=== PATIENT | female | born 1940 | race Caucasian/White ===

== ENCOUNTER 2017-04-13 18:40 | Inpatient (IN) ==
--- NOTE | 2017-04-13 18:54 | Emergency Department Note ---
Disposition Clinical Impression: Influenza A, Elevated troponin COPD (chronic obstructive pulmonary disease) Qualifiers: COPD type: COPD with acute exacerbation Qualified Code(s): J44.1 - Chronic obstructive pulmonary disease with (acute) exacerbation Disposition: Admitted As Inpatient Condition: Fair General Adult HPI - General Chief complaint: ED Weakness Stated complaint: lethargic and fall Time Seen by Provider: 04/13/17 18:48 Source: patient Mode of arrival: EMS Limitations: no limitations Nursing Notes Reviewed: Yes Vital Signs Reviewed: Yes - History of Present Illness HPI Narrative: Patient has had a cough and wheezing with whitish sputum for several days for this fellow week but today is the worst so she came to emergency department for evaluation Onset (ago): day(s) (several days to a week) Location: chest Pain Scale: 0 Consistency: constant Improves with: nothing Worsens with: nothing Associated symptoms: Reports: cough, shortness of breath, weakness - Related Data Home Medications Medication Instructions Recorded Confirmed Calcitriol [Rocaltrol] 0.25 mcg PO MOWEFR 06/24/15 04/13/17 Carbidopa/Levodopa 25/100 [Sinemet 1 tab PO TID 06/24/15 04/13/17 25/100] Cholecalciferol (Vitamin D3) 5,000 unit PO DAILY 06/24/15 04/13/17 [Vitamin D3] Clopidogrel Bisulfate [Plavix] 75 mg PO DAILY 06/24/15 04/13/17 Fluticasone Propionate Nasal 2 spray NS HS 06/24/15 02/05/17 [Flonase] Furosemide [Lasix] 40 mg PO BID 06/24/15 04/13/17 Gabapentin [Neurontin] 800 mg PO QID 06/24/15 04/13/17 HYDROcodone/Acet 5/325 mg [[place] 1 tab PO TID 06/24/15 02/05/17 5-325 mg] Insulin ASPART [Novolog Flexpen] 12 unit SQ TID 06/24/15 02/05/17 Insulin DETEMIR [Levemir Flextouch] 80 unit SQ QAM 06/24/15 02/05/17 Leflunomide [Arava] 10 mg PO QPM 06/24/15 04/13/17 Levothyroxine Sodium [Tirosint] 88 mcg PO DAILY 06/24/15 04/13/17 Magnesium l-Lactate [Mag-Tab Sr] 84 mg PO QPM 06/24/15 04/13/17 Potassium Chloride [K-Tab ER] 20 meq PO TID 06/24/15 04/13/17 Rivaroxaban [Xarelto] 15 mg PO QPM 06/24/15 04/13/17 Tiotropium [Spiriva] 1 cap PO DAILY 06/24/15 02/05/17 Ustekinumab [Stelara (For 90 mg SQ [id number] 06/24/15 02/05/17 Outpatient Infusion)] Vitamin B Complex [B Complex] 1 tab PO QPM 06/24/15 04/13/17 Fluticasone/Salmeterol [Advair 1 puff IH BID 07/20/15 02/05/17 250-50 Diskus] Inulin/Chromium Picolinate [Fiber 500 mg PO DAILY #0 07/20/15 02/05/17 Gummies] Levalbuterol [Xopenex INH] 2 puff PO Q6H 07/20/15 02/05/17 Pantoprazole Sodium [Protonix] 40 mg PO DAILY 05/29/16 04/13/17 hydrOXYzine pamoate [Hydroxyzine 25 mg PO Q8H PRN 05/29/16 02/05/17 Pamoate] Atorvastatin [Lipitor] 40 mg PO HS 09/03/16 04/13/17 Metoprolol [Lopressor] 25 mg PO BID 09/03/16 04/13/17 Tizanidine HCl 4 mg PO TID PRN 09/03/16 02/05/17 Previous Rx's Medication Instructions Recorded HYDROcodone/Acet 5/325 mg [[place] 1 tab PO Q6H PRN #15 tab 02/05/17 5-325 mg] Allergies Allergy/AdvReac Type Severity Reaction Status Date / Time amlodipine [From Norvasc] Allergy Severe Swelling Verified 02/05/17 10:22 of Lip/Tongue/Throat carbamazepine [From Tegretol] Allergy Mild rash/bliste Verified 02/05/17 10:22 rs ciprofloxacin [From Cipro] Allergy Mild Rash Verified 02/05/17 10:22 nitrofurantoin Allergy Mild Rash Verified 02/05/17 10:22 [From Macrobid] Sulfa (Sulfonamide Allergy Mild Rash Verified 02/05/17 10:22 Antibiotics) sulfamethoxazole Allergy Mild Rash Verified 02/05/17 10:22 [From Bactrim] trimethoprim [From Bactrim] Allergy Mild Rash Verified 02/05/17 10:22 acetaminophen [From Percocet] AdvReac Mild Confusion Verified 02/05/17 10:22 meperidine [From Demerol] AdvReac Mild Vomiting Verified 02/05/17 10:22 Oxycodone [From Percocet] AdvReac Mild Confusion Verified 02/05/17 10:22 promethazine [From Phenergan] AdvReac Mild Vomiting Verified 02/05/17 10:22 NSAIDS (Non-Steroidal AdvReac Unknown D/T KIDNEY Verified 02/05/17 10:22 Anti-Inflamma DYSFUNCTION All systems ED: reviewed and negative except as stated. Review of Systems: As Per HPI Constitutional: Denies: fever, chills, weakness, weight change Eyes: Denies: eye pain, eye discharge, vision change ENT ED: Denies: ear pain, throat pain, dental pain, hearing loss, epistaxis, congestion, dysphagia Cardiovascular: Denies: chest pain, palpitations, dyspnea on exertion, edema, syncope Respiratory: Reports: as per HPI, cough, wheezes Gastrointestinal: Denies: abdominal pain, nausea, vomiting, diarrhea, constipation, hematemesis, melena, hematochezia Genitourinary: Denies: dysuria, frequency, hematuria, discharge Musculoskeletal: Denies: back pain, neck pain, arthralgia, myalgia Integumentary: Denies: rash, abrasion, lesions Neurological: Denies: headache, weakness, numbness, paresthesias, confusion, abnormal gait, vertigo Psychiatric: Denies: anxiety, depression, suicidal thoughts, homicidal thoughts , auditory hallucinations, visual hallucinations Endocrine: Denies: fatigue Hematological/Lymphatic: Denies: easy bleeding, easy bruising Allergic/Immunologic: Denies: facial swelling, urticaria Past Medical History - Past Medical History Attestation: Yes The following information was validated with the patient. Source: patient Medical history: Reports: atrial fibrillation, COPD, coronary artery disease, DVT, diabetes, GERD, hyperlipidemia, hypertension, TIA Surgical history: Reports: angioplasty/stent, cholecystectomy, hysterectomy, other Psychiatric history: Reports: depression - Social History Smoking Status: Never smoker Smokeless Tobacco Status: No Alcohol use: Reports: none Drug use: Reports: none Physical Exam - General Limitations: no limitations General appearance: alert - Head Head exam: atraumatic, normocephalic, normal inspection - Eye Eye exam: Present: normal appearance, PERRL, EOMI - ENT ENT exam: normal exam, normal oropharynx, mucous membranes moist - Neck Neck exam: Present: normal inspection, full ROM, trachea midline - Chest Chest inspection: Present: normal inspection, symmetric chest wall rise - Respiratory Respiratory exam: Present: wheezes (scattered basilar expiratory) - Cardiovascular Cardiovascular exam: Present: regular rate, normal rhythm, normal heart sounds - Abdominal Exam Abdominal exam: Present: soft, Non-Tender - Extremities Exam Extremities exam: Present: normal inspection - Neurological Exam Neurological exam: Present: alert, oriented X3 - Psychiatric Psychiatric exam: Present: normal affect, normal mood - Skin Skin exam: Present: warm, dry, intact Course Course Narrative: Patient signed out to me by outgoing physician, Dr. holguin. Patient presented to the ED with worsening cough, congestion and wheezing over the past few days. She does have a history of COPD and was given steroids and breathing treatment in the ED. Laboratory studies were obtained as well including a flu swab. Patient tested positive for influenza A. She also has a mildly elevated troponin of 0.05 which may be due to additional stress from her COPD and her influenza. She does not have any current cardiac complaints but does have history of CAD and A. fib. Due to the elevated troponin patient may benefit from brief observation and continued monitoring as she is at risk for complications of the influenza A. She has been started on Tamiflu in the ED. Discussed with patient her test results and recommendation for admission and she is in agreement. Will contact the hospitalist on-call. - Reevaluation(s) Reevaluation #1: Spoke to the hospitalist on-call, Dr. Feldman, who has agreed to accept the patient. Time: 21:15 Vital Signs O2 Sat by Pulse Oximetry 98 04/13/17 18:44 Temperature 99.9 F H 04/13/17 22:37 Pulse Rate 90 04/13/17 22:37 Respiratory Rate 18 04/13/17 22:37 Blood Pressure 120/57 04/13/17 22:37 O2 Sat by Pulse Oximetry 94 04/13/17 23:36 Oxygen Delivery Oxygen Delivery Nasal Cannula Medical Decision Making - Lab Data Result diagrams: 04/13/17 19:12 04/13/17 19:12 Lab Results 04/13/17 04/13/17 04/13/17 Range/Units 19:12 19:12 19:12 WBC 8.4 (4.3-11.1) K/mcL RBC 3.37 L (3.82-4.97) M/mcL Hgb 10.6 L (11.5-15.4) g/dL Hct 33.1 L (35.3-44.9) % MCV 98.2 (83.0-100.0) fL MCH 31.5 (28.0-33.3) pg MCHC 32.0 (31.6-35.5) g/dL RDW 13.8 (11.5-14.5) % Plt Count 167 (140-400) K/mcL MPV 12.6 H (9.4-12.4) fL Immature Gran % 0.8 (0-4) % Seg Neutrophils % 77.4 % Lymphocytes % 7.2 % Monocytes % 12.9 % Eosinophils % 0.4 % Basophils % 1.3 % Neutrophils # 6.5 (1.6-8.9) K/mcL Lymphocytes # 0.6 (0.6-4.6) K/mcL Monocytes # 1.1 (0.0-1.3) K/mcL Eosinophils # 0.0 (0.0-0.6) K/mcL Basophils # 0.1 (0.0-0.2) K/mcL Sodium 140 (136-145) mEq/L Potassium 4.6 (3.5-5.1) mEq/L Chloride 101 (98-107) mEq/L Carbon Dioxide 34 H (23-29) mEq/L BUN 15 (8-23) mg/dL Creatinine 0.98 (0.60-1.20) mg/dL Est GFR ( Amer) > 60 (> 60) Est GFR (Non-Af Amer) 55 L (> 60) BUN/Creatinine Ratio 15 (6-26) Glucose 107 H (70-105) mg/dL Calculated Osmolality 291 (280-300) Calcium 8.8 (8.6-10.3) mg/dL Total Bilirubin 0.2 L (0.3-1.0) mg/dL AST 39 (13-39) Units/L ALT 10 (7-52) Units/L Alkaline Phosphatase 123 H (34-104) Units/L Troponin I 0.05 H* (< 0.04) ng/mL Serum Total Protein 6.7 (6.4-8.9) g/dL Albumin 3.7 (3.5-5.7) g/dL Globulin 3.0 (2.4-3.5) g/dL Albumin/Globulin Ratio 1.2 (1.1-2.2) Urine Color (Yellow) Urine Clarity (Clear) Urine pH (5.0-8.0) pH Units Ur Specific [place] (1.010-1.025) Urine Protein (Neg-Trace) mg/dL Urine Glucose (UA) (Normal) mg/dL Urine Ketones (Negative) mg/dL Urine Blood (Negative) Urine Nitrite (Negative) Urine Bilirubin (Negative) Urine Urobilinogen (Normal) mg/dL Ur Leukocyte Esterase (Negative) Urine Microscopic RBC (0-3) per hpf Urine Microscopic WBC (0-3) per hpf Ur Squamous Epith Cells (None-Few) per lpf Urine Bacteria (None-Few) per hpf Hyaline Casts (None-Few) per lpf Ur Culture Indicated? (NO) 04/13/17 Range/Units 20:27 WBC (4.3-11.1) K/mcL RBC (3.82-4.97) M/mcL Hgb (11.5-15.4) g/dL Hct (35.3-44.9) % MCV (83.0-100.0) fL MCH (28.0-33.3) pg MCHC (31.6-35.5) g/dL RDW (11.5-14.5) % Plt Count (140-400) K/mcL MPV (9.4-12.4) fL Immature Gran % (0-4) % Seg Neutrophils % % Lymphocytes % % Monocytes % % Eosinophils % % Basophils % % Neutrophils # (1.6-8.9) K/mcL Lymphocytes # (0.6-4.6) K/mcL Monocytes # (0.0-1.3) K/mcL Eosinophils # (0.0-0.6) K/mcL Basophils # (0.0-0.2) K/mcL Sodium (136-145) mEq/L Potassium (3.5-5.1) mEq/L Chloride (98-107) mEq/L Carbon Dioxide (23-29) mEq/L BUN (8-23) mg/dL Creatinine (0.60-1.20) mg/dL Est GFR ( Amer) (> 60) Est GFR (Non-Af Amer) (> 60) BUN/Creatinine Ratio (6-26) Glucose (70-105) mg/dL Calculated Osmolality (280-300) Calcium (8.6-10.3) mg/dL Total Bilirubin (0.3-1.0) mg/dL AST (13-39) Units/L ALT (7-52) Units/L Alkaline Phosphatase (34-104) Units/L Troponin I (< 0.04) ng/mL Serum Total Protein (6.4-8.9) g/dL Albumin (3.5-5.7) g/dL Globulin (2.4-3.5) g/dL Albumin/Globulin Ratio (1.1-2.2) Urine Color Yellow (Yellow) Urine Clarity Slightly Cloudy A (Clear) Urine pH 7.5 (5.0-8.0) pH Units Ur Specific [place] 1.015 (1.010-1.025) Urine Protein 100 H (Neg-Trace) mg/dL Urine Glucose (UA) Normal (Normal) mg/dL Urine Ketones Negative (Negative) mg/dL Urine Blood Trace-intact H (Negative) Urine Nitrite Negative (Negative) Urine Bilirubin Negative (Negative) Urine Urobilinogen Normal (Normal) mg/dL Ur Leukocyte Esterase Small H (Negative) Urine Microscopic RBC 3-5 H (0-3) per hpf Urine Microscopic WBC 3-5 H (0-3) per hpf Ur Squamous Epith Cells Many H (None-Few) per lpf Urine Bacteria Moderate H (None-Few) per hpf Hyaline Casts Few (None-Few) per lpf Ur Culture Indicated? NO. (NO) - EKG Data EKG #1 EKG attestation: Yes I reviewed and interpreted this EKG. EKG results narrative: EKG shows atrial fibrillation with a controlled rate of 86 bpm QRS duration 69 ms QT interval 319 ms QTc interval of 362 ms R axis LXXV degrees there is no acute ST or T-wave changes per my reading
[2017-04-13] MEDS ORDERED: methylPREDNISolone 125 MG/2 ML VIAL IVP ONE (19:09)
[2017-04-13] MEDS ORDERED: Ipratropium/Albuterol Neb 3 ML IH ONE (19:09)
[2017-04-13 19:23] LABS: Basophils # 0.1 K/mcL (0.0-0.2); Basophils % 1.3 %; Eosinophils % 0.4 %; Hematocrit 33.1 % (35.3-44.9); Hemoglobin 10.6 g/dL (11.5-15.4); Immature Granulocytes % 0.8 % (0-4); Lymphocytes # 0.6 K/mcL (0.6-4.6); Lymphocytes % 7.2 %; Mean Corpuscular Hemoglobin 31.5 pg (28.0-33.3); Mean Corpuscular Volume 98.2 fL (83.0-100.0); Mean Platelet Volume 12.6 fL (9.4-12.4); Monocytes # 1.1 K/mcL (0.0-1.3); Monocytes % 12.9 %; Neutrophils # 6.5 K/mcL (1.6-8.9); Platelet Count 167 K/mcL (140-400); Red Blood Count 3.37 M/mcL (3.82-4.97); Red Cell Distribution Width 13.8 % (11.5-14.5); Segmented Neutrophils % 77.4 %
[2017-04-13 19:34] LABS: Alanine Aminotransferase 10 Units/L (7-52); Albumin 3.7 g/dL (3.5-5.7); Albumin/Globulin Ratio 1.2 (1.1-2.2); Alkaline Phosphatase 123 Units/L (34-104); Aspartate Amino Transferase 39 Units/L (13-39); BUN/Creatinine Ratio 15 (6-26); Bilirubin,Total 0.2 mg/dL (0.3-1.0); Blood Urea Nitrogen 15 mg/dL (8-23); Calcium 8.8 mg/dL (8.6-10.3); Carbon Dioxide 34 mEq/L (23-29); Chloride 101 mEq/L (98-107); Glucose 107 mg/dL (70-105); Osmolality,Calculated 291 (280-300); Potassium 4.6 mEq/L (3.5-5.1); Sodium 140 mEq/L (136-145); Total Protein 6.7 g/dL (6.4-8.9); eGFR For Non-African Americans 55 (> 60)
[2017-04-13 20:27] LABS: Bilirubin,Urine Negative (Negative); Blood,Urine Trace-intact (Negative); Clarity,Urine Slightly Cloudy (Clear); Color,Urine Yellow (Yellow); Glucose,Urine (UA) Normal (Normal); Ketones,Urine Negative (Negative); Leukocyte Esterase,Urine Small (Negative); Nitrite,Urine Negative (Negative); PH,Urine 7.5 pH Units (5.0-8.0); Protein,Urine 100 mg/dL (Neg-Trace); Specific Gravity,Urine 1.015 (1.010-1.025); Urobilinogen,Urine Normal (Normal)
[2017-04-13 20:47] LABS: Hyaline Casts,Urine Few per lpf (None-Few); Squamous Epithelial Cell,Urine Many per lpf (None-Few)
[2017-04-13 20:48] LABS: Bacteria,Urine Moderate per hpf (None-Few)
[2017-04-13] MEDS ORDERED: Naloxone 0.4 MG/ML INJ IVP PRN ×2 (21:18→22:03)
[2017-04-13] MEDS ORDERED: Ipratropium/Albuterol Neb 3 ML IH SCH (22:00)
[2017-04-13] MEDS ORDERED: D5% in Water 1,000 ML IVC PRN (22:03)
[2017-04-13] MEDS ORDERED: Ondansetron 4 MG/2 ML VIAL IVP ONE (22:03)
[2017-04-13] MEDS ORDERED: *HR* Dextrose 50 % in Water (Syg) 50 ML SYRINGE IVP PRN (22:03)
[2017-04-13] MEDS ORDERED: Dextrose Gel 15 GM/37.5 ML TUBE PO PRN ×2 (22:03)
[2017-04-14] MEDS: Ipratropium/Albuterol Neb 3 ML IH SCH ×6 (00:34→19:59)
[2017-04-14] MEDS: Acetaminophen 325 MG TABLET PO PRN ×2 (00:40→20:14)
[2017-04-14] MEDS: Furosemide 40 MG TABLET PO SCH ×2 (08:21→16:34)
[2017-04-14] MEDS: Gabapentin 400 MG CAPSULE PO SCH ×4 (08:22→20:13)
[2017-04-14] MEDS: Cholecalciferol (D-3) 1,000 UNIT TABLET PO SCH (08:22)
[2017-04-14] MEDS: Carbidopa/Levodopa 25/100 TABLET PO SCH ×3 (08:22→20:14)
[2017-04-14] MEDS: Insulin LISPRO 300 UNITS/3 ML VIAL SQ SCH ×3 (08:25→16:35)
[2017-04-14] MEDS ORDERED: INSULIN DETEMIR 80 UNIT SQ SCH (09:00)
[2017-04-14] MEDS: Insulin DETEMIR 100 UNIT/ML X5UNITS SQ SCH (09:39)
--- NOTE | 2017-04-14 11:59 | Internal Med History&Physical ---
Date of Encounter: 04/14/17 Time of Encounter: 11:25 Assessment and Plan (1) Influenza A Current visit: Yes Status: Acute She has been started on Tamiflu. (2) Anemia Current visit: Yes Status: Acute We will order anemia testing in a.m. Qualifiers: Anemia type: unspecified type Qualified Code(s): D64.9 - Anemia, unspecified (3) Atrial fibrillation Current visit: Yes Status: Chronic Continue Xarelto Qualifiers: Atrial fibrillation type: chronic Qualified Code(s): I48.2 - Chronic atrial fibrillation (4) COPD (chronic obstructive pulmonary disease) Current visit: Yes Status: Chronic Continue DuoNeb. Will add Robitussin. Qualifiers: COPD type: COPD with acute exacerbation Qualified Code(s): J44.1 - Chronic obstructive pulmonary disease with (acute) exacerbation (5) Essential hypertension Current visit: No Status: Chronic Continue Lopressor (6) Elevated troponin Current visit: Yes Status: Acute Suspect troponin leak from demand ischemia. Internal Medicine - H&P: HPI Chief complaint: Dyspnea and cough Admitted From: Emergency Dept Plans for Post Hospital Care: Home History of present illness: Ms. Whitmore is a 76 year old female who came to emergency room complaining of increasing dyspnea over the past week with worsening in the past 3 days. She had a cough with minimal productivity. She was evaluated emergency room and found to have influenza a pH was admitted to [facility] floor for ongoing care needs. Her respiratory history is significant for having smoked from age [age] up to 2- 1/2 packs per day. She has a diagnosis of COPD with PFTs 08/30/2015 showing FEV1/FVC of 66%. There was no improvement in FEV1 postbronchodilator. FVC was 67% predicted. MVV was 42% predicted. DLCO was 56% predicted. She wears oxygen 24/7. Past Med Surg Social Fam HX - Past Medical History Medical history: atrial fibrillation, COPD, coronary artery disease, DVT, diabetes, GERD, hyperlipidemia, hypertension, TIA Psychiatric history: depression - Past Surgical History Surgical History: angioplasty/stent, cholecystectomy, hysterectomy, other - Social History Smoking Status: Never smoker Smokeless Tobacco Status: No Alcohol use: none Drug use: none - Family History Mother Adopted: No Living Status: Hx Family Cardiac Disorders: Yes Hx Family Respiratory Disorders: Yes (COPD) Hx Family Cancer: Yes (lung, breast) Hx Family GI Disorders: No Hx Family Endocrine Disorder: No Hx Family Neuromuscular Disorders: No Hx Family Neurologic Disorders: No Hx Family HEENT Disorders: No Hx Family Autoimmune Disorders: Yes (non hygkins lymphoma) Internal Medicine - H&P: Meds Calcitriol [Rocaltrol] 0.25 mcg PO MOWEFR 06/24/15 [History] Carbidopa/Levodopa 25/100 [Sinemet 25/100] 1 tab PO TID 06/24/15 [History] Cholecalciferol (Vitamin D3) [Vitamin D3] 5,000 unit PO DAILY 06/24/15 [History] Clopidogrel Bisulfate [Plavix] 75 mg PO DAILY 06/24/15 [History] Fluticasone Propionate Nasal [Flonase] 2 spray NS HS 06/24/15 [History] Furosemide [Lasix] 40 mg PO BID 06/24/15 [History] Gabapentin [Neurontin] 800 mg PO QID 06/24/15 [History] HYDROcodone/Acet 5/325 mg [[place] 5-325 mg] 1 tab PO TID 06/24/15 [History] Insulin ASPART [Novolog Flexpen] 12 unit SQ TID 06/24/15 [History] Insulin DETEMIR [Levemir Flextouch] 80 unit SQ QAM 06/24/15 [History] Leflunomide [Arava] 10 mg PO QPM 06/24/15 [History] Levothyroxine Sodium [Tirosint] 88 mcg PO DAILY 06/24/15 [History] Magnesium l-Lactate [Mag-Tab Sr] 84 mg PO QPM 06/24/15 [History] Potassium Chloride [K-Tab ER] 20 meq PO TID 06/24/15 [History] Rivaroxaban [Xarelto] 15 mg PO QPM 06/24/15 [History] Tiotropium [Spiriva] 1 cap PO DAILY 06/24/15 [History] Ustekinumab [Stelara (For Outpatient Infusion)] 90 mg SQ [id number] 06/24/15 [ History] Vitamin B Complex [B Complex] 1 tab PO QPM 06/24/15 [History] Fluticasone/Salmeterol [Advair 250-50 Diskus] 1 puff IH BID 07/20/15 [History] Inulin/Chromium Picolinate [Fiber Gummies] 500 mg PO DAILY #0 07/20/15 [History] Levalbuterol [Xopenex INH] 2 puff PO Q6H 07/20/15 [History] Pantoprazole Sodium [Protonix] 40 mg PO DAILY 05/29/16 [History] hydrOXYzine pamoate [Hydroxyzine Pamoate] 25 mg PO Q8H PRN 05/29/16 [History] Atorvastatin [Lipitor] 40 mg PO HS 09/03/16 [History] Metoprolol [Lopressor] 25 mg PO BID 09/03/16 [History] Tizanidine HCl 4 mg PO TID PRN 09/03/16 [History] HYDROcodone/Acet 5/325 mg [[place] 5-325 mg] 1 tab PO Q6H PRN #15 tab 02/05/17 [Rx ] 3 Allergy/AdvReac Type Severity Reaction Status Date / Time amlodipine [From Norvasc] Allergy Severe Swelling Verified 02/05/17 10:22 of Lip/Tongue/Throat carbamazepine [From Tegretol] Allergy Mild rash/bliste Verified 02/05/17 10:22 rs ciprofloxacin [From Cipro] Allergy Mild Rash Verified 02/05/17 10:22 nitrofurantoin Allergy Mild Rash Verified 02/05/17 10:22 [From Macrobid] Sulfa (Sulfonamide Allergy Mild Rash Verified 02/05/17 10:22 Antibiotics) sulfamethoxazole Allergy Mild Rash Verified 02/05/17 10:22 [From Bactrim] trimethoprim [From Bactrim] Allergy Mild Rash Verified 02/05/17 10:22 acetaminophen [From Percocet] AdvReac Mild Confusion Verified 02/05/17 10:22 meperidine [From Demerol] AdvReac Mild Vomiting Verified 02/05/17 10:22 Oxycodone [From Percocet] AdvReac Mild Confusion Verified 02/05/17 10:22 promethazine [From Phenergan] AdvReac Mild Vomiting Verified 02/05/17 10:22 NSAIDS (Non-Steroidal AdvReac Unknown D/T KIDNEY Verified 02/05/17 10:22 Anti-Inflamma DYSFUNCTION All Systems PM: A 10-system review of systems was performed and is negative for pertinent findings except as documented above in the HPI. Review of systems: Gen.: She states her weight has been stable the past few months. Cardiovascular: She has history of hypertension. She has known ASHD with a single stent placed approximately 2013. Heart catheter 07/20/2015 showed LVEF 60%. There was 20% stenosis in LMCA, proximal LAD with stent, 20% stenosis in proximal and mid LAD, 30% stenosis in proximal circumflex, 30% stenosis in first marginal, 30% stenosis in proximal and distal RCA and 40% stenosis in mid RCA, and 30% stenosis in right PDA. She reports history of atrial fibrillation. She states she had a left DVT in the past. Respiratory: As per history of present illness GI: She has had cholecystectomy. She denies disorders of her liver or exocrine pancreas : She has chronic kidney disease stage III and follows with a [place] manager occupational. She denies other kidney or bladder disorders Neurologic: She has Parkinson's disease. She denies large distribution strokes or seizures. Endocrine: She was diagnosed with DM 2 in 1998. Hemoglobin A1c was 6.3% on 06/2016. She has hypothyroidism and hyperlipidemia. Hematology/oncology: She has anemia. Iron studies done 12/10/2016 showed iron 43, transferrin saturation 15%, transferrin 211, and ferritin 110. She denies internal malignancies Psychiatric: She has anxiety and depression. Muscle skeletal: She has gout and DJD. Dermatologic: She has psoriasis of her scalp. - Constitutional Vitals: Temp Pulse Resp BP Pulse Ox 98.9 F 75 22 141/76 96 04/14/17 11:14 04/14/17 11:14 04/14/17 11:30 04/14/17 11:14 04/14/17 11:30 Exam: Gen.: She is well-developed well-nourished female lying in bed and appears dyspneic. HEENT: Head is atraumatic and normocephalic. Eyes: EOMI. There is no scleral icterus. Mouth: Mucosa is moist. Neck: Supple and nontender. There is no thyromegaly or adenopathy noted. Heart: Irregularly irregular without murmurs or gallops. Lungs: She has few scattered rhonchi. She has diminished breath sounds diffusely. Abdomen: Soft and nontender. No masses or guarding are noted. Extremities: There is no cyanosis edema or clubbing noted. Dorsalis pedis and posttibial pulses are trace palpable bilaterally. She has chronic venous stasis pigmentation changes of her lower legs bilaterally. Neurologic: Mental status: She is talkative and a good historian. Cranial nerves: Smile is symmetric. Forehead wrinkles bilaterally. Tongue protrudes midline. EOMI. Motor: She has parkinsonian tremor at rest. There is no pronator drift. Cerebellar: Finger to nose is intact bilaterally. Skin: Warm and dry Internal Med - H&P Results - Labs CBC & Chem 7: 04/13/17 19:12 04/13/17 19:12 Labs: Cardiac Enzymes 04/14/17 Range/Units 03:45 Troponin I 0.05 H* (< 0.04) ng/mL - VTE Reasons for not Prescribing Prophylaxis: Not indicated-Anticoagulated or INR therapeutic
[2017-04-14] MEDS: traMADol 50 MG TABLET PO PRN (16:35)
[2017-04-14] MEDS: Patient Taking Own Medication 1 EACH PO SCH ×2 (18:27→18:28)
[2017-04-14] MEDS: Vitamin B Complex/Vit C/Vit E 1 EACH TABLET PO SCH (18:29)
[2017-04-14] MEDS: *HR* Rivaroxaban 15 MG TABLET PO SCH (18:29)
--- NOTE | 2017-04-14 18:31 | Electrocardiograph Report ---
[address] [address] Test Date: 2017-04-13 Pat Name: Alejandra Whitmore Department: [id number] Room: [facility] Gender: F [employer] Rec[employer]iter: [id number] : 1940 Requested By: Venkat Call Order Number: [id number] Reading MD: Soraida López Measurements Intervals [place] Rate: 86 P: PA: 0 QRS: 75 QRSD: 69 T: 39 QT: 319 QTc: 362 Interpretive Statements ATRIAL FIBRILLATION LOW QRS VOLTAGE IN PRECORDIAL LEADS [QRS DEFLECTION < 1.0 mV IN CHEST LEADS] ABNORMAL RHYTHM ECG Electronically Signed On 04-14-2017 18:29:45 EST by Soraida López
[2017-04-15] MEDS: Ipratropium/Albuterol Neb 3 ML IH SCH ×6 (00:16→20:44)
[2017-04-15] MEDS: traMADol 50 MG TABLET PO PRN ×2 (05:24→09:37)
[2017-04-15 06:09] LABS: Basophils # 0.1 K/mcL (0.0-0.2); Basophils % 0.8 %; Eosinophils # 0.1 K/mcL (0.0-0.6); Eosinophils % 0.4 %; Hematocrit 33.8 % (35.3-44.9); Hemoglobin 10.3 g/dL (11.5-15.4); Immature Granulocytes % 0.6 % (0-4); Lymphocytes # 1.2 K/mcL (0.6-4.6); Lymphocytes % 7.6 %; Mean Corpuscular HGB Conc 30.5 g/dL (31.6-35.5); Mean Corpuscular Hemoglobin 31.5 pg (28.0-33.3); Mean Corpuscular Volume 103.4 fL (83.0-100.0); Mean Platelet Volume 12.7 fL (9.4-12.4); Monocytes # 1.3 K/mcL (0.0-1.3); Monocytes % 8.6 %; Platelet Count 170 K/mcL (140-400); Red Blood Count 3.27 M/mcL (3.82-4.97); Red Cell Distribution Width 14.3 % (11.5-14.5)
[2017-04-15 06:40] LABS: Neutrophils # 12.6 K/mcL (1.6-8.9)
[2017-04-15] MEDS: Insulin LISPRO 300 UNITS/3 ML VIAL SQ SCH ×3 (09:25→17:03)
[2017-04-15] MEDS: Insulin DETEMIR 100 UNIT/ML X5UNITS SQ SCH (09:25)
[2017-04-15] MEDS: Gabapentin 400 MG CAPSULE PO SCH ×4 (09:26→21:53)
[2017-04-15] MEDS: Carbidopa/Levodopa 25/100 TABLET PO SCH ×3 (09:26→21:54)
[2017-04-15] MEDS: Cholecalciferol (D-3) 1,000 UNIT TABLET PO SCH (09:26)
[2017-04-15] MEDS: Furosemide 40 MG TABLET PO SCH ×2 (09:26→17:04)
[2017-04-15] MEDS: Acetaminophen 325 MG TABLET PO PRN ×2 (09:37→21:53)
--- NOTE | 2017-04-15 09:44 | Internal Med Progress Note ---
Date of Encounter: 04/15/17 Time of Encounter: 10:36 - Assessment and plan (1) Influenza A Current Visit: Yes Status: Acute Assessment and plan: April 15. Continue Tamiflu (2) Anemia Current Visit: Yes Status: Acute Assessment and plan: April 15. Anemia testing pending Qualifiers: Anemia type: unspecified type Qualified Code(s): D64.9 - Anemia, unspecified (3) Atrial fibrillation Current Visit: Yes Status: Chronic Assessment and plan: April 15. Continue Xarelto Qualifiers: Atrial fibrillation type: chronic Qualified Code(s): I48.2 - Chronic atrial fibrillation (4) COPD (chronic obstructive pulmonary disease) Current Visit: Yes Status: Chronic Assessment and plan: April 15. Continue DuoNeb and Robitussin Qualifiers: COPD type: COPD with acute exacerbation Qualified Code(s): J44.1 - Chronic obstructive pulmonary disease with (acute) exacerbation (5) Essential hypertension Current Visit: No Status: Chronic Assessment and plan: April 15. Continue Lopressor (6) Elevated troponin Current Visit: Yes Status: Acute Assessment and plan: April 15. Observe - Subjective Interval history: April 15. She has no new complaints. - Constitutional Vitals: Temp Pulse Resp BP Pulse Ox 101.2 F H 98 18 150/78 94 04/15/17 06:40 04/15/17 06:40 04/15/17 07:41 04/15/17 06:40 04/15/17 07:41 Exam: She is sitting in a chair at bedside wearing oxygen by nasal cannula. She appears in no acute distress. Her affect is overall cheerful. Parkinsonian tremor is unchanged. I reviewed her medications and lab results. Internal Medicine: Result - Labs CBC & Chem 7: 04/15/17 04:00 04/13/17 19:12 Labs: Short CBC 04/15/17 Range/Units 04:00 WBC 15.3 H D (4.3-11.1) K/mcL Hgb 10.3 L (11.5-15.4) g/dL Hct 33.8 L (35.3-44.9) % Plt Count 170 (140-400) K/mcL Neutrophils # 12.6 H (1.6-8.9) K/mcL - VTE Reasons for not Prescribing Prophylaxis: Not indicated-Anticoagulated or INR therapeutic Consult Discharge Plan - Plan Referrals: Otf Rivera MD [Primary Care Provider] - 1 week
[2017-04-15 09:53] LABS: Vitamin B12 266 pg/mL (250-1100)
[2017-04-15 09:57] LABS: Folate > 22.3 ng/mL (3.0-16.0)
[2017-04-15] MEDS: Patient Taking Own Medication 1 EACH PO SCH ×2 (16:30→16:31)
[2017-04-15] MEDS: Vitamin B Complex/Vit C/Vit E 1 EACH TABLET PO SCH (17:08)
[2017-04-15] MEDS: *HR* Rivaroxaban 15 MG TABLET PO SCH (17:09)
[2017-04-16] MEDS: Ipratropium/Albuterol Neb 3 ML IH SCH ×3 (00:49→08:41)
[2017-04-16] MEDS: traMADol 50 MG TABLET PO PRN ×2 (05:14→09:25)
[2017-04-16 05:58] LABS: Basophils # 0.1 K/mcL (0.0-0.2); Basophils % 0.7 %; Eosinophils # 0.1 K/mcL (0.0-0.6); Eosinophils % 0.9 %; Hematocrit 32.8 % (35.3-44.9); Hemoglobin 10.3 g/dL (11.5-15.4); Immature Granulocytes % 0.7 % (0-4); Lymphocytes # 2.1 K/mcL (0.6-4.6); Lymphocytes % 17.6 %; Mean Corpuscular HGB Conc 31.4 g/dL (31.6-35.5); Mean Corpuscular Hemoglobin 30.8 pg (28.0-33.3); Mean Corpuscular Volume 98.2 fL (83.0-100.0); Mean Platelet Volume 12.4 fL (9.4-12.4); Monocytes # 1.3 K/mcL (0.0-1.3); Monocytes % 10.4 %; Neutrophils # 8.4 K/mcL (1.6-8.9); Platelet Count 154 K/mcL (140-400); Red Blood Count 3.34 M/mcL (3.82-4.97); Red Cell Distribution Width 13.8 % (11.5-14.5); Segmented Neutrophils % 69.7 %
[2017-04-16 06:19] LABS: BUN/Creatinine Ratio 25 (6-26); Blood Urea Nitrogen 18 mg/dL (8-23); Calcium 8.2 mg/dL (8.6-10.3); Carbon Dioxide 31 mEq/L (23-29); Chloride 99 mEq/L (98-107); Glucose 41 mg/dL (70-105); Osmolality,Calculated 287 (280-300); Potassium 3.1 mEq/L (3.5-5.1); Sodium 139 mEq/L (136-145); eGFR For Non-African Americans > 60 (> 60)
[2017-04-16 07:36] VITALS: BP 145/56
[2017-04-16] MEDS: Insulin LISPRO 300 UNITS/3 ML VIAL SQ SCH (07:55)
[2017-04-16] MEDS: Furosemide 40 MG TABLET PO SCH (09:20)
[2017-04-16] MEDS: Cholecalciferol (D-3) 1,000 UNIT TABLET PO SCH (09:20)
[2017-04-16] MEDS: Gabapentin 400 MG CAPSULE PO SCH (09:20)
[2017-04-16] MEDS: Carbidopa/Levodopa 25/100 TABLET PO SCH (09:20)
[2017-04-16] MEDS: Insulin DETEMIR 100 UNIT/ML X5UNITS SQ SCH (09:26)
--- NOTE | 2017-04-16 10:09 | Discharge Summary ---
Date of Encounter: 04/16/17 Time of Encounter: 10:00 - Discharge Diagnosis (1) Influenza A Priority: Primary Status: Acute (2) Anemia Priority: Secondary Status: Acute Qualifiers: Anemia type: unspecified type Qualified Code(s): D64.9 - Anemia, unspecified (3) Atrial fibrillation Priority: Secondary Status: Chronic Qualifiers: Atrial fibrillation type: chronic Qualified Code(s): I48.2 - Chronic atrial fibrillation (4) COPD (chronic obstructive pulmonary disease) Priority: Secondary Status: Chronic Qualifiers: COPD type: COPD with acute exacerbation Qualified Code(s): J44.1 - Chronic obstructive pulmonary disease with (acute) exacerbation (5) Essential hypertension Priority: Secondary Status: Chronic (6) Elevated troponin Priority: Secondary Status: Acute - Discharge Medications Prescriptions: Oseltamivir [Tamiflu] 75 mg PO BID #5 capsule Home Medications: Calcitriol [Rocaltrol] 0.25 mcg PO MOWEFR 06/24/15 [History] Carbidopa/Levodopa 25/100 [Sinemet 25/100] 1 tab PO TID 06/24/15 [History] Cholecalciferol (Vitamin D3) [Vitamin D3] 5,000 unit PO DAILY 06/24/15 [History] Clopidogrel Bisulfate [Plavix] 75 mg PO DAILY 06/24/15 [History] Fluticasone Propionate Nasal [Flonase] 2 spray NS HS 06/24/15 [History] Furosemide [Lasix] 40 mg PO BID 06/24/15 [History] Gabapentin [Neurontin] 800 mg PO QID 06/24/15 [History] HYDROcodone/Acet 5/325 mg [Dagmar 5-325 mg] 1 tab PO TID 06/24/15 [History] Insulin ASPART [Novolog Flexpen] 12 unit SQ TID 06/24/15 [History] Insulin DETEMIR [Levemir Flextouch] 80 unit SQ QAM 06/24/15 [History] Leflunomide [Arava] 10 mg PO QPM 06/24/15 [History] Levothyroxine Sodium [Tirosint] 88 mcg PO DAILY 06/24/15 [History] Magnesium l-Lactate [Mag-Tab Sr] 84 mg PO QPM 06/24/15 [History] Potassium Chloride [K-Tab ER] 20 meq PO TID 06/24/15 [History] Rivaroxaban [Xarelto] 15 mg PO QPM 06/24/15 [History] Tiotropium [Spiriva] 1 cap PO DAILY 06/24/15 [History] Ustekinumab [Stelara (For Outpatient Infusion)] 90 mg SQ [id number] 06/24/15 [ History] Vitamin B Complex [B Complex] 1 tab PO QPM 06/24/15 [History] Fluticasone/Salmeterol [Advair 250-50 Diskus] 1 puff IH BID 07/20/15 [History] Inulin/Chromium Picolinate [Fiber Gummies] 500 mg PO DAILY #0 07/20/15 [History] Levalbuterol [Xopenex INH] 2 puff PO Q6H 07/20/15 [History] Pantoprazole Sodium [Protonix] 40 mg PO DAILY 05/29/16 [History] hydrOXYzine pamoate [Hydroxyzine Pamoate] 25 mg PO Q8H PRN 05/29/16 [History] Atorvastatin [Lipitor] 40 mg PO HS 09/03/16 [History] Metoprolol [Lopressor] 25 mg PO BID 09/03/16 [History] Tizanidine HCl 4 mg PO TID PRN 09/03/16 [History] HYDROcodone/Acet 5/325 mg [Dagmar 5-325 mg] 1 tab PO Q6H PRN #15 tab 02/05/17 [Rx ] Oseltamivir [Tamiflu] 75 mg PO BID #5 capsule 04/16/17 [Rx] Allergies/Adverse Reactions: 3 Allergy/AdvReac Type Severity Reaction Status Date / Time amlodipine [From Norvasc] Allergy Severe Swelling Verified 02/05/17 10:22 of Lip/Tongue/Throat carbamazepine [From Tegretol] Allergy Mild rash/bliste Verified 02/05/17 10:22 rs ciprofloxacin [From Cipro] Allergy Mild Rash Verified 02/05/17 10:22 nitrofurantoin Allergy Mild Rash Verified 02/05/17 10:22 [From Macrobid] Sulfa (Sulfonamide Allergy Mild Rash Verified 02/05/17 10:22 Antibiotics) sulfamethoxazole Allergy Mild Rash Verified 02/05/17 10:22 [From Bactrim] trimethoprim [From Bactrim] Allergy Mild Rash Verified 02/05/17 10:22 acetaminophen [From Percocet] AdvReac Mild Confusion Verified 02/05/17 10:22 meperidine [From Demerol] AdvReac Mild Vomiting Verified 02/05/17 10:22 Oxycodone [From Percocet] AdvReac Mild Confusion Verified 02/05/17 10:22 promethazine [From Phenergan] AdvReac Mild Vomiting Verified 02/05/17 10:22 NSAIDS (Non-Steroidal AdvReac Unknown D/T KIDNEY Verified 02/05/17 10:22 Anti-Inflamma DYSFUNCTION Date of admission: 04/15/17 17:11 Primary care physician: Otf Rivera MD - Patient Status Disposition: Home, Self-Care Condition: Fair Overall status at discharge: patient is progressing back to baseline - Discharge Instructions Follow Up With: Otf Rivera MD [Primary Care Provider] - 1 week - Diet and Activity Activity: resume usual activities as tolerated, wear oxygen at all times Diet: advance to your usual diet Hospital course: Ms. Whitmore is a 76 year old female who came to emergency room complaining of increasing dyspnea over the past week with worsening in the past 3 days. She had a cough with minimal productivity. She was evaluated emergency room and found to have influenza a pH was admitted to [facility] floor for ongoing care needs. Initial orders were written by the emergency room physician. I saw the patient on April 14 and performed the history and physical. She was started on Tamiflu for influenza A. Her WBC kee to 15.3 on April 15 but had improved to 12.1 the day of discharge with resolution of the left shift. She had occasional low-grade fever spikes but felt improved on April 16 and was stable for discharge home. She will continue Tamiflu to complete a 5 day course. She will follow with her PCP Dr. Otf Rivera within 1 week. B12 and folate levels returned satisfactory at 266 and > 22.3 respectively. - Time Spent with Patient Total time spent providing and/or coordinating discharge services: - Constitutional Vitals: Temp Pulse Resp BP Pulse Ox 98.5 F 88 20 145/56 95 04/16/17 06:32 04/16/17 06:32 04/16/17 08:41 04/16/17 06:32 04/16/17 08:41 - VTE Reasons for not Prescribing Prophylaxis: Not indicated-Anticoagulated or INR therapeutic
== END 2017-04-16 11:54 | disposition home or self-care (01) | DRG 194 ==
LOC: INPPIK 18:40 → EMEROOPIK 18:40 → INPPIK 22:07
PROVIDERS: ADMIT Internal Medicine; ATTEND Internal Medicine

== ENCOUNTER 2017-04-18 20:48 | Observation (INO) ==
--- NOTE | 2017-04-18 20:59 | Emergency Department Note ---
Disposition Clinical Impression: Congestive heart failure Disposition: Admitted As Inpatient Referrals: Otf Rivera MD [Primary Care Provider] - SOB HPI - General Stated Complaint: nausea, vomitting Time Seen by Provider: 04/18/17 20:50 Source: patient Mode of arrival: EMS Limitations: no limitations Nursing Notes Reviewed: Yes Vital Signs Reviewed: Yes - History of Present Illness C/O weakness and cough with wheezing and not feeling any better. was recently admitted and discharged but ot doing any better now. non productive cough, no fever Pt Subjective Complaint: shortness of breath, cough Onset (ago): day(s) (several) Context: recent illness (Flu/COPD) Severity: moderate Consistency/Duration: constant Improves with: nothing Worsens with: nothing Known history of: COPD, other (influenza) Associated symptoms: Reports: cough, wheezing. Denies: chest pain Treatment prior to arrival: none Cough present: Yes Cough Description: Non-Productive Cough Frequency: Intermittent Sputum production: No - Related Data Home Medications Medication Instructions Recorded Confirmed Calcitriol [Rocaltrol] 0.25 mcg PO MOWEFR 06/24/15 04/13/17 Carbidopa/Levodopa 25/100 [Sinemet 1 tab PO TID 06/24/15 04/13/17 25/100] Cholecalciferol (Vitamin D3) 5,000 unit PO DAILY 06/24/15 04/13/17 [Vitamin D3] Clopidogrel Bisulfate [Plavix] 75 mg PO DAILY 06/24/15 04/13/17 Fluticasone Propionate Nasal 2 spray NS HS 06/24/15 02/05/17 [Flonase] Furosemide [Lasix] 40 mg PO BID 06/24/15 04/13/17 Gabapentin [Neurontin] 800 mg PO QID 06/24/15 04/13/17 HYDROcodone/Acet 5/325 mg [Deer 1 tab PO TID 06/24/15 02/05/17 5-325 mg] Insulin ASPART [Novolog Flexpen] 12 unit SQ TID 06/24/15 02/05/17 Insulin DETEMIR [Levemir Flextouch] 80 unit SQ QAM 06/24/15 02/05/17 Leflunomide [Arava] 10 mg PO QPM 06/24/15 04/13/17 Levothyroxine Sodium [Tirosint] 88 mcg PO DAILY 06/24/15 04/13/17 Magnesium l-Lactate [Mag-Tab Sr] 84 mg PO QPM 06/24/15 04/13/17 Potassium Chloride [K-Tab ER] 20 meq PO TID 06/24/15 04/13/17 Rivaroxaban [Xarelto] 15 mg PO QPM 06/24/15 04/13/17 Tiotropium [Spiriva] 1 cap PO DAILY 06/24/15 02/05/17 Ustekinumab [Stelara (For 90 mg SQ [id number] 06/24/15 02/05/17 Outpatient Infusion)] Vitamin B Complex [B Complex] 1 tab PO QPM 06/24/15 04/13/17 Fluticasone/Salmeterol [Advair 1 puff IH BID 07/20/15 02/05/17 250-50 Diskus] Inulin/Chromium Picolinate [Fiber 500 mg PO DAILY #0 07/20/15 02/05/17 Gummies] Levalbuterol [Xopenex INH] 2 puff PO Q6H 07/20/15 02/05/17 Pantoprazole Sodium [Protonix] 40 mg PO DAILY 05/29/16 04/13/17 hydrOXYzine pamoate [Hydroxyzine 25 mg PO Q8H PRN 05/29/16 02/05/17 Pamoate] Atorvastatin [Lipitor] 40 mg PO HS 09/03/16 04/13/17 Metoprolol [Lopressor] 25 mg PO BID 09/03/16 04/13/17 Tizanidine HCl 4 mg PO TID PRN 09/03/16 02/05/17 Previous Rx's Medication Instructions Recorded HYDROcodone/Acet 5/325 mg [Deer 1 tab PO Q6H PRN #15 tab 02/05/17 5-325 mg] Oseltamivir [Tamiflu] 75 mg PO BID #5 capsule 04/16/17 Allergies Allergy/AdvReac Type Severity Reaction Status Date / Time amlodipine [From Norvasc] Allergy Severe Swelling Verified 04/18/17 23:32 of Lip/Tongue/Throat carbamazepine [From Tegretol] Allergy Mild rash/bliste Verified 04/18/17 23:32 rs ciprofloxacin [From Cipro] Allergy Mild Rash Verified 04/18/17 23:32 nitrofurantoin Allergy Mild Rash Verified 04/18/17 23:32 [From Macrobid] Sulfa (Sulfonamide Allergy Mild Rash Verified 04/18/17 23:32 Antibiotics) sulfamethoxazole Allergy Mild Rash Verified 04/18/17 23:32 [From Bactrim] trimethoprim [From Bactrim] Allergy Mild Rash Verified 04/18/17 23:32 acetaminophen [From Percocet] AdvReac Mild Confusion Verified 04/18/17 23:32 meperidine [From Demerol] AdvReac Mild Vomiting Verified 04/18/17 23:32 Oxycodone [From Percocet] AdvReac Mild Confusion Verified 04/18/17 23:32 promethazine [From Phenergan] AdvReac Mild Vomiting Verified 04/18/17 23:32 NSAIDS (Non-Steroidal AdvReac Unknown D/T KIDNEY Verified 04/18/17 23:32 Anti-Inflamma DYSFUNCTION All systems ED: reviewed and negative except as stated. Review of Systems: As Per HPI Constitutional: Reports: as per HPI, fever, weakness Eyes: Denies: eye pain, eye discharge, vision change ENT ED: Denies: ear pain, throat pain, dental pain, hearing loss, epistaxis, congestion, dysphagia Cardiovascular: Denies: chest pain, palpitations, dyspnea on exertion, edema, syncope Respiratory: Reports: as per HPI, cough, wheezes Gastrointestinal: Reports: nausea, vomiting. Denies: abdominal pain, diarrhea, constipation, hematemesis, melena, hematochezia Musculoskeletal: Denies: back pain, neck pain, arthralgia, myalgia Integumentary: Denies: rash, abrasion, lesions Neurological: Denies: headache, weakness, numbness, paresthesias, confusion, abnormal gait, vertigo Psychiatric: Denies: anxiety, depression, suicidal thoughts, homicidal thoughts , auditory hallucinations, visual hallucinations Endocrine: Denies: fatigue Hematological/Lymphatic: Denies: easy bleeding, easy bruising Allergic/Immunologic: Denies: facial swelling, urticaria Past Medical History - Past Medical History Attestation: Yes The following information was validated with the patient. Source: patient Medical history: Reports: atrial fibrillation, CHF, COPD, coronary artery disease, DVT, diabetes, GERD, hyperlipidemia, hypertension, TIA Surgical history: Reports: angioplasty/stent, cholecystectomy, hysterectomy, other Psychiatric history: Reports: depression - Social History Smoking Status: Never smoker Smokeless Tobacco Status: No Alcohol use: Reports: none Drug use: Reports: none Physical Exam - General Limitations: no limitations General appearance: alert, in no apparent distress - Head Head exam: atraumatic, normocephalic, normal inspection - Eye Eye exam: Present: normal appearance, PERRL, EOMI - ENT ENT exam: normal exam, normal oropharynx, mucous membranes moist - Neck Neck exam: Present: normal inspection, full ROM, trachea midline - Chest Chest inspection: Present: normal inspection, symmetric chest wall rise - Respiratory Respiratory exam: Present: wheezes (expiratory bilaterally (minimal) good air exchange noted) - Cardiovascular Cardiovascular exam: Present: regular rate, normal rhythm, normal heart sounds - Abdominal Exam Abdominal exam: Present: soft, Non-Tender - Extremities Exam Extremities exam: Present: normal inspection - Back Exam Back exam: Present: normal inspection - Neurological Exam Neurological exam: Present: alert, oriented X3 - Psychiatric Psychiatric exam: Present: normal affect, normal mood - Skin Skin exam: Present: warm, dry, intact Shortness of Breath/Dyspnea - MDM Narrative Medical decision making narrative: I discussed with Dr. Feldman and he agrees with admit overnight. - Differential Diagnosis Likely: acute exacerbation of chronic obstructive airways disease, congestive heart failure - Lab Data Lab results reviewed: Yes I reviewed the patient's lab results. - Radiology Data Radiology results reviewed: Yes I reviewed the patient's radiology results. - EKG Data EKG attestation: Yes I reviewed and interpreted this EKG. EKG results narrative: EKG with a fib and controlled rate of 93 BPM. QRS duration is 71 ms, axis of [address] T changes. per my read
[2017-04-18] MEDS ORDERED: Ipratropium/Albuterol Neb 3 ML IH ONE (21:04)
[2017-04-18] MEDS ORDERED: 0.9 % Sodium Chloride 1,000 ML IVC SCH (21:15)
[2017-04-18 21:47] LABS: Basophils # 0.1 K/mcL (0.0-0.2); Basophils % 0.8 %; Eosinophils # 0.3 K/mcL (0.0-0.6); Eosinophils % 2.3 %; Hematocrit 33.1 % (35.3-44.9); Hemoglobin 10.4 g/dL (11.5-15.4); Immature Granulocytes % 0.6 % (0-4); Lymphocytes # 1.1 K/mcL (0.6-4.6); Lymphocytes % 9.1 %; Mean Corpuscular HGB Conc 31.4 g/dL (31.6-35.5); Mean Corpuscular Hemoglobin 30.8 pg (28.0-33.3); Mean Corpuscular Volume 97.9 fL (83.0-100.0); Mean Platelet Volume 12.3 fL (9.4-12.4); Monocytes # 0.9 K/mcL (0.0-1.3); Monocytes % 7.7 %; Neutrophils # 9.6 K/mcL (1.6-8.9); Platelet Count 216 K/mcL (140-400); Red Blood Count 3.38 M/mcL (3.82-4.97); Red Cell Distribution Width 13.2 % (11.5-14.5); Segmented Neutrophils % 79.5 %
[2017-04-18] MEDS ORDERED: Furosemide 40 MG/4 ML VIAL IVP ONE (21:56)
[2017-04-18 22:04] LABS: Alanine Aminotransferase 5 Units/L (7-52); Albumin 3.6 g/dL (3.5-5.7); Albumin/Globulin Ratio 1.3 (1.1-2.2); Alkaline Phosphatase 106 Units/L (34-104); Aspartate Amino Transferase 26 Units/L (13-39); BUN/Creatinine Ratio 18 (6-26); Bilirubin,Total 0.6 mg/dL (0.3-1.0); Blood Urea Nitrogen 13 mg/dL (8-23); Calcium 9.2 mg/dL (8.6-10.3); Carbon Dioxide 33 mEq/L (23-29); Chloride 100 mEq/L (98-107); Globulin 2.8 g/dL (2.4-3.5); Glucose 180 mg/dL (70-105); Osmolality,Calculated 299 (280-300); Potassium 4.1 mEq/L (3.5-5.1); Sodium 142 mEq/L (136-145); Total Protein 6.4 g/dL (6.4-8.9); eGFR For Non-African Americans > 60 (> 60)
[2017-04-18 22:17] LABS: Bilirubin,Urine Negative (Negative); Blood,Urine Trace-lysed (Negative); Clarity,Urine Clear (Clear); Color,Urine Yellow (Yellow); Glucose,Urine (UA) Normal (Normal); Ketones,Urine Negative (Negative); Leukocyte Esterase,Urine Negative (Negative); Nitrite,Urine Negative (Negative); PH,Urine 5.5 pH Units (5.0-8.0); Protein,Urine 30 mg/dL (Neg-Trace); Urobilinogen,Urine Normal (Normal)
[2017-04-18 22:26] LABS: Bacteria,Urine Moderate per hpf (None-Few); RBC,Urine 0-3 per hpf (0-3); Squamous Epithelial Cell,Urine Few per lpf (None-Few); WBC,Urine 0-3 per hpf (0-3)
[2017-04-18] MEDS ORDERED: Benzonatate 100 MG CAPSULE PO PRN (22:47)
[2017-04-19] MEDS ORDERED: Naloxone 0.4 MG/ML INJ IVP PRN (00:26)
[2017-04-19] MEDS: *HR* HYDROcodone/Acet 5/325 mg TABLET PO PRN ×2 (03:45→20:02)
[2017-04-19 08:01] LABS: Basophils # 0.1 K/mcL (0.0-0.2); Eosinophils # 0.2 K/mcL (0.0-0.6); Eosinophils % 2.4 %; Hematocrit 31.1 % (35.3-44.9); Immature Granulocytes % 0.8 % (0-4); Lymphocytes # 1.7 K/mcL (0.6-4.6); Lymphocytes % 17.7 %; Mean Corpuscular HGB Conc 32.2 g/dL (31.6-35.5); Mean Corpuscular Hemoglobin 31.2 pg (28.0-33.3); Mean Corpuscular Volume 96.9 fL (83.0-100.0); Mean Platelet Volume 12.4 fL (9.4-12.4); Monocytes % 9.8 %; Neutrophils # 6.7 K/mcL (1.6-8.9); Platelet Count 209 K/mcL (140-400); Red Blood Count 3.21 M/mcL (3.82-4.97); Red Cell Distribution Width 13.2 % (11.5-14.5); Segmented Neutrophils % 68.3 %
[2017-04-19 09:49] LABS: BUN/Creatinine Ratio 19 (6-26); Blood Urea Nitrogen 13 mg/dL (8-23); Carbon Dioxide 32 mEq/L (23-29); Chloride 101 mEq/L (98-107); Glucose 139 mg/dL (70-105); Osmolality,Calculated 298 (280-300); Potassium 3.8 mEq/L (3.5-5.1); Sodium 143 mEq/L (136-145); eGFR For Non-African Americans > 60 (> 60)
[2017-04-19] MEDS ORDERED: Acetaminophen 325 MG TABLET PO PRN (11:06)
--- NOTE | 2017-04-19 12:34 | Internal Med History&Physical ---
Date of Encounter: 04/19/17 Time of Encounter: 11:55 Assessment and Plan (1) CHF (congestive heart failure) Current visit: Yes Status: Chronic We will start isosorbide and change from Lasix to Bumex. Recheck labs in a.m. Qualifiers: Heart failure type: diastolic Heart failure chronicity: chronic Qualified Code(s): I50.32 - Chronic diastolic (congestive) heart failure (2) Essential hypertension Current visit: No Status: Chronic Increased dose of metoprolol since blood pressures are not well controlled. Will change from Lasix to Bumex as per above. Will also start low-dose lisinopril. (3) Parkinson disease Current visit: No Status: Chronic Continue Sinemet (4) Anemia Current visit: No Status: Acute Chronic. Workup has shown no factor deficiency. Qualifiers: Anemia type: unspecified type Qualified Code(s): D64.9 - Anemia, unspecified (5) Atrial fibrillation Current visit: No Status: Chronic Continue Xarelto Qualifiers: Atrial fibrillation type: chronic Qualified Code(s): I48.2 - Chronic atrial fibrillation Internal Medicine - H&P: HPI Chief complaint: Dyspnea Admitted From: Emergency Dept Plans for Post Hospital Care: Home History of present illness: Ms. Whitmore is a 76 year old female who came to emergency room complaining of increasing dyspnea since she was discharged from the hospital on April 16 after admission for influenza A. She reports the dyspnea does not change significantly with her limited activity. She was evaluated in emergency room and felt to have exacerbation of heart failure. She was admitted to [facility] floor for ongoing care needs. She has history of hypertension. She has known ASHD with a single stent placed approximately 2013. Heart catheter 07/20/2015 showed LVEF 60%. There was 20% stenosis in LMCA, proximal LAD with stent, 20% stenosis in proximal and mid LAD , 30% stenosis in proximal circumflex, 30% stenosis in first marginal, 30% stenosis in proximal and distal RCA and 40% stenosis in mid RCA, and 30% stenosis in right PDA. She has history of atrial fibrillation. She states she had a left DVT in the past. Past Med Surg Social Fam HX - Past Medical History Medical history: atrial fibrillation, CHF, COPD, coronary artery disease, DVT, diabetes, GERD, hyperlipidemia, hypertension, TIA Psychiatric history: depression - Past Surgical History Surgical History: angioplasty/stent, cholecystectomy, hysterectomy, other - Social History Smoking Status: Never smoker Smokeless Tobacco Status: No Alcohol use: none Drug use: none - Family History Mother Adopted: No Living Status: Hx Family Cardiac Disorders: Yes Hx Family Respiratory Disorders: Yes (COPD) Hx Family Cancer: Yes (lung, breast) Hx Family GI Disorders: No Hx Family Endocrine Disorder: No Hx Family Neuromuscular Disorders: No Hx Family Neurologic Disorders: No Hx Family HEENT Disorders: No Hx Family Autoimmune Disorders: Yes (non hygkins lymphoma) Internal Medicine - H&P: Meds Calcitriol [Rocaltrol] 0.25 mcg PO MOWEFR 06/24/15 [History] Carbidopa/Levodopa 25/100 [Sinemet 25/100] 1 tab PO TID 06/24/15 [History] Cholecalciferol (Vitamin D3) [Vitamin D3] 5,000 unit PO DAILY 06/24/15 [History] Clopidogrel Bisulfate [Plavix] 75 mg PO DAILY 06/24/15 [History] Fluticasone Propionate Nasal [Flonase] 2 spray NS HS 06/24/15 [History] Furosemide [Lasix] 40 mg PO BID 06/24/15 [History] Gabapentin [Neurontin] 800 mg PO QID 06/24/15 [History] Insulin ASPART [Novolog Flexpen] 12 unit SQ TID 06/24/15 [History] Insulin DETEMIR [Levemir Flextouch] 80 unit SQ QAM 06/24/15 [History] Leflunomide [Arava] 10 mg PO QPM 06/24/15 [History] Levothyroxine Sodium [Tirosint] 88 mcg PO DAILY 06/24/15 [History] Magnesium l-Lactate [Mag-Tab Sr] 84 mg PO QPM 06/24/15 [History] Potassium Chloride [K-Tab ER] 20 meq PO TID 06/24/15 [History] Rivaroxaban [Xarelto] 15 mg PO QPM 06/24/15 [History] Tiotropium [Spiriva] 1 cap PO DAILY 06/24/15 [History] Ustekinumab [Stelara (For Outpatient Infusion)] 90 mg SQ [id number] 06/24/15 [ History] Vitamin B Complex [B Complex] 1 tab PO QPM 06/24/15 [History] Fluticasone/Salmeterol [Advair 250-50 Diskus] 1 puff IH BID 07/20/15 [History] Inulin/Chromium Picolinate [Fiber Gummies] 500 mg PO DAILY #0 07/20/15 [History] Levalbuterol [Xopenex INH] 2 puff PO Q6H 07/20/15 [History] Pantoprazole Sodium [Protonix] 40 mg PO DAILY 05/29/16 [History] hydrOXYzine pamoate [Hydroxyzine Pamoate] 25 mg PO Q8H PRN 05/29/16 [History] Atorvastatin [Lipitor] 40 mg PO HS 09/03/16 [History] Metoprolol [Lopressor] 25 mg PO BID 09/03/16 [History] Tizanidine HCl 4 mg PO TID PRN 09/03/16 [History] HYDROcodone/Acet 5/325 mg [[place] 5-325 mg] 1 tab PO Q6H PRN #15 tab 02/05/17 [Rx ] 3 Allergy/AdvReac Type Severity Reaction Status Date / Time amlodipine [From Norvasc] Allergy Severe Swelling Verified 04/18/17 23:32 of Lip/Tongue/Throat carbamazepine [From Tegretol] Allergy Mild rash/bliste Verified 04/18/17 23:32 rs ciprofloxacin [From Cipro] Allergy Mild Rash Verified 04/18/17 23:32 nitrofurantoin Allergy Mild Rash Verified 04/18/17 23:32 [From Macrobid] Sulfa (Sulfonamide Allergy Mild Rash Verified 04/18/17 23:32 Antibiotics) sulfamethoxazole Allergy Mild Rash Verified 04/18/17 23:32 [From Bactrim] trimethoprim [From Bactrim] Allergy Mild Rash Verified 04/18/17 23:32 acetaminophen [From Percocet] AdvReac Mild Confusion Verified 04/18/17 23:32 meperidine [From Demerol] AdvReac Mild Vomiting Verified 04/18/17 23:32 Oxycodone [From Percocet] AdvReac Mild Confusion Verified 04/18/17 23:32 promethazine [From Phenergan] AdvReac Mild Vomiting Verified 04/18/17 23:32 NSAIDS (Non-Steroidal AdvReac Unknown D/T KIDNEY Verified 04/18/17 23:32 Anti-Inflamma DYSFUNCTION All Systems PM: A 10-system review of systems was performed and is negative for pertinent findings except as documented above in the HPI. Review of systems: Review of systems from her 04/14/2017 [facility] admission were reviewed and revised as below. Gen.: She states her weight has been stable the past few months. Cardiovascular: Per history of present illness Respiratory: She smoked from age [age] up to 2-1/2 packs per day. She has a diagnosis of COPD with PFTs 08/30/2015 showing FEV1/FVC of 66%. There was no improvement in FEV1 postbronchodilator. FVC was 67% predicted. MVV was 42% predicted. DLCO was 56% predicted. She wears oxygen 22/09. Chest CT was done January 2017 and showed small pulmonary nodules. She was hospitalized last week at [facility] for influenza A. GI: She has had cholecystectomy. She denies disorders of her liver or exocrine pancreas : She has chronic kidney disease stage III and follows with a [employer] worker. She denies other kidney or bladder disorders Neurologic: She has Parkinson's disease. She denies large distribution strokes or seizures. Endocrine: She was diagnosed with DM 2 in 1998. Hemoglobin A1c was 6.3% on 06/2016. She has hypothyroidism and hyperlipidemia. Hematology/oncology: She has anemia. Iron studies done 12/10/2016 showed iron 43, transferrin saturation 15%, transferrin 211, and ferritin 110. B12 and folate levels on 04/15/2017 were 266 and >22.3 respectively. Psychiatric: She has anxiety and depression. Muscle skeletal: She has gout and DJD. Dermatologic: She has psoriasis of her scalp. - Constitutional Vitals: Temp Pulse Resp BP Pulse Ox 98.4 F 88 18 209/88 97 04/19/17 11:35 04/19/17 11:35 04/19/17 11:35 04/19/17 11:35 04/19/17 11:35 Exam: General: She is a well-developed well-nourished female sitting in a chair at bedside who appears slightly dyspneic HEENT: Head is atraumatic and normocephalic. Eyes: EOMI. There is no scleral icterus. Mouth: Mucosa is moist. Neck: Supple and nontender. There is no thyromegaly or adenopathy. Heart: Irregularly irregular without murmurs or gallops Lungs: She has diminished breath sounds diffusely. No wheezes or crackles are heard. Abdomen: Soft and nontender. Exam is limited because she is in the seated position. Extremities: There is no cyanosis noted. She has chronic venous stasis pigmentation changes of her feet. She has trace - 1+ edema of the dorsum of the feet and lower anterior shins bilaterally. She has DJD changes of her hands. Neurologic: Mental status: She is talkative and a good historian. Cranial nerves: Smile is symmetric. Forehead wrinkles bilaterally. Tongue protrudes midline. EOMI. Motor: She has a slight Parkinson tremor at rest. There is no pronator drift. Cerebellar: Finger to nose is intact bilaterally. Skin: Warm and dry Internal Med - H&P Results - Labs CBC & Chem 7: 04/19/17 07:42 04/19/17 07:42 Labs: Short CBC 04/19/17 Range/Units 07:42 WBC 9.9 (4.3-11.1) K/mcL Hgb 10.0 L (11.5-15.4) g/dL Hct 31.1 L (35.3-44.9) % Plt Count 209 (140-400) K/mcL Neutrophils # 6.7 (1.6-8.9) K/mcL BMP 04/19/17 07:42 Sodium 143 Potassium 3.8 Chloride 101 Carbon Dioxide 32 H BUN 13 Creatinine 0.68 Glucose 139 H Calcium 9.0
[2017-04-19] MEDS: Budesonide/Formoterol 160/4.5 1 PUFF INH IH SCH ×2 (13:16→21:07)
[2017-04-19] MEDS: Carbidopa/Levodopa 25/100 TABLET PO SCH ×2 (15:42→20:02)
[2017-04-19] MEDS: Isosorbide MONOnitrate (24 HR) 30 MG TAB.ER.24H PO SCH (15:42)
[2017-04-19] MEDS: Bumetanide 1 MG TABLET PO SCH ×2 (15:47→20:02)
[2017-04-19] MEDS: Benzonatate 100 MG CAPSULE PO PRN ×2 (16:48→21:47)
[2017-04-19] MEDS ORDERED: *HR* Rivaroxaban 15 MG TABLET PO SCH (17:00)
[2017-04-19] MEDS ORDERED: Mag Hydrox/Al Hydrox/Simeth 30 ML UDC PO PRN (21:32)
[2017-04-20] MEDS: *HR* HYDROcodone/Acet 5/325 mg TABLET PO PRN (06:42)
[2017-04-20 06:56] VITALS: BP 148/66
[2017-04-20] MEDS: Bumetanide 1 MG TABLET PO SCH (08:31)
[2017-04-20] MEDS: Isosorbide MONOnitrate (24 HR) 30 MG TAB.ER.24H PO SCH (08:31)
[2017-04-20] MEDS: Carbidopa/Levodopa 25/100 TABLET PO SCH (08:31)
[2017-04-20] MEDS ORDERED: Tiotropium 18 MCG inhalation IH SCH (10:00)
--- NOTE | 2017-04-20 10:45 | Discharge Summary ---
Date of Encounter: 04/20/17 Time of Encounter: 10:23 - Discharge Diagnosis (1) Pneumonia Priority: Primary Status: Acute Qualifiers: Pneumonia type: due to unspecified organism Laterality: bilateral Lung location: lower lobe of lung Qualified Code(s): J18.9 - Pneumonia, unspecified organism (2) CHF (congestive heart failure) Priority: Secondary Status: Chronic Qualifiers: Heart failure type: diastolic Heart failure chronicity: chronic Qualified Code(s): I50.32 - Chronic diastolic (congestive) heart failure (3) Essential hypertension Priority: Secondary Status: Chronic (4) Parkinson disease Priority: Secondary Status: Chronic (5) Anemia Priority: Secondary Status: Acute Qualifiers: Anemia type: unspecified type Qualified Code(s): D64.9 - Anemia, unspecified (6) Atrial fibrillation Priority: Secondary Status: Chronic Qualifiers: Atrial fibrillation type: chronic Qualified Code(s): I48.2 - Chronic atrial fibrillation - Discharge Medications Prescriptions: Amoxicillin/Clavulanate [Augmentin] 875 mg PO BIDWM #10 tablet Bumetanide [Bumex] 1 mg PO BID #60 tablet Doxycycline 100 mg PO BID #10 capsule Isosorbide MONOnitrate (24 HR) [Imdur] 30 mg PO DAILY #30 tab.er.24h Lactobacillus [Culturelle] 1 each PO BID #10 cap.sprink Metoprolol [Lopressor] 50 mg PO BID #60 tablet Home Medications: Calcitriol [Rocaltrol] 0.25 mcg PO MOWEFR 06/24/15 [History] Carbidopa/Levodopa 25/100 [Sinemet 25/100] 1 tab PO TID 06/24/15 [History] Cholecalciferol (Vitamin D3) [Vitamin D3] 5,000 unit PO DAILY 06/24/15 [History] Clopidogrel Bisulfate [Plavix] 75 mg PO DAILY 06/24/15 [History] Fluticasone Propionate Nasal [Flonase] 2 spray NS HS 06/24/15 [History] Gabapentin [Neurontin] 800 mg PO QID 06/24/15 [History] Insulin ASPART [Novolog Flexpen] 12 unit SQ TID 06/24/15 [History] Insulin DETEMIR [Levemir Flextouch] 80 unit SQ QAM 06/24/15 [History] Leflunomide [Arava] 10 mg PO QPM 04/24/16 [History] Levothyroxine Sodium [Tirosint] 88 mcg PO DAILY 06/24/15 [History] Magnesium l-Lactate [Mag-Tab Sr] 84 mg PO QPM 06/24/15 [History] Potassium Chloride [K-Tab ER] 20 meq PO TID 06/24/15 [History] Rivaroxaban [Xarelto] 15 mg PO QPM 06/24/15 [History] Tiotropium [Spiriva] 1 cap PO DAILY 06/24/15 [History] Ustekinumab [Stelara (For Outpatient Infusion)] 90 mg SQ [id number] 06/24/15 [ History] Vitamin B Complex [B Complex] 1 tab PO QPM 06/24/15 [History] Fluticasone/Salmeterol [Advair 250-50 Diskus] 1 puff IH BID 07/20/15 [History] Inulin/Chromium Picolinate [Fiber Gummies] 500 mg PO DAILY #0 07/20/15 [History] Levalbuterol [Xopenex INH] 2 puff PO Q6H 07/20/15 [History] hydrOXYzine pamoate [Hydroxyzine Pamoate] 25 mg PO Q8H PRN 05/29/16 [History] Atorvastatin [Lipitor] 40 mg PO HS 09/03/16 [History] Tizanidine HCl 4 mg PO TID PRN 09/03/16 [History] HYDROcodone/Acet 5/325 mg [[place] 5-325 mg] 1 tab PO Q6H PRN #15 tab 02/05/17 [Rx ] Amoxicillin/Clavulanate [Augmentin] 875 mg PO BIDWM #10 tablet 04/20/17 [Rx] Bumetanide [Bumex] 1 mg PO BID #60 tablet 04/20/17 [Rx] Doxycycline 100 mg PO BID #10 capsule 04/20/17 [Rx] Isosorbide MONOnitrate (24 HR) [Imdur] 30 mg PO DAILY #30 tab.er.24h 04/20/17 [ Rx] Lactobacillus [Culturelle] 1 each PO BID #10 cap.sprink 04/20/17 [Rx] Metoprolol [Lopressor] 50 mg PO BID #60 tablet 04/20/17 [Rx] Pantoprazole Sodium [Protonix] 40 mg PO DAILY PRN #0 04/20/17 [Rx] Allergies/Adverse Reactions: 3 Allergy/AdvReac Type Severity Reaction Status Date / Time amlodipine [From Norvasc] Allergy Severe Swelling Verified 04/18/17 23:32 of Lip/Tongue/Throat carbamazepine [From Tegretol] Allergy Mild rash/bliste Verified 04/18/17 23:32 rs ciprofloxacin [From Cipro] Allergy Mild Rash Verified 04/18/17 23:32 nitrofurantoin Allergy Mild Rash Verified 04/18/17 23:32 [From Macrobid] Sulfa (Sulfonamide Allergy Mild Rash Verified 04/18/17 23:32 Antibiotics) sulfamethoxazole Allergy Mild Rash Verified 04/18/17 23:32 [From Bactrim] trimethoprim [From Bactrim] Allergy Mild Rash Verified 04/18/17 23:32 acetaminophen [From Percocet] AdvReac Mild Confusion Verified 04/18/17 23:32 meperidine [From Demerol] AdvReac Mild Vomiting Verified 04/18/17 23:32 Oxycodone [From Percocet] AdvReac Mild Confusion Verified 04/18/17 23:32 promethazine [From Phenergan] AdvReac Mild Vomiting Verified 04/18/17 23:32 NSAIDS (Non-Steroidal AdvReac Unknown D/T KIDNEY Verified 04/18/17 23:32 Anti-Inflamma DYSFUNCTION Procedures/tests Complete & Pending: Procedures Performed prior 72 hours Category Date Time Status CT chest wo con [CT] Routine Cat Scan 04/19/17 12:21 Completed Date of admission: 04/18/17 23:48 Primary care physician: Otf Rivera MD - Patient Status Disposition: Home, Self-Care Functional capacity at discharge: uses cane/walker Overall status at discharge: patient is progressing back to baseline - Discharge Instructions Follow Up With: Otf Rivera MD [Primary Care Provider] - 1 week Forms: ED Satisfaction Letter - Diet and Activity Activity: resume usual activities as tolerated, wear oxygen at all times Diet: diabetic diet Hospital course: Ms. Whitmore is a 76 year old female who came to emergency room complaining of increasing dyspnea since she was discharged from the hospital on April 16 after admission for influenza A. She reports the dyspnea does not change significantly with her limited activity. She was evaluated in emergency room and felt to have exacerbation of heart failure. She was admitted to [facility] for ongoing care needs. Initial orders were written by the emergency room physician. I saw her on April 19 and performed the history and physical. She was started on isosorbide and Bumex for heart failure. Chest CT was done to further evaluate her dyspnea. The chest CT showed new left upper lobe and bilateral lower lobe infiltrates consistent with pneumonia. She will be given Augmentin and doxycycline with lactobacillus for 5 days at discharge. Blood pressures were not well controlled so metoprolol was increased. Her PCP can monitor this further. There were no new problems and on April 20 she felt improved sufficiently to be discharged home. She will follow with her PCP Dr. Otf Rivera within 1 week. - Time Spent with Patient Total time spent providing and/or coordinating discharge services: - Constitutional Vitals: Temp Pulse Resp BP Pulse Ox 98.4 F 69 18 148/66 97 04/20/17 06:55 04/20/17 06:55 04/20/17 06:55 04/20/17 06:55 04/20/17 06:55
[2017-04-20] MEDS: Budesonide/Formoterol 160/4.5 1 PUFF INH IH SCH (10:51)
[2017-04-20] MEDS ORDERED: *HR* Rivaroxaban 10 MG TABLET PO SCH (17:00)
--- NOTE | 2017-04-24 09:04 | Electrocardiograph Report ---
[place] [id number] Test Date: 2017-04-18 Pat Name: Alejandra Whitmore Department: [id number] Room: [facility] Gender: F Student Counsellor: Andra : 1940 Requested By: Venkat Call Order Number: [id number] Reading MD: Darci Marks DO Measurements Intervals [place] Rate: 93 P: [place]: 0 QRS: 51 QRSD: 71 T: 28 QT: 331 QTc: 381 Interpretive Statements ATRIAL FIBRILLATION Electronically Signed On 04-24-2017 9:03:00 EST by Darci Marks DO
== END 2017-04-20 11:30 | disposition home or self-care (01) ==
LOC: EMEROOPIK 20:48 → INPPIK 20:48
PROVIDERS: ADMIT Internal Medicine; ATTEND Internal Medicine

== ENCOUNTER 2017-06-18 11:36 | Observation (INO) ==
[2017-06-18] MEDS ORDERED: Ipratropium/Albuterol Neb 3 ML IH ONE (11:47)
[2017-06-18] MEDS ORDERED: cloNIDine HCl 0.1 MG TABLET PO ONE (11:48)
--- NOTE | 2017-06-18 11:49 | Emergency Department Note ---
Disposition Clinical Impression: CHF (congestive heart failure) Qualifiers: Heart failure type: other Qualified Code(s): I50.9 - Heart failure, unspecified Hypertension Qualifiers: Hypertension type: essential hypertension Qualified Code(s): I10 - Essential ( primary) hypertension Disposition: Admitted As Inpatient Condition: Good Referrals: Otf Rivera MD [Primary Care Provider] - Forms: ED Satisfaction Letter SOB HPI - General Chief Complaint: ED Shortness of Breath/Dyspnea Stated Complaint: shortness of breath, headache Time Seen by Provider: 06/18/17 11:47 Source: patient, EMS Mode of arrival: EMS Limitations: no limitations Nursing Notes Reviewed: Yes Vital Signs Reviewed: Yes - History of Present Illness The patient relates for 2-3 days she has had some increasing shortness of breath. She has increased her oxygen to 4 L nasal cannula and called the squad today for worsening dyspnea. She does report a cough that is dry and nonproductive. She has had dyspnea on exertion as well as orthopnea. She states she can feel her blood pressure is up because she has a typical headache with this. This is frontal, throbbing and not associated with visual changes, numbness, tingling or weakness nor alteration in mental status or speech. She does report some occasional chest pains over the last week. She states these are at most 6 times a day and last seconds. She relates these or not at all like myocardial pain she has had before. She did have a little sweating yesterday but not today. She denies nausea. She has not been having pain to her neck, back or arms. He has not had presyncopal complaints or dizziness. She has relates she is having increased swelling of her legs and she had an increase in her Lasix on June 10. She states the swelling is down now and she has lost 8 pounds. She states that she "still cannot lay down". She has any acute abdominal complaints other than occasional sharp right lateral abdominal pain. She denies diarrhea but does have occasional constipation. She had a normal bowel movement 2 days ago. She denies any urinary complaints. She denies any leg pains or unilateral swelling. She has had recent evaluation including a cardiac echo and she states she was told she had severe pulmonary hypertension. Pt Subjective Complaint: shortness of breath, cough (Nonproductive), chest pain (Periodic, brief) Onset (ago): day(s) (3) Severity: moderate Consistency/Duration: intermittent, gradually worsening Improves with: oxygen, rest Worsens with: lying flat, exertion, coughing Known history of: COPD, congestive heart failure, diabetes Associated symptoms: Reports: chest pain (Infrequent and brief), cough, orthopnea, parasthesias (Normal with her diabetic neuropathy), diaphoresis ( "Yesterday"), abdominal pain (Occasional sharp right lateral abdominal pains.). Denies: pain with inspiration, fever, wheezing, sputum production, lower extremity pain, polyuria, polydipsia, palpitations, hemoptysis, nausea/vomiting , syncope, rash Treatment prior to arrival: oxygen Cough present: Yes Cough Description: Voluntary, Dry Cough Frequency: Intermittent Sputum production: No Sputum Amount: None - Related Data Home oxygen amount: 2 liters Home Medications Medication Instructions Recorded Confirmed Calcitriol [Rocaltrol] 0.25 mcg PO MOWEFR 06/24/15 06/18/17 Carbidopa/Levodopa 25/100 [Sinemet 1 tab PO TID 06/24/15 06/18/17 25/100] Cholecalciferol (Vitamin D3) 5,000 unit PO DAILY 06/24/15 06/18/17 [Vitamin D3] Clopidogrel Bisulfate [Plavix] 75 mg PO DAILY 06/24/15 06/18/17 Fluticasone Propionate Nasal 2 spray NS HS 06/24/15 06/18/17 [Flonase] Gabapentin [Neurontin] 800 mg PO QID 06/24/15 06/18/17 Insulin ASPART [Novolog Flexpen] 12 unit SQ BID 06/24/15 06/18/17 Insulin DETEMIR [Levemir Flextouch] 80 unit SQ QAM 06/24/15 06/18/17 Levothyroxine Sodium [Tirosint] 88 mcg PO DAILY 06/24/15 06/18/17 Magnesium l-Lactate [Mag-Tab Sr] 84 mg PO QPM 06/24/15 06/18/17 Potassium Chloride [K-Tab ER] 20 meq PO TID 06/24/15 06/18/17 Rivaroxaban [Xarelto] 15 mg PO QPM 06/24/15 06/18/17 Ustekinumab [Stelara (For 90 mg SQ [id number] 06/24/15 06/18/17 Outpatient Infusion)] Vitamin B Complex [B Complex] 1 tab PO QPM 06/24/15 06/18/17 Fluticasone/Salmeterol [Advair 1 puff IH BID 07/20/15 06/18/17 250-50 Diskus] Atorvastatin [Lipitor] 40 mg PO HS 09/03/16 06/18/17 Tizanidine HCl 4 mg PO TID PRN 09/03/16 06/18/17 Albuterol Sulfate [Proair Hfa] 2 puff IH Q4H PRN 06/18/17 06/18/17 Ascorbic Acid [Vitamin C] 1,000 mg PO DAILY 06/18/17 06/18/17 Cetirizine HCl [Zyrtec] 10 mg PO DAILY 06/18/17 06/18/17 Clobetasol Propionate 0.05% 1 appl TP BID 06/18/17 06/18/17 [Temovate] Furosemide [Lasix] 80 mg PO BID 06/18/17 06/18/17 HYDROcodone/Acet 5/325 mg [[place] 1 tab PO TID PRN 06/18/17 06/18/17 5-325 mg] Previous Rx's Medication Instructions Recorded Metoprolol [Lopressor] 50 mg PO BID #60 tablet 04/20/17 Pantoprazole Sodium [Protonix] 40 mg PO DAILY PRN #0 04/20/17 Allergies Allergy/AdvReac Type Severity Reaction Status Date / Time amlodipine [From Norvasc] Allergy Severe Swelling Verified 04/18/17 23:32 of Lip/Tongue/Throat carbamazepine [From Tegretol] Allergy Mild rash/bliste Verified 04/18/17 23:32 rs ciprofloxacin [From Cipro] Allergy Mild Rash Verified 04/18/17 23:32 nitrofurantoin Allergy Mild Rash Verified 04/18/17 23:32 [From Macrobid] Sulfa (Sulfonamide Allergy Mild Rash Verified 04/18/17 23:32 Antibiotics) sulfamethoxazole Allergy Mild Rash Verified 04/18/17 23:32 [From Bactrim] trimethoprim [From Bactrim] Allergy Mild Rash Verified 04/18/17 23:32 acetaminophen [From Percocet] AdvReac Mild Confusion Verified 04/18/17 23:32 meperidine [From Demerol] AdvReac Mild Vomiting Verified 04/18/17 23:32 Oxycodone [From Percocet] AdvReac Mild Confusion Verified 04/18/17 23:32 promethazine [From Phenergan] AdvReac Mild Vomiting Verified 04/18/17 23:32 NSAIDS (Non-Steroidal AdvReac Unknown D/T KIDNEY Verified 04/18/17 23:32 Anti-Inflamma DYSFUNCTION All systems ED: reviewed and negative except as stated. Past Medical History - Past Medical History Attestation: Yes The following information was validated with the patient. Source: patient, nursing notes reviewed Medical history: Reports: atrial fibrillation, CHF, COPD, coronary artery disease, DVT, diabetes, GERD, hyperlipidemia, hypertension, TIA, other ( Pulmonary hypertension) Surgical history: Reports: angioplasty/stent, cholecystectomy, hysterectomy, other Psychiatric history: Reports: depression - Social History Smoking Status: Never smoker Smokeless Tobacco Status: No Alcohol use: Reports: none Drug use: Reports: none Physical Exam - General Limitations: no limitations General appearance: alert, in no apparent distress - Head Head exam: atraumatic, normocephalic, normal inspection - Eye Eye exam: Present: normal appearance, PERRL, EOMI. Absent: scleral icterus, conjunctival injection - ENT ENT exam: normal exam, normal oropharynx, mucous membranes moist - Neck Neck exam: Present: normal inspection, full ROM, trachea midline - Chest Chest inspection: Present: normal inspection, symmetric chest wall rise. Absent : tenderness - Respiratory Respiratory exam: Present: normal lung sounds bilaterally (Scant expiratory crackles.). Absent: respiratory distress, wheezes, prolonged expiratory phase - Cardiovascular Cardiovascular exam: Present: irregular rhythm, normal heart sounds. Absent: tachycardia, JVD - Abdominal Exam Abdominal exam: Present: soft, Non-Tender, normal bowel sounds. Absent: tenderness, distention, guarding, rebound, rigidity Abdominal tenderness: Absent: RUQ, RLQ - Extremities Exam Extremities exam: Present: normal inspection, normal capillary refill, pedal edema (2+). Absent: tenderness, calf tenderness - Expanded Lower Extremity Exam Neurovascular/Tendon exam: Present: normal capillary refill. Absent: motor deficit, sensory deficit, tendon deficit Gait: not tested/not observed - Back Exam Back exam: Present: normal inspection, full ROM. Absent: tenderness, CVA tenderness (R), CVA tenderness (L) - Neurological Exam Neurological exam: Present: alert, oriented X3 - Psychiatric Psychiatric exam: Present: normal affect, normal mood - Skin Skin exam: Present: warm, dry, intact, normal color. Absent: rash, diaphoresis , pallor Course Course Narrative: 1225: The radiologist over read on the x-ray confirms pulmonary edema. She is been written to receive a dose of Lasix while we await the return of the remainder of her laboratories. Given her resting hypoxia she will likely need inpatient observation. 1235: Laboratory results, x-ray report and EKG have been copied and brought to Dr. Feldman on the hospital floor. He is agreeable with the patient's observation for her CHF with dyspnea/hypoxia. Verbal orders have been obtained for her observation. Vital Signs Temperature 98.1 F 06/18/17 11:38 Pulse Rate 79 06/18/17 11:38 Respiratory Rate 12 06/18/17 11:38 Blood Pressure 184/79 06/18/17 11:38 O2 Sat by Pulse Oximetry 97 06/18/17 11:38 Temperature 98.1 F 06/18/17 11:38 Pulse Rate 81 06/18/17 12:15 Respiratory Rate 18 06/18/17 12:15 Blood Pressure 175/74 06/18/17 12:15 O2 Sat by Pulse Oximetry 97 06/18/17 12:15 Oxygen Delivery Oxygen Delivery Nasal Cannula Shortness of Breath/Dyspnea - Differential Diagnosis Likely: acute exacerbation of chronic obstructive airways disease, congestive heart failure, pneumonia - Medical Records Medical records reviewed: Yes I reviewed the patient's medical records. - Lab Data Lab results reviewed: Yes I reviewed the patient's lab results. Result diagrams: 06/18/17 12:00 06/18/17 12:00 Lab Results 06/18/17 06/18/17 06/18/17 Range/Units 12:00 12:00 12:00 WBC 8.6 (4.3-11.1) K/mcL RBC 3.04 L (3.82-4.97) M/mcL Hgb 9.7 L (11.5-15.4) g/dL Hct 30.9 L (35.3-44.9) % MCV 101.6 H (83.0-100.0) fL MCH 31.9 (28.0-33.3) pg MCHC 31.4 L (31.6-35.5) g/dL RDW 14.3 (11.5-14.5) % Plt Count 259 (140-400) K/mcL MPV 11.3 (9.4-12.4) fL Immature Gran % 1.4 (0-4) % Seg Neutrophils % 75.1 % Lymphocytes % 10.4 % Monocytes % 8.7 % Eosinophils % 3.4 % Basophils % 1.0 % Neutrophils # 6.5 (1.6-8.9) K/mcL Lymphocytes # 0.9 (0.6-4.6) K/mcL Monocytes # 0.8 (0.0-1.3) K/mcL Eosinophils # 0.3 (0.0-0.6) K/mcL Basophils # 0.1 (0.0-0.2) K/mcL PT 13.6 H (9.4-12.1) Seconds INR 1.3 Sodium 144 (136-145) mEq/L Potassium 4.0 (3.5-5.1) mEq/L Chloride 99 (98-107) mEq/L Carbon Dioxide 38 H (23-29) mEq/L BUN 26 H (8-23) mg/dL Creatinine 0.77 (0.60-1.20) mg/dL Est GFR ( Amer) > 60 (> 60) Est GFR (Non-Af Amer) > 60 (> 60) BUN/Creatinine Ratio 34 H (6-26) Glucose 156 H (70-105) mg/dL Calculated Osmolality 306 H (280-300) Calcium 9.6 (8.6-10.3) mg/dL Troponin I < 0.03 (< 0.04) ng/mL B-Natriuretic Peptide (Less than 100) pg/mL 06/18/17 Range/Units 12:00 WBC (4.3-11.1) K/mcL RBC (3.82-4.97) M/mcL Hgb (11.5-15.4) g/dL Hct (35.3-44.9) % MCV (83.0-100.0) fL MCH (28.0-33.3) pg MCHC (31.6-35.5) g/dL RDW (11.5-14.5) % Plt Count (140-400) K/mcL MPV (9.4-12.4) fL Immature Gran % (0-4) % Seg Neutrophils % % Lymphocytes % % Monocytes % % Eosinophils % % Basophils % % Neutrophils # (1.6-8.9) K/mcL Lymphocytes # (0.6-4.6) K/mcL Monocytes # (0.0-1.3) K/mcL Eosinophils # (0.0-0.6) K/mcL Basophils # (0.0-0.2) K/mcL PT (9.4-12.1) Seconds INR Sodium (136-145) mEq/L Potassium (3.5-5.1) mEq/L Chloride (98-107) mEq/L Carbon Dioxide (23-29) mEq/L BUN (8-23) mg/dL Creatinine (0.60-1.20) mg/dL Est GFR ( Amer) (> 60) Est GFR (Non-Af Amer) (> 60) BUN/Creatinine Ratio (6-26) Glucose (70-105) mg/dL Calculated Osmolality (280-300) Calcium (8.6-10.3) mg/dL Troponin I (< 0.04) ng/mL B-Natriuretic Peptide 210 H (Less than 100) pg/mL - Radiology Data Radiology results reviewed: Yes I reviewed the patient's radiology results. Single view chest x-ray is performed. This does not demonstrate evidence for infiltrate, effusion, pneumothorax, foreign body or overt heart failure. Patient does have some increased interstitial markings suggesting some pulmonary edema. The cardiac silhouette is enlarged. I do not see abnormality to the osseous structures of the chest. This is on my interpretation. Impressions Chest X-Ray 06/18/17 11:47 IMPRESSION: Findings suggest congestive heart failure D/ / Daren Caban MD / Daren Caban MD Interpreting Provider: Daren Caban MD - EKG Data EKG attestation: Yes I reviewed and interpreted this EKG. EKG shows normal: Reports: axis, intervals, QRS complexes, ST-T waves Rate: Reports: normal (80) Rhythm: Reports: A.Fib Interpretation: Reports: no acute changes, other (Rate controlled atrial fibrillation without acute ST or T-wave changes to suggest ischemia or infarction.)
[2017-06-18 12:14] LABS: Basophils # 0.1 K/mcL (0.0-0.2); Eosinophils # 0.3 K/mcL (0.0-0.6); Eosinophils % 3.4 %; Hematocrit 30.9 % (35.3-44.9); Hemoglobin 9.7 g/dL (11.5-15.4); Immature Granulocytes % 1.4 % (0-4); Lymphocytes # 0.9 K/mcL (0.6-4.6); Lymphocytes % 10.4 %; Mean Corpuscular HGB Conc 31.4 g/dL (31.6-35.5); Mean Corpuscular Hemoglobin 31.9 pg (28.0-33.3); Mean Corpuscular Volume 101.6 fL (83.0-100.0); Mean Platelet Volume 11.3 fL (9.4-12.4); Monocytes # 0.8 K/mcL (0.0-1.3); Monocytes % 8.7 %; Neutrophils # 6.5 K/mcL (1.6-8.9); Platelet Count 259 K/mcL (140-400); Red Blood Count 3.04 M/mcL (3.82-4.97); Red Cell Distribution Width 14.3 % (11.5-14.5); Segmented Neutrophils % 75.1 %
[2017-06-18 12:20] LABS: INR 1.3; Prothrombin Time 13.6 Seconds (9.4-12.1)
[2017-06-18] MEDS ORDERED: Furosemide 40 MG/4 ML VIAL IVP ONE (12:27)
[2017-06-18 12:31] LABS: BUN/Creatinine Ratio 34 (6-26); Blood Urea Nitrogen 26 mg/dL (8-23); Calcium 9.6 mg/dL (8.6-10.3); Carbon Dioxide 38 mEq/L (23-29); Chloride 99 mEq/L (98-107); Glucose 156 mg/dL (70-105); Osmolality,Calculated 306 (280-300); Sodium 144 mEq/L (136-145); eGFR For African Americans > 60 (> 60); eGFR For Non-African Americans > 60 (> 60)
[2017-06-18 12:32] LABS: Troponin I < 0.03 ng/mL (< 0.04)
[2017-06-18] MEDS ORDERED: tiZANidine 4 MG TABLET PO PRN (14:07)
[2017-06-18] MEDS ORDERED: Naloxone 0.4 MG/ML INJ IVP PRN (14:07)
[2017-06-18] MEDS ORDERED: Dextrose Gel 15 GM PO PRN ×2 (14:07)
[2017-06-18] MEDS ORDERED: *HR* Dextrose 50 % in Water (Syg) 50 ML SYRINGE IVP PRN (14:07)
[2017-06-18] MEDS ORDERED: D5% in Water 1,000 ML IVC PRN (14:07)
[2017-06-18] MEDS: Carbidopa/Levodopa 25/100 TABLET PO SCH ×2 (14:44→21:34)
--- NOTE | 2017-06-18 15:38 | Internal Med History&Physical ---
Date of Encounter: 06/18/17 Time of Encounter: 15:05 Assessment and Plan (1) Dyspnea Current visit: Yes Status: Acute Possibly multifactorial etiology including pulmonary hypertension, COPD, diastolic heart failure, and deconditioning. Continue Lasix and Lopressor. Qualifiers: Dyspnea type: shortness of breath Qualified Code(s): R06.02 - Shortness of breath; R06.00 - Dyspnea, unspecified; R06.01 - Orthopnea (2) Essential hypertension Current visit: No Status: Chronic Continue Lasix and Lopressor. (3) Diabetes Current visit: No Status: Chronic Hemoglobin A1c was 6.4% on 06/10/2017. Continue Levemir and Accu-Cheks with SSI. Qualifiers: Diabetes mellitus type: type 2 Diabetes mellitus middle or intermediate school principal insulin use: with middle or intermediate school principal use Diabetes mellitus complication status: with circulatory complication Diabetes mellitus complication detail: with other circulatory complications Qualified Code(s): E11.59 - Type 2 diabetes mellitus with other circulatory complications; Z79.4 - [facility] (current) use of insulin (4) Anemia Current visit: No Status: Acute We will start ferrous sulfate with vitamin C. Qualifiers: Anemia type: unspecified type Qualified Code(s): D64.9 - Anemia, unspecified (5) Atrial fibrillation Current visit: No Status: Chronic Rate is controlled. Continue Xarelto Qualifiers: Atrial fibrillation type: chronic Qualified Code(s): I48.2 - Chronic atrial fibrillation Internal Medicine - H&P: HPI Chief complaint: Dyspnea Admitted From: Emergency Dept Plans for Post Hospital Care: Home History of present illness: Ms. Whitmore is a 77 year old female who came to emergency room stating she had increased dyspnea with nonproductive cough and feelings of warm diaphoresis over the past 1-2 days. She was evaluated in emergency room and felt to have exacerbation of heart failure. She was admitted to [facility] floor for ongoing care needs. She has history of essential hypertension. She has known ASHD with a single stent placed approximately 2013. Heart catheter 07/20/2015 showed LVEF 60%. There was 20% stenosis in LMCA, proximal LAD with stent, 20% stenosis in proximal and mid LAD, 30% stenosis in proximal circumflex, 30% stenosis in first marginal, 30% stenosis in proximal and distal RCA and 40% stenosis in mid RCA, and 30% stenosis in right PDA. She has history of atrial fibrillation. She states she had a left DVT in the past. She had an echocardiogram 06/15/2017 which showed LVEF of 60-65%. There was indeterminate diastolic function due to atrial fibrillation. The interventricular septum and posterior wall thickness measurements were increased at 1.25 cm. There was LAE at 4.50 cm. There was reported AISHA without measurement recorded. There was mild mitral regurgitation, moderate tricuspid regurgitation, and trace pulmonic regurgitation. Estimated RVSP was elevated at 78-88 mmHg. consistent with pulmonary artery hypertension. Past Med Surg Social Fam HX - Past Medical History Medical history: atrial fibrillation, CHF, COPD, coronary artery disease, DVT, diabetes, GERD, hyperlipidemia, hypertension, TIA, other (Pulmonary hypertension ) Psychiatric history: depression - Past Surgical History Surgical History: angioplasty/stent, cholecystectomy, hysterectomy, other - Social History Smoking Status: Never smoker Smokeless Tobacco Status: No Alcohol use: none Drug use: none - Family History Mother Adopted: No Living Status: Hx Family Cardiac Disorders: Yes Hx Family Respiratory Disorders: Yes (COPD) Hx Family Cancer: Yes (lung, breast) Hx Family GI Disorders: No Hx Family Endocrine Disorder: No Hx Family Neuromuscular Disorders: No Hx Family Neurologic Disorders: No Hx Family HEENT Disorders: No Hx Family Autoimmune Disorders: Yes (non hygkins lymphoma) Internal Medicine - H&P: Meds Calcitriol [Rocaltrol] 0.25 mcg PO MOWEFR 06/24/15 [History] Carbidopa/Levodopa 25/100 [Sinemet 25/100] 1 tab PO TID 06/24/15 [History] Cholecalciferol (Vitamin D3) [Vitamin D3] 5,000 unit PO DAILY 06/24/15 [History] Clopidogrel Bisulfate [Plavix] 75 mg PO DAILY 06/24/15 [History] Fluticasone Propionate Nasal [Flonase] 2 spray NS HS 06/24/15 [History] Gabapentin [Neurontin] 800 mg PO QID 06/24/15 [History] Insulin ASPART [Novolog Flexpen] 12 unit SQ BID 06/24/15 [History] Insulin DETEMIR [Levemir Flextouch] 80 unit SQ QAM 06/24/15 [History] Levothyroxine Sodium [Tirosint] 88 mcg PO DAILY 06/24/15 [History] Magnesium l-Lactate [Mag-Tab Sr] 84 mg PO QPM 06/24/15 [History] Potassium Chloride [K-Tab ER] 20 meq PO TID 06/24/15 [History] Rivaroxaban [Xarelto] 15 mg PO QPM 06/24/15 [History] Ustekinumab [Stelara (For Outpatient Infusion)] 90 mg SQ [id number] 06/24/15 [ History] Vitamin B Complex [B Complex] 1 tab PO QPM 06/24/15 [History] Fluticasone/Salmeterol [Advair 250-50 Diskus] 1 puff IH BID 07/20/15 [History] Atorvastatin [Lipitor] 40 mg PO HS 09/03/16 [History] Tizanidine HCl 4 mg PO TID PRN 09/03/16 [History] Metoprolol [Lopressor] 50 mg PO BID #60 tablet 04/20/17 [Rx] Pantoprazole Sodium [Protonix] 40 mg PO DAILY PRN #0 04/20/17 [Rx] Albuterol Sulfate [Proair Hfa] 2 puff IH Q4H PRN 06/18/17 [History] Ascorbic Acid [Vitamin C] 1,000 mg PO DAILY 06/18/17 [History] Cetirizine HCl [Zyrtec] 10 mg PO DAILY 06/18/17 [History] Clobetasol Propionate 0.05% [Temovate] 1 appl TP BID 06/18/17 [History] Furosemide [Lasix] 80 mg PO BID 06/18/17 [History] HYDROcodone/Acet 5/325 mg [[place] 5-325 mg] 1 tab PO TID PRN 06/18/17 [History] 3 Allergy/AdvReac Type Severity Reaction Status Date / Time amlodipine [From Norvasc] Allergy Severe Swelling Verified 04/18/17 23:32 of Lip/Tongue/Throat carbamazepine [From Tegretol] Allergy Mild rash/bliste Verified 04/18/17 23:32 rs ciprofloxacin [From Cipro] Allergy Mild Rash Verified 04/18/17 23:32 nitrofurantoin Allergy Mild Rash Verified 04/18/17 23:32 [From Macrobid] Sulfa (Sulfonamide Allergy Mild Rash Verified 04/18/17 23:32 Antibiotics) sulfamethoxazole Allergy Mild Rash Verified 04/18/17 23:32 [From Bactrim] trimethoprim [From Bactrim] Allergy Mild Rash Verified 04/18/17 23:32 acetaminophen [From Percocet] AdvReac Mild Confusion Verified 04/18/17 23:32 meperidine [From Demerol] AdvReac Mild Vomiting Verified 04/18/17 23:32 Oxycodone [From Percocet] AdvReac Mild Confusion Verified 04/18/17 23:32 promethazine [From Phenergan] AdvReac Mild Vomiting Verified 04/18/17 23:32 NSAIDS (Non-Steroidal AdvReac Unknown D/T KIDNEY Verified 04/18/17 23:32 Anti-Inflamma DYSFUNCTION All Systems PM: A 10-system review of systems was performed and is negative for pertinent findings except as documented above in the HPI. Review of systems: Review of systems from her April 2017 [facility] admission were reviewed and revised as below. Gen.: Her weight has increased from 101.151 kg on 04/18/2017 to 104.326 kg at present. Cardiovascular: Per history of present illness Respiratory: She smoked from age [age] up to 2-1/2 packs per day. She has a diagnosis of COPD with PFTs 08/30/2015 showing FEV1/FVC of 66%. There was no improvement in FEV1 postbronchodilator. FVC was 67% predicted. MVV was 42% predicted. DLCO was 56% predicted. She wears oxygen 22/09. Chest CT was done January 2017 and showed small pulmonary nodules. GI: She has had cholecystectomy. She denies disorders of her liver or exocrine pancreas : She has chronic kidney disease stage III and follows with a [place] data collection interviewer. She denies other kidney or bladder disorders Neurologic: She has Parkinson's disease. She denies large distribution strokes or seizures. Endocrine: She was diagnosed with DM 2 in 1998. Hemoglobin A1c was 6.3% on 06/2016. She has hypothyroidism and hyperlipidemia. Hematology/oncology: She has anemia. Iron studies on 06/10/2017 showed iron 18 , transferrin saturation 5%, transferrin 242, and ferritin 79. B12 and folate levels on 04/15/2017 were 266 and >22.3 respectively. Psychiatric: She has anxiety and depression. Muscle skeletal: She has gout and DJD. Dermatologic: She has psoriasis of her scalp. - Constitutional Vitals: Temp Pulse Resp BP Pulse Ox 98.4 F 86 30 118/60 91 06/18/17 14:00 06/18/17 14:00 06/18/17 14:00 06/18/17 14:00 06/18/17 14:00 Exam: Gen.: She is a well-developed well-nourished female lying in bed who appears in minimal distress at present time. HEENT: Head is atraumatic and normocephalic. Eyes: EOMI. There is no scleral icterus. Mouth: Mucosa is moist. Neck: Supple and nontender. There is no thyromegaly or adenopathy noted. Heart: Irregularly irregular without murmurs or gallops Lungs: She has diminished breath sounds diffusely. No wheezes or crackles are heard. Abdomen: Soft and nontender. No masses or guarding are noted. Extremities: There is trace to 1+ edema of the dorsum of feet and lower anterior shins bilaterally. Dorsalis pedis and posttibial pulses are trace to 1 + palpable bilaterally. Neurologic: Mental status: She is talkative and a good historian. Cranial nerves: Smile is symmetric. Forehead wrinkles bilaterally. Tongue protrudes midline. EOMI. Motor: There is no pronator drift. Cerebellar: Finger to nose is intact bilaterally. Skin: Warm and dry Internal Med - H&P Results - Labs CBC & Chem 7: 06/18/17 12:00 06/18/17 12:00
[2017-06-18] MEDS: Gabapentin 400 MG CAPSULE PO SCH ×3 (15:45→21:33)
[2017-06-18] MEDS: Furosemide 40 MG TABLET PO SCH (15:45)
[2017-06-18] MEDS: *HR* HYDROcodone/Acet 5/325 mg TABLET PO PRN (16:01)
[2017-06-18] MEDS ORDERED: Insulin LISPRO 300 UNITS/3 ML VIAL SQ SCH (16:30)
[2017-06-18] MEDS ORDERED: (Magnesium L-Lactate [Mag-Tab Sr] 84 MG) PO SCH (18:00)
[2017-06-18] MEDS ORDERED: *HR* Rivaroxaban 15 MG TABLET PO SCH (18:00)
[2017-06-18] MEDS ORDERED: Fluticasone Propionate Nasal 50 MCG/SPRAY BOTTLE NS SCH (21:00)
[2017-06-18] MEDS: Insulin LISPRO 300 UNITS/3 ML VIAL SQ SCH (21:34)
[2017-06-18] MEDS: Budesonide/Formoterol 80/4.5 MDI IH SCH (22:29)
[2017-06-19] MEDS: *HR* HYDROcodone/Acet 5/325 mg TABLET PO PRN ×2 (00:17→07:49)
[2017-06-19] MEDS ORDERED: Ascorbic Acid 500 MG TABLET PO SCH (06:30)
[2017-06-19 06:31] LABS: Basophils # 0.1 K/mcL (0.0-0.2); Eosinophils # 0.3 K/mcL (0.0-0.6); Eosinophils % 4.2 %; Hematocrit 26.7 % (35.3-44.9); Hemoglobin 8.3 g/dL (11.5-15.4); Immature Granulocytes % 1.3 % (0-4); Lymphocytes # 1.5 K/mcL (0.6-4.6); Lymphocytes % 21.7 %; Mean Corpuscular HGB Conc 31.1 g/dL (31.6-35.5); Mean Corpuscular Volume 99.6 fL (83.0-100.0); Mean Platelet Volume 11.4 fL (9.4-12.4); Monocytes # 0.7 K/mcL (0.0-1.3); Monocytes % 10.3 %; Neutrophils # 4.2 K/mcL (1.6-8.9); Platelet Count 231 K/mcL (140-400); Red Blood Count 2.68 M/mcL (3.82-4.97); Red Cell Distribution Width 14.2 % (11.5-14.5); Segmented Neutrophils % 61.5 %
[2017-06-19 06:32] VITALS: BP 126/79
[2017-06-19 06:51] LABS: BUN/Creatinine Ratio 34 (6-26); Blood Urea Nitrogen 26 mg/dL (8-23); Calcium 9.5 mg/dL (8.6-10.3); Carbon Dioxide 38 mEq/L (23-29); Chloride 99 mEq/L (98-107); Glucose 110 mg/dL (70-105); Osmolality,Calculated 301 (280-300); Potassium 3.7 mEq/L (3.5-5.1); Sodium 143 mEq/L (136-145); eGFR For African Americans > 60 (> 60); eGFR For Non-African Americans > 60 (> 60)
[2017-06-19] MEDS: Carbidopa/Levodopa 25/100 TABLET PO SCH (07:49)
[2017-06-19] MEDS: Furosemide 40 MG TABLET PO SCH (07:49)
[2017-06-19] MEDS: Gabapentin 400 MG CAPSULE PO SCH (07:49)
[2017-06-19] MEDS: Insulin LISPRO 300 UNITS/3 ML VIAL SQ SCH (07:57)
[2017-06-19] MEDS ORDERED: Insulin DETEMIR 100 UNIT/ML X5UNITS SQ SCH (09:00)
[2017-06-19] MEDS ORDERED: INSULIN DETEMIR 80 UNIT SQ SCH (09:00)
[2017-06-19] MEDS ORDERED: Loratadine 10 MG TABLET PO SCH (09:00)
[2017-06-19] MEDS ORDERED: CLOBETASOL PROPIONATE 15 GM TUBE TP SCH (09:00)
[2017-06-19] MEDS: Budesonide/Formoterol 80/4.5 MDI IH SCH (09:50)
--- NOTE | 2017-06-19 10:10 | Discharge Summary ---
Date of Encounter: 06/19/17 Time of Encounter: 10:00 - Discharge Diagnosis (1) Pulmonary hypertension Priority: Primary Status: Chronic (2) Dyspnea Priority: Secondary Status: Acute Qualifiers: Dyspnea type: shortness of breath Qualified Code(s): R06.02 - Shortness of breath; R06.00 - Dyspnea, unspecified; R06.01 - Orthopnea (3) Essential hypertension Priority: Secondary Status: Chronic (4) Diabetes Priority: Secondary Status: Chronic Qualifiers: Diabetes mellitus type: type 2 Diabetes mellitus records management manager insulin use: with mcc use Diabetes mellitus complication status: with circulatory complication Diabetes mellitus complication detail: with other circulatory complications Qualified Code(s): E11.59 - Type 2 diabetes mellitus with other circulatory complications; Z79.4 - [facility] (current) use of insulin (5) Anemia Priority: Secondary Status: Chronic Qualifiers: Anemia type: unspecified type Qualified Code(s): D64.9 - Anemia, unspecified (6) Atrial fibrillation Priority: Secondary Status: Chronic Qualifiers: Atrial fibrillation type: chronic Qualified Code(s): I48.2 - Chronic atrial fibrillation Hospital course: Ms. Whitmore is a 77 year old female who came to emergency room stating she had increased dyspnea with nonproductive cough and feelings of warm diaphoresis over the past 1-2 days. She was evaluated in emergency room and felt to have exacerbation of heart failure. She was admitted to [facility] for ongoing care needs. Initial orders were written by the emergency room physician. I saw her on June 18 and performed the history and physical. Her Lasix dose was increased back to 80 mg twice a day. Her dyspnea had significantly improved when I saw her on June 19 and she felt stable for discharge home. I reviewed with her the findings on the echocardiogram showing significant pulmonary hypertension. I told her that this could be contributing to her dyspnea. She will follow with cardiology for further evaluation and intervention. She will follow with her PCP Dr. Otf Rivera within 1 week. - Time Spent with Patient Total time spent providing and/or coordinating discharge services: - Discharge Medications Prescriptions: Ascorbic Acid [Vitamin C] 500 mg PO DAILY #30 tablet Ferrous Sulfate 325 mg PO DAILY #30 tablet Home Medications: Calcitriol [Rocaltrol] 0.25 mcg PO MOWEFR 06/24/15 [History] Carbidopa/Levodopa 25/100 [Sinemet 25/100] 1 tab PO TID 06/24/15 [History] Cholecalciferol (Vitamin D3) [Vitamin D3] 5,000 unit PO DAILY 06/24/15 [History] Clopidogrel Bisulfate [Plavix] 75 mg PO DAILY 06/24/15 [History] Fluticasone Propionate Nasal [Flonase] 2 spray NS HS 06/24/15 [History] Gabapentin [Neurontin] 800 mg PO QID 06/24/15 [History] Insulin ASPART [Novolog Flexpen] 12 unit SQ BID 06/24/15 [History] Insulin DETEMIR [Levemir Flextouch] 80 unit SQ QAM 06/24/15 [History] Levothyroxine Sodium [Tirosint] 88 mcg PO DAILY 06/24/15 [History] Magnesium l-Lactate [Mag-Tab Sr] 84 mg PO QPM 06/24/15 [History] Potassium Chloride [K-Tab ER] 20 meq PO TID 06/24/15 [History] Rivaroxaban [Xarelto] 15 mg PO QPM 06/24/15 [History] Ustekinumab [Stelara (For Outpatient Infusion)] 90 mg SQ [id number] 06/24/15 [ History] Vitamin B Complex [B Complex] 1 tab PO QPM 06/24/15 [History] Fluticasone/Salmeterol [Advair 250-50 Diskus] 1 puff IH BID 07/20/15 [History] Atorvastatin [Lipitor] 40 mg PO HS 09/03/16 [History] Tizanidine HCl 4 mg PO TID PRN 09/03/16 [History] Metoprolol [Lopressor] 50 mg PO BID #60 tablet 04/20/17 [Rx] Pantoprazole Sodium [Protonix] 40 mg PO DAILY PRN #0 04/20/17 [Rx] Albuterol Sulfate [Proair Hfa] 2 puff IH Q4H PRN 06/18/17 [History] Cetirizine HCl [Zyrtec] 10 mg PO DAILY 06/18/17 [History] Clobetasol Propionate 0.05% [Temovate] 1 appl TP BID 06/18/17 [History] Furosemide [Lasix] 80 mg PO BID 06/18/17 [History] HYDROcodone/Acet 5/325 mg [[place] 5-325 mg] 1 tab PO TID PRN 06/18/17 [History] Ascorbic Acid [Vitamin C] 500 mg PO DAILY #30 tablet 06/19/17 [Rx] Ferrous Sulfate 325 mg PO DAILY #30 tablet 06/19/17 [Rx] Allergies/Adverse Reactions: 3 Allergy/AdvReac Type Severity Reaction Status Date / Time amlodipine [From Norvasc] Allergy Severe Swelling Verified 04/18/17 23:32 of Lip/Tongue/Throat carbamazepine [From Tegretol] Allergy Mild rash/bliste Verified 04/18/17 23:32 rs ciprofloxacin [From Cipro] Allergy Mild Rash Verified 04/18/17 23:32 nitrofurantoin Allergy Mild Rash Verified 04/18/17 23:32 [From Macrobid] Sulfa (Sulfonamide Allergy Mild Rash Verified 04/18/17 23:32 Antibiotics) sulfamethoxazole Allergy Mild Rash Verified 04/18/17 23:32 [From Bactrim] trimethoprim [From Bactrim] Allergy Mild Rash Verified 04/18/17 23:32 acetaminophen [From Percocet] AdvReac Mild Confusion Verified 04/18/17 23:32 meperidine [From Demerol] AdvReac Mild Vomiting Verified 04/18/17 23:32 Oxycodone [From Percocet] AdvReac Mild Confusion Verified 04/18/17 23:32 promethazine [From Phenergan] AdvReac Mild Vomiting Verified 04/18/17 23:32 NSAIDS (Non-Steroidal AdvReac Unknown D/T KIDNEY Verified 04/18/17 23:32 Anti-Inflamma DYSFUNCTION Date of admission: 06/18/17 13:39 Primary care physician: Otf Rivera MD Consults: 06/18/17 16:10 Consult to Cloth Cutter [CONS] Routine Reason for SW Consult: D/C planning - pt has Passport services and MOW - Constitutional Vitals: Temp Pulse Resp BP Pulse Ox 98.2 F 63 15 126/79 95 06/19/17 06:27 06/19/17 06:27 06/19/17 09:53 06/19/17 06:27 06/19/17 09:53 - Patient Status Disposition: Home, Self-Care Condition: Good Overall status at discharge: patient is progressing back to baseline - Discharge Instructions Follow Up With: Otf Rivera MD [Primary Care Provider] - 1 week - Diet and Activity Activity: resume usual activities as tolerated Diet: advance to your usual diet - VTE Documentation of Mechanical Device: Graduated compression elastic hosiery
--- NOTE | 2017-06-19 15:34 | Electrocardiograph Report ---
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
[2017-06-19] MEDS ORDERED: (Magnesium L-Lactate [Mag-Tab Sr] 84 MG) PO SCH (18:00)
== END 2017-06-19 11:16 | disposition home or self-care (01) ==
LOC: INPPIK 11:36 → EMEROOPIK 11:36 → INPPIK 13:44
PROVIDERS: ADMIT Internal Medicine; ATTEND Internal Medicine

== ENCOUNTER 2018-03-04 11:07 | Inpatient (IN) ==
--- NOTE | 2018-03-04 11:25 | Emergency Department Note ---
Disposition Clinical Impression: Essential hypertension, Diabetes, CHF (congestive heart failure), Obesity (BMI 30-39.9), Anemia, Atrial fibrillation, Dyspnea Disposition: Admitted As Inpatient Condition: Fair Referrals: Otf Rivera MD [Primary Care Provider] - Forms: ED Satisfaction Letter Time of Disposition: 12:11 SOB HPI - General Chief Complaint: ED Shortness of Breath/Dyspnea Stated Complaint: shortness of breath Time Seen by Provider: 03/04/18 11:09 Source: patient Mode of arrival: wheelchair Limitations: no limitations Nursing Notes Reviewed: Yes Vital Signs Reviewed: Yes - History of Present Illness 77 show female who is administered doctor's appointment was somewhat frustrated because she wasn't having pain medication she wasn't sure what to do so she was brought to the ER by family to be family tells me that she's had increasing shortness of breath she's had no chest pain no chest pressure but has had dyspnea with activity apparently when discussion with the doctor's office when I spoke to them she was actually 30 minutes later because she had to stop and eat before she went to the doctor's office not 5 minutes that she had told but they also noted that her sats were 88% when she was there and she looked pale and not slightly centered to the ER that it was not her coming here as result she's had no chest pain or chest pressure palpitations no diarrhea melena hematochezia hematemesis she's had no black tarry or melanotic stools all systems reviewed and are otherwise negative Pt Subjective Complaint: shortness of breath Onset (ago): week(s) Severity: moderate Consistency/Duration: gradually worsening Improves with: nothing Worsens with: exertion Known history of: COPD, congestive heart failure, diabetes Associated symptoms: Denies: chest pain, pain with inspiration, fever, cough, wheezing, sputum production, orthopnea, lower extremity pain, polyuria, polydipsia, parasthesias, palpitations, hemoptysis, diaphoresis, nausea/vomiting, syncope, abdominal pain, sense of impending doom Treatment prior to arrival: oxygen Cough present: No Sputum production: No - Related Data Home Medications Medication Instructions Recorded Confirmed Calcitriol [Rocaltrol] 0.25 mcg PO MOWEFR 06/24/15 03/04/18 Carbidopa/Levodopa 25/100 [Sinemet 1 tab PO TID 06/24/15 03/04/18 25/100] Cholecalciferol (Vitamin D3) 5,000 unit PO DAILY 06/24/15 03/04/18 [Vitamin D3] Clopidogrel Bisulfate [Plavix] 75 mg PO DAILY 06/24/15 03/04/18 Fluticasone Propionate Nasal 2 spray NS HS 06/24/15 03/04/18 [Flonase] Gabapentin [Neurontin] 800 mg PO QID 06/24/15 03/04/18 Insulin ASPART [Novolog Flexpen] 12 unit SQ BID 06/24/15 03/04/18 Insulin DETEMIR [Levemir Flextouch] 80 unit SQ QAM 06/24/15 03/04/18 Levothyroxine Sodium [Tirosint] 88 mcg PO DAILY 06/24/15 03/04/18 Potassium Chloride [K-Tab ER] 20 meq PO TID 06/24/15 03/04/18 Rivaroxaban [Xarelto] 15 mg PO QPM 06/24/15 03/04/18 Ustekinumab [Stelara (For 90 mg SQ Q3M 06/24/15 03/04/18 Outpatient Infusion)] Vitamin B Complex [B Complex] 1 tab PO QPM 06/24/15 03/04/18 Fluticasone/Salmeterol [Advair 1 puff IH BID 07/20/15 03/04/18 250-50 Diskus] Atorvastatin [Lipitor] 40 mg PO HS 09/03/16 03/04/18 Tizanidine HCl 4 mg PO HS 09/03/16 03/04/18 Albuterol Sulfate [Proair Hfa] 2 puff IH Q4H PRN 06/18/17 03/04/18 Cetirizine HCl [Zyrtec] 10 mg PO DAILY 06/18/17 03/04/18 Clobetasol Propionate 0.05% 1 appl TP BID 06/18/17 03/04/18 [Temovate] Furosemide [Lasix] 80 mg PO BID 06/18/17 03/04/18 HYDROcodone/Acet 5/325 mg [[place] 1 tab PO TID PRN 06/18/17 03/04/18 5-325 mg] Previous Rx's Medication Instructions Recorded Metoprolol [Lopressor] 50 mg PO BID #60 tablet 04/20/17 Pantoprazole Sodium [Protonix] 40 mg PO DAILY PRN #0 04/20/17 Ascorbic Acid [Vitamin C] 500 mg PO DAILY #30 tablet 06/19/17 Ferrous Sulfate 325 mg PO DAILY #30 tablet 06/19/17 Allergies Allergy/AdvReac Type Severity Reaction Status Date / Time amlodipine [From Norvasc] Allergy Severe Swelling Verified 01/22/18 11:37 of Lip/Tongue/Throat carbamazepine [From Tegretol] Allergy Mild rash/bliste Verified 01/22/18 11:37 rs ciprofloxacin [From Cipro] Allergy Mild Rash Verified 01/22/18 11:37 nitrofurantoin Allergy Mild Rash Verified 01/22/18 11:37 [From Macrobid] Sulfa (Sulfonamide Allergy Mild Rash Verified 01/22/18 11:37 Antibiotics) sulfamethoxazole Allergy Mild Rash Verified 01/22/18 11:37 [From Bactrim] trimethoprim [From Bactrim] Allergy Mild Rash Verified 01/22/18 11:37 acetaminophen [From Percocet] AdvReac Mild Confusion Verified 01/22/18 11:37 meperidine [From Demerol] AdvReac Mild Vomiting Verified 01/22/18 11:37 Oxycodone [From Percocet] AdvReac Mild Confusion Verified 01/22/18 11:37 promethazine [From Phenergan] AdvReac Mild Vomiting Verified 01/22/18 11:37 NSAIDS (Non-Steroidal AdvReac Unknown D/T KIDNEY Verified 01/22/18 11:37 Anti-Inflamma DYSFUNCTION All systems ED: reviewed and negative except as stated. Review of Systems: As Per HPI Constitutional: Reports: weakness. Denies: fever, chills Eyes: Denies: eye pain, eye discharge ENT ED: Denies: ear pain, throat pain Cardiovascular: Reports: dyspnea on exertion. Denies: chest pain, palpitations Respiratory: Denies: cough, dyspnea, wheezes Gastrointestinal: Denies: abdominal pain, nausea Genitourinary: Denies: urgency, dysuria Musculoskeletal: Denies: back pain, neck pain Integumentary: Denies: rash, abrasion, lesions Neurological: Denies: headache, weakness Psychiatric: Denies: anxiety, visual hallucinations Endocrine: Denies: fatigue Hematological/Lymphatic: Denies: easy bleeding Allergic/Immunologic: Denies: facial swelling Past Medical History - Past Medical History Attestation: Yes The following information was validated with the patient. Source: patient, old records reviewed, nursing notes reviewed Medical history: Reports: arthritis, asthma, atrial fibrillation, COPD, coronary artery disease, diabetes, hypertension, renal disease, thyroid disease, other Surgical history: Reports: angioplasty/stent, cholecystectomy, hysterectomy, other Psychiatric history: Reports: depression - Social History Smoking Status: Former smoker Smokeless Tobacco Status: No Alcohol use: Reports: none Drug use: Reports: none Physical Exam - General Limitations: no limitations General appearance: alert, in no apparent distress, anxious - Head Head exam: atraumatic, normocephalic, normal inspection - Eye Eye exam: Present: normal appearance, PERRL, EOMI - ENT ENT exam: normal exam, normal oropharynx, mucous membranes moist, TM's normal bilaterally, normal external ear exam - Neck Neck exam: Present: normal inspection, full ROM, trachea midline - Chest Chest inspection: Present: normal inspection, symmetric chest wall rise - Respiratory Respiratory exam: Present: normal lung sounds bilaterally, prolonged expiratory phase - Cardiovascular Cardiovascular exam: Present: irregular rhythm, normal heart sounds - Abdominal Exam Abdominal exam: Present: soft, Non-Tender, normal bowel sounds. Absent: mass, pulsatile mass - Extremities Exam Extremities exam: Present: normal inspection, full ROM, normal capillary refill. Absent: tenderness, pedal edema, joint swelling, calf tenderness - Expanded Lower Extremity Exam Neurovascular/Tendon exam: Present: normal capillary refill, normal fine/light touch Gait: observed and normal - Back Exam Back exam: Present: normal inspection, full ROM. Absent: muscle spasm - Neurological Exam Neurological exam: Present: alert, oriented X3, CN II-XII intact, normal gait - Psychiatric Psychiatric exam: Present: normal affect, normal mood - Skin Skin exam: Present: warm, dry, intact, pallor Course Course Narrative: Patient seen and examined patient's been sitting in the bed is been asymptomatic during her period of time while in the bed even with activity she does not avelino aturate below 90% as result though she becomes lightheaded and dizzy when she is up and moving and with her hemoglobin Auguste that she is medically that this will admit her transfusion of blood and we have assess at that time she's had no outward bleeding symptoms anemia panel has been ordered Vital Signs Temperature 98.6 F 03/04/18 11:09 Pulse Rate 82 03/04/18 11:09 Respiratory Rate 18 03/04/18 11:09 Blood Pressure 135/60 03/04/18 11:09 O2 Sat by Pulse Oximetry 94 03/04/18 11:09 Temperature 98.6 F 03/04/18 11:09 Pulse Rate 74 03/04/18 12:02 Respiratory Rate 18 03/04/18 12:02 Blood Pressure 163/53 03/04/18 12:02 O2 Sat by Pulse Oximetry 98 03/04/18 12:02 Oxygen Delivery Oxygen Delivery Nasal Cannula Shortness of Breath/Dyspnea - MDM Narrative Medical decision making narrative: History of anemia and metabolic imbalance history of cardiac disease - Differential Diagnosis Likely: acute exacerbation of chronic obstructive airways disease, congestive heart failure, pneumonia - Medical Records Medical records reviewed: Yes I reviewed the patient's medical records. - Lab Data Lab results reviewed: Yes I reviewed the patient's lab results. Result diagrams: 03/04/18 11:35 03/04/18 11:35 Lab Results 03/04/18 03/04/18 03/04/18 Range/Units 11:35 11:35 11:35 WBC 7.3 (4.3-11.1) K/mcL RBC 1.98 L (3.82-4.97) M/mcL Hgb 6.5 L (11.5-15.4) g/dL Hct 21.5 L (35.3-44.9) % MCV 108.6 H (83.0-100.0) fL MCH 32.8 (28.0-33.3) pg MCHC 30.2 L (31.6-35.5) g/dL RDW 16.4 H (11.5-14.5) % Plt Count 220 (140-400) K/mcL MPV 11.6 (9.4-12.4) fL Immature Gran % 1.2 (0-4) % Seg Neutrophils % 75.3 % Lymphocytes % 11.7 % Monocytes % 7.6 % Eosinophils % 3.2 % Basophils % 1.0 % Neutrophils # 5.5 (1.6-8.9) K/mcL Lymphocytes # 0.9 (0.6-4.6) K/mcL Monocytes # 0.6 (0.0-1.3) K/mcL Eosinophils # 0.2 (0.0-0.6) K/mcL Basophils # 0.1 (0.0-0.2) K/mcL Sodium 143 (136-145) mEq/L Potassium 4.0 (3.5-5.1) mEq/L Chloride 101 (98-107) mEq/L Carbon Dioxide 34 H (23-29) mEq/L BUN 33 H (8-23) mg/dL Creatinine 1.43 H (0.60-1.20) mg/dL Est GFR ( Amer) 43 L (> 60) Est GFR (Non-Af Amer) 36 L (> 60) BUN/Creatinine Ratio 23 (6-26) Glucose 301 H (70-105) mg/dL Calculated Osmolality 315 H (280-300) Calcium 11.9 H (8.6-10.3) mg/dL Troponin I (< 0.04) ng/mL B-Natriuretic Peptide 227 H (Less than 100) pg/mL 03/04/18 Range/Units 11:35 WBC (4.3-11.1) K/mcL RBC (3.82-4.97) M/mcL Hgb (11.5-15.4) g/dL Hct (35.3-44.9) % MCV (83.0-100.0) fL MCH (28.0-33.3) pg MCHC (31.6-35.5) g/dL RDW (11.5-14.5) % Plt Count (140-400) K/mcL MPV (9.4-12.4) fL Immature Gran % (0-4) % Seg Neutrophils % % Lymphocytes % % Monocytes % % Eosinophils % % Basophils % % Neutrophils # (1.6-8.9) K/mcL Lymphocytes # (0.6-4.6) K/mcL Monocytes # (0.0-1.3) K/mcL Eosinophils # (0.0-0.6) K/mcL Basophils # (0.0-0.2) K/mcL Sodium (136-145) mEq/L Potassium (3.5-5.1) mEq/L Chloride (98-107) mEq/L Carbon Dioxide (23-29) mEq/L BUN (8-23) mg/dL Creatinine (0.60-1.20) mg/dL Est GFR ( Amer) (> 60) Est GFR (Non-Af Amer) (> 60) BUN/Creatinine Ratio (6-26) Glucose (70-105) mg/dL Calculated Osmolality (280-300) Calcium (8.6-10.3) mg/dL Troponin I 0.04 H* (< 0.04) ng/mL B-Natriuretic Peptide (Less than 100) pg/mL - Radiology Data Radiology results reviewed: Yes I reviewed the patient's radiology results. ITS Impressions Chest X-Ray 03/04/18 11:23 IMPRESSION: Stable chest. Cardiomegaly with mild perihilar congestive changes suggested. Mild bibasilar atelectasis. D/ / Jose Peguero MD / Jose Peguero MD Interpreting Provider: Jose Peguero MD - EKG Data EKG attestation: Yes I reviewed and interpreted this EKG. EKG results narrative: Atrial fib unifocal PVC rate 77 ME unable to calculate QRS 79 QT 364 axis LXV Critical Care Time Critical Care Time: Yes Total Critical Care Time: 15 Attestation: 15 minutes high probability significant life-threatening deterioration patient condition since of reportable procedures as result patient being anemic with a hemoglobin of 6.5 and symptomatic when up and active schedule hospitalist for admission
[2018-03-04 11:42] LABS: Basophils # 0.1 K/mcL (0.0-0.2); Eosinophils # 0.2 K/mcL (0.0-0.6); Eosinophils % 3.2 %; Hematocrit 21.5 % (35.3-44.9); Hemoglobin 6.5 g/dL (11.5-15.4); Immature Granulocytes % 1.2 % (0-4); Lymphocytes # 0.9 K/mcL (0.6-4.6); Lymphocytes % 11.7 %; Mean Corpuscular HGB Conc 30.2 g/dL (31.6-35.5); Mean Corpuscular Hemoglobin 32.8 pg (28.0-33.3); Mean Corpuscular Volume 108.6 fL (83.0-100.0); Mean Platelet Volume 11.6 fL (9.4-12.4); Monocytes # 0.6 K/mcL (0.0-1.3); Monocytes % 7.6 %; Neutrophils # 5.5 K/mcL (1.6-8.9); Platelet Count 220 K/mcL (140-400); Red Blood Count 1.98 M/mcL (3.82-4.97); Red Cell Distribution Width 16.4 % (11.5-14.5); Segmented Neutrophils % 75.3 %
[2018-03-04 12:00] LABS: Calcium 11.9 mg/dL (8.6-10.3)
[2018-03-04 12:34] LABS: Immature Reticulocyte % 28.9 % (11.0-38.0); Retculocyte # 0.13 M/mcL (0.05-0.10); Reticulocyte % 6.5 % (1.6-2.8)
[2018-03-04] MEDS ORDERED: Naloxone 0.4 MG/ML INJ IVP PRN (13:53)
[2018-03-04] MEDS ORDERED: USTEKINUMAB 45 MG/0.5 ML SQ SCH (13:53)
[2018-03-04] MEDS ORDERED: Furosemide 40 MG/4 ML VIAL IVP ONE (13:53)
[2018-03-04] MEDS ORDERED: 0.9 % Sodium Chloride 1,000 ML ONE (14:07)
--- NOTE | 2018-03-04 17:00 | Electrocardiograph Report ---
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
[2018-03-04] MEDS: Gabapentin 400 MG CAPSULE PO SCH ×3 (17:01→19:53)
[2018-03-04] MEDS: Carbidopa/Levodopa 25/100 TABLET PO SCH ×2 (17:02→19:52)
[2018-03-04] MEDS: Insulin LISPRO 300 UNITS/3 ML VIAL SQ SCH (17:03)
[2018-03-04 17:20] LABS: % Iron Saturation 5 % (15-50); Iron 21 mcg/dL (50-170); Transferrin 296 mg/dL (203-362)
[2018-03-04 17:53] LABS: Vitamin B12 424 pg/mL (250-1100)
[2018-03-04 17:54] LABS: Folate > 22.3 ng/mL (3.0-16.0)
[2018-03-04] MEDS: Vitamin B Complex/Vit C/Vit E 1 EACH TABLET PO SCH (18:03)
[2018-03-04] MEDS: *HR* Rivaroxaban 15 MG TABLET PO SCH (18:04)
[2018-03-04] MEDS: *HR* HYDROcodone/Acet 5/325 mg TABLET PO PRN (18:04)
[2018-03-04] MEDS: Furosemide 40 MG TABLET PO SCH (18:07)
--- NOTE | 2018-03-04 18:07 | Internal Med History&Physical ---
Date of Encounter: 03/04/18 Time of Encounter: 17:30 Assessment and Plan (1) Anemia Current visit: Yes Status: Chronic Anemia testing has been ordered. 2 units of packed red blood cells have been ordered for transfusion. Follow-up labs will be done in a.m. Suspect she will need iron infusion. Qualifiers: Anemia type: iron deficiency Iron deficiency anemia type: unspecified iron deficiency Qualified Code(s): D50.9 - Iron deficiency anemia, unspecified (2) Hypothyroidism Current visit: Yes Status: Chronic Continue present dose Synthroid. Check TSH in a.m. Qualifiers: Hypothyroidism type: unspecified Qualified Code(s): E03.9 - Hypothyroidism, unspecified (3) COPD (chronic obstructive pulmonary disease) Current visit: No Status: Chronic Continue Advair/Symbicort and prn albuterol. Qualifiers: COPD type: COPD with acute exacerbation Qualified Code(s): J44.1 - Chronic obstructive pulmonary disease with (acute) exacerbation (4) Diabetes Current visit: Yes Status: Chronic Continue Humalog and Accu-Cheks with SSI. 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 Qualifiers: Gout site: hand Gout etiology: idiopathic Chronicity: acute Laterality: right Qualified Code(s): M10.041 - Idiopathic gout, right hand (6) Atrial fibrillation Current visit: Yes Status: Chronic Continue Xarelto. Qualifiers: Atrial fibrillation type: chronic Qualified Code(s): I48.2 - Chronic atrial fibrillation (7) Hypertension Current visit: No Status: Acute Continue Lopressor. Qualifiers: Hypertension type: essential hypertension Qualified Code(s): I10 - Essential (primary) hypertension (8) Pulmonary hypertension Current visit: No Status: Chronic As per school examiner. Internal Medicine - H&P: HPI Chief complaint: Dyspnea and weakness Admitted From: Emergency Dept Plans for Post Hospital Care: Home History of present illness: Ms. Whitmore is a 77 year old female who came to emergency room complaining of increasing dyspnea and weakness for more than 1 week. It worsened further today so she came to emergency room. She was found to have hemoglobin 6.5 and creatinine elevated at 1.43. She was admitted to [facility] floor for ongoing care needs. She reports no abdominal pain or change in color or frequency of her stool in the past few weeks. She is on Plavix and Xarelto but these medications have been used at stable doses for many months. She denies aspirin or other NSAID use. She states her last colonoscopy was approximately 2012. GI history is pertinent otherwise for cholecystectomy but no known disorders of liver or exocrine pancreas. She has had anemia in the past and has been prescribed ferrous sulfate with ascorbic acid. She denies interruption of therapy. She denies internal malignancies or other blood disorders. Past Med Surg Social Fam HX - Past Medical History Medical history: arthritis, asthma, atrial fibrillation, COPD, coronary artery disease, diabetes, hypertension, renal disease, thyroid disease, other Additional medical history: PULMONARY HYPERTENSION, PARKINSON'S DZ, CAROTID ARTERY STENOSIS. Psychiatric history: depression - Past Surgical History Surgical History: angioplasty/stent, cholecystectomy, hysterectomy, other Additional surgical history: LHC. parathyriodectomy. Right knee - Social History Smoking Status: Former smoker Smokeless Tobacco Status: No Alcohol use: none Drug use: none - Family History Mother Adopted: No Living Status: Hx Family Cardiac Disorders: Yes Hx Family Respiratory Disorders: Yes (COPD) Hx Family Cancer: Yes (lung, breast) Hx Family GI Disorders: No Hx Family Endocrine Disorder: No Hx Family Neuromuscular Disorders: No Hx Family Neurologic Disorders: No Hx Family HEENT Disorders: No Hx Family Autoimmune Disorders: Yes (non hygkins lymphoma) Internal Medicine - H&P: Meds Calcitriol [Rocaltrol] 0.25 mcg PO MOWEFR 06/24/15 [History] Carbidopa/Levodopa 25/100 [Sinemet 25/100] 1 tab PO TID 06/24/15 [History] Cholecalciferol (Vitamin D3) [Vitamin D3] 5,000 unit PO DAILY 06/24/15 [History] Clopidogrel Bisulfate [Plavix] 75 mg PO DAILY 06/24/15 [History] Fluticasone Propionate Nasal [Flonase] 2 spray NS HS 06/24/15 [History] Gabapentin [Neurontin] 800 mg PO QID 06/24/15 [History] Insulin ASPART [Novolog Flexpen] 12 unit SQ BID 06/24/15 [History] Insulin DETEMIR [Levemir Flextouch] 80 unit SQ QAM 06/24/15 [History] Levothyroxine Sodium [Tirosint] 88 mcg PO DAILY 06/24/15 [History] Potassium Chloride [K-Tab ER] 20 meq PO TID 06/24/15 [History] Rivaroxaban [Xarelto] 15 mg PO QPM 06/24/15 [History] Ustekinumab [Stelara (For Outpatient Infusion)] 90 mg SQ Q3M 06/24/15 [History] Vitamin B Complex [B Complex] 1 tab PO QPM 06/24/15 [History] Fluticasone/Salmeterol [Advair 250-50 Diskus] 1 puff IH BID 07/20/15 [History] Atorvastatin [Lipitor] 40 mg PO HS 09/03/16 [History] Tizanidine HCl 4 mg PO HS 09/03/16 [History] Metoprolol [Lopressor] 50 mg PO BID #60 tablet 04/20/17 [Rx] Pantoprazole Sodium [Protonix] 40 mg PO DAILY PRN #0 04/20/17 [Rx] Albuterol Sulfate [Proair Hfa] 2 puff IH Q4H PRN 06/18/17 [History] Cetirizine HCl [Zyrtec] 10 mg PO DAILY 06/18/17 [History] Clobetasol Propionate 0.05% [Temovate] 1 appl TP BID 06/18/17 [History] Furosemide [Lasix] 80 mg PO BID 06/18/17 [History] HYDROcodone/Acet 5/325 mg [[place] 5-325 mg] 1 tab PO TID PRN 06/18/17 [History] Ascorbic Acid [Vitamin C] 500 mg PO DAILY #30 tablet 06/19/17 [Rx] Ferrous Sulfate 325 mg PO DAILY #30 tablet 06/19/17 [Rx] Allergy/AdvReac Type Severity Reaction Status Date / Time amlodipine [From Norvasc] Allergy Severe Swelling Verified 01/22/18 11:37 of Lip/Tongue/Throat carbamazepine [From Tegretol] Allergy Mild rash/bliste Verified 01/22/18 11:37 rs ciprofloxacin [From Cipro] Allergy Mild Rash Verified 01/22/18 11:37 nitrofurantoin Allergy Mild Rash Verified 01/22/18 11:37 [From Macrobid] Sulfa (Sulfonamide Allergy Mild Rash Verified 01/22/18 11:37 Antibiotics) sulfamethoxazole Allergy Mild Rash Verified 01/22/18 11:37 [From Bactrim] trimethoprim [From Bactrim] Allergy Mild Rash Verified 01/22/18 11:37 acetaminophen [From Percocet] AdvReac Mild Confusion Verified 01/22/18 11:37 meperidine [From Demerol] AdvReac Mild Vomiting Verified 01/22/18 11:37 Oxycodone [From Percocet] AdvReac Mild Confusion Verified 01/22/18 11:37 promethazine [From Phenergan] AdvReac Mild Vomiting Verified 01/22/18 11:37 NSAIDS (Non-Steroidal AdvReac Unknown D/T KIDNEY Verified 01/22/18 11:37 Anti-Inflamma DYSFUNCTION All Systems PM: A 10-system review of systems was performed and is negative for pertinent findings except as documented above in the HPI. Review of systems: Review of systems from her May 2017 [facility] admission were reviewed and revised as below. Gen.: Her weight has increased from 101.151 kg on 04/18/2017 to 107.955 kg at present. Cardiovascular: She has history of essential hypertension. She has known ASHD with a single stent placed approximately 2013. Heart catheter 07/20/2015 showed LVEF 60%. There was 20% stenosis in LMCA, proximal LAD with stent, 20% stenosis in proximal and mid LAD, 30% stenosis in proximal circumflex, 30% stenosis in first marginal, 30% stenosis in proximal and distal RCA and 40% stenosis in mid RCA, and 30% stenosis in right PDA. She has history of atrial fibrillation. She states she had a left leg DVT in the past. She had an echocardiogram 12/18/2017 which showed LVEF of 55-60%. There was concentric LVH with the interventricular septum and posterior wall thickness measurements 1.30 cm each. There was LAE at 4.20 cm. There was reported AISHA without measurement recorded. There was mild mitral regurgitation, mild tricuspid regurgitation, and mild pulmonic regurgitation. The estimated RVSP was significantly elevated at 59 mL mercury. There was indeterminate diastolic function assessment because of atrial fibrillation. Respiratory: She smoked from age [age] up to 2-1/2 packs per day. She has a diagnosis of COPD with PFTs 08/30/2015 showing FEV1/FVC of 66%. There was no improvement in FEV1 postbronchodilator. FVC was 67% predicted. MVV was 42% predicted. DLCO was 56% predicted. She wears oxygen 24/7. Chest CT April 2017 showed left upper lobe and bilateral lower lobe infiltrates. No worrisome masses or lymphadenopathy were seen. GI: As per history of present illness : She has chronic kidney disease stage III and follows with a [place] cash specialist. She denies other kidney or bladder disorders Neurologic: She has Parkinson's disease. She denies large distribution strokes or seizures. Endocrine: She was diagnosed with DM 2 in 1998. Hemoglobin A1c was 6.8% on 01/19/2018. She has hypothyroidism and hyperlipidemia. Hematology/oncology: As per history of present illness Psychiatric: She has anxiety and depression. Muscle skeletal: She has gout and DJD. Dermatologic: She has psoriasis. - Constitutional Vitals: Temp Pulse Resp BP Pulse Ox 98.5 F 70 16 167/64 100 03/04/18 15:15 03/04/18 15:15 03/04/18 15:15 03/04/18 15:15 03/04/18 15:15 Exam: Gen.: She is a well-developed overweight female lying in bed who appears in minimal respiratory discomfort. She complains of severe pain in her left leg that occurred spontaneously during the visit HEENT: Head is atraumatic and normocephalic. Eyes: EOMI. There is no scleral icterus. Mouth: Mucosa is moist. Neck: Supple and nontender. There is no thyromegaly or adenopathy noted. Heart: Irregularly irregular without murmurs or gallops Lungs: No wheezes or crackles are heard. Abdomen: She has a large abdomen. It is nontender to palpation. Extremities: She has a well-healed scar over the right anterior knee. Dorsalis pedis posterior tibial pulses are trace palpable bilaterally. There is 0 trace edema the lower legs and dorsum of the feet bilaterally. Neurologic: Mental status: She is talkative and a good historian. Cranial nerves: Smile is symmetric. Forehead wrinkles bilaterally. Tongue protrudes midline. EOMI. Motor: There is no pronator drift. She has mild tremor rest of her hands consistent with Parkinson's diagnosis. Cerebellar: Finger to nose is intact bilaterally. Skin: Warm and dry Internal Med - H&P Results - Labs CBC & Chem 7: 03/04/18 11:35 03/04/18 11:35 Labs: Short CBC 03/04/18 Range/Units 11:35 WBC 7.3 (4.3-11.1) K/mcL Hgb 6.5 L (11.5-15.4) g/dL Hct 21.5 L (35.3-44.9) % Plt Count 220 (140-400) K/mcL Neutrophils # 5.5 (1.6-8.9) K/mcL BMP 03/04/18 11:35 Sodium 143 Potassium 4.0 Chloride 101 Carbon Dioxide 34 H BUN 33 H Creatinine 1.43 H Glucose 301 H Calcium 11.9 H Cardiac Enzymes 03/04/18 Range/Units 11:35 Troponin I 0.04 H* (< 0.04) ng/mL - Impressions ITS Impressions Chest X-Ray 03/04/18 11:23 IMPRESSION: Stable chest. Cardiomegaly with mild perihilar congestive changes suggested. Mild bibasilar atelectasis. D/ / Jose Peguero MD / Jose Peguero MD Interpreting Provider: Jose Peguero MD
[2018-03-04] MEDS: Fluticasone Propionate Nasal 50 MCG/SPRAY BOTTLE NS SCH (19:53)
[2018-03-04] MEDS: tiZANidine 4 MG TABLET PO SCH (19:53)
[2018-03-04] MEDS: FluocinoNIDE 0.05% CRM 15 GM TUBE TP SCH (19:53)
[2018-03-04] MEDS ORDERED: 0.9 % Sodium Chloride 250 ML ONE (22:21)
[2018-03-04] MEDS: Budesonide/Formoterol 80/4.5 MDI IH SCH (22:48)
[2018-03-05] MEDS: *HR* HYDROcodone/Acet 5/325 mg TABLET PO PRN ×3 (03:37→21:06)
[2018-03-05 05:37] LABS: Basophils # 0.1 K/mcL (0.0-0.2); Basophils % 1.3 %; Eosinophils # 0.3 K/mcL (0.0-0.6); Eosinophils % 4.2 %; Hematocrit 26.3 % (35.3-44.9); Hemoglobin 8.3 g/dL (11.5-15.4); Immature Granulocytes % 1.6 % (0-4); Lymphocytes # 1.6 K/mcL (0.6-4.6); Lymphocytes % 25.4 %; Mean Corpuscular HGB Conc 31.6 g/dL (31.6-35.5); Mean Corpuscular Hemoglobin 32.3 pg (28.0-33.3); Mean Corpuscular Volume 102.3 fL (83.0-100.0); Mean Platelet Volume 11.8 fL (9.4-12.4); Monocytes # 0.6 K/mcL (0.0-1.3); Neutrophils # 3.6 K/mcL (1.6-8.9); Platelet Count 212 K/mcL (140-400); Red Blood Count 2.57 M/mcL (3.82-4.97); Red Cell Distribution Width 19.3 % (11.5-14.5); Segmented Neutrophils % 57.5 %
[2018-03-05] MEDS: Ascorbic Acid 500 MG TABLET PO SCH (06:20)
[2018-03-05 07:18] LABS: Alanine Aminotransferase < 3 Units/L (7-52); Albumin 3.6 g/dL (3.5-5.7); Albumin/Globulin Ratio 1.5 (1.1-2.2); Alkaline Phosphatase 52 Units/L (34-104); Aspartate Amino Transferase 13 Units/L (13-39); BUN/Creatinine Ratio 25 (6-26); Bilirubin,Total 0.4 mg/dL (0.3-1.0); Blood Urea Nitrogen 31 mg/dL (8-23); Calcium 11.3 mg/dL (8.6-10.3); Carbon Dioxide 34 mEq/L (23-29); Chloride 101 mEq/L (98-107); Globulin 2.4 g/dL (2.4-3.5); Glucose 169 mg/dL (70-105); Osmolality,Calculated 300 (280-300); Potassium 4.3 mEq/L (3.5-5.1); Sodium 140 mEq/L (136-145); Thyroid Stimulating Hormone 1.539 mcIU/mL (0.340-5.600); Uric Acid 13.7 mg/dL (2.3-7.6); eGFR For Non-African Americans 41 (> 60)
[2018-03-05] MEDS: Carbidopa/Levodopa 25/100 TABLET PO SCH ×3 (07:52→21:07)
[2018-03-05] MEDS: Gabapentin 400 MG CAPSULE PO SCH ×4 (07:53→21:05)
[2018-03-05] MEDS: Loratadine 10 MG TABLET PO SCH (07:53)
[2018-03-05] MEDS: Cholecalciferol (D-3) 1,000 UNIT TABLET PO SCH (07:53)
[2018-03-05] MEDS: Furosemide 40 MG TABLET PO SCH (07:53)
[2018-03-05] MEDS: Insulin LISPRO 300 UNITS/3 ML VIAL SQ SCH ×2 (07:54→17:04)
[2018-03-05] MEDS: FluocinoNIDE 0.05% CRM 15 GM TUBE TP SCH ×2 (08:04→21:08)
--- NOTE | 2018-03-05 10:04 | Internal Med Progress Note ---
Date of Encounter: 03/05/18 Time of Encounter: 09:55 - Assessment and plan (1) Anemia Current Visit: Yes Status: Chronic Assessment and plan: March 05. Anemia testing showed iron 21, transferrin saturation 5%, transferrin 296, ferritin 27, B12 424, and folate> 22.3. IV iron dextran will be ordered. Qualifiers: Anemia type: iron deficiency Iron deficiency anemia type: unspecified iron deficiency Qualified Code(s): D50.9 - Iron deficiency anemia, unspecified (2) Hypothyroidism Current Visit: Yes Status: Chronic Assessment and plan: March 05. TSH normal at 1.539. Continue present dose Synthroid. Qualifiers: Hypothyroidism type: unspecified Qualified Code(s): E03.9 - Hypothyroidism, unspecified (3) COPD (chronic obstructive pulmonary disease) Current Visit: No Status: Chronic Assessment and plan: March 05. Continue Advair/Symbicort and prn albuterol. Qualifiers: COPD type: COPD with acute exacerbation Qualified Code(s): J44.1 - Chronic obstructive pulmonary disease with (acute) exacerbation (4) Diabetes Current Visit: Yes Status: Chronic Assessment and plan: March 05. Continue Levemir, Humalog , and Accu-Cheks with SSI. 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 Uric acid level significantly elevated at 13.7. Suspect this is etiology of joint pain. Will give prednisone and start allopurinol tomorrow. 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 Continue Xarelto. Hold Lopressor due to bradycardia. Qualifiers: Atrial fibrillation type: chronic Qualified Code(s): I48.2 - Chronic atrial fibrillation (7) Hypertension Current Visit: No Status: Acute Assessment and plan: March 05. Hold Lopressor secondary to bradycardia. Qualifiers: Hypertension type: essential hypertension Qualified Code(s): I10 - Essential (primary) hypertension (8) Pulmonary hypertension Current Visit: No Status: Chronic Assessment and plan: March 05. As per work study student (9) Hypercalcemia Current Visit: Yes Status: Acute Assessment and plan: March 05. Calcium was 11.3 with albumin 3.6 today. Recheck in a.m. (10) CKD (chronic kidney disease) stage 3, GFR 30-59 ml/min Current Visit: Yes Status: Chronic Assessment and plan: March 05. She appears to have acute on chronic renal failure. Azotemia slightly improved today. IV fluids will be given and renal indices monitored. - Subjective Interval history: March 05. She feels better overall. She states her left knee pain has resolved. She is having some discomfort in the IP joint of her right thumb. - Constitutional Vitals: Temp Pulse Resp BP Pulse Ox 98.2 F 51 18 171/51 97 03/05/18 06:36 03/05/18 06:36 03/05/18 06:36 03/05/18 06:36 03/05/18 06:36 Exam: She is sitting in a chair at bedside resting comfortably. Her affect is bright and cheerful. I reviewed her medications and lab results. I note bradycardia present. Internal Medicine: Result - Labs CBC & Chem 7: 03/05/18 05:27 03/05/18 05:26 Labs: Short CBC 03/04/18 03/05/18 Range/Units 11:35 05:27 WBC 7.3 6.2 (4.3-11.1) K/mcL Hgb 6.5 L 8.3 L D (11.5-15.4) g/dL Hct 21.5 L 26.3 L (35.3-44.9) % Plt Count 220 212 (140-400) K/mcL Neutrophils # 5.5 3.6 (1.6-8.9) K/mcL BMP 03/04/18 03/05/18 11:35 05:26 Sodium 143 140 Potassium 4.0 4.3 Chloride 101 101 Carbon Dioxide 34 H 34 H BUN 33 H 31 H Creatinine 1.43 H 1.26 H Glucose 301 H 169 H Calcium 11.9 H 11.3 H Cardiac Enzymes 03/04/18 03/04/18 03/04/18 Range/Units 11:35 17:16 23:12 Troponin I 0.04 H* 0.13 H* 0.26 H* (< 0.04) ng/mL 03/05/18 Range/Units 05:26 Troponin I 0.28 H* (< 0.04) ng/mL Liver Function 03/05/18 Range/Units 05:26 Total Bilirubin 0.4 (0.3-1.0) mg/dL AST 13 (13-39) Units/L ALT < 3 L (7-52) Units/L Alkaline Phosphatase 52 (34-104) Units/L Albumin 3.6 (3.5-5.7) g/dL - Impressions Impressions Chest X-Ray 03/04/18 11:23 IMPRESSION: Stable chest. Cardiomegaly with mild perihilar congestive changes suggested. Mild bibasilar atelectasis. D/ / Jose Peguero MD / Jose Peguero MD Interpreting Provider: Jose Peguero MD Consult Discharge Plan - Plan Referrals: Otf Rivera MD [Primary Care Provider] - 1 week
[2018-03-05] MEDS: Budesonide/Formoterol 80/4.5 MDI IH SCH ×2 (10:29→22:42)
[2018-03-05] MEDS: Insulin DETEMIR 100 UNIT/ML X5UNITS SQ SCH (10:59)
[2018-03-05] MEDS: predniSONE 20 MG TABLET PO SCH ×2 (11:04→17:05)
[2018-03-05] MEDS ORDERED: IRON DEXTRAN COMPLEX IVPB ONE (12:00)
[2018-03-05] MEDS ORDERED: SODIUM CHLORIDE 0.9% IVPB ONE (12:00)
[2018-03-05] MEDS ORDERED: cloNIDine HCl 0.1 MG TABLET PO ONE (16:47)
[2018-03-05] MEDS: Vitamin B Complex/Vit C/Vit E 1 EACH TABLET PO SCH (17:06)
[2018-03-05] MEDS: *HR* Rivaroxaban 15 MG TABLET PO SCH (17:56)
[2018-03-05] MEDS: tiZANidine 4 MG TABLET PO SCH (21:08)
[2018-03-05] MEDS: Fluticasone Propionate Nasal 50 MCG/SPRAY BOTTLE NS SCH (21:09)
[2018-03-06 06:29] VITALS: BP 112/47
[2018-03-06] MEDS: Ascorbic Acid 500 MG TABLET PO SCH (06:39)
[2018-03-06 08:00] LABS: Basophils # 0.1 K/mcL (0.0-0.2); Basophils % 0.6 %; Eosinophils % 0.4 %; Hematocrit 27.1 % (35.3-44.9); Hemoglobin 8.7 g/dL (11.5-15.4); Immature Granulocytes % 1.2 % (0-4); Lymphocytes # 0.7 K/mcL (0.6-4.6); Lymphocytes % 7.2 %; Mean Corpuscular HGB Conc 32.1 g/dL (31.6-35.5); Mean Corpuscular Hemoglobin 32.7 pg (28.0-33.3); Mean Corpuscular Volume 101.9 fL (83.0-100.0); Mean Platelet Volume 12.1 fL (9.4-12.4); Monocytes # 0.6 K/mcL (0.0-1.3); Monocytes % 6.2 %; Neutrophils # 7.9 K/mcL (1.6-8.9); Platelet Count 217 K/mcL (140-400); Red Blood Count 2.66 M/mcL (3.82-4.97); Segmented Neutrophils % 84.4 %
[2018-03-06] MEDS: Carbidopa/Levodopa 25/100 TABLET PO SCH (08:09)
[2018-03-06] MEDS: Insulin DETEMIR 100 UNIT/ML X5UNITS SQ SCH (08:09)
[2018-03-06] MEDS: Gabapentin 400 MG CAPSULE PO SCH (08:09)
[2018-03-06] MEDS: Loratadine 10 MG TABLET PO SCH (08:10)
[2018-03-06] MEDS: Cholecalciferol (D-3) 1,000 UNIT TABLET PO SCH (08:10)
[2018-03-06] MEDS: FluocinoNIDE 0.05% CRM 15 GM TUBE TP SCH (08:10)
[2018-03-06] MEDS: predniSONE 20 MG TABLET PO SCH (08:10)
[2018-03-06] MEDS: Insulin LISPRO 300 UNITS/3 ML VIAL SQ SCH (08:11)
[2018-03-06 08:19] LABS: Albumin 3.6 g/dL (3.5-5.7); Albumin/Globulin Ratio 1.4 (1.1-2.2); Bilirubin,Total 0.2 mg/dL (0.3-1.0); Calcium 10.9 mg/dL (8.6-10.3); Globulin 2.5 g/dL (2.4-3.5); Total Protein 6.1 g/dL (6.4-8.9)
--- NOTE | 2018-03-06 08:33 | Discharge Summary ---
Date of Encounter: 03/06/18 Time of Encounter: 08:20 - Discharge Diagnosis (1) Anemia Priority: Primary Status: Chronic Qualifiers: Anemia type: iron deficiency Iron deficiency anemia type: unspecified iron deficiency Qualified Code(s): D50.9 - Iron deficiency anemia, unspecified (2) Hypothyroidism Priority: Secondary Status: Chronic Qualifiers: Hypothyroidism type: unspecified Qualified Code(s): E03.9 - Hypothyroidism, unspecified (3) COPD (chronic obstructive pulmonary disease) Priority: Secondary Status: Chronic Qualifiers: COPD type: COPD with acute exacerbation Qualified Code(s): J44.1 - Chronic obstructive pulmonary disease with (acute) exacerbation (4) Diabetes Priority: Secondary Status: Chronic Qualifiers: Diabetes mellitus type: type 2 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 Diabetes mellitus complication status: with kidney complications Diabetes mellitus complication detail: with chronic kidney disease Chronic kidney disease stage: stage 4 (severe) Qualified Code(s): E11.22 - Type 2 diabetes mellitus with diabetic chronic kidney disease; N18.4 - Chronic kidney disease, stage 4 (severe); 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.4 - intermodal dispatcher (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) use of insulin (5) Gout Priority: Secondary Status: Acute Qualifiers: Gout site: hand Gout etiology: idiopathic Chronicity: acute Laterality: right Qualified Code(s): 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 Whitmore is a 77 year old female who came to emergency room complaining of increasing dyspnea and weakness for more than 1 week. It worsened further today so she came to emergency room. She was found to have hemoglobin 6.5 and creatinine elevated at 1.43. She was admitted to [facility] for ongoing care needs. Initial orders were written by the emergency room physician. I saw her on March 04 and performed a history and physical. She was transfused 2 units packed red blood cells. Anemia testing showed iron 21, transferrin saturation 5%, transferrin 296, ferritin 27, B12 424, and folate> 22.3. Iron dextran infusion was given and she will be started on oral ferrous sulfate with ascorbic acid at discharge. Her hemoglobin improved to 8.7 by day of discharge. Her uric acid level returned significantly elevated at 13.7. She was given prednisone during hospitalization and her arthralgias significantly lessened. She will be started on allopurinol at discharge. Her PCP can monitor uric acid level and symptoms. Calcium level on admission was elevated at 11.9. Her vitamin D dose was reduced and calcium and decreased to 10.9 on day of discharge with albumin level of 3.6. She will remain on reduced dose vitamin D at discharge. She will be discharged home and follow with her PCP Dr. Otf Rivera within 1 week. - Time Spent with Patient Total time spent providing and/or coordinating discharge services: - Discharge Medications Prescriptions: Allopurinol [Zyloprim 100 MG] 200 mg PO DAILY #60 tablet Home Medications: Calcitriol [Rocaltrol] 0.25 mcg PO MOWEFR 06/24/15 [History] Carbidopa/Levodopa 25/100 [Sinemet 25/100] 1 tab PO TID 06/24/15 [History] Clopidogrel Bisulfate [Plavix] 75 mg PO DAILY 06/24/15 [History] Fluticasone Propionate Nasal [Flonase] 2 spray NS HS 06/24/15 [History] Gabapentin [Neurontin] 800 mg PO QID 06/24/15 [History] Insulin ASPART [Novolog Flexpen] 12 unit SQ BID 06/24/15 [History] Insulin DETEMIR [Levemir Flextouch] 80 unit SQ QAM 06/24/15 [History] Levothyroxine Sodium [Tirosint] 88 mcg PO DAILY 06/24/15 [History] Potassium Chloride [K-Tab ER] 20 meq PO TID 06/24/15 [History] Rivaroxaban [Xarelto] 15 mg PO QPM 06/24/15 [History] Ustekinumab [Stelara (For Outpatient Infusion)] 90 mg SQ Q3M 06/24/15 [History] Vitamin B Complex [B Complex] 1 tab PO QPM 06/24/15 [History] Fluticasone/Salmeterol [Advair 250-50 Diskus] 1 puff IH BID 07/20/15 [History] Atorvastatin [Lipitor] 40 mg PO HS 09/03/16 [History] Tizanidine HCl 4 mg PO HS 09/03/16 [History] Metoprolol [Lopressor] 50 mg PO BID #60 tablet 04/20/17 [Rx] Pantoprazole Sodium [Protonix] 40 mg PO DAILY PRN #0 04/20/17 [Rx] Albuterol Sulfate [Proair Hfa] 2 puff IH Q4H PRN 06/18/17 [History] Clobetasol Propionate 0.05% [Temovate] 1 appl TP BID 06/18/17 [History] Furosemide [Lasix] 80 mg PO BID 06/18/17 [History] HYDROcodone/Acet 5/325 mg [[place] 5-325 mg] 1 tab PO TID PRN 06/18/17 [History] Ascorbic Acid [Vitamin C] 500 mg PO DAILY #30 tablet 06/19/17 [Rx] Ferrous Sulfate 325 mg PO DAILY #30 tablet 06/19/17 [Rx] Allopurinol [Zyloprim 100 MG] 200 mg PO DAILY #60 tablet 03/06/18 [Rx] Cetirizine HCl [Zyrtec] 10 mg PO DAILY PRN #0 03/06/18 [Rx] Cholecalciferol (D-3) [Vitamin D] 1,000 unit PO DAILY tablet 03/06/18 [Rx] Allergies/Adverse Reactions: Allergy/AdvReac Type Severity Reaction Status Date / Time amlodipine [From Norvasc] Allergy Severe Swelling Verified 01/22/18 11:37 of Lip/Tongue/Throat carbamazepine [From Tegretol] Allergy Mild rash/bliste Verified 01/22/18 11:37 rs ciprofloxacin [From Cipro] Allergy Mild Rash Verified 01/22/18 11:37 nitrofurantoin Allergy Mild Rash Verified 01/22/18 11:37 [From Macrobid] Sulfa (Sulfonamide Allergy Mild Rash Verified 01/22/18 11:37 Antibiotics) sulfamethoxazole Allergy Mild Rash Verified 01/22/18 11:37 [From Bactrim] trimethoprim [From Bactrim] Allergy Mild Rash Verified 01/22/18 11:37 acetaminophen [From Percocet] AdvReac Mild Confusion Verified 01/22/18 11:37 meperidine [From Demerol] AdvReac Mild Vomiting Verified 01/22/18 11:37 oxycodone [From Percocet] AdvReac Mild Confusion Verified 01/22/18 11:37 promethazine [From Phenergan] AdvReac Mild Vomiting Verified 01/22/18 11:37 NSAIDS (Non-Steroidal AdvReac Unknown D/T KIDNEY Verified 01/22/18 11:37 Anti-Inflamma DYSFUNCTION Date of admission: 03/04/18 18:27 Primary care physician: Otf Rivera MD - Constitutional Vitals: Temp Pulse Resp BP Pulse Ox 98.0 F 56 16 112/47 88 03/06/18 06:25 03/06/18 06:25 03/06/18 06:25 03/06/18 06:25 03/06/18 06:25 - Patient Status Disposition: Home, Self-Care Condition: Fair - Discharge Instructions Follow Up With: Otf Rivera MD [Primary Care Provider] - 1 week - Diet and Activity Activity: resume usual activities as tolerated Diet: diabetic diet
[2018-03-06] MEDS ORDERED: Furosemide 40 MG TABLET PO SCH (09:00)
[2018-03-06] MEDS: Budesonide/Formoterol 80/4.5 MDI IH SCH (09:13)
== END 2018-03-06 10:42 | disposition home or self-care (01) | DRG 812 ==
LOC: INPPIK 11:07 → EMEROOPIK 11:07 → INPPIK 13:28
PROVIDERS: ADMIT Internal Medicine; ATTEND Internal Medicine

== ENCOUNTER 2018-05-25 14:02 | Inpatient (IN) ==
[2018-05-25] MEDS ORDERED: Fluticasone Propionate Nasal 50 MCG/SPRAY BOTTLE NS PRN (18:12)
[2018-05-25] MEDS ORDERED: USTEKINUMAB 45 MG/0.5 ML SQ SCH (18:15)
[2018-05-25] MEDS ORDERED: *HR* HYDROcodone/Acet 5/325 mg TABLET PO ONE (19:26)
[2018-05-25] MEDS: Apixaban 5 MG TABLET PO SCH (19:46)
[2018-05-25] MEDS: Carbidopa/Levodopa 25/100 TABLET PO SCH (19:46)
[2018-05-25] MEDS: Gabapentin 400 MG CAPSULE PO SCH (19:46)
[2018-05-25] MEDS: tiZANidine 4 MG TABLET PO SCH (19:47)
[2018-05-25] MEDS: Apremilast [Otezla] 30 MG PO SCH (19:48)
[2018-05-25] MEDS: Budesonide/Formoterol 80/4.5 MDI IH SCH (20:58)
[2018-05-25] MEDS ORDERED: Loratadine 10 MG TABLET PO SCH (21:00)
[2018-05-25] MEDS: *HR* HYDROcodone/Acet 5/325 mg TABLET PO SCH (23:43)
[2018-05-26 05:26] LABS: Basophils # 0.1 K/mcL (0.0-0.2); Eosinophils # 0.2 K/mcL (0.0-0.6); Eosinophils % 3.4 %; Hematocrit 19.4 % (35.3-44.9); Hemoglobin 6.2 g/dL (11.5-15.4); Immature Granulocytes % 0.7 % (0-4); Lymphocytes # 1.7 K/mcL (0.6-4.6); Mean Corpuscular Hemoglobin 32.8 pg (28.0-33.3); Mean Corpuscular Volume 102.6 fL (83.0-100.0); Mean Platelet Volume 13.9 fL (9.4-12.4); Monocytes # 0.8 K/mcL (0.0-1.3); Monocytes % 12.1 %; Platelet Count 152 K/mcL (140-400); Red Blood Count 1.89 M/mcL (3.82-4.97); Red Cell Distribution Width 16.2 % (11.5-14.5); Segmented Neutrophils % 57.8 %
[2018-05-26] MEDS: Ascorbic Acid 500 MG TABLET PO SCH (06:22)
[2018-05-26 06:44] LABS: BUN/Creatinine Ratio 64 (6-26); Blood Urea Nitrogen 68 mg/dL (8-23); Calcium 9.1 mg/dL (8.6-10.3); Carbon Dioxide 44 mEq/L (23-29); Chloride 94 mEq/L (98-107); Glucose 154 mg/dL (70-105); Magnesium 1.6 mg/dL (1.6-2.6); Osmolality,Calculated 321 (280-300); Phosphorous 4.8 mg/dL (2.7-4.5); Potassium 3.1 mEq/L (3.5-5.1); Sodium 144 mEq/L (136-145); eGFR For Non-African Americans 50 (> 60)
[2018-05-26] MEDS ORDERED: 0.9 % Sodium Chloride 250 ML ONE (07:54)
[2018-05-26] MEDS: Bumetanide 1 MG TABLET PO SCH ×3 (07:57→17:29)
[2018-05-26] MEDS: *HR* HYDROcodone/Acet 5/325 mg TABLET PO SCH ×4 (07:58→22:11)
[2018-05-26] MEDS: Gabapentin 400 MG CAPSULE PO SCH ×3 (07:59→22:10)
[2018-05-26] MEDS: metOLazone 5 MG TABLET PO SCH ×2 (07:59→17:30)
[2018-05-26] MEDS: Carbidopa/Levodopa 25/100 TABLET PO SCH ×3 (08:00→22:10)
[2018-05-26] MEDS: Apremilast [Otezla] 30 MG PO SCH ×2 (08:00→22:11)
[2018-05-26] MEDS: Cholecalciferol (D-3) 1,000 UNIT TABLET PO SCH (08:00)
[2018-05-26] MEDS: Magnesium L-Lactate [Mag-Tab Sr] 84 MG PO SCH (08:00)
[2018-05-26] MEDS: Sucralfate 1 GM TABLET PO SCH ×2 (08:00→17:30)
[2018-05-26 08:56] LABS: % Iron Saturation 43 % (15-50); Iron 112 mcg/dL (50-170); Transferrin 188 mg/dL (203-362)
[2018-05-26] MEDS ORDERED: Aspirin 81 MG TAB.CHEW PO SCH (09:00)
[2018-05-26] MEDS: Budesonide/Formoterol 80/4.5 MDI IH SCH ×2 (09:39→21:34)
[2018-05-26 14:03] LABS: Hematocrit 22.9 % (35.3-44.9); Hemoglobin 7.3 g/dL (11.5-15.4)
--- NOTE | 2018-05-26 15:01 | Internal Med History&Physical ---
Date of Encounter: 05/26/18 Time of Encounter: 14:15 Assessment and Plan (1) Anemia Current visit: No Status: Chronic Likely multifactorial etiology including chronic kidney disease and medications. Aspirin will be held for 2 days then restarted at every other day dose. Continue PPI. Qualifiers: Anemia type: iron deficiency Iron deficiency anemia type: unspecified iron deficiency Qualified Code(s): D50.9 - Iron deficiency anemia, unspecified (2) CHF (congestive heart failure) Current visit: No Status: Chronic Continue Bumex but reduce dose to 2 mg twice a day to avoid worsening azotemia. Continue Cozaar, Zaroxolyn, and Lopressor. Decrease gabapentin. Qualifiers: Heart failure type: diastolic Heart failure chronicity: chronic Qualified Code(s): I50.32 - Chronic diastolic (congestive) heart failure (3) Pulmonary embolism Current visit: No Status: Acute Continue Eliquis 5 mg twice a day. Qualifiers: Pulmonary embolism type: other Chronicity: unspecified Qualified Code(s): I26.99 - Other pulmonary embolism without acute cor pulmonale (4) Weakness Current visit: Yes Status: Acute PT and OT evaluations have been ordered. (5) Parkinson disease Current visit: No Status: Chronic Continue Sinemet (6) Gout Current visit: No Status: Acute Continue allopurinol. Check uric acid level in a.m. Qualifiers: Gout site: hand Gout etiology: idiopathic Chronicity: acute Laterality: right Qualified Code(s): M10.041 - Idiopathic gout, right hand (7) Atrial fibrillation Current visit: No Status: Chronic Continue Lopressor and Eliquis. Qualifiers: Atrial fibrillation type: chronic Qualified Code(s): I48.2 - Chronic atrial fibrillation (8) Hypertension Current visit: No Status: Chronic Continue Bumex, Cozaar, Zaroxolyn, and Lopressor. Qualifiers: Hypertension type: essential hypertension Qualified Code(s): I10 - Essential (primary) hypertension (9) Hypothyroidism Current visit: No Status: Chronic Continue Synthroid. TSH was normal at 1.539 on 03/05/2018. Qualifiers: Hypothyroidism type: unspecified Qualified Code(s): E03.9 - Hypothyroidism, unspecified (10) Hypokalemia Current visit: Yes Status: Acute Supplemental potassium will be given and labs monitored. (11) Diabetes Current visit: No Status: Chronic Hemoglobin A1c was 6.8% on 01/19/2018. Recheck in a.m. 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 Whitmore is a 78 year old female who came to emergency room after [facility] hospitalizations April 28-May 08 followed by a second stay May 12-May 22. At the first hospitalization she was treated for CHF exacerbation. She had anemia and underwent EGD which showed grade A reflux esophagitis. Colonoscopy showed single bleeding colonic angiodysplasia. Pulmonary was consulted for pulmonary hypertension but she was not felt to be a candidate for right heart catheter. She had non-STEMI on admission. She underwent LHC which showed LMCA, circumflex, first marginal, and left PDA free of disease. The RCA showed 50% stenosis in midportion and 60% stenosis in the right PDA. The LAD showed 20 mm long 80% stenosis in the proximal portion which was stented. (A previous stent had been placed 2013.) She was placed on aspirin and Plavix DAPT for the new stent. Xarelto which had been used for atrial fibrillation and history of left leg DVT (1984) was discontinued for one month because of GI bleed. She had RIKA (felt to be contrast-induced nephropathy) and Lasix was discontinued to allow recovery. She returned [facility] May 12 with worsening heart failure. Diuretics were restarted. Chest CTA showed pulmonary embolus in the left upper lobe and she was started on Eliquis. She remained on DAPT also. She clinically improved and was discharged home. However shortly after returning home she had sensation of fevers chills and weakness. She came back to emergency room this felt to have aspiration of heart failure. She was admitted to swing bed for ongoing care needs. Cardiovascular history is pertinent otherwise for essential hypertension. She has chronic atrial fibrillation. She had an echocardiogram 04/28/2018 which showed LVEF of 50-55%. There was indeterminate diastolic function assessment due to underlying atrial fibrillation. There was mild mitral regurgitation, moderate tricuspid regurgitation, and mild pulmonic regurgitation. Estimated RVSP was elevated at 65 mmHg. The interventricular septum and posterior wall thickness measurements were 0.81 and 0.92 cm respectively. Past Med Surg Social Fam HX - Past Medical History Medical history: arthritis, asthma, atrial fibrillation, cancer, CHF, COPD, coronary artery disease, DVT, diabetes, fibromyalgia, hyperlipidemia, hypertension, renal disease, thyroid disease, other Additional medical history: CAD. insomnia. Iron deficiency anemia. neuropathy. skin cancer Psychiatric history: depression - Past Surgical History Surgical History: angioplasty/stent, cholecystectomy, hysterectomy, knee replacement, orthopedic, other, other Additional surgical history: parathyroidectomy,. Right knee - Social History Smoking Status: Former smoker Smokeless Tobacco Status: No Alcohol use: none Drug use: none - Family History Mother Adopted: No Living Status: Hx Family Cardiac Disorders: Yes Hx Family Respiratory Disorders: Yes (COPD) Hx Family Cancer: Yes (lung, breast) Hx Family GI Disorders: No Hx Family Endocrine Disorder: No Hx Family Neuromuscular Disorders: No Hx Family Neurologic Disorders: Yes Hx Family HEENT Disorders: No Hx Family Autoimmune Disorders: Yes (non hygkins lymphoma) Internal Medicine - H&P: Meds Carbidopa/Levodopa 25/100 [Sinemet 25/100] 1 tab PO TID 06/24/15 [History] Clopidogrel Bisulfate [Plavix] 75 mg PO DAILY 06/24/15 [History] Fluticasone Propionate Nasal [Flonase] 2 spray NS BID PRN 06/24/15 [History] Gabapentin [Neurontin] 800 mg PO QID 06/24/15 [History] Insulin ASPART [Novolog Flexpen] 6 - 12 unit SQ BID 06/24/15 [History] Insulin DETEMIR [Levemir Flextouch] 40 - 80 unit SQ QAM 06/24/15 [History] Levothyroxine Sodium [Tirosint] 88 mcg PO QAM 06/24/15 [History] Ustekinumab [Stelara (For Outpatient Infusion)] 90 mg SQ [id number] 06/24/15 [History] Vitamin B Complex [B Complex] 1 tab PO QPM 06/24/15 [History] Fluticasone/Salmeterol [Advair 250-50 Diskus] 1 puff IH BID 07/20/15 [History] Atorvastatin [Lipitor] 40 mg PO HS 09/03/16 [History] Tizanidine HCl 2 mg PO HS 09/03/16 [History] Albuterol Sulfate [Proair Hfa] 2 puff IH Q4H PRN 06/18/17 [History] HYDROcodone/Acet 5/325 mg [[place] 5-325 mg] 1 tab PO QAM AND QHS 06/18/17 [History] Cholecalciferol (D-3) [Vitamin D] 1,000 unit PO DAILY tablet 03/06/18 [Rx] Acetaminophen [Tylenol] 325 mg PO Q6H PRN 04/28/18 [History] Allopurinol [Zyloprim 100 MG] 300 mg PO DAILY 04/28/18 [History] Apremilast [Otezla] 30 mg PO BID 04/28/18 [History] Ascorbic Acid [Vitamin C] 1,000 mg PO DAILY 04/28/18 [History] Cetirizine HCl [Zyrtec] 10 mg PO HS 04/28/18 [History] Hydrocodone/Acetaminophen [Hydrocodon-Acetaminophen 5-325] 0.5 tab PO 1300,1700 04/28/18 [History] Loperamide [Imodium] 2 mg PO QID PRN 04/28/18 [History] Magnesium l-Lactate [Mag-Tab Sr] 84 mg PO DAILY 04/28/18 [History] Metoprolol [Lopressor] 25 mg PO BID 04/28/18 [History] Umeclidinium [place] [Incruse Ellipta] 1 puff IH DAILY 04/28/18 [History] Aspirin 81 mg PO DAILY 30 Days #30 tab.chew 05/05/18 [Rx] Pantoprazole Sodium [Protonix] 40 mg PO DAILY 05/14/18 [History] Apixaban [Eliquis] 5 mg PO BID #60 tablet 05/22/18 [Rx] Bumetanide [Bumex] 2 mg PO TIDDIURETIC #90 tablet 05/22/18 [Rx] Ferrous Sulfate 325 mg PO TIDWM tablet 05/22/18 [Rx] Losartan [Cozaar] 12.5 mg PO DAILY #30 tablet 05/22/18 [Rx] Potassium Chloride 20 meq PO BIDWM #30 tab.er.prt 05/22/18 [Rx] Sucralfate [Carafate] 1 gm PO 0730,1630 #60 tablet 05/22/18 [Rx] metOLazone [Zaroxolyn] 5 mg PO 0730,1630 #60 tablet 05/22/18 [Rx] Allergy/AdvReac Type Severity Reaction Status Date / Time amlodipine [From Norvasc] Allergy Severe Swelling Verified 01/22/18 11:37 of Lip/Tongue/Throat carbamazepine [From Tegretol] Allergy Mild rash/bliste Verified 01/22/18 11:37 rs ciprofloxacin [From Cipro] Allergy Mild Rash Verified 05/14/18 10:42 nitrofurantoin Allergy Mild Rash Verified 05/14/18 10:42 [From Macrobid] Sulfa (Sulfonamide Allergy Mild Rash Verified 05/14/18 10:42 Antibiotics) sulfamethoxazole Allergy Mild Rash Verified 05/14/18 10:42 [From Bactrim] trimethoprim [From Bactrim] Allergy Mild Rash Verified 05/14/18 10:42 Iodinated Contrast- Oral and Allergy See Verified 05/14/18 14:29 IV Dye Comments acetaminophen [From Percocet] AdvReac Mild Confusion Verified 05/14/18 10:42 meperidine [From Demerol] AdvReac Mild Vomiting Verified 05/14/18 10:42 oxycodone [From Percocet] AdvReac Mild Confusion Verified 05/14/18 10:42 promethazine [From Phenergan] AdvReac Mild Vomiting Verified 05/14/18 10:42 NSAIDS (Non-Steroidal AdvReac Unknown D/T KIDNEY Verified 05/14/18 10:42 Anti-Inflamma DYSFUNCTION All Systems PM: A 10-system review of systems was performed and is negative for pertinent fin dings except as documented above in the HPI. Review of systems: Review of systems from her March 2018 [facility] admission were reviewed and revised as below. Gen.: Her weight has increased from 101.151 kg on 04/18/2017 to 113.398 kg at present. Cardiovascular: As per history of present illness Respiratory: She smoked from age [age] up to 2-1/2 packs per day. She has a diagnosis of COPD with PFTs 08/30/2015 showing FEV1/FVC of 66%. There was no improvement in FEV1 postbronchodilator. FVC was 67% predicted. MVV was 42% predicted. DLCO was 56% predicted. She wears oxygen 22/09. Chest CT April 2017 showed tiny left upper lobe pulmonary embolus. There were bilateral small effusions with mild bibasal atelectasis and emphysema changes. GI: She had recent EGD for GI bleed as per history of present illness. She has had cholecystectomy. There is no known disorders of liver or exocrine pancreas. : She has chronic kidney disease stage III and follows with a [place] patient services manager. She denies other kidney or bladder disorders Neurologic: She has Parkinson's disease. She denies large distribution strokes or seizures. Endocrine: She was diagnosed with DM 2 in 1998. Hemoglobin A1c was 6.8% on 01/19/2018. She has hypothyroidism and hyperlipidemia. Hematology/oncology: She has had anemia with recent GI bleed. She denies internal malignancies or other known blood disorders. Psychiatric: She has anxiety and depression. Muscle skeletal: She has gout, psoriatic arthritis, and DJD. Dermatologic: She has psoriasis. - Constitutional Vitals: Temp Pulse Resp BP Pulse Ox 98.3 F 66 14 143/66 99 05/26/18 12:48 05/26/18 12:48 05/26/18 12:48 05/26/18 12:48 05/26/18 12:48 Exam: Gen.: She is a well-developed overweight female sitting in a chair at bedside who appears in no acute distress HEENT: Head is atraumatic and normocephalic. Eyes: EOMI. There is no scleral icterus. Mouth: Mucosa is moist. Neck: Supple and nontender. There is no thyromegaly or adenopathy noted. Heart: Irregularly irregular without murmurs or gallops Lungs: No wheezes or crackles are heard. Abdomen: Soft and nontender. No masses or guarding are noted. Exam is limited because she is in the seated position. Extremities: She has chronic venous stasis pigmentation changes of her lower legs. She has 1-2+ edema of the dorsum of the feet and lower legs. She has had amputation of the left third toe and distal phalanx of the left second toe. She has mild DJD changes of her hands. Neurologic: Mental status: She is talkative and a good historian. Cranial nerves: Smile is symmetric. Forehead wrinkles bilaterally. Tongue protrudes midline. EOMI. Motor: She has a parkinsonian tremor of her arms and jaw at rest. There is no pronator drift. Cerebellar: Finger to nose is intact bilaterally. Skin: Warm and dry Internal Med - H&P Results - Labs CBC & Chem 7: 05/26/18 13:57 05/26/18 04:11 Labs: Short CBC 05/26/18 05/26/18 Range/Units 04:11 13:57 WBC 6.9 (4.3-11.1) K/mcL Hgb 6.2 L D 7.3 L (11.5-15.4) g/dL Hct 19.4 L 22.9 L (35.3-44.9) % Plt Count 152 (140-400) K/mcL Neutrophils # 4.0 (1.6-8.9) K/mcL BMP 05/26/18 04:11 Sodium 144 Potassium 3.1 L Chloride 94 L Carbon Dioxide 44 H* BUN 68 H Creatinine 1.07 Glucose 154 H Calcium 9.1
[2018-05-26] MEDS: Vitamin B Complex/Vit C/Vit E 1 EACH TABLET PO SCH (17:30)
[2018-05-26] MEDS: Isosorbide MONOnitrate (24 HR) 30 MG TAB.ER.24H PO SCH (17:42)
[2018-05-26] MEDS: Ondansetron ODT 4 MG TAB.RAPDIS SL PRN (21:26)
[2018-05-26] MEDS: tiZANidine 4 MG TABLET PO SCH (22:10)
[2018-05-27] MEDS: Acetaminophen 325 MG TABLET PO PRN (02:32)
[2018-05-27] MEDS: Ascorbic Acid 500 MG TABLET PO SCH (06:39)
[2018-05-27 06:48] LABS: Basophils # 0.1 K/mcL (0.0-0.2); Eosinophils # 0.3 K/mcL (0.0-0.6); Eosinophils % 4.2 %; Hematocrit 21.4 % (35.3-44.9); Hemoglobin 6.9 g/dL (11.5-15.4); Immature Granulocytes % 0.9 % (0-4); Lymphocytes # 1.8 K/mcL (0.6-4.6); Mean Corpuscular HGB Conc 32.2 g/dL (31.6-35.5); Mean Corpuscular Hemoglobin 32.9 pg (28.0-33.3); Mean Corpuscular Volume 101.9 fL (83.0-100.0); Monocytes # 0.7 K/mcL (0.0-1.3); Monocytes % 8.8 %; Neutrophils # 4.8 K/mcL (1.6-8.9); Platelet Count 163 K/mcL (140-400); Red Cell Distribution Width 17.8 % (11.5-14.5); Segmented Neutrophils % 62.1 %
[2018-05-27 07:02] LABS: Potassium 3.8 mEq/L (3.5-5.1); Uric Acid 10.4 mg/dL (2.3-7.6)
[2018-05-27 07:18] LABS: Thyroid Stimulating Hormone 7.629 mcIU/mL (0.340-5.600)
[2018-05-27] MEDS: *HR* HYDROcodone/Acet 5/325 mg TABLET PO SCH ×4 (08:31→21:21)
[2018-05-27] MEDS: Carbidopa/Levodopa 25/100 TABLET PO SCH ×3 (08:32→21:20)
[2018-05-27] MEDS: Sucralfate 1 GM TABLET PO SCH ×2 (08:32→17:20)
[2018-05-27] MEDS: metOLazone 5 MG TABLET PO SCH ×2 (08:32→17:21)
[2018-05-27] MEDS: Bumetanide 1 MG TABLET PO SCH ×2 (08:32→17:20)
[2018-05-27] MEDS: Cholecalciferol (D-3) 1,000 UNIT TABLET PO SCH (08:33)
[2018-05-27] MEDS: Apremilast [Otezla] 30 MG PO SCH ×2 (08:33→21:22)
[2018-05-27] MEDS: Gabapentin 400 MG CAPSULE PO SCH ×3 (08:33→21:21)
[2018-05-27] MEDS: Magnesium L-Lactate [Mag-Tab Sr] 84 MG PO SCH (08:33)
[2018-05-27 10:05] LABS: Estimated Average Glucose 143 mg/dl; Hemoglobin A1C 6.6 %
[2018-05-27] MEDS: Budesonide/Formoterol 80/4.5 MDI IH SCH ×2 (10:24→22:20)
--- NOTE | 2018-05-27 11:31 | Internal Med Progress Note ---
Date of Encounter: 05/27/18 Time of Encounter: 10:25 - Assessment and plan (1) Anemia Current Visit: No Status: Chronic Assessment and plan: May 27. Hemoglobin has decreased to 6.9. Hold Eliquis and Plavix for 24 hours. Remain off aspirin. Continue PPI. Transfuse 1 unit packed red blood cells today. Continue to monitor labs. Qualifiers: Anemia type: iron deficiency Iron deficiency anemia type: unspecified iron deficiency Qualified Code(s): D50.9 - Iron deficiency anemia, unspecified (2) CHF (congestive heart failure) Current Visit: No Status: Chronic Assessment and plan: May 27. BUN and creatinine have risen to 70 and 1.45 respectively. Reduce Bumex and continue to monitor labs. Qualifiers: Heart failure type: diastolic Heart failure chronicity: chronic Qualified Code(s): I50.32 - Chronic diastolic (congestive) heart failure (3) Pulmonary embolism Current Visit: No Status: Acute Assessment and plan: May 27. Hold Eliquis for 24 hours and then restart Qualifiers: Pulmonary embolism type: other Chronicity: unspecified Qualified Code(s): I26.99 - Other pulmonary embolism without acute cor pulmonale (4) Weakness Current Visit: Yes Status: Acute Assessment and plan: May 27. Continue PT and OT intervention. (5) Parkinson disease Current Visit: No Status: Chronic Assessment and plan: May 27. Continue Sinemet (6) Gout Current Visit: No Status: Acute Assessment and plan: May 27. Uric acid level returned elevated at 10.4. Increase allopurinol. 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 Continue Lopressor. Hold Eliquis for 24 hours due to blood loss. Qualifiers: Atrial fibrillation type: chronic Qualified Code(s): I48.2 - Chronic atrial fibrillation (8) Hypertension Current Visit: No Status: Chronic Assessment and plan: May 27. Continue Bumex, Cozaar, Zaroxolyn, and Lopressor Qualifiers: Hypertension type: essential hypertension Qualified Code(s): I10 - Essential (primary) hypertension (9) Hypothyroidism Current Visit: No Status: Chronic Assessment and plan: May 27. TSH slightly elevated at 7.629. Increase Synthroid Qualifiers: Hypothyroidism type: unspecified Qualified Code(s): E03.9 - Hypothyroidism, unspecified (10) Hypokalemia Current Visit: Yes Status: Acute Assessment and plan: May 27. Potassium normalized to 3.8. Continue supplementation and monitoring. (11) Diabetes Current Visit: No Status: Chronic Assessment and plan: May 27. Hemoglobin A1c satisfactory at 6.6%. Continue Accu-Cheks with SSI. 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 She states she has occasional "jerks" besides the Parkinsonian tremor. She has no new complaints otherwise. - Constitutional Vitals: Temp Pulse Resp BP Pulse Ox 98.6 F 64 14 97/44 100 05/27/18 07:02 05/27/18 07:02 05/27/18 07:02 05/27/18 07:02 05/27/18 07:02 Exam: She is resting comfortably in a chair at bedside and appears in no acute distress. Her affect is overall cheerful. Extremities showed decreased edema. I reviewed her medications and lab results. Internal Medicine: Result - Labs CBC & Chem 7: 05/27/18 06:38 05/27/18 06:38 Labs: Short CBC 05/26/18 05/27/18 Range/Units 13:57 06:38 WBC 7.7 (4.3-11.1) K/mcL Hgb 7.3 L 6.9 L (11.5-15.4) g/dL Hct 22.9 L 21.4 L (35.3-44.9) % Plt Count 163 (140-400) K/mcL Neutrophils # 4.8 (1.6-8.9) K/mcL BMP 05/27/18 06:38 Sodium 141 Potassium 3.8 Chloride 94 L Carbon Dioxide 39 H BUN 70 H Creatinine 1.45 H Glucose 179 H Calcium 9.0 Consult Discharge Plan - Plan Referrals: Otf Rivera MD [Primary Care Provider] - 1 week
[2018-05-27] MEDS: Insulin LISPRO 300 UNITS/3 ML VIAL SQ SCH ×3 (13:06→21:23)
[2018-05-27] MEDS: Isosorbide MONOnitrate (24 HR) 30 MG TAB.ER.24H PO SCH (13:12)
[2018-05-27] MEDS ORDERED: 0.9 % Sodium Chloride 250 ML ONE (13:31)
[2018-05-27] MEDS: Ondansetron ODT 4 MG TAB.RAPDIS SL PRN (16:55)
[2018-05-27] MEDS: Vitamin B Complex/Vit C/Vit E 1 EACH TABLET PO SCH (17:22)
[2018-05-27] MEDS: tiZANidine 4 MG TABLET PO SCH (21:21)
[2018-05-28] MEDS: Acetaminophen 325 MG TABLET PO PRN (05:36)
[2018-05-28] MEDS: Ascorbic Acid 500 MG TABLET PO SCH (05:36)
[2018-05-28 07:27] LABS: Basophils # 0.1 K/mcL (0.0-0.2); Basophils % 1.1 %; Eosinophils # 0.3 K/mcL (0.0-0.6); Eosinophils % 5.5 %; Hematocrit 22.9 % (35.3-44.9); Hemoglobin 7.4 g/dL (11.5-15.4); Immature Granulocytes % 1.1 % (0-4); Lymphocytes % 17.3 %; Mean Corpuscular HGB Conc 32.3 g/dL (31.6-35.5); Mean Corpuscular Volume 99.1 fL (83.0-100.0); Mean Platelet Volume 13.5 fL (9.4-12.4); Monocytes # 0.5 K/mcL (0.0-1.3); Monocytes % 9.8 %; Neutrophils # 3.6 K/mcL (1.6-8.9); Platelet Count 143 K/mcL (140-400); Red Blood Count 2.31 M/mcL (3.82-4.97); Red Cell Distribution Width 19.9 % (11.5-14.5); Segmented Neutrophils % 65.2 %
[2018-05-28] MEDS: *HR* HYDROcodone/Acet 5/325 mg TABLET PO SCH ×4 (08:04→21:03)
[2018-05-28] MEDS: Carbidopa/Levodopa 25/100 TABLET PO SCH ×3 (08:05→21:03)
[2018-05-28] MEDS: Isosorbide MONOnitrate (24 HR) 30 MG TAB.ER.24H PO SCH (08:05)
[2018-05-28] MEDS: Bumetanide 1 MG TABLET PO SCH ×2 (08:05→17:55)
[2018-05-28] MEDS: Gabapentin 400 MG CAPSULE PO SCH ×2 (08:06→13:40)
[2018-05-28] MEDS: metOLazone 5 MG TABLET PO SCH ×2 (08:06→17:56)
[2018-05-28] MEDS: Cholecalciferol (D-3) 1,000 UNIT TABLET PO SCH (08:06)
[2018-05-28] MEDS: Sucralfate 1 GM TABLET PO SCH ×2 (08:06→17:55)
[2018-05-28] MEDS: Magnesium L-Lactate [Mag-Tab Sr] 84 MG PO SCH (08:08)
[2018-05-28] MEDS: Apremilast [Otezla] 30 MG PO SCH ×2 (08:08→21:38)
[2018-05-28] MEDS: Insulin LISPRO 300 UNITS/3 ML VIAL SQ SCH ×4 (08:11→21:04)
[2018-05-28 10:12] LABS: Potassium 3.6 mEq/L (3.5-5.1)
[2018-05-28] MEDS: Budesonide/Formoterol 80/4.5 MDI IH SCH ×2 (10:41→22:19)
[2018-05-28] MEDS: Ondansetron ODT 4 MG TAB.RAPDIS SL PRN (11:52)
[2018-05-28] MEDS ORDERED: GI Cocktail 40 ML EACH PO ONE (13:11)
--- NOTE | 2018-05-28 15:30 | Internal Med Progress Note ---
Date of Encounter: 05/28/18 Time of Encounter: 15:20 - Assessment and plan (1) Anemia Current Visit: No Status: Chronic Assessment and plan: May 27. Hemoglobin has decreased to 6.9. Hold Eliquis and Plavix for 24 hours. Remain off aspirin. Continue PPI. Transfuse 1 unit packed red blood cells today. Continue to monitor labs. May 28. Hemoglobin improved to 7.4 today. She wishes to remain off aspirin indefinitely. Hold Eliquis and Plavix today. Recheck labs in a.m. Qualifiers: Anemia type: iron deficiency Iron deficiency anemia type: unspecified iron deficiency Qualified Code(s): D50.9 - Iron deficiency anemia, unspecified (2) CHF (congestive heart failure) Current Visit: No Status: Chronic Assessment and plan: May 27. BUN and creatinine have risen to 70 and 1.45 respectively. Reduce Bumex and continue to monitor labs. May 28. Clinically stable. Continue lower dose Bumex and recheck labs in a.m. Qualifiers: Heart failure type: diastolic Heart failure chronicity: chronic Qualified Code(s): I50.32 - Chronic diastolic (congestive) heart failure (3) Pulmonary embolism Current Visit: No Status: Acute Assessment and plan: May 27. Hold Eliquis for 24 hours and then restart May 28. Restart Eliquis tomorrow Qualifiers: Pulmonary embolism type: other Chronicity: unspecified Acute cor pulmonale presence: without acute cor pulmonale Qualified Code(s): I26.99 - Other pulmonary embolism without acute cor pulmonale (4) Weakness Current Visit: Yes Status: Acute Assessment and plan: May 27. Continue PT and OT intervention. (5) Parkinson disease Current Visit: No Status: Chronic Assessment and plan: May 27. Continue Sinemet (6) Gout Current Visit: No Status: Acute Assessment and plan: May 27. Uric acid level returned elevated at 10.4. Increase allopurinol. 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 Continue Lopressor. Hold Eliquis for 24 hours due to blood loss. Qualifiers: Atrial fibrillation type: chronic Qualified Code(s): I48.2 - Chronic atrial fibrillation (8) Hypertension Current Visit: No Status: Chronic Assessment and plan: May 27. Continue Bumex, Cozaar, Zaroxolyn, and Lopressor Qualifiers: Hypertension type: essential hypertension Qualified Code(s): I10 - Essential (primary) hypertension (9) Hypothyroidism Current Visit: No Status: Chronic Assessment and plan: May 27. TSH slightly elevated at 7.629. Increase Synthroid Qualifiers: Hypothyroidism type: unspecified Qualified Code(s): E03.9 - Hypothyroidism, unspecified (10) Hypokalemia Current Visit: Yes Status: Acute Assessment and plan: May 27. Potassium normalized to 3.8. Continue supplementation and monitoring. (11) Diabetes Current Visit: No Status: Chronic Assessment and plan: May 27. Hemoglobin A1c satisfactory at 6.6%. Continue Accu-Cheks with SSI. 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 She states she has occasional "jerks" besides the Parkinsonian t remor. She has no new complaints otherwise. May 28. She has no new complaints at present. She has some discomfort in her lower chest/upper abdomen earlier that she now feels may just have been " indigestion and gas". It improved after GI cocktail. - Constitutional Vitals: Temp Pulse Resp BP Pulse Ox 98.2 F 59 16 135/55 99 05/28/18 07:29 05/28/18 07:29 05/28/18 07:29 05/28/18 07:29 05/28/18 07:29 Exam: She is resting comfortably in a recliner at bedside. Her feet are elevated. Her affect is bright and cheerful. Heart is irregularly irregular without murmurs or gallops. Lungs are clear anteriorly. Extremities show trace to 1+ pitting edema bilaterally in the lower anterior shins. I reviewed her medications and lab results. Internal Medicine: Result - Labs CBC & Chem 7: 03/29/19 06:44 05/28/18 06:44 Labs: Short CBC 05/28/18 Range/Units 06:44 WBC 5.5 (4.3-11.1) K/mcL Hgb 7.4 L (11.5-15.4) g/dL Hct 22.9 L (35.3-44.9) % Plt Count 143 (140-400) K/mcL Neutrophils # 3.6 (1.6-8.9) K/mcL BMP 05/28/18 06:44 Sodium 141 Potassium 3.6 Chloride 94 L Carbon Dioxide 36 H BUN 66 H Creatinine 1.38 H Glucose 191 H Calcium 9.0 Consult Discharge Plan - Plan Referrals: Otf Rivera MD [Primary Care Provider] - 1 week
[2018-05-28] MEDS: Vitamin B Complex/Vit C/Vit E 1 EACH TABLET PO SCH (17:56)
[2018-05-28] MEDS: tiZANidine 4 MG TABLET PO SCH (21:03)
[2018-05-28] MEDS: Gabapentin 300 MG CAPSULE PO SCH (21:04)
[2018-05-28] MEDS: Mag Hydrox/Al Hydrox/Simeth 30 ML UDC PO PRN (21:08)
[2018-05-29] MEDS: Acetaminophen 325 MG TABLET PO PRN (01:18)
[2018-05-29] MEDS: Mag Hydrox/Al Hydrox/Simeth 30 ML UDC PO PRN (01:23)
[2018-05-29] MEDS: Ascorbic Acid 500 MG TABLET PO SCH (06:38)
[2018-05-29 07:35] LABS: Basophils # 0.1 K/mcL (0.0-0.2); Basophils % 0.8 %; Eosinophils # 0.3 K/mcL (0.0-0.6); Eosinophils % 4.1 %; Hematocrit 23.9 % (35.3-44.9); Hemoglobin 7.5 g/dL (11.5-15.4); Immature Granulocytes % 0.8 % (0-4); Lymphocytes # 1.2 K/mcL (0.6-4.6); Lymphocytes % 20.1 %; Mean Corpuscular HGB Conc 31.4 g/dL (31.6-35.5); Mean Corpuscular Hemoglobin 32.1 pg (28.0-33.3); Mean Corpuscular Volume 102.1 fL (83.0-100.0); Mean Platelet Volume 13.3 fL (9.4-12.4); Monocytes # 0.6 K/mcL (0.0-1.3); Monocytes % 10.1 %; Neutrophils # 3.9 K/mcL (1.6-8.9); Platelet Count 146 K/mcL (140-400); Red Blood Count 2.34 M/mcL (3.82-4.97); Red Cell Distribution Width 19.4 % (11.5-14.5); Segmented Neutrophils % 64.1 %
[2018-05-29 07:49] LABS: Calcium 9.1 mg/dL (8.6-10.3); Potassium 3.7 mEq/L (3.5-5.1)
[2018-05-29] MEDS: Carbidopa/Levodopa 25/100 TABLET PO SCH ×3 (08:23→20:38)
[2018-05-29] MEDS: Gabapentin 300 MG CAPSULE PO SCH ×3 (08:24→20:38)
[2018-05-29] MEDS: *HR* HYDROcodone/Acet 5/325 mg TABLET PO SCH ×4 (08:24→20:48)
[2018-05-29] MEDS: Bumetanide 1 MG TABLET PO SCH ×2 (08:24→16:54)
[2018-05-29] MEDS: metOLazone 5 MG TABLET PO SCH (08:25)
[2018-05-29] MEDS: Sucralfate 1 GM TABLET PO SCH ×2 (08:25→16:54)
[2018-05-29] MEDS: Cholecalciferol (D-3) 1,000 UNIT TABLET PO SCH (08:25)
[2018-05-29] MEDS: Isosorbide MONOnitrate (24 HR) 60 MG TAB.ER.24H PO SCH (08:27)
[2018-05-29] MEDS: Insulin LISPRO 300 UNITS/3 ML VIAL SQ SCH ×4 (08:27→20:38)
[2018-05-29] MEDS: Magnesium L-Lactate [Mag-Tab Sr] 84 MG PO SCH (08:28)
[2018-05-29] MEDS: Apremilast [Otezla] 30 MG PO SCH ×2 (08:28→20:48)
[2018-05-29] MEDS: Budesonide/Formoterol 80/4.5 MDI IH SCH ×2 (09:33→22:05)
--- NOTE | 2018-05-29 15:31 | Internal Med Progress Note ---
Date of Encounter: 05/29/18 Time of Encounter: 15:20 - Assessment and plan (1) Anemia Current Visit: No Status: Chronic Assessment and plan: May 27. Hemoglobin has decreased to 6.9. Hold Eliquis and Plavix for 24 hours. Remain off aspirin. Continue PPI. Transfuse 1 unit packed red blood cells today. Continue to monitor labs. May 28. Hemoglobin improved to 7.4 today. She wishes to remain off aspirin indefinitely. Hold Eliquis and Plavix today. Recheck labs in a.m. May 29. Restart Eliquis but continue to hold Plavix. Aspirin has been discontinued. Hemoglobin stable at 7.5 today. Qualifiers: Anemia type: iron deficiency Iron deficiency anemia type: unspecified iron deficiency Qualified Code(s): D50.9 - Iron deficiency anemia, unspecified (2) CHF (congestive heart failure) Current Visit: No Status: Chronic Assessment and plan: May 27. BUN and creatinine have risen to 70 and 1.45 respectively. Reduce Bumex and continue to monitor labs. May 28. Clinically stable. Continue lower dose Bumex and recheck labs in a.m. May 29. Clinically stable. BN peptide slightly higher at 254. She is not dyspneic. Imdur dose was increased to 60 mg daily. Continue Bumex and Toprol. Cozaar was discontinued because of borderline hypotension. Qualifiers: Heart failure type: diastolic Heart failure chronicity: chronic Qualified Code(s): I50.32 - Chronic diastolic (congestive) heart failure (3) Pulmonary embolism Current Visit: No Status: Acute Assessment and plan: May 27. Hold Eliquis for 24 hours and then restart May 28. Restart Eliquis tomorrow May 29. Restart Eliquis today. Qualifiers: Pulmonary embolism type: other Chronicity: unspecified Acute cor pulmonale presence: without acute cor pulmonale Qualified Code(s): I26.99 - Other pulmonary embolism without acute cor pulmonale (4) Weakness Current Visit: Yes Status: Acute Assessment and plan: May 27. Continue PT and OT intervention. (5) Parkinson disease Current Visit: No Status: Chronic Assessment and plan: May 27. Continue Sinemet (6) Gout Current Visit: No Status: Acute Assessment and plan: May 27. Uric acid level returned elevated at 10.4. Increase allopurinol. 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 Continue Lopressor. Hold Eliquis for 24 hours due to blood loss. May 29. Continue Lopressor and restart Eliquis. Qualifiers: Atrial fibrillation type: chronic Qualified Code(s): I48.2 - Chronic atrial fibrillation (8) Hypertension Current Visit: No Status: Chronic Assessment and plan: May 27. Continue Bumex, Cozaar, Zaroxolyn, and Lopressor Qualifiers: Hypertension type: essential hypertension Qualified Code(s): I10 - Essential (primary) hypertension (9) Hypothyroidism Current Visit: No Status: Chronic Assessment and plan: May 27. TSH slightly elevated at 7.629. Increase Synthroid Qualifiers: Hypothyroidism type: unspecified Qualified Code(s): E03.9 - Hypothyroidism, unspecified (10) Hypokalemia Current Visit: Yes Status: Acute Assessment and plan: May 27. Potassium normalized to 3.8. Continue supplementation and monitori ng. (11) Diabetes Current Visit: No Status: Chronic Assessment and plan: May 27. Hemoglobin A1c satisfactory at 6.6%. Continue Accu-Cheks with SSI. Qualifiers: Diabetes mellitus type: type 2 Diabetes mellitus insurance legal assistant insulin use: with insurance legal assistant use Diabetes mellitus complication status: with kidney complications Diabetes mellitus complication detail: with chronic kidney disease Chronic kidney disease stage: stage 4 (severe) Qualified Code(s): E11.22 - Type 2 diabetes mellitus with diabetic chronic kidney disease; N18.4 - Chronic kidney disease, stage 4 (severe); Z79.4 - bond writer (current) use of insulin - Subjective Interval history: May 27. She states she has occasional "jerks" besides the Parkinsonian tremor. She has no new complaints otherwise. May 28. She has no new complaints at present. She has some discomfort in her lower chest/upper abdomen earlier that she now feels may just have been "indigestion and gas". It improved after GI cocktail. May 29. She has no new complaints and feels better overall. She states her ambulation ability has increased. She is pleased about her decreased edema. - Constitutional Vitals: Temp Pulse Resp BP Pulse Ox 98.1 F 70 18 123/51 91 05/29/18 07:21 05/29/18 07:21 05/29/18 09:34 05/29/18 07:21 05/29/18 09:34 Exam: She is resting comfortably in a chair at bedside and appears in no acute distress. Her affect is bright and cheerful. Legs show trace edema bilaterally. She is not dyspneic. I reviewed her medications and lab results. Internal Medicine: Result - Labs CBC & Chem 7: 05/29/18 07:13 05/29/18 07:13 Labs: Short CBC 05/29/18 Range/Units 07:13 WBC 6.1 (4.3-11.1) K/mcL Hgb 7.5 L (11.5-15.4) g/dL Hct 23.9 L (35.3-44.9) % Plt Count 146 (140-400) K/mcL Neutrophils # 3.9 (1.6-8.9) K/mcL BMP 05/29/18 07:13 Sodium 140 Potassium 3.7 Chloride 93 L Carbon Dioxide 41 H* BUN 64 H Creatinine 1.48 H Glucose 181 H Calcium 9.1 Consult Discharge Plan - Plan Referrals: Otf Rivera MD [Primary Care Provider] - 1 week
[2018-05-29] MEDS: Vitamin B Complex/Vit C/Vit E 1 EACH TABLET PO SCH (16:54)
[2018-05-29] MEDS: Apixaban 5 MG TABLET PO SCH (20:37)
[2018-05-29] MEDS: tiZANidine 4 MG TABLET PO SCH (20:38)
[2018-05-30] MEDS: Ascorbic Acid 500 MG TABLET PO SCH (05:58)
[2018-05-30] MEDS: metOLazone 5 MG TABLET PO SCH (08:32)
[2018-05-30] MEDS: Gabapentin 300 MG CAPSULE PO SCH ×3 (08:32→20:37)
[2018-05-30] MEDS: Bumetanide 1 MG TABLET PO SCH ×2 (08:32→17:13)
[2018-05-30] MEDS: Cholecalciferol (D-3) 1,000 UNIT TABLET PO SCH (08:32)
[2018-05-30] MEDS: Sucralfate 1 GM TABLET PO SCH ×2 (08:32→17:13)
[2018-05-30] MEDS: Apixaban 5 MG TABLET PO SCH ×2 (08:33→20:39)
[2018-05-30] MEDS: Apremilast [Otezla] 30 MG PO SCH ×2 (08:33→21:52)
[2018-05-30] MEDS: *HR* HYDROcodone/Acet 5/325 mg TABLET PO SCH ×4 (08:33→20:38)
[2018-05-30] MEDS: Isosorbide MONOnitrate (24 HR) 60 MG TAB.ER.24H PO SCH (08:33)
[2018-05-30] MEDS: Magnesium L-Lactate [Mag-Tab Sr] 84 MG PO SCH (08:33)
[2018-05-30] MEDS: Carbidopa/Levodopa 25/100 TABLET PO SCH ×3 (08:33→20:38)
[2018-05-30] MEDS: Insulin LISPRO 300 UNITS/3 ML VIAL SQ SCH ×4 (08:34→20:39)
[2018-05-30] MEDS: Budesonide/Formoterol 80/4.5 MDI IH SCH ×2 (10:00→21:59)
[2018-05-30] MEDS: Mag Hydrox/Al Hydrox/Simeth 30 ML UDC PO PRN (10:50)
[2018-05-30] MEDS: Vitamin B Complex/Vit C/Vit E 1 EACH TABLET PO SCH (17:13)
[2018-05-30] MEDS: tiZANidine 4 MG TABLET PO SCH (20:38)
[2018-05-30] MEDS ORDERED: Insulin DETEMIR 100 UNIT/ML per UNIT SQ ONE (21:55)
[2018-05-30] MEDS: Insulin DETEMIR 100 UNIT/ML X5UNITS SQ SCH (21:58)
[2018-05-31] MEDS: Acetaminophen 325 MG TABLET PO PRN ×2 (02:35→15:29)
[2018-05-31 05:44] LABS: Basophils # 0.1 K/mcL (0.0-0.2); Basophils % 0.8 %; Eosinophils # 0.3 K/mcL (0.0-0.6); Eosinophils % 4.7 %; Hematocrit 22.3 % (35.3-44.9); Hemoglobin 7.1 g/dL (11.5-15.4); Lymphocytes # 1.1 K/mcL (0.6-4.6); Lymphocytes % 18.1 %; Mean Corpuscular HGB Conc 31.8 g/dL (31.6-35.5); Mean Corpuscular Hemoglobin 32.9 pg (28.0-33.3); Mean Corpuscular Volume 103.2 fL (83.0-100.0); Mean Platelet Volume 12.4 fL (9.4-12.4); Monocytes # 0.6 K/mcL (0.0-1.3); Monocytes % 10.2 %; Platelet Count 132 K/mcL (140-400); Red Blood Count 2.16 M/mcL (3.82-4.97); Red Cell Distribution Width 18.7 % (11.5-14.5); Segmented Neutrophils % 65.2 %
[2018-05-31 06:03] LABS: Calcium 8.8 mg/dL (8.6-10.3); Magnesium 1.7 mg/dL (1.6-2.6)
[2018-05-31] MEDS: Ascorbic Acid 500 MG TABLET PO SCH (06:08)
[2018-05-31] MEDS: Bumetanide 1 MG TABLET PO SCH ×2 (07:43→16:51)
[2018-05-31] MEDS: Sucralfate 1 GM TABLET PO SCH ×2 (07:44→16:52)
[2018-05-31] MEDS: Insulin LISPRO 300 UNITS/3 ML VIAL SQ SCH ×4 (07:54→20:14)
[2018-05-31] MEDS: Cholecalciferol (D-3) 1,000 UNIT TABLET PO SCH (09:15)
[2018-05-31] MEDS: Gabapentin 300 MG CAPSULE PO SCH (09:16)
[2018-05-31] MEDS: Carbidopa/Levodopa 25/100 TABLET PO SCH ×3 (09:16→20:06)
[2018-05-31] MEDS: Isosorbide MONOnitrate (24 HR) 60 MG TAB.ER.24H PO SCH (09:16)
[2018-05-31] MEDS: metOLazone 5 MG TABLET PO SCH (09:16)
[2018-05-31] MEDS: *HR* HYDROcodone/Acet 5/325 mg TABLET PO SCH ×4 (09:17→20:05)
[2018-05-31] MEDS: Mag Hydrox/Al Hydrox/Simeth 30 ML UDC PO PRN ×2 (09:17→20:06)
[2018-05-31] MEDS: Insulin DETEMIR 100 UNIT/ML X5UNITS SQ SCH ×2 (09:18→20:14)
[2018-05-31] MEDS: Magnesium L-Lactate [Mag-Tab Sr] 84 MG PO SCH (09:28)
[2018-05-31] MEDS: Apremilast [Otezla] 30 MG PO SCH ×2 (09:28→20:06)
[2018-05-31] MEDS: Apixaban 5 MG TABLET PO SCH ×3 (09:50→20:05)
[2018-05-31] MEDS: Budesonide/Formoterol 80/4.5 MDI IH SCH ×2 (09:51→21:49)
--- NOTE | 2018-05-31 11:55 | Internal Med Progress Note ---
Date of Encounter: 05/31/18 Time of Encounter: 11:40 - Assessment and plan (1) Anemia Current Visit: No Status: Chronic Assessment and plan: May 27. Hemoglobin has decreased to 6.9. Hold Eliquis and Plavix for 24 hours. Remain off aspirin. Continue PPI. Transfuse 1 unit packed red blood cells today. Continue to monitor labs. May 28. Hemoglobin improved to 7.4 today. She wishes to remain off aspirin indefinitely. Hold Eliquis and Plavix today. Recheck labs in a.m. May 29. Restart Eliquis but continue to hold Plavix. Aspirin has been discontinued. Hemoglobin stable at 7.5 today. May 31. Hemoglobin has decreased slightly to 7.1. Remain off aspirin. Continue to hold Plavix. Restart Eliquis at lower dose of 2.5 mg twice a day. Qualifiers: Anemia type: iron deficiency Iron deficiency anemia type: unspecified iron deficiency Qualified Code(s): D50.9 - Iron deficiency anemia, unspecified (2) CHF (congestive heart failure) Current Visit: No Status: Chronic Assessment and plan: May 27. BUN and creatinine have risen to 70 and 1.45 respectively. Reduce Bumex and continue to monitor labs. May 28. Clinically stable. Continue lower dose Bumex and recheck labs in a.m. May 29. Clinically stable. BN peptide slightly higher at 254. She is not dyspneic. Imdur dose was increased to 60 mg daily. Continue Bumex and Toprol. Cozaar was discontinued because of borderline hypotension. May 31. Clinically stable. BN peptide minimally changed at 247. Restart losartan 12.5 mg daily. Increase Imdur and continue to monitor BN peptide. Continue to decrease gabapentin. Qualifiers: Heart failure type: diastolic Heart failure chronicity: chronic Qualified Code(s): I50.32 - Chronic diastolic (congestive) heart failure (3) Pulmonary embolism Current Visit: No Status: Acute Assessment and plan: May 27. Hold Eliquis for 24 hours and then restart May 28. Restart Eliquis tomorrow May 29. Restart Eliquis today. May 31. Eliquis dose reduced to 2.5 mg twice a day to avoid excessive bleeding. Qualifiers: Pulmonary embolism type: other Chronicity: unspecified Acute cor pulmonale presence: without acute cor pulmonale Qualified Code(s): I26.99 - Other pulmonary embolism without acute cor pulmonale (4) Weakness Current Visit: Yes Status: Acute Assessment and plan: May 27. Continue PT and OT intervention. (5) Parkinson disease Current Visit: No Status: Chronic Assessment and plan: May 27. Continue Sinemet (6) Gout Current Visit: No Status: Acute Assessment and plan: May 27. Uric acid level returned elevated at 10.4. Increase allopurinol. 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 Continue Lopressor. Hold Eliquis for 24 hours due to blood loss. May 29. Continue Lopressor and restart Eliquis. Qualifiers: Atrial fibrillation type: chronic Qualified Code(s): I48.2 - Chronic atrial fibrillation (8) Hypertension Current Visit: No Status: Chronic Assessment and plan: May 27. Continue Bumex, Cozaar, Zaroxolyn, and Lopressor May 31. Blood pressure has risen. Restart Cozaar. Continue Bumex, Zaroxolyn, and Lopressor. Qualifiers: Hypertension type: essential hypertension Qualified Code(s): I10 - Essential (primary) hypertension (9) Hypothyroidism Current Visit: No Status: Chronic Assessment and plan: May 27. TSH slightly elevated at 7.629. Increase Synthroid Qualifiers: Hypothyroidism type: unspecified Qualified Code(s): E03.9 - Hypothyroidism, unspecified (10) Hypokalemia Current Visit: Yes Status: Acute Assessment and plan: May 27. Potassium normalized to 3.8. Continue supplementation and monitoring. May 31. Potassium level normal at 4.0. Continue present Rx. (11) Diabetes Current Visit: No Status: Chronic Assessment and plan: May 27. Hemoglobin A1c satisfactory at 6.6%. Continue Accu-Cheks with SSI. Qualifiers: Diabetes mellitus type: type 2 Diabetes mellitus alf insulin use: with terminal superintendent use Diabetes mellitus complication status: with kidney complications Diabetes mellitus complication detail: with chronic kidney disease Chronic kidney disease stage: stage 4 (severe) Qualified Code(s): E1 1.22 - Type 2 diabetes mellitus with diabetic chronic kidney disease; N18.4 - Chronic kidney disease, stage 4 (severe); Z79.4 - superintendent marine oil terminal (current) use of insulin - Subjective Interval history: May 27. She states she has occasional "jerks" besides the Parkinsonian tremor. She has no new complaints otherwise. May 28. She has no new complaints at present. She has some discomfort in her lower chest/upper abdomen earlier that she now feels may just have been "indigestion and gas". It improved after GI cocktail. May 29. She has no new complaints and feels better overall. She states her ambulation ability has increased. She is pleased about her decreased edema. May 31. She has no new complaints. - Constitutional Vitals: Temp Pulse Resp BP Pulse Ox 98.7 F 69 16 141/54 99 05/31/18 07:45 05/31/18 07:45 05/31/18 07:45 05/31/18 07:45 05/31/18 07:45 Exam: She is resting comfortably in a chair at bedside. Her affect is bright and cheerful. Extremities show 1+ edema bilaterally. Her reviewed her medications and lab results. Internal Medicine: Result - Labs CBC & Chem 7: 05/31/18 05:30 05/31/18 05:30 Labs: Short CBC 05/31/18 Range/Units 05:30 WBC 6.2 (4.3-11.1) K/mcL Hgb 7.1 L (11.5-15.4) g/dL Hct 22.3 L (35.3-44.9) % Plt Count 132 L (140-400) K/mcL Neutrophils # 4.0 (1.6-8.9) K/mcL BMP 05/31/18 05:30 Sodium 139 Potassium 4.0 Chloride 94 L Carbon Dioxide 39 H BUN 64 H Creatinine 1.32 H Glucose 190 H Calcium 8.8 Consult Discharge Plan - Plan Referrals: Otf Rivera MD [Primary Care Provider] - 1 week
[2018-05-31] MEDS: Gabapentin 400 MG CAPSULE PO SCH ×2 (15:26→20:06)
[2018-05-31] MEDS: Vitamin B Complex/Vit C/Vit E 1 EACH TABLET PO SCH (17:04)
[2018-05-31] MEDS: tiZANidine 4 MG TABLET PO SCH (20:06)
[2018-06-01] MEDS: Ascorbic Acid 500 MG TABLET PO SCH (05:54)
[2018-06-01] MEDS: Bumetanide 1 MG TABLET PO SCH ×2 (07:17→16:43)
[2018-06-01] MEDS: Sucralfate 1 GM TABLET PO SCH ×2 (07:18→16:43)
[2018-06-01] MEDS: Insulin LISPRO 300 UNITS/3 ML VIAL SQ SCH ×4 (07:19→20:20)
[2018-06-01] MEDS: MOM Conc 10 ML UD.LIQ PO PRN (07:29)
[2018-06-01] MEDS: Isosorbide MONOnitrate (24 HR) 60 MG TAB.ER.24H PO SCH (08:46)
[2018-06-01] MEDS: Cholecalciferol (D-3) 1,000 UNIT TABLET PO SCH (08:46)
[2018-06-01] MEDS: Apixaban 5 MG TABLET PO SCH ×2 (08:46→20:14)
[2018-06-01] MEDS: metOLazone 5 MG TABLET PO SCH (08:46)
[2018-06-01] MEDS: Carbidopa/Levodopa 25/100 TABLET PO SCH ×3 (08:47→20:15)
[2018-06-01] MEDS: *HR* HYDROcodone/Acet 5/325 mg TABLET PO SCH ×4 (08:47→20:15)
[2018-06-01] MEDS: Gabapentin 400 MG CAPSULE PO SCH ×3 (08:48→20:15)
[2018-06-01] MEDS: Insulin DETEMIR 100 UNIT/ML X5UNITS SQ SCH ×2 (08:48→20:19)
[2018-06-01] MEDS: Apremilast [Otezla] 30 MG PO SCH ×2 (08:49→22:25)
[2018-06-01] MEDS: Magnesium L-Lactate [Mag-Tab Sr] 84 MG PO SCH (08:50)
[2018-06-01] MEDS: Budesonide/Formoterol 80/4.5 MDI IH SCH ×2 (11:04→21:46)
[2018-06-01] MEDS: Nystatin POWDER 30 GM BOTTLE TP SCH ×2 (15:22→22:24)
[2018-06-01] MEDS: Vitamin B Complex/Vit C/Vit E 1 EACH TABLET PO SCH (16:43)
[2018-06-01] MEDS: tiZANidine 4 MG TABLET PO SCH (20:15)
[2018-06-01] MEDS ORDERED: Nystatin POWDER 30 GM BOTTLE TP SCH (21:00)
[2018-06-02] MEDS: Ascorbic Acid 500 MG TABLET PO SCH (05:35)
[2018-06-02 07:12] LABS: Basophils # 0.1 K/mcL (0.0-0.2); Basophils % 1.2 %; Eosinophils # 0.3 K/mcL (0.0-0.6); Eosinophils % 5.1 %; Hematocrit 23.2 % (35.3-44.9); Hemoglobin 7.4 g/dL (11.5-15.4); Mean Corpuscular HGB Conc 31.9 g/dL (31.6-35.5); Mean Corpuscular Hemoglobin 32.7 pg (28.0-33.3); Mean Corpuscular Volume 102.7 fL (83.0-100.0); Mean Platelet Volume 12.7 fL (9.4-12.4); Monocytes # 0.6 K/mcL (0.0-1.3); Monocytes % 9.7 %; Platelet Count 158 K/mcL (140-400); Red Blood Count 2.26 M/mcL (3.82-4.97); Red Cell Distribution Width 19.4 % (11.5-14.5)
[2018-06-02 07:20] LABS: Albumin 3.5 g/dL (3.5-5.7); Albumin/Globulin Ratio 1.5 (1.1-2.2); Bilirubin,Total 0.4 mg/dL (0.3-1.0); Globulin 2.4 g/dL (2.4-3.5); Potassium 3.3 mEq/L (3.5-5.1); Total Protein 5.9 g/dL (6.4-8.9)
[2018-06-02] MEDS: Insulin LISPRO 300 UNITS/3 ML VIAL SQ SCH ×4 (08:56→21:21)
[2018-06-02] MEDS: Insulin DETEMIR 100 UNIT/ML X5UNITS SQ SCH ×2 (08:57→21:21)
[2018-06-02] MEDS: Nystatin POWDER 30 GM BOTTLE TP SCH ×2 (08:58→21:21)
[2018-06-02] MEDS: Apixaban 5 MG TABLET PO SCH ×2 (08:58→21:18)
[2018-06-02] MEDS: Bumetanide 1 MG TABLET PO SCH ×2 (08:59→17:09)
[2018-06-02] MEDS: *HR* HYDROcodone/Acet 5/325 mg TABLET PO SCH ×4 (08:59→21:20)
[2018-06-02] MEDS: Cholecalciferol (D-3) 1,000 UNIT TABLET PO SCH (08:59)
[2018-06-02] MEDS: Isosorbide MONOnitrate (24 HR) 60 MG TAB.ER.24H PO SCH (08:59)
[2018-06-02] MEDS: Sucralfate 1 GM TABLET PO SCH ×2 (08:59→17:09)
[2018-06-02] MEDS: Carbidopa/Levodopa 25/100 TABLET PO SCH ×3 (09:00→21:18)
[2018-06-02] MEDS: Gabapentin 400 MG CAPSULE PO SCH (09:00)
[2018-06-02] MEDS: Magnesium L-Lactate [Mag-Tab Sr] 84 MG PO SCH (09:00)
[2018-06-02] MEDS: metOLazone 5 MG TABLET PO SCH (09:00)
[2018-06-02] MEDS: Apremilast [Otezla] 30 MG PO SCH ×2 (09:00→21:22)
[2018-06-02] MEDS: Budesonide/Formoterol 80/4.5 MDI IH SCH ×2 (09:16→22:46)
--- NOTE | 2018-06-02 11:33 | Internal Med Progress Note ---
Date of Encounter: 06/02/18 Time of Encounter: 11:20 - Assessment and plan (1) Anemia Current Visit: No Status: Chronic Assessment and plan: May 27. Hemoglobin has decreased to 6.9. Hold Eliquis and Plavix for 24 hours. Remain off aspirin. Continue PPI. Transfuse 1 unit packed red blood cells today. Continue to monitor labs. May 28. Hemoglobin improved to 7.4 today. She wishes to remain off aspirin indefinitely. Hold Eliquis and Plavix today. Recheck labs in a.m. May 29. Restart Eliquis but continue to hold Plavix. Aspirin has been discontinued. Hemoglobin stable at 7.5 today. May 31. Hemoglobin has decreased slightly to 7.1. Remain off aspirin. Continue to hold Plavix. Restart Eliquis at lower dose of 2.5 mg twice a day. June 02. Hemoglobin has increased to 7.4. Continue to hold Plavix and use lower dose Eliquis. Qualifiers: Anemia type: iron deficiency Iron deficiency anemia type: unspecified iron deficiency Qualified Code(s): D50.9 - Iron deficiency anemia, unspecified (2) CHF (congestive heart failure) Current Visit: No Status: Inactive Assessment and plan: May 27. BUN and creatinine have risen to 70 and 1.45 respectively. Reduce Bumex and continue to monitor labs. May 28. Clinically stable. Continue lower dose Bumex and recheck labs in a.m. May 29. Clinically stable. BN peptide slightly higher at 254. She is not dyspneic. Imdur dose was increased to 60 mg daily. Continue Bumex and Toprol. Cozaar was discontinued because of borderline hypotension. May 31. Clinically stable. BN peptide minimally changed at 247. Restart losartan 12.5 mg daily. Increase Imdur and continue to monitor BN peptide. Continue to decrease gabapentin. June 02. BN peptide increased to 273. Add low-dose Lanoxin. Qualifiers: Heart failure type: diastolic Heart failure chronicity: chronic Qualified Code(s): I50.32 - Chronic diastolic (congestive) heart failure (3) Pulmonary embolism Current Visit: No Status: Acute Assessment and plan: May 27. Hold Eliquis for 24 hours and then restart May 28. Restart Eliquis tomorrow May 29. Restart Eliquis today. Sarah 1. Eliquis dose reduced to 2.5 mg twice a day to avoid excessive bleeding. Qualifiers: Pulmonary embolism type: other Chronicity: unspecified Acute cor pulmonale presence: without acute cor pulmonale Qualified Code(s): I26.99 - Other pulmonary embolism without acute cor pulmonale (4) Weakness Current Visit: Yes Status: Acute Assessment and plan: May 27. Continue PT and OT intervention. (5) Parkinson disease Current Visit: No Status: Chronic Assessment and plan: May 27. Continue Sinemet (6) Gout Current Visit: No Status: Acute Assessment and plan: May 27. Uric acid level returned elevated at 10.4. Increase allopurinol. June 02. Uric acid level remains elevated at 9.0. Increase allopurinol. 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 Continue Lopressor. Hold Eliquis for 24 hours due to blood loss. May 29. Continue Lopressor and restart Eliquis. Qualifiers: Atrial fibrillation type: chronic Qualified Code(s): I48.2 - Chronic atrial fibrillation (8) Hypertension Current Visit: No Status: Chronic Assessment and plan: May 27. Continue Bumex, Cozaar, Zaroxolyn, and Lopressor May 31. Blood pressure has risen. Restart Cozaar. Continue Bumex, Zaroxolyn, and Lopressor. Qualifiers: Hypertension type: essential hypertension Qualified Code(s): I10 - Essential (primary) hypertension (9) Hypothyroidism Current Visit: No Status: Chronic Assessment and plan: May 27. TSH slightly elevated at 7.629. Increase Synthroid Qualifiers: Hypothyroidism type: unspecified Qualified Code(s): E03.9 - Hypothyroidism, unspecified (10) Hypokalemia Current Visit: Yes Status: Acute Assessment and plan: May 27. Potassium normalized to 3.8. Continue supplementation and monitoring. May 31. Potassium level normal at 4.0. Continue present Rx. June 02. Potassium level low at 3.3. Give additional dose of KCl today. (11) Diabetes Current Visit: No Status: Chronic Assessment and plan: May 27. Hemoglobin A1c satisfactory at 6.6%. Continue Accu-Cheks with SSI. June 02. Blood sugar slightly above desirable range. Increase Levemir to 15 units twice a day. Qualifiers: Diabetes mellitus type: type 2 Diabetes mellitus alf insulin use: with protective services case worker use Diabetes mellitus complication status: with kidney complications Diabetes mellitus complication detail: with chronic kidney disease Chronic kidney disease stage: stage 4 (severe) Qualified Code(s): E11.22 - Type 2 diabetes mellitus with diabetic chronic kidney disease; N18.4 - Chronic kidney disease, stage 4 (severe); Z79.4 - long-term (current) use of insulin - Subjective Interval history: May 27. She states she has occasional "jerks" besides the Parkinsonian tremor. She has no new complaints otherwise. May 28. She has no new complaints at present. She has some discomfort in her lower chest/upper abdomen earlier that she now feels may just have been "indigestion and gas". It improved after GI cocktail. May 29. She has no new complaints and feels better overall. She states her ambulation ability has increased. She is pleased about her decreased edema. May 31. She has no new complaints. June 02. She has no new complaints. - Constitutional Vitals: Temp Pulse Resp BP Pulse Ox 98.6 F 71 17 148/70 99 06/02/18 06:25 06/02/18 06:25 06/02/18 06:25 06/02/18 06:25 06/02/18 06:25 Exam: She is sitting in a chair at bedside resting comfortably. Her affect is cheerful. There is 1-2+ edema of her lower legs bilaterally. I reviewed her medications and lab results. Internal Medicine: Result - Labs CBC & Chem 7: 06/02/18 06:53 06/02/18 06:53 Labs: Short CBC 06/02/18 Range/Units 06:53 WBC 6.1 (4.3-11.1) K/mcL Hgb 7.4 L (11.5-15.4) g/dL Hct 23.2 L (35.3-44.9) % Plt Count 158 (140-400) K/mcL Neutrophils # 4.0 (1.6-8.9) K/mcL BMP 06/02/18 06:53 Sodium 138 Potassium 3.3 L Chloride 93 L Carbon Dioxide 36 H BUN 68 H Creatinine 1.16 Glucose 187 H Calcium 9.0 Liver Function 06/02/18 Range/Units 06:53 Total Bilirubin 0.4 (0.3-1.0) mg/dL AST 13 (13-39) Units/L ALT 7 (7-52) Units/L Alkaline Phosphatase 91 (34-104) Units/L Albumin 3.5 (3.5-5.7) g/dL Consult Discharge Plan - Plan Referrals: Otf Rivera MD [Primary Care Provider] - 1 week
[2018-06-02] MEDS: *HR* Digoxin 0.125 MG TABLET PO SCH (11:50)
[2018-06-02] MEDS: Gabapentin 300 MG CAPSULE PO SCH ×2 (17:09→21:20)
[2018-06-02] MEDS: Vitamin B Complex/Vit C/Vit E 1 EACH TABLET PO SCH (17:10)
[2018-06-02] MEDS: tiZANidine 4 MG TABLET PO SCH (21:18)
[2018-06-02] MEDS: MOM Conc 10 ML UD.LIQ PO PRN (21:35)
[2018-06-03] MEDS: Ascorbic Acid 500 MG TABLET PO SCH (06:13)
[2018-06-03] MEDS: Sucralfate 1 GM TABLET PO SCH ×2 (07:56→17:16)
[2018-06-03] MEDS: Carbidopa/Levodopa 25/100 TABLET PO SCH ×3 (07:56→21:17)
[2018-06-03] MEDS: *HR* HYDROcodone/Acet 5/325 mg TABLET PO SCH ×4 (07:56→21:17)
[2018-06-03] MEDS: Cholecalciferol (D-3) 1,000 UNIT TABLET PO SCH (07:56)
[2018-06-03] MEDS: Gabapentin 300 MG CAPSULE PO SCH ×3 (07:56→21:17)
[2018-06-03] MEDS: metOLazone 5 MG TABLET PO SCH (07:56)
[2018-06-03] MEDS: Apixaban 5 MG TABLET PO SCH ×2 (07:57→21:18)
[2018-06-03] MEDS: Bumetanide 1 MG TABLET PO SCH ×2 (07:59→17:16)
[2018-06-03] MEDS: Isosorbide MONOnitrate (24 HR) 60 MG TAB.ER.24H PO SCH (07:59)
[2018-06-03] MEDS: Insulin LISPRO 300 UNITS/3 ML VIAL SQ SCH ×4 (08:00→21:20)
[2018-06-03] MEDS: Apremilast [Otezla] 30 MG PO SCH ×2 (08:01→21:15)
[2018-06-03] MEDS: Magnesium L-Lactate [Mag-Tab Sr] 84 MG PO SCH (08:01)
[2018-06-03] MEDS: Nystatin POWDER 30 GM BOTTLE TP SCH ×2 (08:01→21:18)
[2018-06-03] MEDS: *HR* Digoxin 0.125 MG TABLET PO SCH (08:01)
[2018-06-03] MEDS: Budesonide/Formoterol 80/4.5 MDI IH SCH ×2 (09:23→22:28)
[2018-06-03] MEDS: Insulin DETEMIR 100 UNIT/ML X5UNITS SQ SCH ×2 (09:37→21:18)
[2018-06-03] MEDS: Vitamin B Complex/Vit C/Vit E 1 EACH TABLET PO SCH (17:16)
[2018-06-03] MEDS: tiZANidine 4 MG TABLET PO SCH (21:17)
[2018-06-03] MEDS: Mag Hydrox/Al Hydrox/Simeth 30 ML UDC PO PRN (21:38)
[2018-06-03] MEDS: MOM Conc 10 ML UD.LIQ PO PRN (21:38)
[2018-06-04] MEDS: Ascorbic Acid 500 MG TABLET PO SCH (06:13)
[2018-06-04 07:04] LABS: Basophils # 0.1 K/mcL (0.0-0.2); Basophils % 0.8 %; Eosinophils # 0.3 K/mcL (0.0-0.6); Eosinophils % 5.5 %; Hemoglobin 7.3 g/dL (11.5-15.4); Immature Granulocytes % 1.1 % (0-4); Lymphocytes # 1.3 K/mcL (0.6-4.6); Mean Corpuscular HGB Conc 31.7 g/dL (31.6-35.5); Mean Corpuscular Hemoglobin 33.2 pg (28.0-33.3); Mean Corpuscular Volume 104.5 fL (83.0-100.0); Mean Platelet Volume 12.8 fL (9.4-12.4); Monocytes # 0.6 K/mcL (0.0-1.3); Monocytes % 10.3 %; Neutrophils # 3.8 K/mcL (1.6-8.9); Platelet Count 176 K/mcL (140-400); Red Cell Distribution Width 19.6 % (11.5-14.5); Segmented Neutrophils % 61.3 %
[2018-06-04 07:12] LABS: Calcium 9.1 mg/dL (8.6-10.3); Potassium 3.8 mEq/L (3.5-5.1)
[2018-06-04] MEDS: Nystatin POWDER 30 GM BOTTLE TP SCH ×2 (07:39→21:35)
[2018-06-04] MEDS: Magnesium L-Lactate [Mag-Tab Sr] 84 MG PO SCH (07:40)
[2018-06-04] MEDS: Apremilast [Otezla] 30 MG PO SCH ×2 (07:40→21:35)
[2018-06-04] MEDS: Sucralfate 1 GM TABLET PO SCH ×2 (07:41→17:06)
[2018-06-04] MEDS: metOLazone 5 MG TABLET PO SCH (07:41)
[2018-06-04] MEDS: *HR* Digoxin 0.125 MG TABLET PO SCH (07:41)
[2018-06-04] MEDS: Cholecalciferol (D-3) 1,000 UNIT TABLET PO SCH (07:42)
[2018-06-04] MEDS: Apixaban 5 MG TABLET PO SCH ×2 (07:42→21:34)
[2018-06-04] MEDS: Gabapentin 300 MG CAPSULE PO SCH (07:42)
[2018-06-04] MEDS: *HR* HYDROcodone/Acet 5/325 mg TABLET PO SCH ×4 (07:43→21:33)
[2018-06-04] MEDS: Carbidopa/Levodopa 25/100 TABLET PO SCH ×3 (07:43→21:35)
[2018-06-04] MEDS: Bumetanide 1 MG TABLET PO SCH ×2 (07:44→17:00)
[2018-06-04] MEDS: Isosorbide MONOnitrate (24 HR) 60 MG TAB.ER.24H PO SCH (07:44)
[2018-06-04] MEDS: Insulin LISPRO 300 UNITS/3 ML VIAL SQ SCH ×4 (07:45→21:42)
[2018-06-04] MEDS: Insulin DETEMIR 100 UNIT/ML X5UNITS SQ SCH ×2 (09:06→21:41)
[2018-06-04] MEDS: Mag Hydrox/Al Hydrox/Simeth 30 ML UDC PO PRN ×2 (09:39→18:56)
[2018-06-04] MEDS: Budesonide/Formoterol 80/4.5 MDI IH SCH ×2 (10:25→22:10)
--- NOTE | 2018-06-04 11:07 | Internal Med Progress Note ---
Date of Encounter: 06/04/18 Time of Encounter: 10:55 - Assessment and plan (1) Anemia Current Visit: No Status: Chronic Assessment and plan: May 27. Hemoglobin has decreased to 6.9. Hold Eliquis and Plavix for 24 hours. Remain off aspirin. Continue PPI. Transfuse 1 unit packed red blood cells today. Continue to monitor labs. May 28. Hemoglobin improved to 7.4 today. She wishes to remain off aspirin indefinitely. Hold Eliquis and Plavix today. Recheck labs in a.m. May 29. Restart Eliquis but continue to hold Plavix. Aspirin has been discontinued. Hemoglobin stable at 7.5 today. May 31. Hemoglobin has decreased slightly to 7.1. Remain off aspirin. Continue to hold Plavix. Restart Eliquis at lower dose of 2.5 mg twice a day. June 02. Hemoglobin has increased to 7.4. Continue to hold Plavix and use lower dose Eliquis. June 04. Hemoglobin minimally changed to 7.3. Continue present Rx. EGD and colonoscopy were done last month during [facility] stay. Qualifiers: Anemia type: iron deficiency Iron deficiency anemia type: unspecified iron deficiency Qualified Code(s): D50.9 - Iron deficiency anemia, unspecified (2) CHF (congestive heart failure) Current Visit: No Status: Chronic Assessment and plan: May 27. BUN and creatinine have risen to 70 and 1.45 respectively. Reduce Bumex and continue to monitor labs. May 28. Clinically stable. Continue lower dose Bumex and recheck labs in a.m. May 29. Clinically stable. BN peptide slightly higher at 254. She is not dyspneic. Imdur dose was increased to 60 mg daily. Continue Bumex and Toprol. Cozaar was discontinued because of borderline hypotension. May 31. Clinically stable. BN peptide minimally changed at 247. Restart losartan 12.5 mg daily. Increase Imdur and continue to monitor BN peptide. Continue to decrease gabapentin. June 02. BN peptide increased to 273. Add low-dose Lanoxin. June 04. BN peptide slightly decreased to 228. Continue Bumex, Imdur, losartan, metoprolol, Zaroxolyn and Lanoxin Qualifiers: Heart failure type: diastolic Heart failure chronicity: chronic Qualified Code(s): I50.32 - Chronic diastolic (congestive) heart failure (3) Pulmonary embolism Current Visit: No Status: Acute Assessment and plan: May 27. Hold Eliquis for 24 hours and then restart May 28. Restart Eliquis tomorrow May 29. Restart Eliquis today. May 31. Eliquis dose reduced to 2.5 mg twice a day to avoid excessive bleeding. Qualifiers: Pulmonary embolism type: other Chronicity: unspecified Acute cor pulmonale presence: without acute cor pulmonale Qualified Code(s): I26.99 - Other pulmonary embolism without acute cor pulmonale (4) Weakness Current Visit: Yes Status: Acute Assessment and plan: May 27. Continue PT and OT intervention. (5) Parkinson disease Current Visit: No Status: Chronic Assessment and plan: May 27. Continue Sinemet (6) Gout Current Visit: No Status: Acute Assessment and plan: May 27. Uric acid level returned elevated at 10.4. Increase allopurinol. June 02. Uric acid level remains elevated at 9.0. Increase allopurinol. 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 Continue Lopressor. Hold Eliquis for 24 hours due to blood loss. May 29. Continue Lopressor and restart Eliquis. Qualifiers: Atrial fibrillation type: chronic Qualified Code(s): I48.2 - Chronic atrial fibrillation (8) Hypertension Current Visit: No Status: Chronic Assessment and plan: May 27. Continue Bumex, Cozaar, Zaroxolyn, and Lopressor May 31. Blood pressure has risen. Restart Cozaar. Continue Bumex, Zaroxolyn, and Lopressor. Qualifiers: Hypertension type: essential hypertension Qualified Code(s): I10 - Essential (primary) hypertension (9) Hypothyroidism Current Visit: No Status: Chronic Assessment and plan: May 27. TSH slightly elevated at 7.629. Increase Synthroid June 04. Continue Synthroid 100 g daily. Qualifiers: Hypothyroidism type: unspecified Qualified Code(s): E03.9 - Hypothyroidism, unspecified (10) Hypokalemia Current Visit: Yes Status: Acute Assessment and plan: May 27. Potassium normalized to 3.8. Continue supplementation and monitoring. May 31. Potassium level normal at 4.0. Continue present Rx. June 02. Potassium level low at 3.3. Give additional dose of KCl today. June 04. Potassium normal at 3.8. Continue to monitor. (11) Diabetes Current Visit: No Status: Chronic Assessment and plan: May 27. Hemoglobin A1c satisfactory at 6.6%. Continue Accu-Cheks with SSI. June 02. Blood sugar slightly above desirable range. Increase Levemir to 15 units twice a day. June 04. Blood sugar slightly improved. Increase Levemir to 20 units twice a day. 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 She states she has occasional "jerks" besides the Parkinsonian tremor. She has no new complaints otherwise. May 28. She has no new complaints at present. She has some discomfort in her lower chest/upper abdomen earlier that she now feels may just have been "indigestion and gas". It improved after GI cocktail. May 29. She has no new complaints and feels better overall. She states her ambulation ability has increased. She is pleased about her decreased edema. May 31. She has no new complaints. June 02. She has no new complaints. June 04. She has no new complaints. - Constitutional Vitals: Temp Pulse Resp BP Pulse Ox 98.5 F 64 16 163/51 100 06/04/18 06:58 06/04/18 06:58 06/04/18 06:58 06/04/18 06:58 06/04/18 06:58 Exam: She is resting comfortably in a chair at bedside. Her feet are elevated. Her affect is bright and cheerful. I reviewed her medications and lab results. Internal Medicine: Result - Labs CBC & Chem 7: 06/04/18 06:40 06/04/18 06:40 Labs: Short CBC 06/04/18 Range/Units 06:40 WBC 6.1 (4.3-11.1) K/mcL Hgb 7.3 L (11.5-15.4) g/dL Hct 23.0 L (35.3-44.9) % Plt Count 176 (140-400) K/mcL Neutrophils # 3.8 (1.6-8.9) K/mcL BMP 06/04/18 06:40 Sodium 140 Potassium 3.8 Chloride 96 L Carbon Dioxide 36 H BUN 70 H Creatinine 1.23 H Glucose 157 H Calcium 9.1 Consult Discharge Plan - Plan Referrals: Otf Rivera MD [Primary Care Provider] - 1 week
[2018-06-04] MEDS: Gabapentin 100 MG CAPSULE PO SCH ×2 (15:20→21:34)
[2018-06-04] MEDS: Vitamin B Complex/Vit C/Vit E 1 EACH TABLET PO SCH (17:05)
[2018-06-04] MEDS: tiZANidine 4 MG TABLET PO SCH (21:34)
[2018-06-05] MEDS: Acetaminophen 325 MG TABLET PO PRN ×2 (01:19→11:20)
[2018-06-05] MEDS: Isosorbide MONOnitrate (24 HR) 60 MG TAB.ER.24H PO SCH (09:02)
[2018-06-05] MEDS: Sucralfate 1 GM TABLET PO SCH ×2 (09:03→16:03)
[2018-06-05] MEDS: Apixaban 5 MG TABLET PO SCH ×2 (09:03→21:16)
[2018-06-05] MEDS: Gabapentin 100 MG CAPSULE PO SCH ×3 (09:03→21:17)
[2018-06-05] MEDS: Bumetanide 1 MG TABLET PO SCH ×2 (09:03→16:03)
[2018-06-05] MEDS: Carbidopa/Levodopa 25/100 TABLET PO SCH ×3 (09:04→21:17)
[2018-06-05] MEDS: *HR* HYDROcodone/Acet 5/325 mg TABLET PO SCH ×4 (09:04→21:17)
[2018-06-05] MEDS: metOLazone 5 MG TABLET PO SCH (09:04)
[2018-06-05] MEDS: *HR* Digoxin 0.125 MG TABLET PO SCH (09:04)
[2018-06-05] MEDS: Cholecalciferol (D-3) 1,000 UNIT TABLET PO SCH (09:04)
[2018-06-05] MEDS: Ascorbic Acid 500 MG TABLET PO SCH (09:05)
[2018-06-05] MEDS: Insulin DETEMIR 100 UNIT/ML X5UNITS SQ SCH ×2 (09:09→21:14)
[2018-06-05] MEDS: Insulin LISPRO 300 UNITS/3 ML VIAL SQ SCH ×4 (09:11→21:15)
[2018-06-05] MEDS: Magnesium L-Lactate [Mag-Tab Sr] 84 MG PO SCH (09:12)
[2018-06-05] MEDS: Apremilast [Otezla] 30 MG PO SCH ×2 (09:12→20:56)
[2018-06-05] MEDS: Nystatin POWDER 30 GM BOTTLE TP SCH ×2 (09:17→21:18)
[2018-06-05] MEDS: Budesonide/Formoterol 80/4.5 MDI IH SCH ×2 (10:06→21:35)
[2018-06-05] MEDS: Mag Hydrox/Al Hydrox/Simeth 30 ML UDC PO PRN (16:07)
[2018-06-05] MEDS: Vitamin B Complex/Vit C/Vit E 1 EACH TABLET PO SCH (17:55)
[2018-06-05] MEDS: tiZANidine 4 MG TABLET PO SCH (21:17)
[2018-06-06] MEDS: Ascorbic Acid 500 MG TABLET PO SCH (05:41)
[2018-06-06] MEDS: Apixaban 5 MG TABLET PO SCH ×2 (07:56→20:26)
[2018-06-06] MEDS: Cholecalciferol (D-3) 1,000 UNIT TABLET PO SCH (07:56)
[2018-06-06] MEDS: *HR* HYDROcodone/Acet 5/325 mg TABLET PO SCH ×4 (07:57→20:26)
[2018-06-06] MEDS: Isosorbide MONOnitrate (24 HR) 60 MG TAB.ER.24H PO SCH (07:57)
[2018-06-06] MEDS: Bumetanide 1 MG TABLET PO SCH ×2 (07:58→16:54)
[2018-06-06] MEDS: metOLazone 5 MG TABLET PO SCH (07:58)
[2018-06-06] MEDS: *HR* Digoxin 0.125 MG TABLET PO SCH (07:59)
[2018-06-06] MEDS: Sucralfate 1 GM TABLET PO SCH ×2 (07:59→16:50)
[2018-06-06] MEDS: Gabapentin 100 MG CAPSULE PO SCH ×3 (07:59→20:25)
[2018-06-06] MEDS: Carbidopa/Levodopa 25/100 TABLET PO SCH ×3 (08:00→20:27)
[2018-06-06] MEDS: Insulin LISPRO 300 UNITS/3 ML VIAL SQ SCH ×4 (08:04→20:28)
[2018-06-06] MEDS: Insulin DETEMIR 100 UNIT/ML X5UNITS SQ SCH ×2 (08:42→20:28)
[2018-06-06] MEDS: Apremilast [Otezla] 30 MG PO SCH ×2 (09:26→20:13)
[2018-06-06] MEDS: Magnesium L-Lactate [Mag-Tab Sr] 84 MG PO SCH (09:27)
[2018-06-06] MEDS: Nystatin POWDER 30 GM BOTTLE TP SCH ×2 (09:27→20:44)
[2018-06-06] MEDS: Budesonide/Formoterol 80/4.5 MDI IH SCH ×2 (11:09→22:35)
[2018-06-06] MEDS: MOM Conc 10 ML UD.LIQ PO PRN (12:12)
[2018-06-06] MEDS: Acetaminophen 325 MG TABLET PO PRN (16:53)
[2018-06-06] MEDS: Vitamin B Complex/Vit C/Vit E 1 EACH TABLET PO SCH (18:32)
[2018-06-06] MEDS: tiZANidine 4 MG TABLET PO SCH (20:26)
[2018-06-06] MEDS: Mag Hydrox/Al Hydrox/Simeth 30 ML UDC PO PRN (20:27)
[2018-06-07] MEDS: Ascorbic Acid 500 MG TABLET PO SCH (06:15)
[2018-06-07 06:42] LABS: Basophils % 0.8 %; Eosinophils # 0.3 K/mcL (0.0-0.6); Eosinophils % 5.3 %; Hematocrit 23.7 % (35.3-44.9); Hemoglobin 7.3 g/dL (11.5-15.4); Immature Granulocytes % 1.1 % (0-4); Lymphocytes # 1.1 K/mcL (0.6-4.6); Lymphocytes % 21.3 %; Mean Corpuscular HGB Conc 30.8 g/dL (31.6-35.5); Mean Corpuscular Hemoglobin 32.4 pg (28.0-33.3); Mean Corpuscular Volume 105.3 fL (83.0-100.0); Mean Platelet Volume 12.2 fL (9.4-12.4); Monocytes # 0.6 K/mcL (0.0-1.3); Monocytes % 11.2 %; Neutrophils # 3.2 K/mcL (1.6-8.9); Platelet Count 196 K/mcL (140-400); Red Blood Count 2.25 M/mcL (3.82-4.97); Red Cell Distribution Width 19.6 % (11.5-14.5); Segmented Neutrophils % 60.3 %
[2018-06-07 07:16] LABS: Calcium 9.2 mg/dL (8.6-10.3); Potassium 3.9 mEq/L (3.5-5.1)
[2018-06-07] MEDS: Insulin DETEMIR 100 UNIT/ML X5UNITS SQ SCH ×2 (08:20→20:58)
[2018-06-07] MEDS: Nystatin POWDER 30 GM BOTTLE TP SCH ×2 (08:20→20:57)
[2018-06-07] MEDS: *HR* Digoxin 0.125 MG TABLET PO SCH (08:21)
[2018-06-07] MEDS: Bumetanide 1 MG TABLET PO SCH (08:21)
[2018-06-07] MEDS: Carbidopa/Levodopa 25/100 TABLET PO SCH ×3 (08:21→20:57)
[2018-06-07] MEDS: metOLazone 5 MG TABLET PO SCH (08:21)
[2018-06-07] MEDS: Gabapentin 100 MG CAPSULE PO SCH ×3 (08:22→20:58)
[2018-06-07] MEDS: Isosorbide MONOnitrate (24 HR) 60 MG TAB.ER.24H PO SCH (08:22)
[2018-06-07] MEDS: Apixaban 5 MG TABLET PO SCH ×2 (08:22→20:57)
[2018-06-07] MEDS: *HR* HYDROcodone/Acet 5/325 mg TABLET PO SCH ×4 (08:23→20:57)
[2018-06-07] MEDS: Sucralfate 1 GM TABLET PO SCH ×2 (08:23→18:23)
[2018-06-07] MEDS: Cholecalciferol (D-3) 1,000 UNIT TABLET PO SCH (08:23)
[2018-06-07] MEDS: Magnesium L-Lactate [Mag-Tab Sr] 84 MG PO SCH (08:24)
[2018-06-07] MEDS: Insulin LISPRO 300 UNITS/3 ML VIAL SQ SCH ×4 (08:24→20:58)
[2018-06-07] MEDS: Apremilast [Otezla] 30 MG PO SCH ×2 (08:24→21:00)
[2018-06-07] MEDS: Budesonide/Formoterol 80/4.5 MDI IH SCH ×2 (10:03→23:04)
--- NOTE | 2018-06-07 10:26 | Internal Med Progress Note ---
Date of Encounter: 06/07/18 Time of Encounter: 10:18 - Assessment and plan (1) Anemia Current Visit: No Status: Chronic Assessment and plan: May 27. Hemoglobin has decreased to 6.9. Hold Eliquis and Plavix for 24 hours. Remain off aspirin. Continue PPI. Transfuse 1 unit packed red blood cells today. Continue to monitor labs. May 28. Hemoglobin improved to 7.4 today. She wishes to remain off aspirin indefinitely. Hold Eliquis and Plavix today. Recheck labs in a.m. May 29. Restart Eliquis but continue to hold Plavix. Aspirin has been discontinued. Hemoglobin stable at 7.5 today. May 31. Hemoglobin has decreased slightly to 7.1. Remain off aspirin. Continue to hold Plavix. Restart Eliquis at lower dose of 2.5 mg twice a day. June 02. Hemoglobin has increased to 7.4. Continue to hold Plavix and use lower dose Eliquis. June 04. Hemoglobin minimally changed to 7.3. Continue present Rx. EGD and colonoscopy were done last month during [facility] stay. June 07. Hemoglobin stable at 7.3. Remain off aspirin and Plavix and continue Eliquis. Qualifiers: Anemia type: iron deficiency Iron deficiency anemia type: unspecified iron deficiency Qualified Code(s): D50.9 - Iron deficiency anemia, unspecified (2) CHF (congestive heart failure) Current Visit: No Status: Chronic Assessment and plan: May 27. BUN and creatinine have risen to 70 and 1.45 respectively. Reduce Bumex and continue to monitor labs. May 28. Clinically stable. Continue lower dose Bumex and recheck labs in a.m. May 29. Clinically stable. BN peptide slightly higher at 254. She is not dyspneic. Imdur dose was increased to 60 mg daily. Continue Bumex and Toprol. Cozaar was discontinued because of borderline hypotension. May 31. Clinically stable. BN peptide minimally changed at 247. Restart losartan 12.5 mg daily. Increase Imdur and continue to monitor BN peptide. Continue to decrease gabapentin. June 02. BN peptide increased to 273. Add low-dose Lanoxin. June 04. BN peptide slightly decreased to 228. Continue Bumex, Imdur, losartan, metoprolol, Zaroxolyn and Lanoxin June 07. BN peptide slightly higher 302. Because of worsening azotemia change Bumex to 2 mg every morning and increase Cozaar. Continue metoprolol and Lanoxin. Discontinue Zaroxolyn Qualifiers: Heart failure type: diastolic Heart failure chronicity: chronic Qualified Code(s): I50.32 - Chronic diastolic (congestive) heart failure (3) Pulmonary embolism Current Visit: No Status: Acute Assessment and plan: May 27. Hold Eliquis for 24 hours and then restart May 28. Restart Eliquis tomorrow May 29. Restart Eliquis today. May 31. Eliquis dose reduced to 2.5 mg twice a day to avoid excessive bleeding. Qualifiers: Pulmonary embolism type: other Chronicity: unspecified Acute cor pulmonale presence: without acute cor pulmonale Qualified Code(s): I26.99 - Other pulmonary embolism without acute cor pulmonale (4) Weakness Current Visit: Yes Status: Acute Assessment and plan: May 27. Continue PT and OT intervention. (5) Parkinson disease Current Visit: No Status: Chronic Assessment and plan: May 27. Continue Sinemet (6) Gout Current Visit: No Status: Acute Assessment and plan: May 27. Uric acid level returned elevated at 10.4. Increase allopurinol. June 02. Uric acid level remains elevated at 9.0. Increase allopurinol. 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 Continue Lopressor. Hold Eliquis for 24 hours due to blood loss. May 29. Continue Lopressor and restart Eliquis. Qualifiers: Atrial fibrillation type: chronic Qualified Code(s): I48.2 - Chronic atrial fibrillation (8) Hypertension Current Visit: No Status: Chronic Assessment and plan: May 27. Continue Bumex, Cozaar, Zaroxolyn, and Lopressor May 31. Blood pressure has risen. Restart Cozaar. Continue Bumex, Zaroxolyn, and Lopressor. June 07. Increase Cozaar and decrease Bumex. Discontinue Zaroxolyn. Continue Lopressor. Qualifiers: Hypertension type: essential hypertension Qualified Code(s): I10 - Essential (primary) hypertension (9) Hypothyroidism Current Visit: No Status: Chronic Assessment and plan: May 27. TSH slightly elevated at 7.629. Increase Synthroid June 04. Continue Synthroid 100 g daily. Qualifiers: Hypothyroidism type: unspecified Qualified Code(s): E03.9 - Hypothyroidism, unspecified (10) Hypokalemia Current Visit: Yes Status: Acute Assessment and plan: May 27. Potassium normalized to 3.8. Continue supplementation and monitoring. May 31. Potassium level normal at 4.0. Continue present Rx. June 02. Potassium level low at 3.3. Give additional dose of KCl today. June 04. Potassium normal at 3.8. Continue to monitor. (11) Diabetes Current Visit: No Status: Chronic Assessment and plan: May 27. Hemoglobin A1c satisfactory at 6.6%. Continue Accu-Cheks with SSI. June 02. Blood sugar slightly above desirable range. Increase Levemir to 15 units twice a day. June 04. Blood sugar slightly improved. Increase Levemir to 20 units twice a day. Qualifiers: Diabetes mellitus type: type 2 Diabetes mellitus chcf insulin use: with lead enterprise architect use Diabetes mellitus complication status: with kidney complications Diabetes mellitus complication detail: with chronic kidney disease Chronic kidney disease stage: stage 4 (severe) Qualified Code(s): E11.22 - Type 2 diabetes mellitus with diabetic chronic kidney disease; N18.4 - Chronic kidney disease, stage 4 (severe); Z79.4 - [facility] (current) use of insulin - Subjective Interval history: May 27. She states she has occasional "jerks" besides the Parkinsonian tremor. She has no new complaints otherwise. May 28. She has no new complaints at present. She has some discomfort in her lower chest/upper abdomen earlier that she now feels may just have been "indigestion and gas". It improved after GI cocktail. May 29. She has no new complaints and feels better overall. She states her ambulation ability has increased. She is pleased about her decreased edema. May 31. She has no new complaints. June 02. She has no new complaints. June 04. She has no new complaints. June 07. She has no new complaints. - Constitutional Vitals: Temp Pulse Resp BP Pulse Ox 98.2 F 73 16 186/56 100 06/07/18 07:17 06/07/18 07:17 06/07/18 07:17 06/07/18 07:17 06/07/18 07:17 Exam: She is sitting in a chair at bedside resting comfortably. Her affect is bright and cheerful. Extremities show 1+ edema of her lower legs bilaterally. I reviewed her medications and lab results. Internal Medicine: Result - Labs CBC & Chem 7: 06/07/18 06:15 06/07/18 06:15 Labs: Short CBC 06/07/18 Range/Units 06:15 WBC 5.3 (4.3-11.1) K/mcL Hgb 7.3 L (11.5-15.4) g/dL Hct 23.7 L (35.3-44.9) % Plt Count 196 (140-400) K/mcL Neutrophils # 3.2 (1.6-8.9) K/mcL BMP 06/07/18 06:15 Sodium 140 Potassium 3.9 Chloride 97 L Carbon Dioxide 36 H BUN 78 H Creatinine 1.32 H Glucose 141 H Calcium 9.2 Consult Discharge Plan - Plan Referrals: Otf Rivera MD [Primary Care Provider] - 1 week
[2018-06-07] MEDS: Vitamin B Complex/Vit C/Vit E 1 EACH TABLET PO SCH (18:22)
[2018-06-07] MEDS: MOM Conc 10 ML UD.LIQ PO PRN (20:56)
[2018-06-07] MEDS: Mag Hydrox/Al Hydrox/Simeth 30 ML UDC PO PRN (20:56)
[2018-06-07] MEDS: tiZANidine 4 MG TABLET PO SCH (20:58)
[2018-06-08] MEDS: Acetaminophen 325 MG TABLET PO PRN (03:38)
[2018-06-08] MEDS: Ascorbic Acid 500 MG TABLET PO SCH (06:11)
[2018-06-08] MEDS: Bumetanide 1 MG TABLET PO SCH (08:49)
[2018-06-08] MEDS: Cholecalciferol (D-3) 1,000 UNIT TABLET PO SCH (08:49)
[2018-06-08] MEDS: Sucralfate 1 GM TABLET PO SCH ×2 (08:49→17:02)
[2018-06-08] MEDS: Apixaban 5 MG TABLET PO SCH ×2 (08:49→21:15)
[2018-06-08] MEDS: Isosorbide MONOnitrate (24 HR) 60 MG TAB.ER.24H PO SCH (08:50)
[2018-06-08] MEDS: Gabapentin 100 MG CAPSULE PO SCH ×3 (08:50→21:16)
[2018-06-08] MEDS: *HR* HYDROcodone/Acet 5/325 mg TABLET PO SCH ×4 (08:50→21:15)
[2018-06-08] MEDS: Insulin LISPRO 300 UNITS/3 ML VIAL SQ SCH ×4 (08:51→21:18)
[2018-06-08] MEDS: Carbidopa/Levodopa 25/100 TABLET PO SCH ×3 (08:51→21:16)
[2018-06-08] MEDS: *HR* Digoxin 0.125 MG TABLET PO SCH (08:52)
[2018-06-08] MEDS: Insulin DETEMIR 100 UNIT/ML X5UNITS SQ SCH ×2 (08:52→21:17)
[2018-06-08] MEDS: Nystatin POWDER 30 GM BOTTLE TP SCH ×2 (08:53→21:17)
[2018-06-08] MEDS: Budesonide/Formoterol 80/4.5 MDI IH SCH ×2 (09:31→22:39)
[2018-06-08] MEDS: Apremilast [Otezla] 30 MG PO SCH ×2 (09:36→21:17)
[2018-06-08] MEDS: Magnesium L-Lactate [Mag-Tab Sr] 84 MG PO SCH (09:37)
[2018-06-08] MEDS: MOM Conc 10 ML UD.LIQ PO PRN (11:50)
[2018-06-08] MEDS: Vitamin B Complex/Vit C/Vit E 1 EACH TABLET PO SCH (17:01)
[2018-06-08] MEDS: tiZANidine 4 MG TABLET PO SCH (21:16)
[2018-06-09] MEDS: Ascorbic Acid 500 MG TABLET PO SCH (05:59)
[2018-06-09 08:22] VITALS: BP 130/63
[2018-06-09] MEDS: Carbidopa/Levodopa 25/100 TABLET PO SCH (09:53)
[2018-06-09] MEDS: Apixaban 5 MG TABLET PO SCH (09:53)
[2018-06-09] MEDS: Bumetanide 1 MG TABLET PO SCH (09:53)
[2018-06-09] MEDS: Sucralfate 1 GM TABLET PO SCH (09:53)
[2018-06-09] MEDS: Gabapentin 100 MG CAPSULE PO SCH (09:53)
[2018-06-09] MEDS: *HR* Digoxin 0.125 MG TABLET PO SCH (09:54)
[2018-06-09] MEDS: *HR* HYDROcodone/Acet 5/325 mg TABLET PO SCH (09:55)
[2018-06-09] MEDS: Cholecalciferol (D-3) 1,000 UNIT TABLET PO SCH (09:55)
[2018-06-09] MEDS: Isosorbide MONOnitrate (24 HR) 60 MG TAB.ER.24H PO SCH (09:55)
[2018-06-09] MEDS: Insulin DETEMIR 100 UNIT/ML X5UNITS SQ SCH (09:56)
[2018-06-09] MEDS: Insulin LISPRO 300 UNITS/3 ML VIAL SQ SCH (09:56)
[2018-06-09] MEDS: Nystatin POWDER 30 GM BOTTLE TP SCH (10:06)
[2018-06-09] MEDS: Magnesium L-Lactate [Mag-Tab Sr] 84 MG PO SCH (10:06)
[2018-06-09] MEDS: Apremilast [Otezla] 30 MG PO SCH (10:06)
--- NOTE | 2018-06-09 11:30 | Discharge Summary ---
Date of Encounter: 06/09/18 Time of Encounter: 11:15 - Discharge Diagnosis (1) Anemia Priority: Primary Status: Chronic Qualifiers: Anemia type: iron deficiency Iron deficiency anemia type: unspecified iron deficiency Qualified Code(s): D50.9 - Iron deficiency anemia, unspecified (2) CHF (congestive heart failure) Priority: Secondary Status: Chronic Qualifiers: Heart failure type: diastolic Heart failure chronicity: chronic Qualified Code(s): I50.32 - Chronic diastolic (congestive) heart failure (3) Pulmonary embolism Priority: Secondary Status: Acute Qualifiers: Pulmonary embolism type: other Chronicity: unspecified Acute cor pulmonale presence: without acute cor pulmonale Qualified Code(s): I26.99 - Other pulmonary embolism without acute cor pulmonale (4) Weakness Priority: Secondary Status: Acute (5) Parkinson disease Priority: Secondary Status: Chronic (6) Gout Priority: Secondary Status: Acute Qualifiers: Gout site: hand Gout etiology: idiopathic Chronicity: acute Laterality: right Qualified Code(s): M10.041 - Idiopathic gout, right hand (7) Atrial fibrillation Priority: Secondary Status: Chronic Qualifiers: Atrial fibrillation type: chronic Qualified Code(s): I48.2 - Chronic atrial fibrillation (8) Hypertension Priority: Secondary Status: Chronic Qualifiers: Hypertension type: essential hypertension Qualified Code(s): I10 - Essential (primary) hypertension (9) Hypothyroidism Priority: Secondary Status: Chronic Qualifiers: Hypothyroidism type: unspecified Qualified Code(s): E03.9 - Hypothyroidism, unspecified (10) Hypokalemia Priority: Secondary Status: Acute (11) Diabetes Priority: Secondary Status: Chronic Qualifiers: Diabetes mellitus type: type 2 Diabetes mellitus watermaster insulin use: with watermaster use Diabetes mellitus complication status: with kidney complications Diabetes mellitus complication detail: with chronic kidney disease Chronic kidney disease stage: stage 4 (severe) Qualified Code(s): E11.22 - Type 2 diabetes mellitus with diabetic chronic kidney disease; N18.4 - Chronic kidney disease, stage 4 (severe); 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 Whitmore is a 78 year old female who came to emergency room after [facility] hospitalizations April 28-May 08 followed by a second stay May 12-May 22. At the first hospitalization she was treated for CHF exacerbation. She had anemia and underwent EGD which showed grade A reflux esophagitis. Colonoscopy showed single bleeding colonic angiodysplasia. Pulmonary was consulted for pulmonary hypertension but she was not felt to be a candidate for right heart catheter. She had non-STEMI on admission. She underwent LHC which showed LMCA, circumflex, first marginal, and left PDA free of disease. The RCA showed 50% stenosis in midportion and 60% stenosis in the right PDA. The LAD showed 20 mm long 80% stenosis in the proximal portion which was stented. (A previous stent had been placed 2013.) She was placed on aspirin and Plavix DAPT for the new stent. Xarelto which had been used for atrial fibrillation and history of left leg DVT (1984) was discontinued for one month because of GI bleed. She had RIKA (felt to be contrast-induced nephropathy) and Lasix was discontinued to allow recovery. She returned [facility] May 12 with worsening heart failure. Diuretics were restarted. Chest CTA showed pulmonary embolus in the left upper lobe and she was started on Eliquis. She remained on DAPT also. She clinically improved and was discharged home. However shortly after returning home she had sensation of fevers chills and weakness. She came back to emergency room this felt to have aspiration of heart failure. She was admitted to swing bed for ongoing care needs. I saw her on May 26 and performed swing bed history and physical. Aspirin was held because of evidence of ongoing slow blood loss. She chose to not restart aspirin which I felt was reasonable. She was given 1 unit of packed red blood cells when hemoglobin decreased to 6.2 on May 26. Plavix was held and Eliquis dose was decreased to 2.5 mg twice a day. Her hemoglobin remained stable on this regimen and was 7.3 on June 07 (unchanged from June 04). I told her she could discuss with her PCP about restarting Plavix and/or increasing the dose of Eliquis. Her Bumex dose was reduced and Imdur was increased. Cozaar was initially discontinued because of borderline hypotension but was restarted when blood pressure returned to satisfactory range. Gabapentin was decreased and will be discontinued at discharge to avoid worsening heart failure. Lanoxin was started and Zaroxolyn was discontinued. Her azotemia showed minimal change. BN peptide remained overall stable. She has symptomatic improvement on this regimen and will continue this at discharge. Uric acid level returned elevated at 10.4. Allopurinol was increased. Her PCP can monitor labs. TSH returned elevated at 7.69. Synthroid dose was increased to 100 g daily. She had ongoing physical therapy and occupational therapy intervention. She made satisfactory progress and on June 09 was stable for discharge home. She will follow with her PCP Dr. Otf Rivera within 1 week. - Time Spent with Patient Total time spent providing and/or coordinating discharge services: - Discharge Medications Prescriptions: New Allopurinol [Zyloprim 300 MG] 300 mg PO BID #60 tablet Apixaban [Eliquis] 2.5 mg PO BID tablet Budesonide/Formoterol 80/4.5 [Symbicort 80/4.5] 2 puff IH BIDRESP #1 inhaler Bumetanide [Bumex] 2 mg PO DAILY #60 tablet Digoxin [Lanoxin] 0.125 mg PO DAILY #30 tablet Isosorbide MONOnitrate (24 HR) [Imdur] 120 mg PO DAILY #60 tab.er.24h Levothyroxine [Synthroid] 100 mcg PO 0630 #30 tablet Continue Ustekinumab [Stelara (For Outpatient Infusion)] 90 mg SQ [id number] Vitamin B Complex [B Complex] 1 tab PO QPM Insulin DETEMIR [Levemir Flextouch] 40 - 80 unit SQ QAM Insulin ASPART [Novolog Flexpen] 6 - 12 unit SQ BID Fluticasone Propionate Nasal [Flonase] 2 spray NS BID PRN PRN Reason: Allergy Symptoms Clopidogrel Bisulfate [Plavix] 75 mg PO DAILY Carbidopa/Levodopa 25/100 [Sinemet 25/100] 1 tab PO TID Fluticasone/Salmeterol [Advair 250-50 Diskus] 1 puff IH BID Tizanidine HCl 2 mg PO HS Atorvastatin [Lipitor] 40 mg PO HS Magnesium l-Lactate [Mag-Tab Sr] 84 mg PO DAILY Umeclidinium [place] [Incruse Ellipta] 1 puff IH DAILY Loperamide [Imodium] 2 mg PO QID PRN PRN Reason: Diarrhea Apremilast [Otezla] 30 mg PO BID Hydrocodone/Acetaminophen [Hydrocodon-Acetaminophen 5-325] 0.5 tab PO 1300,1700 Ascorbic Acid [Vitamin C] 1,000 mg PO DAILY Cetirizine HCl [Zyrtec] 10 mg PO HS Metoprolol [Lopressor] 25 mg PO BID Acetaminophen [Tylenol] 325 mg PO Q6H PRN PRN Reason: Pain Pantoprazole Sodium [Protonix] 40 mg PO DAILY Ferrous Sulfate 325 mg PO TIDWM tablet Losartan [Cozaar] 12.5 mg PO DAILY #30 tablet Potassium Chloride 20 meq PO BIDWM #30 tab.er.prt Sucralfate [Carafate] 1 gm PO 0730,1630 #60 tablet HYDROcodone/Acet 5/325 mg [[place]ance[place] 5-325 mg] 1 tab PO QAM AND QHS Albuterol Sulfate [Proair Hfa] 2 puff IH Q4H PRN PRN Reason: Shortness Of Breath Cholecalciferol (D-3) [Vitamin D] 1,000 unit PO DAILY tablet Discontinued Levothyroxine Sodium [Tirosint] 88 mcg PO QAM Gabapentin [Neurontin] 800 mg PO QID Allopurinol [Zyloprim 100 MG] 300 mg PO DAILY Apixaban [Eliquis] 5 mg PO BID #60 tablet Bumetanide [Bumex] 2 mg PO TIDDIURETIC #90 tablet metOLazone [Zaroxolyn] 5 mg PO 0730,1630 #60 tablet Home Medications: Carbidopa/Levodopa 25/100 [Sinemet 25/100] 1 tab PO TID 06/24/15 [History] Clopidogrel Bisulfate [Plavix] 75 mg PO DAILY 06/24/15 [History] Fluticasone Propionate Nasal [Flonase] 2 spray NS BID PRN 06/24/15 [History] Insulin ASPART [Novolog Flexpen] 6 - 12 unit SQ BID 06/24/15 [History] Insulin DETEMIR [Levemir Flextouch] 40 - 80 unit SQ QAM 06/24/15 [History] Ustekinumab [Stelara (For Outpatient Infusion)] 90 mg SQ [id number] 06/24/15 [History] Vitamin B Complex [B Complex] 1 tab PO QPM 06/24/15 [History] Fluticasone/Salmeterol [Advair 250-50 Diskus] 1 puff IH BID 07/20/15 [History] Atorvastatin [Lipitor] 40 mg PO HS 09/03/16 [History] Tizanidine HCl 2 mg PO HS 09/03/16 [History] Albuterol Sulfate [Proair Hfa] 2 puff IH Q4H PRN 06/18/17 [History] HYDROcodone/Acet 5/325 mg [[place] 5-325 mg] 1 tab PO QAM AND QHS 06/18/17 [History] Cholecalciferol (D-3) [Vitamin D] 1,000 unit PO DAILY tablet 03/06/18 [Rx] Acetaminophen [Tylenol] 325 mg PO Q6H PRN 04/28/18 [History] Apremilast [Otezla] 30 mg PO BID 04/28/18 [History] Ascorbic Acid [Vitamin C] 1,000 mg PO DAILY 04/28/18 [History] Cetirizine HCl [Zyrtec] 10 mg PO HS 04/28/18 [History] Hydrocodone/Acetaminophen [Hydrocodon-Acetaminophen 5-325] 0.5 tab PO 1300,1700 04/28/18 [History] Loperamide [Imodium] 2 mg PO QID PRN 04/28/18 [History] Magnesium l-Lactate [Mag-Tab Sr] 84 mg PO DAILY 04/28/18 [History] Metoprolol [Lopressor] 25 mg PO BID 04/28/18 [History] Umeclidinium [place] [Incruse Ellipta] 1 puff IH DAILY 04/28/18 [History] Pantoprazole Sodium [Protonix] 40 mg PO DAILY 05/14/18 [History] Ferrous Sulfate 325 mg PO TIDWM tablet 05/22/18 [Rx] Losartan [Cozaar] 12.5 mg PO DAILY #30 tablet 05/22/18 [Rx] Potassium Chloride 20 meq PO BIDWM #30 tab.er.prt 05/22/18 [Rx] Sucralfate [Carafate] 1 gm PO 0730,1630 #60 tablet 05/22/18 [Rx] Allopurinol [Zyloprim 300 MG] 300 mg PO BID #60 tablet 06/09/18 [Rx] Apixaban [Eliquis] 2.5 mg PO BID tablet 06/09/18 [Rx] Budesonide/Formoterol 80/4.5 [Symbicort 80/4.5] 2 puff IH BIDRESP #1 inhaler 06/09/18 [Rx] Bumetanide [Bumex] 2 mg PO DAILY #60 tablet 06/09/18 [Rx] Digoxin [Lanoxin] 0.125 mg PO DAILY #30 tablet 06/09/18 [Rx] Isosorbide MONOnitrate (24 HR) [Imdur] 120 mg PO DAILY #60 tab.er.24h 06/09/18 [Rx] Levothyroxine [Synthroid] 100 mcg PO 0630 #30 tablet 06/09/18 [Rx] Allergies/Adverse Reactions: Allergy/AdvReac Type Severity Reaction Status Date / Time amlodipine [From Norvasc] Allergy Severe Swelling Verified 01/22/18 11:37 of Lip/Tongue/Throat carbamazepine [From Tegretol] Allergy Mild rash/bliste Verified 01/22/18 11:37 rs ciprofloxacin [From Cipro] Allergy Mild Rash Verified 05/14/18 10:42 nitrofurantoin Allergy Mild Rash Verified 05/14/18 10:42 [From Macrobid] Sulfa (Sulfonamide Allergy Mild Rash Verified 05/14/18 10:42 Antibiotics) sulfamethoxazole Allergy Mild Rash Verified 05/14/18 10:42 [From Bactrim] trimethoprim [From Bactrim] Allergy Mild Rash Verified 05/14/18 10:42 Iodinated Contrast- Oral and Allergy See Verified 05/14/18 14:29 IV Dye Comments acetaminophen [From Percocet] AdvReac Mild Confusion Verified 05/14/18 10:42 meperidine [From Demerol] AdvReac Mild Vomiting Verified 05/14/18 10:42 oxycodone [From Percocet] AdvReac Mild Confusion Verified 05/14/18 10:42 promethazine [From Phenergan] AdvReac Mild Vomiting Verified 05/14/18 10:42 NSAIDS (Non-Steroidal AdvReac Unknown D/T KIDNEY Verified 05/14/18 10:42 Anti-Inflamma DYSFUNCTION Date of admission: 05/25/18 16:16 Primary care physician: Otf iRvera MD Consults: 05/25/18 17:59 Consult to Occupational Therapy [CONS] Routine Comment: Evaluate, develop and implement POC Reason for Consult: Evaluate, develop and implement POC Does patient have active BEDREST order?: No Is patient medically & hemodynamically stable?: Yes Patient assessed for mobility or mobilized this visit?: No Consult to Physical Therapy [CONS] Routine Comment: Evaluate, develop and implement POC Reason for Consult: Evaluate, develop and implement POC Does patient have active BEDREST order?: No Is patient medically & hemodynamically stable?: Yes Patient assessed for mobility or mobilized this visit?: Yes - Constitutional Vitals: Temp Pulse Resp BP Pulse Ox 97.4 F L 64 16 130/63 99 06/09/18 08:21 06/09/18 08:21 06/08/18 18:51 06/09/18 08:21 06/09/18 08:21 - Patient Status Disposition: Home, Self-Care - Discharge Instructions Follow Up With: Otf Rivera MD [Primary Care Provider] - 1 week - Diet and Activity Activity: resume usual activities as tolerated, wear oxygen at all times Diet: diabetic diet
[2018-06-09] MEDS: Budesonide/Formoterol 80/4.5 MDI IH SCH (11:33)
--- NOTE | 2018-06-09 11:40 | Physician Discharge Referral ---
Home Health/Hosp Referral Info Transfer to: Home Health Attending Provider: Gaston Provider in Charge Post Discharge: PCP (Otf Rivera M.D.) - Diagnosis (1) Anemia Priority: Primary Status: Chronic (2) CHF (congestive heart failure) Priority: Secondary Status: Chronic (3) Pulmonary embolism Priority: Secondary Status: Acute (4) Weakness Priority: Secondary Status: Acute (5) Parkinson disease Priority: Secondary Status: Chronic (6) Gout Priority: Secondary Status: Acute (7) Atrial fibrillation Priority: Secondary Status: Chronic (8) Hypertension Priority: Secondary Status: Chronic (9) Hypothyroidism Priority: Secondary Status: Chronic (10) Hypokalemia Priority: Secondary Status: Acute (11) Diabetes Priority: Secondary Status: Chronic - Respiratory Orders Oxygen / L per min (2 L/m by nasal cannula 22/09.) Smoking Cessation: Smoking cessation has been advised. For more information, call the [place] Tobacco Quit Line at 3-874-DLFD-NOW. - Diet/Nutrition Diet/Nutrition Orders: No Concentrated Sweets - Activity Activity Orders: Walker - Services Needed Following services are medically necessary services: Nursing, Home Health Aide, Physical Therapy, Occupational Therapy - Transfer Medications Prescriptions: Allopurinol [Zyloprim 300 MG] 300 mg PO BID #60 tablet Budesonide/Formoterol 80/4.5 [Symbicort 80/4.5] 2 puff IH BIDRESP #1 inhaler Bumetanide [Bumex] 2 mg PO DAILY #60 tablet Digoxin [Lanoxin] 0.125 mg PO DAILY #30 tablet Isosorbide MONOnitrate (24 HR) [Imdur] 120 mg PO DAILY #60 tab.er.24h Levothyroxine [Synthroid] 100 mcg PO 0630 #30 tablet Home Medications: Carbidopa/Levodopa 25/100 [Sinemet 25/100] 1 tab PO TID 06/24/15 [History] Clopidogrel Bisulfate [Plavix] 75 mg PO DAILY 06/24/15 [History] Fluticasone Propionate Nasal [Flonase] 2 spray NS BID PRN 06/24/15 [History] Insulin ASPART [Novolog Flexpen] 6 - 12 unit SQ BID 06/24/15 [History] Insulin DETEMIR [Levemir Flextouch] 40 - 80 unit SQ QAM 06/24/15 [History] Ustekinumab [Stelara (For Outpatient Infusion)] 90 mg SQ [id number] 06/24/15 [History] Vitamin B Complex [B Complex] 1 tab PO QPM 06/24/15 [History] Fluticasone/Salmeterol [Advair 250-50 Diskus] 1 puff IH BID 07/20/15 [History] Atorvastatin [Lipitor] 40 mg PO HS 09/03/16 [History] Tizanidine HCl 2 mg PO HS 09/03/16 [History] Albuterol Sulfate [Proair Hfa] 2 puff IH Q4H PRN 06/18/17 [History] HYDROcodone/Acet 5/325 mg [[place] 5-325 mg] 1 tab PO QAM AND QHS 06/18/17 [History] Cholecalciferol (D-3) [Vitamin D] 1,000 unit PO DAILY tablet 03/06/18 [Rx] Acetaminophen [Tylenol] 325 mg PO Q6H PRN 04/28/18 [History] Apremilast [Otezla] 30 mg PO BID 04/28/18 [History] Ascorbic Acid [Vitamin C] 1,000 mg PO DAILY 04/28/18 [History] Cetirizine HCl [Zyrtec] 10 mg PO HS 04/28/18 [History] Hydrocodone/Acetaminophen [Hydrocodon-Acetaminophen 5-325] 0.5 tab PO 1300,1700 04/28/18 [History] Loperamide [Imodium] 2 mg PO QID PRN 04/28/18 [History] Magnesium l-Lactate [Mag-Tab Sr] 84 mg PO DAILY 04/28/18 [History] Metoprolol [Lopressor] 25 mg PO BID 04/28/18 [History] Umeclidinium [place] [Incruse Ellipta] 1 puff IH DAILY 04/28/18 [History] Pantoprazole Sodium [Protonix] 40 mg PO DAILY 05/14/18 [History] Ferrous Sulfate 325 mg PO TIDWM tablet 05/22/18 [Rx] Losartan [Cozaar] 12.5 mg PO DAILY #30 tablet 05/22/18 [Rx] Potassium Chloride 20 meq PO BIDWM #30 tab.er.prt 05/22/18 [Rx] Sucralfate [Carafate] 1 gm PO 0730,1630 #60 tablet 05/22/18 [Rx] Allopurinol [Zyloprim 300 MG] 300 mg PO BID #60 tablet 06/09/18 [Rx] Apixaban [Eliquis] 2.5 mg PO BID tablet 06/09/18 [Rx] Budesonide/Formoterol 80/4.5 [Symbicort 80/4.5] 2 puff IH BIDRESP #1 inhaler 06/09/18 [Rx] Bumetanide [Bumex] 2 mg PO DAILY #60 tablet 06/09/18 [Rx] Digoxin [Lanoxin] 0.125 mg PO DAILY #30 tablet 06/09/18 [Rx] Isosorbide MONOnitrate (24 HR) [Imdur] 120 mg PO DAILY #60 tab.er.24h 06/09/18 [Rx] Levothyroxine [Synthroid] 100 mcg PO 0630 #30 tablet 06/09/18 [Rx] Allergies/Adverse Reactions: Allergy/AdvReac Type Severity Reaction Status Date / Time amlodipine [From Norvasc] Allergy Severe Swelling Verified 01/22/18 11:37 of Lip/Tongue/Throat carbamazepine [From Tegretol] Allergy Mild rash/bliste Verified 01/22/18 11:37 rs ciprofloxacin [From Cipro] Allergy Mild Rash Verified 05/14/18 10:42 nitrofurantoin Allergy Mild Rash Verified 05/14/18 10:42 [From Macrobid] Sulfa (Sulfonamide Allergy Mild Rash Verified 05/14/18 10:42 Antibiotics) sulfamethoxazole Allergy Mild Rash Verified 05/14/18 10:42 [From Bactrim] trimethoprim [From Bactrim] Allergy Mild Rash Verified 05/14/18 10:42 Iodinated Contrast- Oral and Allergy See Verified 05/14/18 14:29 IV Dye Comments acetaminophen [From Percocet] AdvReac Mild Confusion Verified 05/14/18 10:42 meperidine [From Demerol] AdvReac Mild Vomiting Verified 05/14/18 10:42 oxycodone [From Percocet] AdvReac Mild Confusion Verified 05/14/18 10:42 promethazine [From Phenergan] AdvReac Mild Vomiting Verified 05/14/18 10:42 NSAIDS (Non-Steroidal AdvReac Unknown D/T KIDNEY Verified 05/14/18 10:42 Anti-Inflamma DYSFUNCTION Certification: Further, I certify that my clinical findings support that this patient is homebound (i.e. absences from home require considerable and taxing effort and a re for medical reasons or confucianism services or infrequently or short duration when for other reasons) because: Homebound Reason: Leaving home requires considerable and taxing effort due to condition (COPD, heart failure) Attestation: My signature below is to certify that this patient is under my care and that I, or nurse practitioner, or a physician's multimedia assistant working with me, has a [id number] encounter with this patient.
== END 2018-06-09 12:35 | disposition home or self-care (01) | DRG 811 ==
LOC: INPPIK 16:16
PROVIDERS: ADMIT Student in an Organized Health Care Education/Training Program; ATTEND Internal Medicine

== ENCOUNTER 2018-09-11 15:27 | Inpatient (IN) ==
[2018-09-11 16:23] LABS: Basophils # 0.1 K/mcL (0.0-0.2); Basophils % 0.8 %; Eosinophils # 0.1 K/mcL (0.0-0.6); Eosinophils % 1.1 %; Hematocrit 30.8 % (35.3-44.9); Hemoglobin 9.8 g/dL (11.5-15.4); Immature Granulocytes % 1.2 % (0-4); Lymphocytes # 0.4 K/mcL (0.6-4.6); Lymphocytes % 3.5 %; Mean Corpuscular HGB Conc 31.8 g/dL (31.6-35.5); Mean Corpuscular Hemoglobin 34.4 pg (28.0-33.3); Mean Corpuscular Volume 108.1 fL (83.0-100.0); Monocytes # 0.9 K/mcL (0.0-1.3); Monocytes % 7.3 %; Neutrophils # 10.5 K/mcL (1.6-8.9); Platelet Count 237 K/mcL (140-400); Red Blood Count 2.85 M/mcL (3.82-4.97); Red Cell Distribution Width 20.1 % (11.5-14.5); Segmented Neutrophils % 86.1 %; White Blood Count 12.2 K/mcL (4.3-11.1)
[2018-09-11] MEDS ORDERED: *HR* HYDROcodone/Acet 5/325 mg TABLET PO ONE (16:39)
[2018-09-11 16:44] LABS: Albumin 3.8 g/dL (3.5-5.7); Albumin/Globulin Ratio 1.3 (1.1-2.2); Calcium 9.1 mg/dL (8.6-10.3); Potassium 6.7 mEq/L (3.5-5.1); Total Protein 6.8 g/dL (6.4-8.9); Troponin I 0.03 ng/mL (< 0.04)
--- NOTE | 2018-09-11 16:47 | Emergency Department Note ---
Disposition Clinical Impression: Weakness, Hyperkalemia, Chronic renal failure Disposition: Admitted As Inpatient Referrals: Otf Rivera MD [Primary Care Provider] - Time of Disposition: 18:10 General Adult HPI - General Chief complaint: ED General Medical Stated complaint: high blood sugar Time Seen by Provider: 09/11/18 15:30 Source: patient, EMS Mode of arrival: EMS Limitations: no limitations Nursing Notes Reviewed: Yes Vital Signs Reviewed: Yes - History of Present Illness HPI Narrative: Patient claims she is weak today and could not get out of her chair. Had an elevated blood sugar as well. She also says her legs are weeping. She denies any fevers or chills nausea vomiting or other complaints. Onset (ago): day(s) (3 days) Location: other (Generalized weakness) Pain Scale: 0 Quality: burning Consistency: constant Improves with: nothing Worsens with: nothing Associated symptoms: Reports: denies other symptoms Treatments Prior to Arrival: none - Related Data Home Medications Medication Instructions Recorded Confirmed Carbidopa/Levodopa 25/100 [Sinemet 1 tab PO BID 06/24/15 09/11/18 25/100] Clopidogrel Bisulfate [Plavix] 75 mg PO DAILY 06/24/15 09/11/18 Fluticasone Propionate Nasal 2 spray NS BID PRN 06/24/15 09/11/18 [Flonase] Insulin ASPART [Novolog Flexpen] 6 - 12 unit SQ BID 06/24/15 09/11/18 Insulin DETEMIR [Levemir Flextouch] 40 - 80 unit SQ QAM 06/24/15 09/11/18 Ustekinumab [Stelara (For 90 mg SQ [id number] 06/24/15 09/11/18 Outpatient Infusion)] Vitamin B Complex [B Complex] 1 tab PO QPM 06/24/15 09/11/18 Fluticasone/Salmeterol [Advair 1 puff IH BID 07/20/15 09/11/18 250-50 Diskus] Atorvastatin [Lipitor] 40 mg PO HS 09/03/16 09/11/18 Tizanidine HCl 2 mg PO HS 09/03/16 09/11/18 Albuterol Sulfate [Proair Hfa] 2 puff IH Q4H PRN 06/18/17 09/11/18 HYDROcodone/Acet 5/325 mg [[place] 1 tab PO QAM AND QHS 06/18/17 09/11/18 5-325 mg] Acetaminophen [Tylenol] 325 mg PO Q6H PRN 04/28/18 09/11/18 Apremilast [Otezla] 30 mg PO BID 04/28/18 09/11/18 Ascorbic Acid [Vitamin C] 1,000 mg PO DAILY 04/28/18 09/11/18 Cetirizine HCl [Zyrtec] 10 mg PO HS 04/28/18 09/11/18 Hydrocodone/Acetaminophen 0.5 tab PO 1300,1700 04/28/18 09/11/18 [Hydrocodon-Acetaminophen 5-325] Loperamide [Imodium] 2 mg PO QID PRN 04/28/18 09/11/18 Magnesium l-Lactate [Mag-Tab Sr] 84 mg PO DAILY 04/28/18 09/11/18 Metoprolol [Lopressor] 50 mg PO DAILY 04/28/18 09/11/18 Umeclidinium [place] [Incruse 1 puff IH DAILY 04/28/18 09/11/18 Ellipta] Pantoprazole Sodium [Protonix] 40 mg PO DAILY 05/14/18 09/11/18 Amiodarone [Cordarone] 200 mg PO BID 09/11/18 09/11/18 Bumetanide [Bumex] 1 mg PO BID 09/11/18 09/11/18 Calcitriol [Rocaltrol] 0.25 mcg PO QMWF 09/11/18 09/11/18 FLUoxetine HCl [Fluoxetine HCl] 40 mg PO DAILY 09/11/18 09/11/18 Levocetirizine Dihydrochloride 5 mg PO HS 09/11/18 09/11/18 [Allergy Relief (Xyzal)] Ondansetron ODT [Zofran ODT] 4 mg SL Q8HR 09/11/18 09/11/18 Potassium Chloride [Klor-Con] 20 meq PO BID 09/11/18 09/11/18 Torsemide [Demadex] 20 mg PO DAILY 09/11/18 09/11/18 Previous Rx's Medication Instructions Recorded Cholecalciferol (D-3) [Vitamin D] 1,000 unit PO DAILY tablet 03/06/18 Ferrous Sulfate 325 mg PO TIDWM tablet 05/22/18 Losartan [Cozaar] 12.5 mg PO DAILY #30 tablet 05/22/18 Sucralfate [Carafate] 1 gm PO 0730,1630 #60 tablet 05/22/18 Allopurinol [Zyloprim 300 MG] 300 mg PO BID #60 tablet 06/09/18 Apixaban [Eliquis] 2.5 mg PO BID tablet 06/09/18 Budesonide/Formoterol 80/4.5 2 puff IH BIDRESP #1 inhaler 06/09/18 [Symbicort 80/4.5] Digoxin [Lanoxin] 0.125 mg PO DAILY #30 tablet 06/09/18 Isosorbide MONOnitrate (24 HR) 120 mg PO DAILY #60 tab.er.24h 06/09/18 [Imdur] Levothyroxine [Synthroid] 100 mcg PO 0630 #30 tablet 06/09/18 Allergies Allergy/AdvReac Type Severity Reaction Status Date / Time amlodipine [From Norvasc] Allergy Severe Swelling Verified 06/26/18 17:40 of Lip/Tongue/Throat carbamazepine [From Tegretol] Allergy Mild rash/bliste Verified 06/26/18 17:40 rs ciprofloxacin [From Cipro] Allergy Mild Rash Verified 06/26/18 17:40 nitrofurantoin Allergy Mild Rash Verified 06/26/18 17:40 [From Macrobid] Sulfa (Sulfonamide Allergy Mild Rash Verified 06/26/18 17:40 Antibiotics) sulfamethoxazole Allergy Mild Rash Verified 06/26/18 17:40 [From Bactrim] trimethoprim [From Bactrim] Allergy Mild Rash Verified 06/26/18 17:40 Iodinated Contrast- Oral and Allergy See Verified 06/26/18 17:40 IV Dye Comments acetaminophen [From Percocet] AdvReac Mild Confusion Verified 06/26/18 17:40 meperidine [From Demerol] AdvReac Mild Vomiting Verified 06/26/18 17:40 oxycodone [From Percocet] AdvReac Mild Confusion Verified 06/26/18 17:40 promethazine [From Phenergan] AdvReac Mild Vomiting Verified 06/26/18 17:40 NSAIDS (Non-Steroidal AdvReac Unknown D/T KIDNEY Verified 06/26/18 17:40 Anti-Inflamma DYSFUNCTION All systems ED: reviewed and negative except as stated. Review of Systems: As Per HPI Constitutional: Reports: as per HPI, weakness. Denies: fever, chills, weight change Eyes: Denies: eye pain, eye discharge, vision change ENT ED: Denies: ear pain, throat pain, dental pain, hearing loss, epistaxis, congestion, dysphagia Cardiovascular: Denies: chest pain, palpitations, dyspnea on exertion, edema, syncope Respiratory: Denies: cough, dyspnea, wheezes, hemoptysis, stridor Gastrointestinal: Denies: abdominal pain, nausea, vomiting, diarrhea, constipation, hematemesis, melena, hematochezia Genitourinary: Denies: dysuria, frequency, hematuria, discharge Musculoskeletal: Reports: as per HPI Integumentary: Denies: rash, abrasion, lesions Neurological: Denies: headache, weakness, numbness, paresthesias, confusion, abnormal gait, vertigo Psychiatric: Denies: anxiety, depression, suicidal thoughts, homicidal thoughts, auditory hallucinations, visual hallucinations Endocrine: Denies: fatigue Hematological/Lymphatic: Denies: easy bleeding, easy bruising Allergic/Immunologic: Denies: facial swelling, urticaria Past Medical History - Past Medical History Attestation: Yes The following information was validated with the patient. Source: patient, nursing notes reviewed Medical history: Reports: arthritis, asthma, atrial fibrillation, cancer, CHF, COPD, coronary artery disease, DVT, diabetes, fibromyalgia, hyperlipidemia, hypertension, renal disease, thyroid disease, other Surgical history: Reports: pacemaker Psychiatric history: Reports: depression - Social History Smoking Status: Former smoker Smokeless Tobacco Status: No Alcohol use: Reports: none Drug use: Reports: none Physical Exam - General Limitations: no limitations General appearance: alert, in no apparent distress - Head Head exam: atraumatic, normocephalic, normal inspection - Eye Eye exam: Present: normal appearance, PERRL, EOMI - ENT ENT exam: normal exam, normal oropharynx, mucous membranes moist - Neck Neck exam: Present: normal inspection, full ROM, trachea midline - Chest Chest inspection: Present: normal inspection, symmetric chest wall rise - Respiratory Respiratory exam: Present: normal lung sounds bilaterally - Cardiovascular Cardiovascular exam: Present: regular rate, normal rhythm, normal heart sounds - Abdominal Exam Abdominal exam: Present: soft, Non-Tender, normal bowel sounds - Extremities Exam Extremities exam: Present: pedal edema, other (chronic lower extremity edema with weeping) - Back Exam Back exam: Present: normal inspection - Neurological Exam Neurological exam: Present: alert, oriented X3 - Psychiatric Psychiatric exam: Present: normal affect, normal mood - Skin Skin exam: Present: warm, dry, other (weeping legs) Course Vital Signs O2 Sat by Pulse Oximetry 100 09/11/18 15:36 Temperature 97.9 F 09/11/18 15:38 Pulse Rate 60 09/11/18 16:36 Respiratory Rate 18 09/11/18 16:36 Blood Pressure 148/59 09/11/18 16:36 O2 Sat by Pulse Oximetry 96 09/11/18 16:36 Oxygen Delivery Oxygen Delivery Nasal Cannula Medical Decision Making - MDM Narrative Medical decision making narrative: Case was discussed with Dr. Feldman who is graciously accepted admission - Medical Records Medical records reviewed: Yes I reviewed the patient's medical records. - Lab Data Lab results reviewed: Yes I reviewed the patient's lab results. Result diagrams: 09/11/18 16:15 Lab Results 09/11/18 Range/Units 16:15 WBC 12.2 H (4.3-11.1) K/mcL RBC 2.85 L (3.82-4.97) M/mcL Hgb 9.8 L (11.5-15.4) g/dL Hct 30.8 L (35.3-44.9) % MCV 108.1 H (83.0-100.0) fL MCH 34.4 H (28.0-33.3) pg MCHC 31.8 (31.6-35.5) g/dL RDW 20.1 H (11.5-14.5) % Plt Count 237 (140-400) K/mcL MPV 12.0 (9.4-12.4) fL Immature Gran % 1.2 (0-4) % Seg Neutrophils % 86.1 % Lymphocytes % 3.5 % Monocytes % 7.3 % Eosinophils % 1.1 % Basophils % 0.8 % Neutrophils # 10.5 H (1.6-8.9) K/mcL Lymphocytes # 0.4 L (0.6-4.6) K/mcL Monocytes # 0.9 (0.0-1.3) K/mcL Eosinophils # 0.1 (0.0-0.6) K/mcL Basophils # 0.1 (0.0-0.2) K/mcL - Radiology Data Radiology results reviewed: Yes I reviewed the patient's radiology results. - EKG Data EKG #1 EKG attestation: Yes I reviewed and interpreted this EKG. EKG results narrative: EKG shows a ventricular paced rhythm with a rate of 64 bpm.. VT interval is 66 ms QRS duration 199 ms QT interval 526 QTC 543 are axis of 263 degrees
[2018-09-11 16:59] LABS: Bilirubin,Urine Negative (Negative); Blood,Urine Negative (Negative); Clarity,Urine Clear (Clear); Color,Urine Yellow (Yellow); Glucose,Urine (UA) Normal (Normal); Ketones,Urine Negative (Negative); Leukocyte Esterase,Urine Negative (Negative); Nitrite,Urine Negative (Negative); Protein,Urine 100 mg/dL (Neg-Trace); Urobilinogen,Urine Normal (Normal)
[2018-09-11] MEDS ORDERED: Sodium Bicarbonate 50 MEQ/50 ML VIAL IVP ONE (16:59)
[2018-09-11] MEDS ORDERED: Insulin Regular, Human 100 UNIT/ML IV ONE (16:59)
[2018-09-11 17:07] LABS: Bacteria,Urine Few per hpf (None-Few); Granular Casts,Urine Few per lpf (None Seen); Hyaline Casts,Urine Few per lpf (None-Few); Mucus,Urine Few (Few); RBC,Urine 0-3 per hpf (0-3); Squamous Epithelial Cell,Urine Few per lpf (None-Few); WBC,Urine 0-3 per hpf (0-3)
[2018-09-11] MEDS ORDERED: D5% in Water 1,000 ML IVC PRN ×2 (17:25→18:00)
[2018-09-11] MEDS ORDERED: *HR* Dextrose 50 % in Water (Syg) 50 ML SYRINGE IVP PRN ×2 (17:25→18:00)
[2018-09-11] MEDS ORDERED: Dextrose Gel 15 GM/37.5 ML TUBE PO PRN ×4 (17:25→18:00)
[2018-09-11] MEDS ORDERED: Fluticasone Propionate Nasal 50 MCG/SPRAY BOTTLE NS PRN (18:00)
[2018-09-11] MEDS ORDERED: Naloxone 0.4 MG/ML INJ IVP PRN (18:00)
[2018-09-11] MEDS ORDERED: Ondansetron 4 MG/2 ML VIAL ONE (18:51)
[2018-09-11] MEDS: 0.9 % Sodium Chloride 1,000 ML IVC SCH (18:53)
[2018-09-11] MEDS: Ondansetron 4 MG/2 ML VIAL IVP PRN (19:04)
[2018-09-11] MEDS: Vitamin B Complex/Vit C/Vit E 1 EACH TABLET PO SCH (20:29)
[2018-09-11] MEDS: Loratadine 10 MG TABLET PO SCH (20:30)
[2018-09-11] MEDS: *HR* Amiodarone 200 MG TABLET PO SCH (20:30)
[2018-09-11] MEDS: Bumetanide 1 MG TABLET PO SCH (20:30)
[2018-09-11] MEDS: Apixaban 5 MG TABLET PO SCH (20:30)
[2018-09-11] MEDS: Insulin DETEMIR 100 UNIT/ML X5UNITS SQ SCH (20:31)
[2018-09-11] MEDS: Carbidopa/Levodopa 25/100 TABLET PO SCH (20:32)
[2018-09-11] MEDS: tiZANidine 4 MG TABLET PO SCH (20:32)
[2018-09-11] MEDS: *HR* HYDROcodone/Acet 5/325 mg TABLET PO SCH (20:32)
[2018-09-11] MEDS: Insulin LISPRO 300 UNITS/3 ML VIAL SQ SCH (20:33)
[2018-09-11] MEDS ORDERED: Insulin LISPRO 300 UNITS/3 ML VIAL SQ SCH (21:00)
[2018-09-11] MEDS ORDERED: [UNRECOGNIZED DRUG - REMARK] PO SCH (21:00)
[2018-09-11] MEDS ORDERED: Insulin DETEMIR 100 UNIT/ML X5UNITS SQ SCH (21:00)
[2018-09-11] MEDS: Budesonide/Formoterol 80/4.5 MDI IH SCH ×2 (21:41→21:44)
[2018-09-11] MEDS ORDERED: Budesonide/Formoterol 80/4.5 MDI IH SCH (22:00)
[2018-09-12] MEDS ORDERED: Ondansetron ODT 4 MG TAB.RAPDIS SL SCH
[2018-09-12] MEDS: Apremilast [Otezla] 30 MG PO SCH ×3 (00:01→21:31)
[2018-09-12] MEDS ORDERED: Insulin LISPRO 300 UNITS/3 ML VIAL SQ SCH (07:30)
[2018-09-12 08:00] LABS: Basophils # 0.1 K/mcL (0.0-0.2); Basophils % 0.7 %; Eosinophils # 0.2 K/mcL (0.0-0.6); Eosinophils % 1.2 %; Hematocrit 29.7 % (35.3-44.9); Hemoglobin 9.5 g/dL (11.5-15.4); Immature Granulocytes % 1.2 % (0-4); Lymphocytes # 1.1 K/mcL (0.6-4.6); Mean Corpuscular Hemoglobin 34.1 pg (28.0-33.3); Mean Corpuscular Volume 106.5 fL (83.0-100.0); Mean Platelet Volume 12.2 fL (9.4-12.4); Monocytes # 1.4 K/mcL (0.0-1.3); Monocytes % 8.5 %; Neutrophils # 13.2 K/mcL (1.6-8.9); Nucleated Red Blood Cells 0.1 /100 WBC (0); Platelet Count 277 K/mcL (140-400); Red Blood Count 2.79 M/mcL (3.82-4.97); Red Cell Distribution Width 20.2 % (11.5-14.5); Segmented Neutrophils % 81.4 %; White Blood Count 16.2 K/mcL (4.3-11.1)
[2018-09-12] MEDS ORDERED: *HR* Dextrose 50 % in Water (Vial) 50 ML VIAL IVP PRN (08:00)
[2018-09-12] MEDS: Isosorbide MONOnitrate (24 HR) 60 MG TAB.ER.24H PO SCH (08:21)
[2018-09-12] MEDS: FLUoxetine 20 MG CAPSULE PO SCH (08:21)
[2018-09-12] MEDS: *HR* Amiodarone 200 MG TABLET PO SCH ×2 (08:21→21:23)
[2018-09-12] MEDS: Sucralfate 1 GM TABLET PO SCH ×2 (08:21→17:30)
[2018-09-12] MEDS: Apixaban 5 MG TABLET PO SCH (08:21)
[2018-09-12] MEDS: Bumetanide 1 MG TABLET PO SCH (08:21)
[2018-09-12] MEDS: Carbidopa/Levodopa 25/100 TABLET PO SCH ×2 (08:22→21:23)
[2018-09-12] MEDS: Ascorbic Acid 500 MG TABLET PO SCH (08:22)
[2018-09-12] MEDS: *HR* Digoxin 0.125 MG TABLET PO SCH (08:22)
[2018-09-12] MEDS: Insulin LISPRO 300 UNITS/3 ML VIAL SQ SCH ×4 (08:23→21:24)
[2018-09-12] MEDS: *HR* HYDROcodone/Acet 5/325 mg TABLET PO SCH ×4 (08:23→21:22)
[2018-09-12] MEDS: Magnesium Oxide 400 MG TABLET PO SCH (08:23)
[2018-09-12] MEDS: Cholecalciferol (D-3) 1,000 UNIT (25MCG) TABLET PO SCH (08:24)
[2018-09-12] MEDS: INCRUSE ELLIPTA IH SCH (08:51)
[2018-09-12] MEDS ORDERED: INCRUSE ELLIPTA IH SCH (09:00)
[2018-09-12] MEDS ORDERED: Torsemide 20 MG TABLET PO SCH (09:00)
[2018-09-12 11:00] LABS: Potassium 4.8 mEq/L (3.5-5.1)
[2018-09-12] MEDS: Budesonide/Formoterol 80/4.5 MDI IH SCH ×2 (11:12→21:49)
--- NOTE | 2018-09-12 15:39 | Internal Med History&Physical ---
Date of Encounter: 09/12/18 Time of Encounter: 15:00 Assessment and Plan (1) Neutrophilic leukocytosis Current visit: Yes Status: Acute She appears to have bilateral leg cellulitis. Chest x-ray and urinalysis were unremarkable. She was started on IV Ancef with lactobacillus. (2) Parkinson disease Current visit: No Status: Chronic Continue Sinemet (3) Anemia Current visit: No Status: Chronic Anemia testing will be ordered Qualifiers: Anemia type: unspecified type Qualified Code(s): D64.9 - Anemia, unspecified (4) Atrial fibrillation Current visit: No Status: Chronic Continue amiodarone. Qualifiers: Atrial fibrillation type: paroxysmal Qualified Code(s): I48.0 - Paroxysmal atrial fibrillation (5) Hypertension Current visit: No Status: Chronic Continue Cozaar and Lopressor Qualifiers: Hypertension type: essential hypertension Qualified Code(s): I10 - Essential (primary) hypertension (6) Hypothyroidism Current visit: No Status: Chronic TSH was normal at 5.514 on 07/09/2018. Continue present dose Synthroid Qualifiers: Hypothyroidism type: unspecified Qualified Code(s): E03.9 - Hypothyroidism, unspecified (7) CKD (chronic kidney disease) stage 3, GFR 30-59 ml/min Current visit: No Status: Chronic Monitor renal indices. (8) Pulmonary embolism Current visit: No Status: Acute Not presently on OAC. Guaiac stool and reassess. Qualifiers: Pulmonary embolism type: other Chronicity: unspecified Acute cor pulmonale presence: without acute cor pulmonale Qualified Code(s): I26.99 - Other pulmonary embolism without acute cor pulmonale (9) CHF (congestive heart failure) Current visit: No Status: Chronic BN peptide will be ordered. IV Bumex has been started. Imdur and Lanoxin have been restarted along with Cozaar. Qualifiers: Heart failure type: diastolic Heart failure chronicity: acute on chronic Qualified Code(s): I50.33 - Acute on chronic diastolic (congestive) heart failure (10) Weakness Current visit: Yes Status: Acute PT and OT evaluations will be ordered. Internal Medicine - H&P: HPI Chief complaint: Leg edema, weakness, hyperkalemia Admitted From: Emergency Dept Plans for Post Hospital Care: Home History of present illness: Ms. Whitmore is a 78 year old female who came to emergency room stating she had 3 week history of increased edema in her legs with weakness and hyperglycemia. She reports edema was so severe her legs drained serous fluid from denuded bullae. She was evaluated in emergency room and found to have hyperkalemia and bilateral weeping cellulitis/dermatitis. She was admitted to [facility] floor for ongoing care needs. Cardiovascular history is significant for essential hypertension. She has chronic atrial fibrillation. She had an echocardiogram 04/28/2018 which showed LVEF of 50-55%. There was indeterminate diastolic function assessment due to underlying atrial fibrillation. There was mild mitral regurgitation, moderate tricuspid regurgitation, and mild pulmonic regurgitation. Estimated RVSP was elevated at 65 mmHg. The interventricular septum and posterior wall thickness measurements were 0.81 and 0.92 cm respectively. She states she has recently had discontinuation of Lanoxin and Imdur and change from Bumex to furosemide. She does not know the reason for these medication changes. She had non-STEMI on admission to [facility] 04/28/2018. She underwent LHC which showed LMCA, circumflex, first marginal, and left PDA free of disease. The RCA showed 50% stenosis in midportion and 60% stenosis in the right PDA. The LAD showed 20 mm long 80% stenosis in the proximal portion which was stented. (A previous stent had been placed 2013.) She was placed on aspirin and Plavix DAPT for the new stent. Xarelto which had been used for atrial fibrillation and history of left leg DVT (1984) was discontinued for one month because of GI bleed. She had a small pulmonary embolus in the left upper lobe documented M 2018 and was started on Eliquis. She states she has not been taking Plavix or Eliquis recently because of GI bleed history with anemia. She reports having a pacemaker placed 07/06/2018 in [place] but does not know the indication for this. Past Med Surg Social Fam HX - Past Medical History Medical history: arthritis, asthma, atrial fibrillation, cancer, CHF, COPD, coronary artery disease, DVT, diabetes, fibromyalgia, hyperlipidemia, hypertension, renal disease, thyroid disease, other Additional medical history: skin cancer Psychiatric history: depression - Past Surgical History Surgical History: pacemaker Additional surgical history: parathyroidectomy,. Right knee - Social History Smoking Status: Former smoker Smokeless Tobacco Status: No Alcohol use: none Drug use: none - Family History Mother Adopted: No Living Status: Hx Family Cardiac Disorders: Yes Hx Family Respiratory Disorders: Yes (COPD) Hx Family Cancer: Yes (lung, breast) Hx Family GI Disorders: No Hx Family Endocrine Disorder: No Hx Family Neuromuscular Disorders: No Hx Family Neurologic Disorders: Yes Hx Family HEENT Disorders: No Hx Family Autoimmune Disorders: Yes (non hygkins lymphoma) Internal Medicine - H&P: Meds Carbidopa/Levodopa 25/100 [Sinemet 25/100] 1 tab PO BID 06/24/15 [History] Clopidogrel Bisulfate [Plavix] 75 mg PO DAILY 06/24/15 [History] Fluticasone Propionate Nasal [Flonase] 2 spray NS BID PRN 06/24/15 [History] Insulin ASPART [Novolog Flexpen] 6 - 12 unit SQ BID 06/24/15 [History] Insulin DETEMIR [Levemir Flextouch] 40 - 80 unit SQ QAM 06/24/15 [History] Ustekinumab [Stelara (For Outpatient Infusion)] 90 mg SQ [id number] 06/24/15 [Hi story] Vitamin B Complex [B Complex] 1 tab PO QPM 06/24/15 [History] Fluticasone/Salmeterol [Advair 250-50 Diskus] 1 puff IH BID 07/20/15 [History] Atorvastatin [Lipitor] 40 mg PO HS 09/03/16 [History] Tizanidine HCl 2 mg PO HS 09/03/16 [History] Albuterol Sulfate [Proair Hfa] 2 puff IH Q4H PRN 06/18/17 [History] HYDROcodone/Acet 5/325 mg [[place] 5-325 mg] 1 tab PO QAM AND QHS 06/18/17 [History] Cholecalciferol (D-3) [Vitamin D] 1,000 unit PO DAILY tablet 03/06/18 [Rx] Acetaminophen [Tylenol] 325 mg PO Q6H PRN 04/28/18 [History] Apremilast [Otezla] 30 mg PO BID 04/28/18 [History] Ascorbic Acid [Vitamin C] 1,000 mg PO DAILY 04/28/18 [History] Cetirizine HCl [Zyrtec] 10 mg PO HS 04/28/18 [History] Hydrocodone/Acetaminophen [Hydrocodon-Acetaminophen 5-325] 0.5 tab PO 1300,1700 04/28/18 [History] Loperamide [Imodium] 2 mg PO QID PRN 04/28/18 [History] Magnesium l-Lactate [Mag-Tab Sr] 84 mg PO DAILY 04/28/18 [History] Metoprolol [Lopressor] 50 mg PO DAILY 04/28/18 [History] Umeclidinium [place] [Incruse Ellipta] 1 puff IH DAILY 04/28/18 [History] Pantoprazole Sodium [Protonix] 40 mg PO DAILY 05/14/18 [History] Ferrous Sulfate 325 mg PO TIDWM tablet 05/22/18 [Rx] Losartan [Cozaar] 12.5 mg PO DAILY #30 tablet 05/22/18 [Rx] Sucralfate [Carafate] 1 gm PO 0730,1630 #60 tablet 05/22/18 [Rx] Allopurinol [Zyloprim 300 MG] 300 mg PO BID #60 tablet 06/09/18 [Rx] Apixaban [Eliquis] 2.5 mg PO BID tablet 06/09/18 [Rx] Budesonide/Formoterol 80/4.5 [Symbicort 80/4.5] 2 puff IH BIDRESP #1 inhaler 06/09/18 [Rx] Digoxin [Lanoxin] 0.125 mg PO DAILY #30 tablet 06/09/18 [Rx] Isosorbide MONOnitrate (24 HR) [Imdur] 120 mg PO DAILY #60 tab.er.24h 06/09/18 [Rx] Levothyroxine [Synthroid] 100 mcg PO 0630 #30 tablet 06/09/18 [Rx] Amiodarone [Cordarone] 200 mg PO BID 09/11/18 [History] Bumetanide [Bumex] 1 mg PO BID 09/11/18 [History] Calcitriol [Rocaltrol] 0.25 mcg PO QMWF 09/11/18 [History] FLUoxetine HCl [Fluoxetine HCl] 40 mg PO DAILY 09/11/18 [History] Levocetirizine Dihydrochloride [Allergy Relief (Xyzal)] 5 mg PO HS 09/11/18 [History] Ondansetron ODT [Zofran ODT] 4 mg SL Q8HR 09/11/18 [History] Potassium Chloride [Klor-Con] 20 meq PO BID 09/11/18 [History] Torsemide [Demadex] 20 mg PO DAILY 09/11/18 [History] Allergy/AdvReac Type Severity Reaction Status Date / Time amlodipine [From Norvasc] Allergy Severe Swelling Verified 06/26/18 17:40 of Lip/Tongue/Throat carbamazepine [From Tegretol] Allergy Mild rash/bliste Verified 06/26/18 17:40 rs ciprofloxacin [From Cipro] Allergy Mild Rash Verified 06/26/18 17:40 nitrofurantoin Allergy Mild Rash Verified 06/26/18 17:40 [From Macrobid] Sulfa (Sulfonamide Allergy Mild Rash Verified 06/26/18 17:40 Antibiotics) sulfamethoxazole Allergy Mild Rash Verified 06/26/18 17:40 [From Bactrim] trimethoprim [From Bactrim] Allergy Mild Rash Verified 06/26/18 17:40 Iodinated Contrast- Oral and Allergy See Verified 06/26/18 17:40 IV Dye Comments acetaminophen [From Percocet] AdvReac Mild Confusion Verified 06/26/18 17:40 meperidine [From Demerol] AdvReac Mild Vomiting Verified 06/26/18 17:40 oxycodone [From Percocet] AdvReac Mild Confusion Verified 06/26/18 17:40 promethazine [From Phenergan] AdvReac Mild Vomiting Verified 06/26/18 17:40 NSAIDS (Non-Steroidal AdvReac Unknown D/T KIDNEY Verified 06/26/18 17:40 Anti-Inflamma DYSFUNCTION All Systems PM: A 10-system review of systems was performed and is negative for pertinent findings except as documented above in the HPI. Review of systems: Review of systems from her April 2018 [facility] admission were reviewed and revised as below. Gen.: Her weight has increased from 101.151 kg on 04/18/2017 to 112.945 kg at present. There is little change from April 2018 weight of 113.398 kg. Cardiovascular: As per history of present illness Respiratory: She smoked from age [age] up to 2-1/2 packs per day. She has a diagnosis of COPD with PFTs 08/30/2015 showing FEV1/FVC of 66%. There was no improvement in FEV1 postbronchodilator. FVC was 67% predicted. MVV was 42% predicted. DLCO was 56% predicted. She wears oxygen 24/7. Chest CTA April 2018 showed tiny left upper lobe pulmonary embolus. There were bilateral small effusions with mild bibasal atelectasis and emphysema changes. GI: She had EGD for GI bleed April 2018 which showed grade A reflux esophagitis. Colonoscopy showed single bleeding colonic angiodysplasia. She has had cholecystectomy. There is no known disorders of liver or exocrine pancreas. : She has chronic kidney disease stage III and follows with a [place] track supervisor. She denies other kidney or bladder disorders Neurologic: She has Parkinson's disease. She denies large distribution strokes or seizures. Endocrine: She was diagnosed with DM 2 in 1998. Hemoglobin A1c was 7.1% on 07/09/2018. She has hypothyroidism and hyperlipidemia. Hematology/oncology: She has had anemia with recent GI bleed April 2018. She reports receiving 1 unit of packed red blood cell transfusion approximately one week ago as an outpatient. She denies internal malignancies or other known blood disorders. Psychiatric: She has anxiety and depression. Muscle skeletal: She has gout, psoriatic arthritis, and DJD. Dermatologic: She has psoriasis. - Constitutional Vitals: Temp Pulse Resp BP Pulse Ox 98.5 F 77 18 93/54 100 09/12/18 11:44 09/12/18 11:44 09/12/18 11:44 09/12/18 12:03 09/12/18 11:44 Exam: Gen.: She is a well-developed overweight female lying in bed who appears in no severe distress HEENT: Head is atraumatic and normocephalic. Eyes: EOMI. There is no scleral icterus. Mouth: Mucosa is moist. Neck: Supple and nontender. There is no thyromegaly or adenopathy noted. Heart: Regular without murmurs gallops or ectopics Lungs: No wheezes or crackles are heard. Abdomen: Soft and nontender. No masses or guarding noted. She has a ventral midline abdominal hernia on Valsalva maneuver. Extremities: She has 1-2+ edema of the dorsum of feet and lower legs bilaterally. She has had surgical removal of the distal phalanx of the left second toe and complete removal of the third toe. Her lower legs show diffuse erythema with multiple shallow ulcers from denuded bullae/blisters. The largest one is approximately 6 cm maximum diameter. There is serous drainage in the base of the denuded areas. She has mild DJD changes of her hands. Neurologic: Mental status: She is talkative and a good historian. Cranial nerves: Smile is symmetric. Forehead wrinkles bilaterally. Tongue protrudes midline. EOMI. Motor: There is no pronator drift. She has cogwheeling rigidity on passive range of motion of her wrist and elbows. She has slight tremor at rest of her jaw. Cerebellar: Finger to nose is intact bilaterally. Skin: Warm and dry except for leg erythema redness and drainage as per above. Internal Med - H&P Results - Labs CBC & Chem 7: 09/12/18 07:23 09/12/18 07:23 Labs: Short CBC 09/11/18 09/12/18 Range/Units 16:15 07:23 WBC 12.2 H 16.2 H (4.3-11.1) K/mcL Hgb 9.8 L 9.5 L (11.5-15.4) g/dL Hct 30.8 L 29.7 L (35.3-44.9) % Plt Count 237 277 (140-400) K/mcL Neutrophils # 10.5 H 13.2 H (1.6-8.9) K/mcL BMP 09/11/18 09/12/18 16:15 07:23 Sodium 132 L 142 D Potassium 6.7 H* 4.8 D Chloride 98 101 Carbon Dioxide 29 34 H BUN 58 H 57 H Creatinine 1.73 H 1.67 H Glucose 270 H 34 L* Calcium 9.1 9.0 Cardiac Enzymes 09/11/18 Range/Units 16:15 Troponin I 0.03 (< 0.04) ng/mL Liver Function 09/11/18 Range/Units 16:15 Total Bilirubin 1.0 (0.3-1.0) mg/dL AST 19 (13-39) Units/L ALT 18 (7-52) Units/L Alkaline Phosphatase 129 H (34-104) Units/L Albumin 3.8 (3.5-5.7) g/dL Urine 09/11/18 Range/Units 16:50 Urine Color Yellow (Yellow) Urine Clarity Clear (Clear) Urine pH 6.0 (5.0-8.0) pH Units Ur Specific [place] 1.010 (1.010-1.025) Urine Protein 100 H (Neg-Trace) mg/dL Urine Glucose (UA) Normal (Normal) mg/dL - Impressions ITS Impressions Chest X-Ray 09/11/18 16:04 IMPRESSION: Cardiomegaly with mild prominence of central pulmonary vascularity. No overt failure. D/ / Jose Peguero MD / Jose Peguero MD Interpreting Provider: Jose Peguero MD
[2018-09-12] MEDS: ceFAZolin 1,000 MG in Water for inj. (sterile) 10 ML IVP SCH (17:30)
[2018-09-12] MEDS: Acetaminophen 325 MG TABLET PO PRN (17:30)
[2018-09-12] MEDS: Bumetanide 1 MG/4 ML VIAL IVP SCH (17:30)
[2018-09-12] MEDS: Vitamin B Complex/Vit C/Vit E 1 EACH TABLET PO SCH (17:30)
[2018-09-12] MEDS: 0.9 % Sodium Chloride 1,000 ML IVC SCH (17:51)
[2018-09-12 21:02] LABS: % Iron Saturation 9 % (15-50); Iron 21 mcg/dL (50-170); Transferrin 165 mg/dL (203-362)
[2018-09-12 21:19] LABS: Ferritin 532 ng/mL (10-120)
[2018-09-12] MEDS: Loratadine 10 MG TABLET PO SCH (21:23)
[2018-09-12] MEDS: tiZANidine 4 MG TABLET PO SCH (21:23)
[2018-09-12] MEDS: Lactobacillus 1 EACH CAP.SPRINK PO SCH (21:23)
[2018-09-12] MEDS: Insulin DETEMIR 100 UNIT/ML X5UNITS SQ SCH (21:25)
[2018-09-12 21:27] LABS: Folate 20.8 ng/mL (3.0-16.0)
[2018-09-13] MEDS: ceFAZolin 1,000 MG in Water for inj. (sterile) 10 ML IVP SCH ×3 (01:11→17:32)
[2018-09-13] MEDS: Acetaminophen 325 MG TABLET PO PRN ×3 (03:46→17:31)
[2018-09-13] MEDS: Budesonide/Formoterol 80/4.5 MDI IH SCH ×2 (09:54→22:19)
[2018-09-13] MEDS: INCRUSE ELLIPTA IH SCH (09:55)
[2018-09-13] MEDS: Bumetanide 1 MG/4 ML VIAL IVP SCH ×2 (09:58→17:32)
[2018-09-13] MEDS: Sucralfate 1 GM TABLET PO SCH ×2 (09:59→17:31)
[2018-09-13] MEDS: *HR* Digoxin 0.125 MG TABLET PO SCH (09:59)
[2018-09-13] MEDS: Lactobacillus 1 EACH CAP.SPRINK PO SCH ×2 (10:00→21:07)
[2018-09-13] MEDS: *HR* HYDROcodone/Acet 5/325 mg TABLET PO SCH ×4 (10:00→21:07)
[2018-09-13] MEDS: FLUoxetine 20 MG CAPSULE PO SCH (10:00)
[2018-09-13] MEDS: Ascorbic Acid 500 MG TABLET PO SCH (10:00)
[2018-09-13] MEDS: Magnesium Oxide 400 MG TABLET PO SCH (10:00)
[2018-09-13] MEDS: Carbidopa/Levodopa 25/100 TABLET PO SCH ×2 (10:00→21:07)
[2018-09-13] MEDS: *HR* Amiodarone 200 MG TABLET PO SCH ×2 (10:00→21:07)
[2018-09-13] MEDS: Insulin LISPRO 300 UNITS/3 ML VIAL SQ SCH ×4 (10:01→19:51)
[2018-09-13] MEDS: Isosorbide MONOnitrate (24 HR) 60 MG TAB.ER.24H PO SCH (10:02)
[2018-09-13] MEDS: Cholecalciferol (D-3) 1,000 UNIT (25MCG) TABLET PO SCH (10:03)
[2018-09-13] MEDS: Apremilast [Otezla] 30 MG PO SCH ×2 (10:03→21:07)
[2018-09-13 10:41] LABS: Basophils # 0.1 K/mcL (0.0-0.2); Basophils % 0.8 %; Eosinophils # 0.3 K/mcL (0.0-0.6); Eosinophils % 2.4 %; Hematocrit 29.9 % (35.3-44.9); Hemoglobin 9.3 g/dL (11.5-15.4); Immature Granulocytes % 1.3 % (0-4); Lymphocytes # 0.5 K/mcL (0.6-4.6); Lymphocytes % 4.1 %; Mean Corpuscular HGB Conc 31.1 g/dL (31.6-35.5); Mean Corpuscular Hemoglobin 33.9 pg (28.0-33.3); Mean Corpuscular Volume 109.1 fL (83.0-100.0); Mean Platelet Volume 12.8 fL (9.4-12.4); Monocytes # 0.7 K/mcL (0.0-1.3); Monocytes % 5.5 %; Neutrophils # 11.3 K/mcL (1.6-8.9); Platelet Count 249 K/mcL (140-400); Red Blood Count 2.74 M/mcL (3.82-4.97); Red Cell Distribution Width 20.5 % (11.5-14.5); Segmented Neutrophils % 85.9 %; White Blood Count 13.2 K/mcL (4.3-11.1)
[2018-09-13 10:58] LABS: Calcium 8.6 mg/dL (8.6-10.3)
--- NOTE | 2018-09-13 11:15 | Internal Med Progress Note ---
Date of Encounter: 09/13/18 Time of Encounter: 11:08 - Assessment and plan (1) Neutrophilic leukocytosis Current Visit: Yes Status: Acute Assessment and plan: September 13. Continue IV Ancef with lactobacillus. (2) Parkinson disease Current Visit: No Status: Chronic Assessment and plan: September 13. Continue Sinemet (3) Anemia Current Visit: No Status: Chronic Assessment and plan: September 13. Anemia testing showed iron 21, transferrin saturation 9%, transferrin 165, ferritin 532, B12 625, and folate 20.8. Continue ferrous sulfate with asco rbic acid. Stool guaiac report pending. Qualifiers: Anemia type: unspecified type Qualified Code(s): D64.9 - Anemia, unspecified (4) Atrial fibrillation Current Visit: No Status: Chronic Assessment and plan: September 13. Continue amiodarone. Await stool guaiac before consideration for restarting OAC. Qualifiers: Atrial fibrillation type: paroxysmal Qualified Code(s): I48.0 - Paroxysmal atrial fibrillation (5) Hypertension Current Visit: No Status: Chronic Assessment and plan: September 13. Continue Lopressor Qualifiers: Hypertension type: essential hypertension Qualified Code(s): I10 - Essential (primary) hypertension (6) Hypothyroidism Current Visit: No Status: Chronic Assessment and plan: September 13. TSH was normal at 5.514 on 07/09/2018. Continue present dose Synthroid Qualifiers: Hypothyroidism type: unspecified Qualified Code(s): E03.9 - Hypothyroidism, unspecified (7) CKD (chronic kidney disease) stage 3, GFR 30-59 ml/min Current Visit: No Status: Chronic Assessment and plan: September 13. Monitor renal indices. (8) Pulmonary embolism Current Visit: No Status: Acute Assessment and plan: September 13. Await stool guaiac and reconsider restarting OAC. Qualifiers: Pulmonary embolism type: other Chronicity: unspecified Acute cor pulmonale presence: without acute cor pulmonale Qualified Code(s): I26.99 - Other pulmonary embolism without acute cor pulmonale (9) CHF (congestive heart failure) Current Visit: No Status: Chronic Assessment and plan: September 13. BN peptide significantly elevated at 1002 yesterday but decreased today to 517 with Rx. Continue present Rx and monitor. Qualifiers: Heart failure type: diastolic Heart failure chronicity: acute on chronic Qualified Code(s): I50.33 - Acute on chronic diastolic (congestive) heart failure (10) Weakness Current Visit: Yes Status: Acute Assessment and plan: September 13. PT and OT evaluations have been ordered. - Subjective Interval history: September 13. She has no new complaints and feels better. - Constitutional Vitals: Temp Pulse Resp BP Pulse Ox 97.7 F 68 16 97/59 99 09/13/18 06:41 09/13/18 06:41 09/13/18 06:41 09/13/18 06:41 09/13/18 06:41 Exam: She is sitting in a chair at bedside resting comfortably. There is slight decrease in the erythema of her lower legs. There is still serous drainage from the denuded bullae. I reviewed her medications and lab results. Internal Medicine: Result - Labs CBC & Chem 7: 09/13/18 10:10 09/13/18 10:10 Labs: Short CBC 09/13/18 Range/Units 10:10 WBC 13.2 H (4.3-11.1) K/mcL Hgb 9.3 L (11.5-15.4) g/dL Hct 29.9 L (35.3-44.9) % Plt Count 249 (140-400) K/mcL Neutrophils # 11.3 H (1.6-8.9) K/mcL BMP 09/13/18 10:10 Sodium 135 L Potassium 5.0 Chloride 95 L Carbon Dioxide 32 H BUN 61 H Creatinine 2.06 H Glucose 206 H Calcium 8.6 Consult Discharge Plan - Plan Referrals: Otf Rivera MD [Primary Care Provider] - 1 week
[2018-09-13] MEDS ORDERED: MOM Conc 10 ML UD.LIQ PO ONE (11:21)
--- NOTE | 2018-09-13 17:00 | Electrocardiograph Report ---
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
[2018-09-13] MEDS: Vitamin B Complex/Vit C/Vit E 1 EACH TABLET PO SCH (17:31)
[2018-09-13] MEDS: Ondansetron 4 MG/2 ML VIAL IVP PRN (19:49)
[2018-09-13] MEDS ORDERED: Docusate Oral Soln 100 MG/10 ML UDC PO SCH (21:00)
[2018-09-13] MEDS: tiZANidine 4 MG TABLET PO SCH (21:06)
[2018-09-14] MEDS: ceFAZolin 1,000 MG in Water for inj. (sterile) 10 ML IVP SCH ×3 (01:05→21:59)
[2018-09-14] MEDS: Ondansetron 4 MG/2 ML VIAL IVP PRN ×2 (04:02→20:40)
[2018-09-14] MEDS: Acetaminophen 325 MG TABLET PO PRN (05:39)
[2018-09-14 08:04] LABS: Basophils # 0.1 K/mcL (0.0-0.2); Basophils % 0.8 %; Eosinophils # 0.3 K/mcL (0.0-0.6); Eosinophils % 2.7 %; Hemoglobin 9.8 g/dL (11.5-15.4); Immature Granulocytes % 1.3 % (0-4); Lymphocytes # 0.7 K/mcL (0.6-4.6); Mean Corpuscular HGB Conc 31.6 g/dL (31.6-35.5); Mean Corpuscular Volume 107.6 fL (83.0-100.0); Monocytes # 0.8 K/mcL (0.0-1.3); Monocytes % 6.6 %; Neutrophils # 9.3 K/mcL (1.6-8.9); Platelet Count 245 K/mcL (140-400); Red Blood Count 2.88 M/mcL (3.82-4.97); Red Cell Distribution Width 19.9 % (11.5-14.5); Segmented Neutrophils % 82.6 %; White Blood Count 11.3 K/mcL (4.3-11.1)
[2018-09-14 08:29] LABS: Calcium 8.8 mg/dL (8.6-10.3); Magnesium 2.2 mg/dL (1.6-2.6); Uric Acid 3.3 mg/dL (2.3-7.6)
[2018-09-14] MEDS: INCRUSE ELLIPTA IH SCH (09:18)
[2018-09-14] MEDS: Budesonide/Formoterol 80/4.5 MDI IH SCH ×2 (09:18→22:07)
[2018-09-14] MEDS: Bumetanide 1 MG/4 ML VIAL IVP SCH ×2 (09:53→17:49)
[2018-09-14] MEDS: *HR* Digoxin 0.125 MG TABLET PO SCH (09:54)
[2018-09-14] MEDS: Isosorbide MONOnitrate (24 HR) 60 MG TAB.ER.24H PO SCH (09:54)
[2018-09-14] MEDS: *HR* HYDROcodone/Acet 5/325 mg TABLET PO SCH ×4 (09:54→22:03)
[2018-09-14] MEDS: *HR* Amiodarone 200 MG TABLET PO SCH ×2 (09:54→22:03)
[2018-09-14] MEDS: Sucralfate 1 GM TABLET PO SCH ×2 (09:54→17:49)
[2018-09-14] MEDS: FLUoxetine 20 MG CAPSULE PO SCH (09:54)
[2018-09-14] MEDS: Lactobacillus 1 EACH CAP.SPRINK PO SCH ×2 (09:54→22:03)
[2018-09-14] MEDS: Cholecalciferol (D-3) 1,000 UNIT (25MCG) TABLET PO SCH (09:54)
[2018-09-14] MEDS: Carbidopa/Levodopa 25/100 TABLET PO SCH ×2 (09:55→22:03)
[2018-09-14] MEDS: Insulin LISPRO 300 UNITS/3 ML VIAL SQ SCH ×4 (09:55→22:00)
[2018-09-14] MEDS: Magnesium Oxide 400 MG TABLET PO SCH (09:55)
[2018-09-14] MEDS: Apremilast [Otezla] 30 MG PO SCH ×2 (09:55→22:07)
[2018-09-14] MEDS: Ascorbic Acid 500 MG TABLET PO SCH (09:59)
--- NOTE | 2018-09-14 11:19 | Internal Med Progress Note ---
Date of Encounter: 09/14/18 Time of Encounter: 11:10 - Assessment and plan (1) Neutrophilic leukocytosis Current Visit: Yes Status: Acute Assessment and plan: September 13. Continue IV Ancef with lactobacillus. (2) Parkinson disease Current Visit: No Status: Chronic Assessment and plan: September 13. Continue Sinemet (3) Anemia Current Visit: No Status: Chronic Assessment and plan: September 13. Anemia testing showed iron 21, transferrin saturation 9%, transferrin 165, ferritin 532, B12 625, and folate 20.8. Continue ferrous sulfate with asco rbic acid. Stool guaiac report pending. September 14. Hemoglobin stable at 9.8. Stool Hemoccult positive. Review of records reveal EGD by Dr. West 04/14/2018 showed hiatal hernia. Colonoscopy showed erythema of the mucosa in the ascending colon and cecum with friability and spontaneous bleeding in the cecum. There were 3 tubular adenomas ranging from 4-6 mm and internal and external hemorrhoids seen. Continue to withhold OAC and antiplatelet agents. Qualifiers: Anemia type: unspecified type Qualified Code(s): D64.9 - Anemia, unspecifie d (4) Atrial fibrillation Current Visit: No Status: Chronic Assessment and plan: September 13. Continue amiodarone. Await stool guaiac before consideration for restarting OAC. September 14. Stool guaiac positive. Continue to withhold OAC Qualifiers: Atrial fibrillation type: paroxysmal Qualified Code(s): I48.0 - Paroxysmal atrial fibrillation (5) Hypertension Current Visit: No Status: Chronic Assessment and plan: September 13. Continue Lopressor Qualifiers: Hypertension type: essential hypertension Qualified Code(s): I10 - Essential (primary) hypertension (6) Hypothyroidism Current Visit: No Status: Chronic Assessment and plan: September 13. TSH was normal at 5.514 on 07/09/2018. Continue present dose Synthroid Qualifiers: Hypothyroidism type: unspecified Qualified Code(s): E03.9 - Hypothyroidism, unspecified (7) CKD (chronic kidney disease) stage 3, GFR 30-59 ml/min Current Visit: No Status: Chronic Assessment and plan: September 13. Monitor renal indices. (8) Pulmonary embolism Current Visit: No Status: Acute Assessment and plan: September 13. Await stool guaiac and reconsider restarting OAC. September 14. Stool guaiac positive. Remain off OAC at this time. Will give subcutaneous Lovenox for DVT prophylaxis. Qualifiers: Pulmonary embolism type: other Chronicity: unspecified Acute cor pulmonale presence: without acute cor pulmonale Qualified Code(s): I26.99 - Other pulmonary embolism without acute cor pulmonale (9) CHF (congestive heart failure) Current Visit: No Status: Chronic Assessment and plan: September 13. BN peptide significantly elevated at 1002 yesterday but decreased today to 517 with Rx. Continue present Rx and monitor. Qualifiers: Heart failure type: diastolic Heart failure chronicity: acute on chronic Qualified Code(s): I50.33 - Acute on chronic diastolic (congestive) heart failure (10) Weakness Current Visit: Yes Status: Acute Assessment and plan: September 13. PT and OT evaluations have been ordered. September 14. Continue therapy intervention. Anticipate discharge to swing bed tomorrow. (11) Constipation Current Visit: Yes Status: Acute Assessment and plan: September 14. She states she feels she is constipated and possibly impacted. KUB will be ordered. She will be given scheduled MOM. Qualifiers: Constipation type: unspecified constipation type Qualified Code(s): K59.00 - Constipation, unspecified - Subjective Interval history: September 13. She has no new complaints and feels better. September 14. She has no specific complaints. She states her ultimate goal is to return home but she realizes she is still weak. - Constitutional Vitals: Temp Pulse Resp BP Pulse Ox 97.7 F 98 20 109/61 100 09/14/18 06:26 09/14/18 06:26 09/14/18 06:26 09/14/18 06:26 09/14/18 06:26 Exam: She is sitting in a chair at bedside with her legs elevated. The erythema has lessened in her legs. Shallow bullae do not show active drainage at this time with early eschar formation noted. I reviewed her medications and lab results. Internal Medicine: Result - Labs CBC & Chem 7: 09/14/18 07:52 09/14/18 07:52 Labs: Short CBC 09/14/18 Range/Units 07:52 WBC 11.3 H (4.3-11.1) K/mcL Hgb 9.8 L (11.5-15.4) g/dL Hct 31.0 L (35.3-44.9) % Plt Count 245 (140-400) K/mcL Neutrophils # 9.3 H (1.6-8.9) K/mcL BMP 09/14/18 07:52 Sodium 133 L Potassium 5.0 Chloride 94 L Carbon Dioxide 33 H BUN 63 H Creatinine 1.96 H Glucose 171 H Calcium 8.8 Consult Discharge Plan - Plan Referrals: Otf Rivera MD [Primary Care Provider] - 1 week
[2018-09-14] MEDS ORDERED: MOM Conc 10 ML UD.LIQ PO SCH (11:45)
[2018-09-14] MEDS: Vitamin B Complex/Vit C/Vit E 1 EACH TABLET PO SCH (17:49)
[2018-09-14] MEDS: tiZANidine 4 MG TABLET PO SCH (22:02)
[2018-09-15] MEDS: Acetaminophen 325 MG TABLET PO PRN (02:14)
[2018-09-15] MEDS: Ondansetron 4 MG/2 ML VIAL IVP PRN (05:16)
[2018-09-15] MEDS: Ascorbic Acid 500 MG TABLET PO SCH (05:17)
[2018-09-15 05:48] LABS: Basophils # 0.1 K/mcL (0.0-0.2); Basophils % 1.1 %; Eosinophils # 0.3 K/mcL (0.0-0.6); Eosinophils % 4.4 %; Hematocrit 28.4 % (35.3-44.9); Hemoglobin 9.1 g/dL (11.5-15.4); Lymphocytes # 0.8 K/mcL (0.6-4.6); Lymphocytes % 10.4 %; Mean Corpuscular Hemoglobin 33.7 pg (28.0-33.3); Mean Corpuscular Volume 105.2 fL (83.0-100.0); Mean Platelet Volume 12.2 fL (9.4-12.4); Monocytes # 0.6 K/mcL (0.0-1.3); Monocytes % 8.6 %; Neutrophils # 5.4 K/mcL (1.6-8.9); Platelet Count 221 K/mcL (140-400); Red Cell Distribution Width 19.7 % (11.5-14.5); Segmented Neutrophils % 74.5 %; White Blood Count 7.2 K/mcL (4.3-11.1)
[2018-09-15 06:13] LABS: Calcium 8.7 mg/dL (8.6-10.3); Potassium 4.8 mEq/L (3.5-5.1)
[2018-09-15 08:57] VITALS: BP 131/63
[2018-09-15] MEDS: Cholecalciferol (D-3) 1,000 UNIT (25MCG) TABLET PO SCH (08:58)
[2018-09-15] MEDS: FLUoxetine 20 MG CAPSULE PO SCH (08:58)
[2018-09-15] MEDS: Isosorbide MONOnitrate (24 HR) 60 MG TAB.ER.24H PO SCH (08:58)
[2018-09-15] MEDS: Sucralfate 1 GM TABLET PO SCH (08:58)
[2018-09-15] MEDS: *HR* HYDROcodone/Acet 5/325 mg TABLET PO SCH ×2 (08:59→12:24)
[2018-09-15] MEDS: Lactobacillus 1 EACH CAP.SPRINK PO SCH (08:59)
[2018-09-15] MEDS: Magnesium Oxide 400 MG TABLET PO SCH (08:59)
[2018-09-15] MEDS: Carbidopa/Levodopa 25/100 TABLET PO SCH (09:00)
[2018-09-15] MEDS: Apremilast [Otezla] 30 MG PO SCH (09:00)
[2018-09-15] MEDS: *HR* Amiodarone 200 MG TABLET PO SCH (09:00)
[2018-09-15] MEDS: *HR* Digoxin 0.125 MG TABLET PO SCH (09:01)
[2018-09-15] MEDS: Insulin LISPRO 300 UNITS/3 ML VIAL SQ SCH ×2 (09:04→11:20)
[2018-09-15] MEDS: ceFAZolin 1,000 MG in Water for inj. (sterile) 10 ML IVP SCH (09:06)
[2018-09-15] MEDS: Bumetanide 1 MG/4 ML VIAL IVP SCH (09:12)
[2018-09-15] MEDS ORDERED: *HR* Enoxaparin 40 MG/0.4 ML SYRINGE SQ SCH (10:08)
[2018-09-15] MEDS: INCRUSE ELLIPTA IH SCH (10:10)
[2018-09-15] MEDS: Budesonide/Formoterol 80/4.5 MDI IH SCH (10:11)
[2018-09-15] MEDS ORDERED: Lactulose Oral Soln 20 GM/30 ML UDC PO ONE (10:16)
[2018-09-15] MEDS ORDERED: *HR* Promethazine 25 MG/ML VIAL IVP PRN (10:16)
[2018-09-15] MEDS ORDERED: Ondansetron ODT 4 MG TAB.RAPDIS SL PRN (10:16)
[2018-09-15] MEDS ORDERED: MOM Conc 10 ML UD.LIQ PO ONE (10:17)
--- NOTE | 2018-09-15 10:51 | Discharge Summary ---
Date of Encounter: 09/15/18 Time of Encounter: 10:25 - Discharge Diagnosis (1) Bilateral lower leg cellulitis Priority: Primary Status: Acute (2) Parkinson disease Priority: Secondary Status: Chronic (3) Anemia Priority: Secondary Status: Chronic Qualifiers: Anemia type: unspecified type Qualified Code(s): D64.9 - Anemia, unspecified (4) Atrial fibrillation Priority: Secondary Status: Chronic Qualifiers: Atrial fibrillation type: paroxysmal Qualified Code(s): I48.0 - Paroxysmal atrial fibrillation (5) Hypertension Priority: Secondary Status: Chronic Qualifiers: Hypertension type: essential hypertension Qualified Code(s): I10 - Essential (primary) hypertension (6) Hypothyroidism Priority: Secondary Status: Chronic Qualifiers: Hypothyroidism type: unspecified Qualified Code(s): E03.9 - Hypothyroidism, unspecified (7) CKD (chronic kidney disease) stage 3, GFR 30-59 ml/min Priority: Secondary Status: Chronic (8) Pulmonary embolism Priority: Secondary Status: Acute Qualifiers: Pulmonary embolism type: other Chronicity: unspecified Acute cor pulmo nale presence: without acute cor pulmonale Qualified Code(s): I26.99 - Other pulmonary embolism without acute cor pulmonale (9) CHF (congestive heart failure) Priority: Secondary Status: Chronic Qualifiers: Heart failure type: diastolic Heart failure chronicity: acute on chronic Qualified Code(s): I50.33 - Acute on chronic diastolic (congestive) heart failure (10) Weakness Priority: Secondary Status: Acute (11) Constipation Priority: Secondary Status: Acute Qualifiers: Constipation type: unspecified constipation type Qualified Code(s): K59.00 - Constipation, unspecified Hospital course: Ms. Whitmore is a 78 year old female who came to emergency room stating she had 3 week history of increased edema in her legs with weakness and hyperglycemia. She reports edema was so severe her legs drained serous fluid from denuded bullae. She was evaluated in emergency room and found to have hyperkalemia and bilateral weeping cellulitis/dermatitis. She was admitted to [facility] floor for ongoing care needs. Initial orders were written by the emergency room physician. I saw her on September 12 and performed a history and physical. She was started on IV Ancef with lactobacillus for cellulitis. She had significant improvement in cellulitis with decreased erythema and edema over the course of hospitalization. WBC normalized to 7.2 with resolution of left shift. She will continue IV Ancef at discharge into swing bed. Anemia testing showed iron 21, transferrin saturation 9%, transferrin 165, ferritin 532, B12 625, and folate 20.8. Ferrous sulfate with ascorbic acid was continued. CBC will be monitored. BN peptide fluctuated during acute care stay and was 885 on day of discharge to swing bed. She was started on Lanoxin and IV Bumex and these will be continued into swing bed. Lopressor and Imdur will be continued. Stool guaiac return positive for blood. OAC and antiplatelet agents were held. PT and OT evaluations were done. She made minimal progress. She will be discharged to swing bed for ongoing care needs. - Time Spent with Patient Total time spent providing and/or coordinating discharge services: - Discharge Medications Prescriptions: New Ascorbic Acid [Vitamin C] 500 mg PO 0630 tablet Bumetanide [Bumex] 1 mg IVP BIDDIURETIC vial Docusate [Colace] 100 mg PO BID capsule Enoxaparin [Lovenox] 40 mg SQ 0600 syringe Ferrous Sulfate 325 mg PO 0630 tablet Insulin LISPRO [HumaLOG] 0 units SQ TIDAC vial Insulin LISPRO [HumaLOG] 0 units SQ HS vial Lactobacillus [Culturelle] 1 each PO BID cap.sprink Magnesium Oxide [Mag-Ox] 400 mg PO DAILY tablet MOM Conc [MILK OF MAGNESIA conc] 10 ml PO Q48H ud.liq Ondansetron [Zofran] 4 mg IVP Q4H PRN vial PRN Reason: Nausea And Vomiting Ondansetron ODT [Zofran ODT] 4 mg SL Q4HR PRN tab.rapdis PRN Reason: Nausea And Vomiting Promethazine [Phenergan] 12.5 mg IVP Q4HR PRN vial PRN Reason: Nausea And Vomiting ceFAZolin [Ancef] 1,000 mg IVP Q8HR vial Continued Ustekinumab [Stelara (For Outpatient Infusion)] 90 mg SQ [id number] Vitamin B Complex [B Complex] 1 tab PO QPM Fluticasone Propionate Nasal [Flonase] 2 spray NS BID PRN PRN Reason: Allergy Symptoms Carbidopa/Levodopa 25/100 [Sinemet 25/100] 1 tab PO BID Fluticasone/Salmeterol [Advair 250-50 Diskus] 1 puff IH BID Tizanidine HCl 2 mg PO HS Atorvastatin [Lipitor] 40 mg PO HS Umeclidinium [place] [Incruse Ellipta] 1 puff IH DAILY Loperamide [Imodium] 2 mg PO QID PRN PRN Reason: Diarrhea Apremilast [Otezla] 30 mg PO BID Hydrocodone/Acetaminophen [Hydrocodon-Acetaminophen 5-325] 0.5 tab PO 1300,1700 Metoprolol [Lopressor] 50 mg PO DAILY Acetaminophen [Tylenol] 325 mg PO Q6H PRN PRN Reason: Pain Pantoprazole Sodium [Protonix] 40 mg PO DAILY Sucralfate [Carafate] 1 gm PO 0730,1630 #60 tablet HYDROcodone/Acet 5/325 mg [[place] 5-325 mg] 1 tab PO QAM AND QHS Albuterol Sulfate [Proair Hfa] 2 puff IH Q4H PRN PRN Reason: Shortness Of Breath Cholecalciferol (D-3) [Vitamin D] 1,000 unit PO DAILY tablet Allopurinol [Zyloprim 300 MG] 300 mg PO BID #60 tablet Budesonide/Formoterol 80/4.5 [Symbicort 80/4.5] 2 puff IH BIDRESP #1 inhaler Digoxin [Lanoxin] 0.125 mg PO DAILY #30 tablet Isosorbide MONOnitrate (24 HR) [Imdur] 120 mg PO DAILY #60 tab.er.24h Levothyroxine [Synthroid] 100 mcg PO 0630 #30 tablet FLUoxetine HCl [Fluoxetine HCl] 40 mg PO DAILY Calcitriol [Rocaltrol] 0.25 mcg PO QMWF Amiodarone [Cordarone] 200 mg PO BID Discontinued Insulin DETEMIR [Levemir Flextouch] 40 - 80 unit SQ QAM Insulin ASPART [Novolog Flexpen] 6 - 12 unit SQ BID Clopidogrel Bisulfate [Plavix] 75 mg PO DAILY Magnesium l-Lactate [Mag-Tab Sr] 84 mg PO DAILY Ascorbic Acid [Vitamin C] 1,000 mg PO DAILY Cetirizine HCl [Zyrtec] 10 mg PO HS Ferrous Sulfate 325 mg PO TIDWM tablet Apixaban [Eliquis] 2.5 mg PO BID tablet Levocetirizine Dihydrochloride [Allergy Relief (Xyzal)] 5 mg PO HS Torsemide [Demadex] 20 mg PO DAILY Ondansetron ODT [Zofran ODT] 4 mg SL Q8HR Potassium Chloride [Klor-Con] 20 meq PO BID Bumetanide [Bumex] 1 mg PO BID Home Medications: Carbidopa/Levodopa 25/100 [Sinemet 25/100] 1 tab PO BID 06/24/15 [History] Fluticasone Propionate Nasal [Flonase] 2 spray NS BID PRN 06/24/15 [History] Ustekinumab [Stelara (For Outpatient Infusion)] 90 mg SQ [id number] 06/24/15 [History] Vitamin B Complex [B Complex] 1 tab PO QPM 06/24/15 [History] Fluticasone/Salmeterol [Advair 250-50 Diskus] 1 puff IH BID 07/20/15 [History] Atorvastatin [Lipitor] 40 mg PO HS 09/03/16 [History] Tizanidine HCl 2 mg PO HS 09/03/16 [History] Albuterol Sulfate [Proair Hfa] 2 puff IH Q4H PRN 06/18/17 [History] HYDROcodone/Acet 5/325 mg [[place] 5-325 mg] 1 tab PO QAM AND QHS 06/18/17 [History] Cholecalciferol (D-3) [Vitamin D] 1,000 unit PO DAILY tablet 03/06/18 [Rx] Acetaminophen [Tylenol] 325 mg PO Q6H PRN 04/28/18 [History] Apremilast [Otezla] 30 mg PO BID 04/28/18 [History] Hydrocodone/Acetaminophen [Hydrocodon-Acetaminophen 5-325] 0.5 tab PO 1300,1700 04/28/18 [History] Loperamide [Imodium] 2 mg PO QID PRN 04/28/18 [History] Metoprolol [Lopressor] 50 mg PO DAILY 04/28/18 [History] Umeclidinium [place] [Incruse Ellipta] 1 puff IH DAILY 04/28/18 [History] Pantoprazole Sodium [Protonix] 40 mg PO DAILY 05/14/18 [History] Sucralfate [Carafate] 1 gm PO 0730,1630 #60 tablet 05/22/18 [Rx] Allopurinol [Zyloprim 300 MG] 300 mg PO BID #60 tablet 06/09/18 [Rx] Budesonide/Formoterol 80/4.5 [Symbicort 80/4.5] 2 puff IH BIDRESP #1 inhaler 06/09/18 [Rx] Digoxin [Lanoxin] 0.125 mg PO DAILY #30 tablet 06/09/18 [Rx] Isosorbide MONOnitrate (24 HR) [Imdur] 120 mg PO DAILY #60 tab.er.24h 06/09/18 [Rx] Levothyroxine [Synthroid] 100 mcg PO 0630 #30 tablet 06/09/18 [Rx] Amiodarone [Cordarone] 200 mg PO BID 09/11/18 [History] Calcitriol [Rocaltrol] 0.25 mcg PO QMWF 09/11/18 [History] FLUoxetine HCl [Fluoxetine HCl] 40 mg PO DAILY 09/11/18 [History] Ascorbic Acid [Vitamin C] 500 mg PO 0630 tablet 09/15/18 [Rx] Bumetanide [Bumex] 1 mg IVP BIDDIURETIC vial 09/15/18 [Rx] Docusate [Colace] 100 mg PO BID capsule 09/15/18 [Rx] Enoxaparin [Lovenox] 40 mg SQ 0600 syringe 09/15/18 [Rx] Ferrous Sulfate 325 mg PO 0630 tablet 09/15/18 [Rx] Insulin LISPRO [HumaLOG] 0 units SQ HS vial 09/15/18 [Rx] Insulin LISPRO [HumaLOG] 0 units SQ TIDAC vial 09/15/18 [Rx] Lactobacillus [Culturelle] 1 each PO BID cap.sprink 09/15/18 [Rx] MOM Conc [MILK OF MAGNESIA conc] 10 ml PO Q48H ud.liq 09/15/18 [Rx] Magnesium Oxide [Mag-Ox] 400 mg PO DAILY tablet 09/15/18 [Rx] Ondansetron ODT [Zofran ODT] 4 mg SL Q4HR PRN tab.rapdis 09/15/18 [Rx] Ondansetron [Zofran] 4 mg IVP Q4H PRN vial 09/15/18 [Rx] Promethazine [Phenergan] 12.5 mg IVP Q4HR PRN vial 09/15/18 [Rx] ceFAZolin [Ancef] 1,000 mg IVP Q8HR vial 09/15/18 [Rx] Allergies/Adverse Reactions: Allergy/AdvReac Type Severity Reaction Status Date / Time amlodipine [From Norvasc] Allergy Severe Swelling Verified 06/26/18 17:40 of Lip/Tongue/Throat carbamazepine [From Tegretol] Allergy Mild rash/bliste Verified 06/26/18 17:40 rs ciprofloxacin [From Cipro] Allergy Mild Rash Verified 06/26/18 17:40 nitrofurantoin Allergy Mild Rash Verified 06/26/18 17:40 [From Macrobid] Sulfa (Sulfonamide Allergy Mild Rash Verified 06/26/18 17:40 Antibiotics) sulfamethoxazole Allergy Mild Rash Verified 06/26/18 17:40 [From Bactrim] trimethoprim [From Bactrim] Allergy Mild Rash Verified 06/26/18 17:40 Iodinated Contrast- Oral and Allergy See Verified 06/26/18 17:40 IV Dye Comments acetaminophen [From Percocet] AdvReac Mild Confusion Verified 06/26/18 17:40 meperidine [From Demerol] AdvReac Mild Vomiting Verified 06/26/18 17:40 oxycodone [From Percocet] AdvReac Mild Confusion Verified 06/26/18 17:40 promethazine [From Phenergan] AdvReac Mild Vomiting Verified 06/26/18 17:40 NSAIDS (Non-Steroidal AdvReac Unknown D/T KIDNEY Verified 06/26/18 17:40 Anti-Inflamma DYSFUNCTION Date of admission: 09/12/18 15:35 Primary care physician: Otf Rivera MD Consults: 09/12/18 16:06 Consult to Occupational Therapy [CONS] Routine Comment: Evaluate, develop and implement POC Reason for Consult: Weakness Does patient have active BEDREST order?: No Is patient medically & hemodynamically stable?: Yes Patient assessed for mobility or mobilized this visit?: Yes Consult to Physical Therapy [CONS] Routine Comment: Evaluate, develop and implement POC Reason for Consult: Weakness Does patient have active BEDREST order?: No Is patient medically & hemodynamically stable?: Yes Patient assessed for mobility or mobilized this visit?: Yes - Constitutional Vitals: Temp Pulse Resp BP Pulse Ox 98.3 F 61 16 131/63 100 09/15/18 07:07 09/15/18 08:56 09/15/18 07:07 09/15/18 08:56 09/15/18 08:56 - Patient Status Disposition: Transfer Hospital Swing Bed - Discharge Instructions Follow Up With: Otf Rivera MD [Primary Care Provider] - 1 week - Diet and Activity Activity: as per physical therapy Diet: diabetic diet
[2018-09-17] MEDS ORDERED: USTEKINUMAB 45 MG/0.5 ML SQ SCH (09:00)
== END 2018-09-15 12:28 | disposition other institution (70) | DRG 602 ==
LOC: EMEROOPIK 15:27 → INPPIK 15:27
PROVIDERS: ADMIT Internal Medicine; ATTEND Internal Medicine

== ENCOUNTER 2018-09-15 12:33 | Inpatient (IN) ==
[2018-09-15] MEDS ORDERED: *HR* Promethazine 25 MG/ML VIAL IVP PRN (12:59)
[2018-09-15] MEDS ORDERED: USTEKINUMAB 45 MG/0.5 ML SQ SCH (13:15)
[2018-09-15] MEDS ORDERED: Fluticasone Propionate Nasal 50 MCG/SPRAY BOTTLE NS PRN (13:15)
[2018-09-15] MEDS ORDERED: Ondansetron 4 MG/2 ML VIAL IVP PRN (13:15)
[2018-09-15] MEDS ORDERED: Dextrose Gel 15 GM/37.5 ML TUBE PO PRN ×2 (16:17)
[2018-09-15] MEDS ORDERED: D5% in Water 1,000 ML IVC PRN (16:17)
[2018-09-15] MEDS ORDERED: *HR* Dextrose 50 % in Water (Syg) 50 ML SYRINGE IVP PRN (16:17)
[2018-09-15] MEDS: Sucralfate 1 GM TABLET PO SCH (16:55)
[2018-09-15] MEDS: Insulin LISPRO 300 UNITS/3 ML VIAL SQ SCH ×2 (16:56→20:10)
[2018-09-15] MEDS: *HR* HYDROcodone/Acet 5/325 mg TABLET PO SCH ×2 (16:56→20:09)
[2018-09-15] MEDS: Vitamin B Complex/Vit C/Vit E 1 EACH TABLET PO SCH (16:58)
[2018-09-15] MEDS ORDERED: Bumetanide 1 MG/4 ML VIAL IVP SCH (17:00)
[2018-09-15] MEDS ORDERED: ceFAZolin 1,000 MG in Water for inj. (sterile) 10 ML IVP SCH (20:00)
[2018-09-15] MEDS: *HR* Amiodarone 200 MG TABLET PO SCH (20:09)
[2018-09-15] MEDS: tiZANidine 4 MG TABLET PO SCH (20:09)
[2018-09-15] MEDS: Lactobacillus 1 EACH CAP.SPRINK PO SCH (20:09)
[2018-09-15] MEDS: Carbidopa/Levodopa 25/100 TABLET PO SCH (20:09)
[2018-09-15] MEDS: cephALEXin 500 MG CAPSULE PO SCH (20:09)
[2018-09-15] MEDS: Apremilast [Otezla] 30 MG PO SCH (20:10)
[2018-09-15] MEDS ORDERED: NON-FORMULARY MEDICATION 1 EACH EACH (Fluticasone/Salmeterol [Advair 250-50 Diskus] 1 PUFF IH SCH (21:00)
[2018-09-15] MEDS: Budesonide/Formoterol 80/4.5 MDI IH SCH (23:04)
[2018-09-16] MEDS: Ondansetron ODT 4 MG TAB.RAPDIS SL PRN ×2 (01:50→07:42)
[2018-09-16] MEDS: Acetaminophen 325 MG TABLET PO PRN (02:07)
[2018-09-16] MEDS ORDERED: ALPRAZolam 0.25 MG TABLET PO ONE (04:12)
[2018-09-16] MEDS: *HR* HYDROcodone/Acet 5/325 mg TABLET PO PRN (04:34)
[2018-09-16] MEDS: cephALEXin 500 MG CAPSULE PO SCH ×3 (05:47→20:32)
[2018-09-16] MEDS: Ascorbic Acid 500 MG TABLET PO SCH (05:47)
[2018-09-16] MEDS ORDERED: *HR* Enoxaparin 40 MG/0.4 ML SYRINGE SQ SCH (06:00)
[2018-09-16] MEDS: Sucralfate 1 GM TABLET PO SCH ×2 (07:37→17:34)
[2018-09-16] MEDS: Bumetanide 1 MG TABLET PO SCH ×2 (07:37→17:35)
[2018-09-16] MEDS: Insulin LISPRO 300 UNITS/3 ML VIAL SQ SCH ×4 (07:38→20:33)
[2018-09-16 07:58] LABS: Basophils # 0.1 K/mcL (0.0-0.2); Basophils % 1.2 %; Eosinophils # 0.3 K/mcL (0.0-0.6); Eosinophils % 4.1 %; Hematocrit 27.8 % (35.3-44.9); Immature Granulocytes % 1.3 % (0-4); Lymphocytes # 0.6 K/mcL (0.6-4.6); Lymphocytes % 9.5 %; Mean Corpuscular HGB Conc 32.4 g/dL (31.6-35.5); Mean Corpuscular Hemoglobin 34.6 pg (28.0-33.3); Mean Corpuscular Volume 106.9 fL (83.0-100.0); Mean Platelet Volume 12.3 fL (9.4-12.4); Monocytes # 0.7 K/mcL (0.0-1.3); Monocytes % 10.1 %; Platelet Count 216 K/mcL (140-400); Red Cell Distribution Width 19.4 % (11.5-14.5); Segmented Neutrophils % 73.8 %; White Blood Count 6.8 K/mcL (4.3-11.1)
[2018-09-16 07:59] LABS: INR 1.5; Prothrombin Time 16.7 Seconds (9.4-12.1)
[2018-09-16 08:02] LABS: Activated Partial Thrombo Time 34.1 Seconds (26.0-36.0)
[2018-09-16 08:10] LABS: Potassium 4.5 mEq/L (3.5-5.1)
[2018-09-16] MEDS: *HR* HYDROcodone/Acet 5/325 mg TABLET PO SCH ×4 (09:08→20:33)
[2018-09-16] MEDS: Cholecalciferol (D-3) 1,000 UNIT (25MCG) TABLET PO SCH (09:09)
[2018-09-16] MEDS: FLUoxetine 20 MG CAPSULE PO SCH (09:09)
[2018-09-16] MEDS: Magnesium Oxide 400 MG TABLET PO SCH (09:09)
[2018-09-16] MEDS: *HR* Amiodarone 200 MG TABLET PO SCH ×2 (09:10→20:32)
[2018-09-16] MEDS: Carbidopa/Levodopa 25/100 TABLET PO SCH ×2 (09:10→20:32)
[2018-09-16] MEDS: Isosorbide MONOnitrate (24 HR) 60 MG TAB.ER.24H PO SCH (09:10)
[2018-09-16] MEDS: *HR* Digoxin 0.125 MG TABLET PO SCH (09:10)
[2018-09-16] MEDS: Apremilast [Otezla] 30 MG PO SCH ×2 (09:10→20:33)
[2018-09-16] MEDS: Lactobacillus 1 EACH CAP.SPRINK PO SCH ×2 (09:10→20:32)
[2018-09-16] MEDS: Budesonide/Formoterol 80/4.5 MDI IH SCH ×2 (10:35→22:00)
[2018-09-16] MEDS ORDERED: MOM Conc 10 ML UD.LIQ PO SCH (13:00)
--- NOTE | 2018-09-16 14:58 | Internal Med Progress Note ---
Date of Encounter: 09/16/18 Time of Encounter: 14:50 - Assessment and plan (1) Bilateral lower leg cellulitis Current Visit: No Status: Acute Assessment and plan: September 16. IV became dislodged yesterday and patient did not wish it to be restarted. Oral Keflex has been ordered. Continue lactobacillus. (2) Diabetes Current Visit: No Status: Chronic Assessment and plan: September 16. Hemoglobin A1c was 7.1% on 07/09/2018. Continue Accu-Cheks with SSI. 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 Continue Sinemet (4) Anemia Current Visit: No Status: Chronic Assessment and plan: September 16. Anemia testing 09/12/2018 showed iron 21, transferrin saturation 9%, transferrin 165, ferritin 532, B12 625, and folate 20.8. Continue ferrous sulfate with ascorbic acid. Stool guaiac was positive. Qualifiers: Anemia type: unspecified type Qualified Code(s): D64.9 - Anemia, unspecified (5) Atrial fibrillation Current Visit: No Status: Chronic Assessment and plan: September 16. Remain off OAC and antiplatelet agents due to stool guaiac positive and anemia. Review of records reveal EGD by Dr. West 04/14/2018 showed hiatal hernia. Colonoscopy showed erythema of the mucosa in the ascending colon and cecum with friability and spontaneous bleeding in the cecum. There were 3 tubular adenomas ranging from 4-6 mm and internal and external hemorrhoids seen. Continue ferrous sulfate with ascorbic acid. Qualifiers: Atrial fibrillation type: paroxysmal Qualified Code(s): I48.0 - Paroxysmal atrial fibrillation (6) Hypertension Current Visit: No Status: Chronic Assessment and plan: September 16. Continue Lopressor Qualifiers: Hypertension type: essential hypertension Qualified Code(s): I10 - Essential (primary) hypertension (7) Hypothyroidism Current Visit: No Status: Chronic Assessment and plan: September 16. TSH was normal at 5.514 on 07/09/2018. Continue Synthroid Qualifiers: Hypothyroidism type: unspecified Qualified Code(s): E03.9 - Hypothyroidism, unspecified (8) CKD (chronic kidney disease) stage 3, GFR 30-59 ml/min Current Visit: No Status: Chronic Assessment and plan: September 16. Monitor renal indices. (9) MEHRAN on CPAP Current Visit: No Status: Chronic Assessment and plan: September 16. Continue CPAP (10) Pulmonary embolism Current Visit: No Status: Acute Assessment and plan: September 16. Stool guaiac positive. Remain off OAC at this time. She refused subcutaneous Lovenox for DVT prophylaxis. Qualifiers: Pulmonary embolism type: other Chronicity: unspecified Acute cor pulmonale presence: without acute cor pulmonale Qualified Code(s): I26.99 - Other pulmonary embolism without acute cor pulmonale (11) CHF (congestive heart failure) Current Visit: No Status: Chronic Assessment and plan: September 16. Continue Bumex, Lanoxin, Imdur, and Lopressor. Qualifiers: Heart failure type: diastolic Heart failure chronicity: acute on chronic Qualified Code(s): I50.33 - Acute on chronic diastolic (congestive) heart failure (12) Weakness Current Visit: No Status: Acute Assessment and plan: September 16. Continue PT and OT intervention. - Subjective Interval history: September 16. She was hospitalized in [facility] acute-care September 11- after presenting with increased edema with bilateral leg cellulitis. She clinically improved on IV Ancef and IV Bumex. Lanoxin Lopressor and Imdur were given. It was felt she would benefit from ongoing therapy in swing bed. She has no new complaints today - Constitutional Vitals: Temp Pulse Resp BP Pulse Ox 97.4 F L 61 17 124/59 99 09/16/18 06:59 09/16/18 09:07 09/16/18 06:59 09/16/18 09:07 09/16/18 09:07 Exam: She is sitting in a recliner chair with her legs elevated. She has trace to 1+ edema of the lower legs bilaterally. She has several areas of shallow skin ulcerations with serous fluid drainage. She has a large denuded bulla area on her right lower anterior leg approximately 5 cm diameter. There does not appear to be secondary infection. I reviewed her medications and lab results. Internal Medicine: Result - Labs CBC & Chem 7: 09/16/18 07:34 09/16/18 07:34 Labs: Short CBC 09/16/18 Range/Units 07:34 WBC 6.8 (4.3-11.1) K/mcL Hgb 9.0 L (11.5-15.4) g/dL Hct 27.8 L (35.3-44.9) % Plt Count 216 (140-400) K/mcL Neutrophils # 5.0 (1.6-8.9) K/mcL BMP 09/16/18 07:34 Sodium 132 L Potassium 4.5 Chloride 94 L Carbon Dioxide 33 H BUN 57 H Creatinine 1.59 H Glucose 147 H Calcium 9.0 - ABG Interpretation ABG results: PT/INR, D-dimer PT 16.7 Seconds (9.4-12.1) H 09/16/18 07:34 Consult Discharge Plan - Plan Referrals: Otf Rivera MD [Primary Care Provider] - 1 week
[2018-09-16] MEDS: Vitamin B Complex/Vit C/Vit E 1 EACH TABLET PO SCH (17:34)
[2018-09-16] MEDS: Metoclopramide 10 MG/10 ML UD.LIQ PO SCH (17:35)
[2018-09-16] MEDS: tiZANidine 4 MG TABLET PO SCH (20:32)
[2018-09-16] MEDS: Acetaminophen 325 MG TABLET PO SCH (20:33)
[2018-09-17] MEDS: Ondansetron ODT 4 MG TAB.RAPDIS SL PRN ×4 (04:04→21:46)
[2018-09-17] MEDS: Ascorbic Acid 500 MG TABLET PO SCH (05:39)
[2018-09-17] MEDS: cephALEXin 500 MG CAPSULE PO SCH ×3 (05:39→21:42)
[2018-09-17] MEDS: Budesonide/Formoterol 80/4.5 MDI IH SCH ×2 (09:19→22:00)
[2018-09-17] MEDS: Metoclopramide 10 MG/10 ML UD.LIQ PO SCH ×2 (09:20→16:31)
[2018-09-17] MEDS: Sucralfate 1 GM TABLET PO SCH ×2 (09:21→16:32)
[2018-09-17] MEDS: *HR* HYDROcodone/Acet 5/325 mg TABLET PO SCH ×4 (09:21→21:43)
[2018-09-17] MEDS: MOM Conc 10 ML UD.LIQ PO SCH (09:21)
[2018-09-17] MEDS: Magnesium Oxide 400 MG TABLET PO SCH (09:22)
[2018-09-17] MEDS: Cholecalciferol (D-3) 1,000 UNIT (25MCG) TABLET PO SCH (09:22)
[2018-09-17] MEDS: Lactobacillus 1 EACH CAP.SPRINK PO SCH ×2 (09:22→21:42)
[2018-09-17] MEDS: *HR* Amiodarone 200 MG TABLET PO SCH ×2 (09:22→21:42)
[2018-09-17] MEDS: Isosorbide MONOnitrate (24 HR) 60 MG TAB.ER.24H PO SCH (09:22)
[2018-09-17] MEDS: FLUoxetine 20 MG CAPSULE PO SCH (09:22)
[2018-09-17] MEDS: *HR* Digoxin 0.125 MG TABLET PO SCH (09:22)
[2018-09-17] MEDS: Carbidopa/Levodopa 25/100 TABLET PO SCH ×2 (09:22→21:42)
[2018-09-17] MEDS: Bumetanide 1 MG TABLET PO SCH ×2 (09:23→16:32)
[2018-09-17] MEDS: Insulin LISPRO 300 UNITS/3 ML VIAL SQ SCH ×4 (09:29→21:43)
[2018-09-17] MEDS: Apremilast [Otezla] 30 MG PO SCH ×2 (09:32→21:43)
--- NOTE | 2018-09-17 11:22 | Internal Med Progress Note ---
Date of Encounter: 09/17/18 Time of Encounter: 11:15 - Assessment and plan (1) Bilateral lower leg cellulitis Current Visit: No Status: Acute Assessment and plan: September 16. IV became dislodged yesterday and patient did not wish it to be restarted. Oral Keflex has been ordered. Continue lactobacillus. (2) Diabetes Current Visit: No Status: Chronic Assessment and plan: September 16. Hemoglobin A1c was 7.1% on 07/09/2018. Continue Accu-Cheks with SSI. 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 Continue Sinemet (4) Anemia Current Visit: No Status: Chronic Assessment and plan: September 16. Anemia testing 09/12/2018 showed iron 21, transferrin saturation 9%, transferrin 165, ferritin 532, B12 625, and folate 20.8. Continue ferrous sulfate with ascorbic acid. Stool guaiac was positive. September 17. Recheck labs in a.m. Qualifiers: Anemia type: unspecified type Qualified Code(s): D64.9 - Anemia, unspecified (5) Atrial fibrillation Current Visit: No Status: Chronic Assessment and plan: September 16. Remain off OAC and antiplatelet agents due to stool guaiac positive and anemia. Review of records reveal EGD by Dr. West 04/14/2018 showed hiatal hernia. Colonoscopy showed erythema of the mucosa in the ascending colon and cecum with friability and spontaneous bleeding in the cecum. There were 3 tubular adenomas ranging from 4-6 mm and internal and external hemorrhoids seen. Continue ferrous sulfate with ascorbic acid. Qualifiers: Atrial fibrillation type: paroxysmal Qualified Code(s): I48.0 - Paroxysmal atrial fibrillation (6) Hypertension Current Visit: No Status: Chronic Assessment and plan: September 16. Continue Lopressor Qualifiers: Hypertension type: essential hypertension Qualified Code(s): I10 - Essential (primary) hypertension (7) Hypothyroidism Current Visit: No Status: Chronic Assessment and plan: September 16. TSH was normal at 5.514 on 07/09/2018. Continue Synthroid Qualifiers: Hypothyroidism type: unspecified Qualified Code(s): E03.9 - Hypothyroidism, unspecified (8) CKD (chronic kidney disease) stage 3, GFR 30-59 ml/min Current Visit: No Status: Chronic Assessment and plan: September 16. Monitor renal indices. (9) MEHRAN on CPAP Current Visit: No Status: Chronic Assessment and plan: September 16. Continue CPAP (10) Pulmonary embolism Current Visit: No Status: Acute Assessment and plan: September 16. Stool guaiac positive. Remain off OAC at this time. She refused subcutaneous Lovenox for DVT prophylaxis. Qualifiers: Pulmonary embolism type: other Chronicity: unspecified Acute cor pulmonale presence: without acute cor pulmonale Qualified Code(s): I26.99 - Other pulmonary embolism without acute cor pulmonale (11) CHF (congestive heart failure) Current Visit: No Status: Chronic Assessment and plan: September 16. Continue Bumex, Lanoxin, Imdur, and Lopressor. September 17. Increase Bumex to further decrease edema. Continue Lanoxin, Imdur, and Lopressor. Qualifiers: Heart failure type: diastolic Heart failure chronicity: acute on chronic Qualified Code(s): I50.33 - Acute on chronic diastolic (congestive) heart failure (12) Weakness Current Visit: No Status: Acute Assessment and plan: September 16. Continue PT and OT intervention. - Subjective Interval history: September 16. She was hospitalized in [facility] acute-care September 11- after presenting with increased edema with bilateral leg cellulitis. She clinically improved on IV Ancef and IV Bumex. Lanoxin Lopressor and Imdur were given. It was felt she would benefit from ongoing therapy in swing bed. She has no new complaints today September 17. No new problems have arisen. She reports she feels anxious frequently. - Constitutional Vitals: Temp Pulse Resp BP Pulse Ox 97.6 F 60 20 121/75 100 09/17/18 06:39 09/17/18 06:39 09/17/18 06:39 09/17/18 06:39 09/17/18 06:39 Exam: She is sitting in a recliner chair with her legs elevated. She has several lesions on her legs that have now developed eschar and no longer draining. Open area still shows serous drainage. There is still 1-2+ edema of the lower legs and dorsum of the feet. I reviewed her medications and lab results. Internal Medicine: Result - Labs CBC & Chem 7: 09/16/18 07:34 09/16/18 07:34 - ABG Interpretation ABG results: PT/INR, D-dimer PT 16.7 Seconds (9.4-12.1) H 09/16/18 07:34 Consult Discharge Plan - Plan Referrals: Otf Rivera MD [Primary Care Provider] - 1 week
[2018-09-17] MEDS: Vitamin B Complex/Vit C/Vit E 1 EACH TABLET PO SCH (16:32)
[2018-09-17] MEDS: ALPRAZolam 0.25 MG TABLET PO PRN (17:55)
[2018-09-17] MEDS: tiZANidine 4 MG TABLET PO SCH (21:42)
[2018-09-17] MEDS: Acetaminophen 325 MG TABLET PO SCH (21:43)
[2018-09-18] MEDS: Ondansetron ODT 4 MG TAB.RAPDIS SL PRN ×2 (02:49→06:52)
[2018-09-18] MEDS: cephALEXin 500 MG CAPSULE PO SCH ×3 (05:57→20:42)
[2018-09-18] MEDS: Ascorbic Acid 500 MG TABLET PO SCH (05:58)
[2018-09-18 06:43] LABS: Basophils # 0.1 K/mcL (0.0-0.2); Basophils % 1.2 %; Eosinophils # 0.3 K/mcL (0.0-0.6); Eosinophils % 3.7 %; Hematocrit 30.1 % (35.3-44.9); Hemoglobin 9.5 g/dL (11.5-15.4); Immature Granulocytes % 0.8 % (0-4); Lymphocytes # 0.7 K/mcL (0.6-4.6); Lymphocytes % 10.3 %; Mean Corpuscular HGB Conc 31.6 g/dL (31.6-35.5); Mean Corpuscular Hemoglobin 33.7 pg (28.0-33.3); Mean Corpuscular Volume 106.7 fL (83.0-100.0); Monocytes # 0.7 K/mcL (0.0-1.3); Monocytes % 10.3 %; Neutrophils # 5.3 K/mcL (1.6-8.9); Platelet Count 214 K/mcL (140-400); Red Blood Count 2.82 M/mcL (3.82-4.97); Red Cell Distribution Width 19.6 % (11.5-14.5); Segmented Neutrophils % 73.7 %; White Blood Count 7.2 K/mcL (4.3-11.1)
[2018-09-18 07:03] LABS: Calcium 9.3 mg/dL (8.6-10.3); Digoxin 1.4 ng/mL (0.8-2.0); Potassium 4.6 mEq/L (3.5-5.1)
[2018-09-18] MEDS: Bumetanide 1 MG TABLET PO SCH ×2 (08:12→16:51)
[2018-09-18] MEDS: FLUoxetine 20 MG CAPSULE PO SCH (08:13)
[2018-09-18] MEDS: Carbidopa/Levodopa 25/100 TABLET PO SCH ×2 (08:14→20:43)
[2018-09-18] MEDS: ALPRAZolam 0.25 MG TABLET PO PRN (08:14)
[2018-09-18] MEDS: Lactobacillus 1 EACH CAP.SPRINK PO SCH ×2 (08:15→20:42)
[2018-09-18] MEDS: *HR* HYDROcodone/Acet 5/325 mg TABLET PO SCH ×4 (08:15→20:43)
[2018-09-18] MEDS: Magnesium Oxide 400 MG TABLET PO SCH (08:15)
[2018-09-18] MEDS: Cholecalciferol (D-3) 1,000 UNIT (25MCG) TABLET PO SCH (08:15)
[2018-09-18] MEDS: Sucralfate 1 GM TABLET PO SCH ×2 (08:16→16:52)
[2018-09-18] MEDS: Isosorbide MONOnitrate (24 HR) 60 MG TAB.ER.24H PO SCH (08:16)
[2018-09-18] MEDS: *HR* Amiodarone 200 MG TABLET PO SCH ×2 (08:17→20:43)
[2018-09-18] MEDS: *HR* Digoxin 0.125 MG TABLET PO SCH (08:17)
[2018-09-18] MEDS: Insulin LISPRO 300 UNITS/3 ML VIAL SQ SCH ×4 (08:17→20:47)
[2018-09-18] MEDS: Metoclopramide 10 MG/10 ML UD.LIQ PO SCH ×2 (08:17→16:51)
[2018-09-18] MEDS: Apremilast [Otezla] 30 MG PO SCH ×2 (09:30→20:44)
[2018-09-18] MEDS: Budesonide/Formoterol 80/4.5 MDI IH SCH ×2 (09:35→21:57)
[2018-09-18] MEDS: Vitamin B Complex/Vit C/Vit E 1 EACH TABLET PO SCH (16:51)
[2018-09-18] MEDS: tiZANidine 4 MG TABLET PO SCH (20:42)
[2018-09-18] MEDS: Acetaminophen 325 MG TABLET PO SCH (20:43)
[2018-09-19] MEDS: Acetaminophen 325 MG TABLET PO PRN (02:02)
[2018-09-19] MEDS: Ondansetron ODT 4 MG TAB.RAPDIS SL PRN (02:07)
[2018-09-19] MEDS: cephALEXin 500 MG CAPSULE PO SCH (05:23)
[2018-09-19] MEDS: Ascorbic Acid 500 MG TABLET PO SCH (05:23)
[2018-09-19] MEDS: *HR* HYDROcodone/Acet 5/325 mg TABLET PO PRN ×2 (05:28→18:47)
[2018-09-19] MEDS: Bumetanide 1 MG TABLET PO SCH ×2 (07:57→18:46)
[2018-09-19] MEDS: Metoclopramide 10 MG/10 ML UD.LIQ PO SCH ×2 (07:58→18:45)
[2018-09-19] MEDS: Isosorbide MONOnitrate (24 HR) 60 MG TAB.ER.24H PO SCH (07:59)
[2018-09-19] MEDS: FLUoxetine 20 MG CAPSULE PO SCH (07:59)
[2018-09-19] MEDS: *HR* HYDROcodone/Acet 5/325 mg TABLET PO SCH ×4 (07:59→21:38)
[2018-09-19] MEDS: *HR* Digoxin 0.125 MG TABLET PO SCH (08:00)
[2018-09-19] MEDS: Lactobacillus 1 EACH CAP.SPRINK PO SCH (08:00)
[2018-09-19] MEDS: Sucralfate 1 GM TABLET PO SCH ×2 (08:00→18:46)
[2018-09-19] MEDS: Carbidopa/Levodopa 25/100 TABLET PO SCH ×2 (08:00→21:24)
[2018-09-19] MEDS: Magnesium Oxide 400 MG TABLET PO SCH (08:01)
[2018-09-19] MEDS: *HR* Amiodarone 200 MG TABLET PO SCH ×2 (08:01→21:25)
[2018-09-19] MEDS: Cholecalciferol (D-3) 1,000 UNIT (25MCG) TABLET PO SCH (08:03)
[2018-09-19] MEDS: Apremilast [Otezla] 30 MG PO SCH ×2 (08:03→21:27)
[2018-09-19] MEDS: ALPRAZolam 0.25 MG TABLET PO PRN ×2 (08:04→21:25)
[2018-09-19] MEDS: Insulin LISPRO 300 UNITS/3 ML VIAL SQ SCH ×4 (08:05→21:38)
[2018-09-19] MEDS: Budesonide/Formoterol 80/4.5 MDI IH SCH ×2 (09:50→21:56)
[2018-09-19] MEDS: MOM Conc 10 ML UD.LIQ PO SCH (12:12)
--- NOTE | 2018-09-19 12:20 | Internal Med Progress Note ---
Date of Encounter: 09/19/18 Time of Encounter: 12:10 - Assessment and plan (1) Bilateral lower leg cellulitis Current Visit: No Status: Acute Assessment and plan: September 16. IV became dislodged yesterday and patient did not wish it to be restarted. Oral Keflex has been ordered. Continue lactobacillus. September 19. Discontinue Keflex and lactobacillus. (2) Diabetes Current Visit: No Status: Chronic Assessment and plan: September 16. Hemoglobin A1c was 7.1% on 07/09/2018. Continue Accu-Cheks with SSI. 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 Continue Sinemet (4) Anemia Current Visit: No Status: Chronic Assessment and plan: September 16. Anemia testing 09/12/2018 showed iron 21, transferrin saturation 9%, transferrin 165, ferritin 532, B12 625, and folate 20.8. Continue ferrous sulfate with ascorbic acid. Stool guaiac was positive. September 17. Recheck labs in a.m. September 19. Hemoglobin improved to 9.5. Continue ferrous sulfate with ascorbic acid. Qualifiers: Anemia type: unspecified type Qualified Code(s): D64.9 - Anemia, unspecified (5) Atrial fibrillation Current Visit: No Status: Chronic Assessment and plan: September 16. Remain off OAC and antiplatelet agents due to stool guaiac positive and anemia. Review of records reveal EGD by Dr. West 04/14/2018 showed hiatal hernia. Colonoscopy showed erythema of the mucosa in the ascending colon and cecum with friability and spontaneous bleeding in the cecum. There were 3 tubular adenomas ranging from 4-6 mm and internal and external hemorrhoids seen. Continue ferrous sulfate with ascorbic acid. Qualifiers: Atrial fibrillation type: paroxysmal Qualified Code(s): I48.0 - Paroxysmal atrial fibrillation (6) Hypertension Current Visit: No Status: Chronic Assessment and plan: September 16. Continue Lopressor Qualifiers: Hypertension type: essential hypertension Qualified Code(s): I10 - Essential (primary) hypertension (7) Hypothyroidism Current Visit: No Status: Chronic Assessment and plan: September 16. TSH was normal at 5.514 on 07/09/2018. Continue Synthroid Qualifiers: Hypothyroidism type: unspecified Qualified Code(s): E03.9 - Hypothyroidism, unspecified (8) CKD (chronic kidney disease) stage 3, GFR 30-59 ml/min Current Visit: No Status: Chronic Assessment and plan: September 16. Monitor renal indices. (9) MEHRAN on CPAP Current Visit: No Status: Chronic Assessment and plan: September 16. Continue CPAP (10) Pulmonary embolism Current Visit: No Status: Acute Assessment and plan: September 16. Stool guaiac positive. Remain off OAC at this time. She refused subcutaneous Lovenox for DVT prophylaxis. Qualifiers: Pulmonary embolism type: other Chronicity: unspecified Acute cor pulmonale presence: without acute cor pulmonale Qualified Code(s): I26.99 - Other pulmonary embolism without acute cor pulmonale (11) CHF (congestive heart failure) Current Visit: No Status: Chronic Assessment and plan: September 16. Continue Bumex, Lanoxin, Imdur, and Lopressor. September 17. Increase Bumex to further decrease edema. Continue Lanoxin, Imdur, and Lopressor. September 19. BN peptide has risen to 1086. Lanoxin level 1.4. She is on maximum dose Imdur and Lanoxin. Continue Bumex with Lopressor and add low-dose losartan. Qualifiers: Heart failure type: diastolic Heart failure chronicity: acute on chronic Qualified Code(s): I50.33 - Acute on chronic diastolic (congestive) heart failure (12) Weakness Current Visit: No Status: Acute Assessment and plan: September 16. Continue PT and OT intervention. - Subjective Interval history: September 16. She was hospitalized in [facility] acute-care September 11- after presenting with increased edema with bilateral leg cellulitis. She clinically improved on IV Ancef and IV Bumex. Lanoxin Lopressor and Imdur were given. It was felt she would benefit from ongoing therapy in swing bed. She has no new complaints today September 17. No new problems have arisen. She reports she feels anxious frequently. September 19. She states she has pain in her legs from the skin ulceration. She inquired about having a Méndez catheter to avoid bedside commode/bathroom trips. - Constitutional Vitals: Temp Pulse Resp BP Pulse Ox 97.8 F 66 16 134/69 100 09/19/18 07:25 09/19/18 07:25 09/19/18 07:25 09/19/18 07:25 09/19/18 07:25 Exam: She is resting comfortably in a chair at bedside eating lunch. Her legs edema and erythema have decreased. The shallow ulcers on her left leg show decreased drainage with increased eschar formation. The large shallow ulcerative area on her right lower leg shows expected evolutionary healing changes. I reviewed her medications and lab results. Internal Medicine: Result - Labs CBC & Chem 7: 09/18/18 06:32 09/18/18 06:32 - ABG Interpretation ABG results: PT/INR, D-dimer PT 16.7 Seconds (9.4-12.1) H 09/16/18 07:34 Consult Discharge Plan - Plan Referrals: Otf Rivera MD [Primary Care Provider] - 1 week
[2018-09-19] MEDS: Vitamin B Complex/Vit C/Vit E 1 EACH TABLET PO SCH (18:46)
[2018-09-19] MEDS: tiZANidine 4 MG TABLET PO SCH (21:25)
[2018-09-19] MEDS: Acetaminophen 325 MG TABLET PO SCH (21:37)
[2018-09-20] MEDS: *HR* HYDROcodone/Acet 5/325 mg TABLET PO PRN (03:36)
[2018-09-20] MEDS: Sucralfate 1 GM TABLET PO SCH ×2 (07:16→16:34)
[2018-09-20] MEDS: Metoclopramide 10 MG/10 ML UD.LIQ PO SCH ×2 (07:16→16:35)
[2018-09-20] MEDS: Ascorbic Acid 500 MG TABLET PO SCH (07:16)
[2018-09-20] MEDS: Bumetanide 1 MG TABLET PO SCH ×2 (07:23→16:34)
[2018-09-20] MEDS: Insulin LISPRO 300 UNITS/3 ML VIAL SQ SCH ×4 (07:56→20:24)
[2018-09-20] MEDS: Cholecalciferol (D-3) 1,000 UNIT (25MCG) TABLET PO SCH (09:44)
[2018-09-20] MEDS: FLUoxetine 20 MG CAPSULE PO SCH (09:44)
[2018-09-20] MEDS: *HR* Amiodarone 200 MG TABLET PO SCH ×2 (09:44→20:23)
[2018-09-20] MEDS: *HR* HYDROcodone/Acet 5/325 mg TABLET PO SCH ×4 (09:44→21:54)
[2018-09-20] MEDS: Isosorbide MONOnitrate (24 HR) 60 MG TAB.ER.24H PO SCH (09:44)
[2018-09-20] MEDS: *HR* Digoxin 0.125 MG TABLET PO SCH (09:45)
[2018-09-20] MEDS: Carbidopa/Levodopa 25/100 TABLET PO SCH ×2 (09:45→20:23)
[2018-09-20] MEDS: Magnesium Oxide 400 MG TABLET PO SCH (09:45)
[2018-09-20] MEDS: Apremilast [Otezla] 30 MG PO SCH ×2 (09:47→20:25)
[2018-09-20] MEDS: Budesonide/Formoterol 80/4.5 MDI IH SCH ×2 (12:17→21:34)
[2018-09-20] MEDS: Vitamin B Complex/Vit C/Vit E 1 EACH TABLET PO SCH (16:35)
[2018-09-20] MEDS: ALPRAZolam 0.25 MG TABLET PO PRN (19:57)
[2018-09-20] MEDS: tiZANidine 4 MG TABLET PO SCH (20:23)
[2018-09-20] MEDS: Acetaminophen 325 MG TABLET PO SCH (20:23)
[2018-09-21] MEDS: Ondansetron ODT 4 MG TAB.RAPDIS SL PRN ×4 (00:59→21:02)
[2018-09-21] MEDS: Acetaminophen 325 MG TABLET PO PRN ×2 (02:20→11:17)
[2018-09-21] MEDS: *HR* HYDROcodone/Acet 5/325 mg TABLET PO PRN (03:31)
[2018-09-21] MEDS: Ascorbic Acid 500 MG TABLET PO SCH (05:56)
[2018-09-21 08:07] LABS: Basophils # 0.1 K/mcL (0.0-0.2); Eosinophils # 0.2 K/mcL (0.0-0.6); Eosinophils % 3.8 %; Hemoglobin 8.9 g/dL (11.5-15.4); Immature Granulocytes % 1.6 % (0-4); Lymphocytes # 0.8 K/mcL (0.6-4.6); Lymphocytes % 13.3 %; Mean Corpuscular HGB Conc 31.8 g/dL (31.6-35.5); Mean Corpuscular Hemoglobin 34.2 pg (28.0-33.3); Mean Corpuscular Volume 107.7 fL (83.0-100.0); Mean Platelet Volume 12.1 fL (9.4-12.4); Monocytes # 0.6 K/mcL (0.0-1.3); Monocytes % 9.9 %; Neutrophils # 4.3 K/mcL (1.6-8.9); Platelet Count 213 K/mcL (140-400); Red Cell Distribution Width 18.9 % (11.5-14.5); Segmented Neutrophils % 70.4 %; White Blood Count 6.1 K/mcL (4.3-11.1)
[2018-09-21 08:41] LABS: Digoxin 2.6 ng/mL (0.8-2.0); Magnesium 1.7 mg/dL (1.6-2.6); Potassium 4.4 mEq/L (3.5-5.1)
[2018-09-21] MEDS: *HR* Digoxin 0.125 MG TABLET PO SCH (08:49)
[2018-09-21] MEDS: Insulin LISPRO 300 UNITS/3 ML VIAL SQ SCH ×4 (08:50→20:54)
[2018-09-21] MEDS: Bumetanide 1 MG TABLET PO SCH ×2 (08:59→16:55)
[2018-09-21] MEDS: Cholecalciferol (D-3) 1,000 UNIT (25MCG) TABLET PO SCH (08:59)
[2018-09-21] MEDS: *HR* HYDROcodone/Acet 5/325 mg TABLET PO SCH ×4 (09:00→20:49)
[2018-09-21] MEDS: Carbidopa/Levodopa 25/100 TABLET PO SCH ×2 (09:01→20:50)
[2018-09-21] MEDS: Isosorbide MONOnitrate (24 HR) 60 MG TAB.ER.24H PO SCH (09:01)
[2018-09-21] MEDS: *HR* Amiodarone 200 MG TABLET PO SCH ×2 (09:01→20:50)
[2018-09-21] MEDS: Magnesium Oxide 400 MG TABLET PO SCH (09:01)
[2018-09-21] MEDS: FLUoxetine 20 MG CAPSULE PO SCH (09:01)
[2018-09-21] MEDS: Sucralfate 1 GM TABLET PO SCH ×2 (09:01→16:54)
[2018-09-21] MEDS: Metoclopramide 10 MG/10 ML UD.LIQ PO SCH ×2 (09:02→17:00)
[2018-09-21] MEDS: MOM Conc 10 ML UD.LIQ PO SCH (09:03)
[2018-09-21] MEDS: Apremilast [Otezla] 30 MG PO SCH ×2 (09:04→20:50)
[2018-09-21] MEDS: ALPRAZolam 0.25 MG TABLET PO PRN ×2 (09:08→20:49)
[2018-09-21] MEDS: Budesonide/Formoterol 80/4.5 MDI IH SCH ×2 (10:32→22:29)
[2018-09-21] MEDS: Vitamin B Complex/Vit C/Vit E 1 EACH TABLET PO SCH (16:55)
--- NOTE | 2018-09-21 17:51 | Internal Med Progress Note ---
Date of Encounter: 09/21/18 Time of Encounter: 17:40 - Assessment and plan (1) Bilateral lower leg cellulitis Current Visit: No Status: Acute Assessment and plan: September 16. IV became dislodged yesterday and patient did not wish it to be restarted. Oral Keflex has been ordered. Continue lactobacillus. September 19. Discontinue Keflex and lactobacillus. September 21. Santyl and gentamicin will be applied to the largest ulcer on the right leg. (2) Diabetes Current Visit: No Status: Chronic Assessment and plan: September 16. Hemoglobin A1c was 7.1% on 07/09/2018. Continue Accu-Cheks with SSI. Qualifiers: Diabetes mellitus type: type 2 Diabetes mellitus intermediate insulin use: with adjunct faculty for medical terminology use Diabetes mellitus complication status: with kidney complic ations Diabetes mellitus complication detail: with chronic kidney disease Chronic kidney disease stage: stage 4 (severe) Qualified Code(s): E11.22 - Type 2 diabetes mellitus with diabetic chronic kidney disease; N18.4 - Chronic kidney disease, stage 4 (severe); Z79.4 - jail (current) use of insulin (3) Parkinson disease Current Visit: No Status: Chronic Assessment and plan: September 16. Continue Sinemet (4) Anemia Current Visit: No Status: Chronic Assessment and plan: September 16. Anemia testing 09/12/2018 showed iron 21, transferrin saturation 9%, transferrin 165, ferritin 532, B12 625, and folate 20.8. Continue ferrous sulfate with ascorbic acid. Stool guaiac was positive. September 17. Recheck labs in a.m. September 19. Hemoglobin improved to 9.5. Continue ferrous sulfate with ascorbic acid. September 21. Hemoglobin 8.9 today. Continue ferrous sulfate with ascorbic acid and monitor periodically. Qualifiers: Anemia type: unspecified type Qualified Code(s): D64.9 - Anemia, unspecified (5) Atrial fibrillation Current Visit: No Status: Chronic Assessment and plan: September 16. Remain off OAC and antiplatelet agents due to stool guaiac positive and anemia. Review of records reveal EGD by Dr. West 04/14/2018 showed hiatal hernia. Colonoscopy showed erythema of the mucosa in the ascending colon and cecum with friability and spontaneous bleeding in the cecum. There were 3 tubular adenomas ranging from 4-6 mm and internal and external hemorrhoids seen. Continue ferrous sulfate with ascorbic acid. Qualifiers: Atrial fibrillation type: paroxysmal Qualified Code(s): I48.0 - Paroxysmal atrial fibrillation (6) Hypertension Current Visit: No Status: Chronic Assessment and plan: September 16. Continue Lopressor Qualifiers: Hypertension type: essential hypertension Qualified Code(s): I10 - Essential (primary) hypertension (7) Hypothyroidism Current Visit: No Status: Chronic Assessment and plan: September 16. TSH was normal at 5.514 on 07/09/2018. Continue Synthroid Qualifiers: Hypothyroidism type: unspecified Qualified Code(s): E03.9 - Hypothyroidism, unspecified (8) CKD (chronic kidney disease) stage 3, GFR 30-59 ml/min Current Visit: No Status: Chronic Assessment and plan: September 16. Monitor renal indices. September 21. BUN and creatinine minimally changed at 54 and 1.49 respectively. (9) MEHRAN on CPAP Current Visit: No Status: Chronic Assessment and plan: September 16. Continue CPAP (10) Pulmonary embolism Current Visit: No Status: Acute Assessment and plan: September 16. Stool guaiac positive. Remain off OAC at this time. She refused subcutaneous Lovenox for DVT prophylaxis. Qualifiers: Pulmonary embolism type: other Chronicity: unspecified Acute cor pulmonale presence: without acute cor pulmonale Qualified Code(s): I26.99 - Other pulmonary embolism without acute cor pulmonale (11) CHF (congestive heart failure) Current Visit: No Status: Chronic Assessment and plan: September 16. Continue Bumex, Lanoxin, Imdur, and Lopressor. September 17. Increase Bumex to further decrease edema. Continue Lanoxin, Imdur, and Lopressor. September 19. BN peptide has risen to 1086. Lanoxin level 1.4. She is on maximum dose Imdur and Lanoxin. Continue Bumex with Lopressor and add low-dose losartan. September 21. She refused losartan. Lanoxin level elevated at 2.6 and medication will be held. Qualifiers: Heart failure type: diastolic Heart failure chronicity: acute on chronic Qualified Code(s): I50.33 - Acute on chronic diastolic (congestive) heart failure (12) Weakness Current Visit: No Status: Acute Assessment and plan: September 16. Continue PT and OT intervention. September 21. Continue PT/OT. Anticipate discharge home tomorrow with home health services. - Subjective Interval history: September 16. She was hospitalized in [facility] acute-care September 11- after presenting with increased edema with bilateral leg cellulitis. She clinically improved on IV Ancef and IV Bumex. Lanoxin Lopressor and Imdur were given. It was felt she would benefit from ongoing therapy in swing bed. She has no new complaints today September 17. No new problems have arisen. She reports she feels anxious frequen tly. September 19. She states she has pain in her legs from the skin ulceration. She inquired about having a Méndez catheter to avoid bedside commode/bathroom trips. September 21. She has no new complaints and feels better. She wishes to be discharged home tomorrow. - Constitutional Vitals: Temp Pulse Resp BP Pulse Ox 97.6 F 62 18 156/62 98 09/21/18 06:33 09/21/18 08:58 09/21/18 06:33 09/21/18 08:58 09/21/18 08:58 Exam: She is resting comfortably in a chair at bedside and appears in no acute distress. There is further decreased in edema and erythema of her legs. The shallow right leg ulcer shows no evidence of secondary infection. There is decreased serous drainage from the open areas. I reviewed her medications and lab results. Internal Medicine: Result - Labs CBC & Chem 7: 09/21/18 07:20 09/21/18 07:20 Labs: Short CBC 09/21/18 Range/Units 07:20 WBC 6.1 (4.3-11.1) K/mcL Hgb 8.9 L (11.5-15.4) g/dL Hct 28.0 L (35.3-44.9) % Plt Count 213 (140-400) K/mcL Neutrophils # 4.3 (1.6-8.9) K/mcL BMP 09/21/18 07:20 Sodium 136 Potassium 4.4 Chloride 96 L Carbon Dioxide 35 H BUN 54 H Creatinine 1.49 H Glucose 134 H Calcium 9.0 - ABG Interpretation ABG results: PT/INR, D-dimer PT 16.7 Seconds (9.4-12.1) H 09/16/18 07:34 Consult Discharge Plan - Plan Referrals: Otf Rivera MD [Primary Care Provider] - 1 week
[2018-09-21] MEDS: Gentamicin Oint 15 GM TUBE TP SCH (18:30)
[2018-09-21] MEDS: tiZANidine 4 MG TABLET PO SCH (20:49)
[2018-09-21] MEDS: Acetaminophen 325 MG TABLET PO SCH (20:57)
[2018-09-22] MEDS: Acetaminophen 325 MG TABLET PO PRN ×2 (03:41→11:34)
[2018-09-22] MEDS: ALPRAZolam 0.25 MG TABLET PO PRN (03:43)
[2018-09-22] MEDS: Metoclopramide 10 MG/10 ML UD.LIQ PO SCH (06:03)
[2018-09-22] MEDS: Sucralfate 1 GM TABLET PO SCH (06:03)
[2018-09-22] MEDS: Ascorbic Acid 500 MG TABLET PO SCH (06:03)
[2018-09-22 07:48] VITALS: BP 138/64
[2018-09-22] MEDS: Insulin LISPRO 300 UNITS/3 ML VIAL SQ SCH ×2 (08:20→12:11)
[2018-09-22] MEDS: Bumetanide 1 MG TABLET PO SCH (08:21)
[2018-09-22] MEDS: Isosorbide MONOnitrate (24 HR) 60 MG TAB.ER.24H PO SCH (08:21)
[2018-09-22] MEDS: *HR* HYDROcodone/Acet 5/325 mg TABLET PO SCH ×2 (08:22→13:11)
[2018-09-22] MEDS: *HR* Amiodarone 200 MG TABLET PO SCH (08:22)
[2018-09-22] MEDS: Carbidopa/Levodopa 25/100 TABLET PO SCH (08:22)
[2018-09-22] MEDS: FLUoxetine 20 MG CAPSULE PO SCH (08:22)
[2018-09-22] MEDS: *HR* Digoxin 0.125 MG TABLET PO SCH (08:22)
[2018-09-22] MEDS: Cholecalciferol (D-3) 1,000 UNIT (25MCG) TABLET PO SCH (08:23)
[2018-09-22] MEDS: Apremilast [Otezla] 30 MG PO SCH (08:23)
[2018-09-22] MEDS: Magnesium Oxide 400 MG TABLET PO SCH (08:23)
[2018-09-22] MEDS: Ondansetron ODT 4 MG TAB.RAPDIS SL PRN (11:37)
[2018-09-22] MEDS: Budesonide/Formoterol 80/4.5 MDI IH SCH (11:39)
--- NOTE | 2018-09-22 12:26 | Discharge Summary ---
Date of Encounter: 09/22/18 Time of Encounter: 11:55 - Discharge Diagnosis (1) Bilateral lower leg cellulitis Priority: Primary Status: Acute (2) Diabetes Priority: Secondary Status: Chronic Qualifiers: Diabetes mellitus type: type 2 Diabetes mellitus salvage determiner insulin use: with salvage determiner use Diabetes mellitus complication status: with kidney complications Diabetes mellitus complication detail: with chronic kidney disease Chronic kidney disease stage: stage 4 (severe) Qualified Code(s): E11.22 - Type 2 diabetes mellitus with diabetic chronic kidney disease; N18.4 - Chronic kidney disease, stage 4 (severe); 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 of 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 (3) Parkinson disease Priority: Secondary Status: Chronic (4) Anemia Priority: Secondary Status: Chronic Qualifiers: Anemia type: unspecified type Qualified Code(s): D64.9 - Anemia, unspecified (5) Atrial fibrillation Priority: Secondary Status: Chronic Qualifiers: Atrial fibrillation type: paroxysmal Qualified Code(s): I48.0 - Paroxysmal atrial fibrillation (6) Hypertension Priority: Secondary Status: Chronic Qualifiers: Hypertension type: essential hypertension Qualified Code(s): I10 - Essential (primary) hypertension (7) Hypothyroidism Priority: Secondary Status: Chronic Qualifiers: Hypothyroidism type: unspecified Qualified Code(s): E03.9 - Hypothyroidism, unspecified (8) CKD (chronic kidney disease) stage 3, GFR 30-59 ml/min Priority: Secondary Status: Chronic (9) MEHRAN on CPAP Priority: Secondary Status: Chronic (10) Pulmonary embolism Priority: Secondary Status: Acute Qualifiers: Pulmonary embolism type: other Chronicity: unspecified Acute cor pulmonale presence: without acute cor pulmonale Qualified Code(s): I26.99 - Other pulmonary embolism without acute cor pulmonale (11) CHF (congestive heart failure) Priority: Secondary Status: Chronic Qualifiers: Heart failure type: diastolic Heart failure chronicity: acute on chronic Qualified Code(s): I50.33 - Acute on chronic diastolic (congestive) heart failure (12) Weakness Priority: Secondary Status: Chronic Hospital course: Ms. Whitmore is a 78 year old female who was hospitalized in [facility] acute-care September 11- after presenting with increased edema with bilateral leg cellulitis. She clinically improved on IV Ancef and IV Bumex. Lanoxin Lopressor and Imdur were given. It was felt she would benefit from ongoing therapy in swing bed. She continued PT/OT with improvement during her swing bed stay. Home health services will be ordered to continue therapy at home. Oral antibiotics were discontinued. Topical Santyl with gentamicin treatment was applied to the largest right lower leg ulcer. [facility]. She continued on ferrous sulfate with ascorbic acid for anemia. Stool was guaiac positive. Her PCP can follow up on this and refer her further evaluation as needed. Oral anticoagulants were held because of anemia and the guaiac positive stool. She refused subcutaneous Lovenox for DVT prophylaxis. Medications were adjusted to treat heart failure. She had decrease in edema during her hospital stay. BN peptide and creatinine showed fluctuations with overall minimal change. She refused losartan. The serous drainage from open shallow leg ulcers showed significant improvement by day of discharge. On September 22 she stated she wished to be discharged home. She was offered additional days of therapy in swing bed but declined stating she wished to go home. Home health services will be ordered. She will follow with her PCP Dr. Otf Rivera within 1 week. - Time Spent with Patient Total time spent providing and/or coordinating discharge services: - Discharge Medications Prescriptions: New Bumetanide [Bumex] 1.5 mg PO BIDDIURETIC tablet Gentamicin Oint [Garamycin] 1 appl TP DAILY #1 tube Metoclopramide [Reglan] 5 mg PO BIDAC #14 ud.liq Collagenase Oint [Santyl] 1 appl TP DAILY #1 tube ALPRAZolam [Xanax 0.25 MG Tablet] 0.25 mg PO Q6H PRN 3 Days #12 tablet PRN Reason: Anxiety Continued Ustekinumab [Stelara (For Outpatient Infusion)] 90 mg SQ [id number] Vitamin B Complex [B Complex] 1 tab PO QPM Fluticasone Propionate Nasal [Flonase] 2 spray NS BID PRN PRN Reason: Allergy Symptoms Carbidopa/Levodopa 25/100 [Sinemet 25/100] 1 tab PO BID Tizanidine HCl 2 mg PO HS Atorvastatin [Lipitor] 40 mg PO HS Umeclidinium Mcgrady [Incruse Ellipta] 1 puff IH DAILY Loperamide [Imodium] 2 mg PO QID PRN PRN Reason: Diarrhea Apremilast [Otezla] 30 mg PO BID Hydrocodone/Acetaminophen [Hydrocodon-Acetaminophen 5-325] 0.5 tab PO 1300,1700 Metoprolol [Lopressor] 50 mg PO DAILY Acetaminophen [Tylenol] 325 mg PO Q6H PRN PRN Reason: Pain Pantoprazole Sodium [Protonix] 40 mg PO DAILY Sucralfate [Carafate] 1 gm PO 0730,1630 #60 tablet HYDROcodone/Acet 5/325 mg [Spreckels 5-325 mg] 1 tab PO QAM AND QHS Albuterol Sulfate [Proair Hfa] 2 puff IH Q4H PRN PRN Reason: Shortness Of Breath Cholecalciferol (D-3) [Vitamin D] 1,000 unit PO DAILY tablet Allopurinol [Zyloprim 300 MG] 300 mg PO BID #60 tablet Budesonide/Formoterol 80/4.5 [Symbicort 80/4.5] 2 puff IH BIDRESP #1 inhaler Isosorbide MONOnitrate (24 HR) [Imdur] 120 mg PO DAILY #60 tab.er.24h Levothyroxine [Synthroid] 100 mcg PO 0630 #30 tablet FLUoxetine HCl [Fluoxetine HCl] 40 mg PO DAILY Calcitriol [Rocaltrol] 0.25 mcg PO QMWF Amiodarone [Cordarone] 200 mg PO BID Ascorbic Acid [Vitamin C] 500 mg PO 0630 tablet Docusate [Colace] 100 mg PO BID capsule Ferrous Sulfate 325 mg PO 0630 tablet MOM Conc [MILK OF MAGNESIA conc] 10 ml PO Q48H ud.liq Ondansetron [Zofran] 4 mg IVP Q4H PRN vial PRN Reason: Nausea And Vomiting Ondansetron ODT [Zofran ODT] 4 mg SL Q4HR PRN tab.rapdis PRN Reason: Nausea And Vomiting Magnesium Oxide [Mag-Ox] 400 mg PO DAILY #7 tablet Changed Digoxin [Lanoxin] 0.125 mg PO Q48H #15 tablet Discontinued Fluticasone/Salmeterol [Advair 250-50 Diskus] 1 puff IH BID Bumetanide [Bumex] 1 mg IVP BIDDIURETIC vial Enoxaparin [Lovenox] 40 mg SQ 0600 syringe Insulin LISPRO [HumaLOG] 0 units SQ TIDAC vial Insulin LISPRO [HumaLOG] 0 units SQ HS vial Lactobacillus [Culturelle] 1 each PO BID cap.sprink Promethazine [Phenergan] 12.5 mg IVP Q4HR PRN vial PRN Reason: Nausea And Vomiting ceFAZolin [Ancef] 1,000 mg IVP Q8HR vial Home Medications: Carbidopa/Levodopa 25/100 [Sinemet 25/100] 1 tab PO BID 06/24/15 [History] Fluticasone Propionate Nasal [Flonase] 2 spray NS BID PRN 06/24/15 [History] Ustekinumab [Stelara (For Outpatient Infusion)] 90 mg SQ [id number] 06/24/15 [History] Vitamin B Complex [B Complex] 1 tab PO QPM 06/24/15 [History] Atorvastatin [Lipitor] 40 mg PO HS 09/03/16 [History] Tizanidine HCl 2 mg PO HS 09/03/16 [History] Albuterol Sulfate [Proair Hfa] 2 puff IH Q4H PRN 06/18/17 [History] HYDROcodone/Acet 5/325 mg [Spreckels 5-325 mg] 1 tab PO QAM AND QHS 06/18/17 [History] Cholecalciferol (D-3) [Vitamin D] 1,000 unit PO DAILY tablet 03/06/18 [Rx] Acetaminophen [Tylenol] 325 mg PO Q6H PRN 04/28/18 [History] Apremilast [Otezla] 30 mg PO BID 04/28/18 [History] Hydrocodone/Acetaminophen [Hydrocodon-Acetaminophen 5-325] 0.5 tab PO 1300,1700 04/28/18 [History] Loperamide [Imodium] 2 mg PO QID PRN 04/28/18 [History] Metoprolol [Lopressor] 50 mg PO DAILY 04/28/18 [History] Umeclidinium Mcgrady [Incruse Ellipta] 1 puff IH DAILY 04/28/18 [History] Pantoprazole Sodium [Protonix] 40 mg PO DAILY 05/14/18 [History] Sucralfate [Carafate] 1 gm PO 0730,1630 #60 tablet 05/22/18 [Rx] Allopurinol [Zyloprim 300 MG] 300 mg PO BID #60 tablet 06/09/18 [Rx] Budesonide/Formoterol 80/4.5 [Symbicort 80/4.5] 2 puff IH BIDRESP #1 inhaler 06/09/18 [Rx] Isosorbide MONOnitrate (24 HR) [Imdur] 120 mg PO DAILY #60 tab.er.24h 06/09/18 [Rx] Levothyroxine [Synthroid] 100 mcg PO 0630 #30 tablet 06/09/18 [Rx] Amiodarone [Cordarone] 200 mg PO BID 09/11/18 [History] Calcitriol [Rocaltrol] 0.25 mcg PO QMWF 09/11/18 [History] FLUoxetine HCl [Fluoxetine HCl] 40 mg PO DAILY 09/11/18 [History] Ascorbic Acid [Vitamin C] 500 mg PO 0630 tablet 09/15/18 [Rx] Docusate [Colace] 100 mg PO BID capsule 09/15/18 [Rx] Ferrous Sulfate 325 mg PO 0630 tablet 09/15/18 [Rx] MOM Conc [MILK OF MAGNESIA conc] 10 ml PO Q48H ud.liq 09/15/18 [Rx] Ondansetron ODT [Zofran ODT] 4 mg SL Q4HR PRN tab.rapdis 09/15/18 [Rx] Ondansetron [Zofran] 4 mg IVP Q4H PRN vial 09/15/18 [Rx] ALPRAZolam [Xanax 0.25 MG Tablet] 0.25 mg PO Q6H PRN 3 Days #12 tablet 09/22/18 [Rx] Bumetanide [Bumex] 1.5 mg PO BIDDIURETIC tablet 09/22/18 [Rx] Collagenase Oint [Santyl] 1 appl TP DAILY #1 tube 09/22/18 [Rx] Digoxin [Lanoxin] 0.125 mg PO Q48H #15 tablet 09/22/18 [Rx] Gentamicin Oint [Garamycin] 1 appl TP DAILY #1 tube 09/22/18 [Rx] Magnesium Oxide [Mag-Ox] 400 mg PO DAILY #7 tablet 09/22/18 [Rx] Metoclopramide [Reglan] 5 mg PO BIDAC #14 ud.liq 09/22/18 [Rx] Allergies/Adverse Reactions: Allergy/AdvReac Type Severity Reaction Status Date / Time amlodipine [From [facility]] Allergy Severe Swelling Verified 06/26/18 17:40 of Lip/Tongue/Throat carbamazepine [From Tegretol] Allergy Mild rash/bliste Verified 06/26/18 17:40 rs ciprofloxacin [From Cipro] Allergy Mild Rash Verified 06/26/18 17:40 nitrofurantoin Allergy Mild Rash Verified 06/26/18 17:40 [From Macrobid] Sulfa (Sulfonamide Allergy Mild Rash Verified 06/26/18 17:40 Antibiotics) sulfamethoxazole Allergy Mild Rash Verified 06/26/18 17:40 [From Bactrim] trimethoprim [From Bactrim] Allergy Mild Rash Verified 06/26/18 17:40 Iodinated Contrast- Oral and Allergy See Verified 06/26/18 17:40 IV Dye Comments acetaminophen [From Percocet] AdvReac Mild Confusion Verified 06/26/18 17:40 meperidine [From Demerol] AdvReac Mild Vomiting Verified 06/26/18 17:40 oxycodone [From Percocet] AdvReac Mild Confusion Verified 06/26/18 17:40 promethazine [From Phenergan] AdvReac Mild Vomiting Verified 06/26/18 17:40 NSAIDS (Non-Steroidal AdvReac Unknown D/T KIDNEY Verified 06/26/18 17:40 Anti-Inflamma DYSFUNCTION Date of admission: 09/15/18 12:46 Primary care physician: Otf Rivera MD Consults: 09/15/18 12:50 Consult to Occupational Therapy [CONS] Routine Comment: Evaluate, develop and implement POC Reason for Consult: Evaluate, develop and implement POC Does patient have active BEDREST order?: No Is patient medically & hemodynamically stable?: Yes Patient assessed for mobility or mobilized this visit?: Yes Consult to Physical Therapy [CONS] Routine Comment: Evaluate, develop and implement POC Reason for Consult: Evaluate, develop and implement POC Does patient have active BEDREST order?: No Is patient medically & hemodynamically stable?: Yes Patient assessed for mobility or mobilized this visit?: Yes Consult to Director News [CONS] Routine Reason for SW Consult: Discharged planning - Constitutional Vitals: Temp Pulse Resp BP Pulse Ox 97.7 F 66 17 138/64 100 09/22/18 07:46 09/22/18 07:46 09/22/18 07:46 09/22/18 07:46 09/22/18 07:46 - Patient Status Disposition: Home Health Service - Discharge Instructions Follow Up With: Otf Rivera MD [Primary Care Provider] - 1 week - Diet and Activity Activity: as per physical therapy Diet: diabetic diet, low salt diet
--- NOTE | 2018-09-22 12:36 | Physician Discharge Referral ---
Home Health/Hosp Referral Info Transfer to: Home Health Attending Provider: Gaston Provider in Charge Post Discharge: PCP (Otf Rivera M.D.) - Diagnosis (1) Bilateral lower leg cellulitis Priority: Primary Status: Acute (2) Diabetes Priority: Secondary Status: Chronic (3) Parkinson disease Priority: Secondary Status: Chronic (4) Anemia Priority: Secondary Status: Chronic (5) Atrial fibrillation Priority: Secondary Status: Chronic (6) Hypertension Priority: Secondary Status: Chronic (7) Hypothyroidism Priority: Secondary Status: Chronic (8) CKD (chronic kidney disease) stage 3, GFR 30-59 ml/min Priority: Secondary Status: Chronic (9) MEHRAN on CPAP Priority: Secondary Status: Chronic (10) Pulmonary embolism Priority: Secondary Status: Acute (11) CHF (congestive heart failure) Priority: Secondary Status: Chronic (12) Weakness Priority: Secondary Status: Chronic - Respiratory Orders Oxygen / L per min (2 L per minute by nasal cannula 22/09 to keep saturation greater than 90%.) Smoking Cessation: Smoking cessation has been advised. For more information, call the [place] Tobacco Quit Line at 5-176-DJHW-NOW. - Dressing/Wound Care Type of Dressing/Treatments w/Frequency: Nickel thick Santyl and gentamicin cream to right lower leg ulcer with gauze dressing daily until adequately healed. - Diet/Nutrition Diet/Nutrition Orders: No Added Salt (ADRIANA), No Concentrated Sweets - Activity Activity Orders: Walker - Services Needed Following services are medically necessary services: Nursing, Home Health Aide, Physical Therapy, Occupational Therapy - Transfer Medications Prescriptions: Gentamicin Oint [Garamycin] 1 appl TP DAILY #1 tube Digoxin [Lanoxin] 0.125 mg PO Q48H #15 tablet Magnesium Oxide [Mag-Ox] 400 mg PO DAILY #7 tablet Metoclopramide [Reglan] 5 mg PO BIDAC #14 ud.liq Collagenase Oint [Santyl] 1 appl TP DAILY #1 tube ALPRAZolam [Xanax 0.25 MG Tablet] 0.25 mg PO Q6H PRN 3 Days #12 tablet PRN Reason: Anxiety Home Medications: Carbidopa/Levodopa 25/100 [Sinemet 25/100] 1 tab PO BID 06/24/15 [History] Fluticasone Propionate Nasal [Flonase] 2 spray NS BID PRN 06/24/15 [History] Ustekinumab [Stelara (For Outpatient Infusion)] 90 mg SQ [id number] 06/24/15 [History] Vitamin B Complex [B Complex] 1 tab PO QPM 06/24/15 [History] Atorvastatin [Lipitor] 40 mg PO HS 09/03/16 [History] Tizanidine HCl 2 mg PO HS 09/03/16 [History] Albuterol Sulfate [Proair Hfa] 2 puff IH Q4H PRN 06/18/17 [History] HYDROcodone/Acet 5/325 mg [[place] 5-325 mg] 1 tab PO QAM AND QHS 06/18/17 [History] Cholecalciferol (D-3) [Vitamin D] 1,000 unit PO DAILY tablet 03/06/18 [Rx] Acetaminophen [Tylenol] 325 mg PO Q6H PRN 04/28/18 [History] Apremilast [Otezla] 30 mg PO BID 04/28/18 [History] Hydrocodone/Acetaminophen [Hydrocodon-Acetaminophen 5-325] 0.5 tab PO 1300,1700 04/28/18 [History] Loperamide [Imodium] 2 mg PO QID PRN 04/28/18 [History] Metoprolol [Lopressor] 50 mg PO DAILY 04/28/18 [History] Umeclidinium [place] [Incruse Ellipta] 1 puff IH DAILY 04/28/18 [History] Pantoprazole Sodium [Protonix] 40 mg PO DAILY 05/14/18 [History] Sucralfate [Carafate] 1 gm PO 0730,1630 #60 tablet 05/22/18 [Rx] Allopurinol [Zyloprim 300 MG] 300 mg PO BID #60 tablet 06/09/18 [Rx] Budesonide/Formoterol 80/4.5 [Symbicort 80/4.5] 2 puff IH BIDRESP #1 inhaler 06/09/18 [Rx] Isosorbide MONOnitrate (24 HR) [Imdur] 120 mg PO DAILY #60 tab.er.24h 06/09/18 [Rx] Levothyroxine [Synthroid] 100 mcg PO 0630 #30 tablet 06/09/18 [Rx] Amiodarone [Cordarone] 200 mg PO BID 09/11/18 [History] Calcitriol [Rocaltrol] 0.25 mcg PO QMWF 09/11/18 [History] FLUoxetine HCl [Fluoxetine HCl] 40 mg PO DAILY 09/11/18 [History] Ascorbic Acid [Vitamin C] 500 mg PO 0630 tablet 09/15/18 [Rx] Docusate [Colace] 100 mg PO BID capsule 09/15/18 [Rx] Ferrous Sulfate 325 mg PO 0630 tablet 09/15/18 [Rx] MOM Conc [MILK OF MAGNESIA conc] 10 ml PO Q48H ud.liq 09/15/18 [Rx] Ondansetron ODT [Zofran ODT] 4 mg SL Q4HR PRN tab.rapdis 09/15/18 [Rx] Ondansetron [Zofran] 4 mg IVP Q4H PRN vial 09/15/18 [Rx] ALPRAZolam [Xanax 0.25 MG Tablet] 0.25 mg PO Q6H PRN 3 Days #12 tablet 09/22/18 [Rx] Bumetanide [Bumex] 1.5 mg PO BIDDIURETIC tablet 09/22/18 [Rx] Collagenase Oint [Santyl] 1 appl TP DAILY #1 tube 09/22/18 [Rx] Digoxin [Lanoxin] 0.125 mg PO Q48H #15 tablet 09/22/18 [Rx] Gentamicin Oint [Garamycin] 1 appl TP DAILY #1 tube 09/22/18 [Rx] Magnesium Oxide [Mag-Ox] 400 mg PO DAILY #7 tablet 09/22/18 [Rx] Metoclopramide [Reglan] 5 mg PO BIDAC #14 ud.liq 09/22/18 [Rx] Allergies/Adverse Reactions: Allergy/AdvReac Type Severity Reaction Status Date / Time amlodipine [From Norvasc] Allergy Severe Swelling Verified 06/26/18 17:40 of Lip/Tongue/Throat carbamazepine [From Tegretol] Allergy Mild rash/bliste Verified 06/26/18 17:40 rs ciprofloxacin [From Cipro] Allergy Mild Rash Verified 06/26/18 17:40 nitrofurantoin Allergy Mild Rash Verified 06/26/18 17:40 [From Macrobid] Sulfa (Sulfonamide Allergy Mild Rash Verified 06/26/18 17:40 Antibiotics) sulfamethoxazole Allergy Mild Rash Verified 06/26/18 17:40 [From Bactrim] trimethoprim [From Bactrim] Allergy Mild Rash Verified 06/26/18 17:40 Iodinated Contrast- Oral and Allergy See Verified 06/26/18 17:40 IV Dye Comments acetaminophen [From Percocet] AdvReac Mild Confusion Verified 06/26/18 17:40 meperidine [From Demerol] AdvReac Mild Vomiting Verified 06/26/18 17:40 oxycodone [From Percocet] AdvReac Mild Confusion Verified 06/26/18 17:40 promethazine [From Phenergan] AdvReac Mild Vomiting Verified 06/26/18 17:40 NSAIDS (Non-Steroidal AdvReac Unknown D/T KIDNEY Verified 06/26/18 17:40 Anti-Inflamma DYSFUNCTION Certification: Further, I certify that my clinical findings support that this patient is homebound (i.e. absences from home require considerable and taxing effort and are for medical reasons or jewish services or infrequently or short duration when for other reasons) because: Homebound Reason: Leaving home requires considerable and taxing effort due to condition (Heart failure with impaired walking ability.) Attestation: My signature below is to certify that this patient is under my care and that I, or nurse practitioner, or a physician's entry level administrative assistant working with me, has a [id number] encounter with this patient.
[2018-09-22] MEDS: Gentamicin Oint 15 GM TUBE TP SCH (13:12)
== END 2018-09-22 13:56 | disposition home health service (06) | DRG 945 ==
LOC: INPPIK 12:46
PROVIDERS: ADMIT Internal Medicine; ATTEND Internal Medicine

== ENCOUNTER 2018-09-23 17:03 | Inpatient (IN) ==
--- NOTE | 2018-09-23 19:36 | Internal Med History&Physical ---
Date of Encounter: 09/23/18 Time of Encounter: 19:00 Assessment and Plan (1) Cellulitis Current visit: No Status: Acute She will continue Santyl and gentamicin treatment to the right leg ulcer. Qualifiers: Site of cellulitis: extremity Site of cellulitis of extremity: lower extremity Laterality: unspecified laterality Qualified Code(s): L03.119 - Cellulitis of unspecified part of limb (2) Weakness Current visit: No Status: Chronic PT and OT evaluations will be ordered. (3) Pulmonary embolism Current visit: No Status: Acute OAC will be held. Review of records reveal EGD by Dr. West 04/14/2018 showed hiatal hernia. Colonoscopy showed erythema of the mucosa in the ascending colon and cecum with friability and spontaneous bleeding in the cecum. There were 3 tubular adenomas ranging from 4-6 mm and internal and external hemorrhoids seen. She had GI bleed and has declined OAC/antiplatelet agents /DVT prophylaxis Qualifiers: Pulmonary embolism type: other Chronicity: unspecified Acute cor pulmonale presence: without acute cor pulmonale Qualified Code(s): I26.99 - Other pulmonary embolism without acute cor pulmonale (4) Anemia Current visit: No Status: Chronic Anemia testing 09/12/2018 showed iron 21, transferrin saturation 9%, transferrin 165, ferritin 532, B12 625, and folate 20.8. Continue ferrous sulfate with ascorbic acid. Qualifiers: Anemia type: unspecified type Qualified Code(s): D64.9 - Anemia, unspecified (5) Atrial fibrillation Current visit: No Status: Chronic She declines OAC and antiplatelet agents. Stool was guaiac positive during her recent [facility] stay. Qualifiers: Atrial fibrillation type: paroxysmal Qualified Code(s): I48.0 - Paroxysmal atrial fibrillation (6) CHF (congestive heart failure) Current visit: No Status: Chronic Continue Bumex, Lanoxin, Imdur, and Lopressor. She refuses ARB. Qualifiers: Heart failure type: diastolic Heart failure chronicity: acute on chronic Qualified Code(s): I50.33 - Acute on chronic diastolic (congestive) heart failure (7) Diabetes Current visit: No Status: Chronic Hemoglobin A1c was 7.1% on 07/09/2018. Continue Accu-Cheks with SSI. 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 Continue Synthroid Qualifiers: Hypothyroidism type: unspecified Qualified Code(s): E03.9 - Hypothyroidism, unspecified (9) MEHRAN on CPAP Current visit: No Status: Chronic Continue CPAP at bedtime Internal Medicine - H&P: HPI Chief complaint: Leg pain Admitted From: Emergency Dept Plans for Post Hospital Care: Home History of present illness: Ms. Whitmore is a 78 year old female who came to emergency room following discharge from [facility] swing bed the previous day stating she was unable to care for herself at home. She had been hospitalized in acute-care followed by swing bed stay and had requested to leave on September 22. Home health services were arranged. She reports her home health nurse saw her today and told her her legs were infected and she should return to the hospital. She was evaluated in ER and stated she wished to be readmitted to swing bed for ongoing care needs. Past Med Surg Social Fam HX - Past Medical History Medical history: arthritis, asthma, atrial fibrillation, cancer, CHF, COPD, coronary artery disease, DVT, diabetes, fibromyalgia, hyperlipidemia, hypertension, renal disease, thyroid disease, other Additional medical history: skin cancer Psychiatric history: depression - Past Surgical History Surgical History: pacemaker Additional surgical history: parathyroidectomy,. Right knee - Social History Smoking Status: Former smoker Smokeless Tobacco Status: No Alcohol use: none Drug use: none - Family History Mother Adopted: No Living Status: Hx Family Cardiac Disorders: Yes Hx Family Respiratory Disorders: Yes (COPD) Hx Family Cancer: Yes (lung, breast) Hx Family GI Disorders: No Hx Family Endocrine Disorder: No Hx Family Neuromuscular Disorders: No Hx Family Neurologic Disorders: Yes Hx Family HEENT Disorders: No Hx Family Autoimmune Disorders: Yes (non hygkins lymphoma) Internal Medicine - H&P: Meds Carbidopa/Levodopa 25/100 [Sinemet 25/100] 1 tab PO BID 06/24/15 [History] Fluticasone Propionate Nasal [Flonase] 2 spray NS BID PRN 06/24/15 [History] Ustekinumab [Stelara (For Outpatient Infusion)] 90 mg SQ [id number] 06/24/15 [History] Vitamin B Complex [B Complex] 1 tab PO QPM 06/24/15 [History] Atorvastatin [Lipitor] 40 mg PO HS 09/03/16 [History] Tizanidine HCl 2 mg PO HS 09/03/16 [History] Albuterol Sulfate [Proair Hfa] 2 puff IH Q4H PRN 06/18/17 [History] HYDROcodone/Acet 5/325 mg [[place] 5-325 mg] 1 tab PO QAM AND QHS 06/18/17 [History] Cholecalciferol (D-3) [Vitamin D] 1,000 unit PO DAILY tablet 03/06/18 [Rx] Acetaminophen [Tylenol] 325 mg PO Q6H PRN 04/28/18 [History] Apremilast [Otezla] 30 mg PO BID 04/28/18 [History] Hydrocodone/Acetaminophen [Hydrocodon-Acetaminophen 5-325] 0.5 tab PO 1300,1700 04/28/18 [History] Loperamide [Imodium] 2 mg PO QID PRN 04/28/18 [History] Metoprolol [Lopressor] 50 mg PO DAILY 04/28/18 [History] Umeclidinium [place] [Incruse Ellipta] 1 puff IH DAILY 04/28/18 [History] Pantoprazole Sodium [Protonix] 40 mg PO DAILY 05/14/18 [History] Sucralfate [Carafate] 1 gm PO 0730,1630 #60 tablet 05/22/18 [Rx] Allopurinol [Zyloprim 300 MG] 300 mg PO BID #60 tablet 06/09/18 [Rx] Budesonide/Formoterol 80/4.5 [Symbicort 80/4.5] 2 puff IH BIDRESP #1 inhaler 06/09/18 [Rx] Isosorbide MONOnitrate (24 HR) [Imdur] 120 mg PO DAILY #60 tab.er.24h 06/09/18 [Rx] Levothyroxine [Synthroid] 100 mcg PO 0630 #30 tablet 06/09/18 [Rx] Amiodarone [Cordarone] 200 mg PO BID 09/11/18 [History] Calcitriol [Rocaltrol] 0.25 mcg PO QMWF 09/11/18 [History] FLUoxetine HCl [Fluoxetine HCl] 40 mg PO DAILY 09/11/18 [History] Ascorbic Acid [Vitamin C] 500 mg PO 0630 tablet 09/15/18 [Rx] Docusate [Colace] 100 mg PO BID capsule 09/15/18 [Rx] Ferrous Sulfate 325 mg PO 0630 tablet 09/15/18 [Rx] MOM Conc [MILK OF MAGNESIA conc] 10 ml PO Q48H ud.liq 09/15/18 [Rx] Ondansetron ODT [Zofran ODT] 4 mg SL Q4HR PRN tab.rapdis 09/15/18 [Rx] ALPRAZolam [Xanax 0.25 MG Tablet] 0.25 mg PO Q6H PRN 3 Days #12 tablet 09/22/18 [Rx] Bumetanide [Bumex] 1.5 mg PO BIDDIURETIC tablet 09/22/18 [Rx] Collagenase Oint [Santyl] 1 appl TP DAILY #1 tube 09/22/18 [Rx] Digoxin [Lanoxin] 0.125 mg PO Q48H #15 tablet 09/22/18 [Rx] Gentamicin Oint [Garamycin] 1 appl TP DAILY #1 tube 09/22/18 [Rx] Magnesium Oxide [Mag-Ox] 400 mg PO DAILY #7 tablet 09/22/18 [Rx] Metoclopramide [Reglan] 5 mg PO BIDAC #14 ud.liq 09/22/18 [Rx] Allergy/AdvReac Type Severity Reaction Status Date / Time amlodipine [From Norvasc] Allergy Severe Swelling Verified 09/23/18 15:42 of Lip/Tongue/Throat carbamazepine [From Tegretol] Allergy Mild rash/bliste Verified 09/23/18 15:42 rs ciprofloxacin [From Cipro] Allergy Mild Rash Verified 09/23/18 15:42 nitrofurantoin Allergy Mild Rash Verified 09/23/18 15:42 [From Macrobid] Sulfa (Sulfonamide Allergy Mild Rash Verified 09/23/18 15:42 Antibiotics) sulfamethoxazole Allergy Mild Rash Verified 09/23/18 15:42 [From Bactrim] trimethoprim [From Bactrim] Allergy Mild Rash Verified 09/23/18 15:42 Iodinated Contrast- Oral and Allergy See Verified 09/23/18 15:42 IV Dye Comments acetaminophen [From Percocet] AdvReac Mild Confusion Verified 09/23/18 15:42 meperidine [From Demerol] AdvReac Mild Vomiting Verified 09/23/18 15:42 oxycodone [From Percocet] AdvReac Mild Confusion Verified 09/23/18 15:42 promethazine [From Phenergan] AdvReac Mild Vomiting Verified 09/23/18 15:42 NSAIDS (Non-Steroidal AdvReac Unknown D/T KIDNEY Verified 09/23/18 15:42 Anti-Inflamma DYSFUNCTION All Systems PM: A 10-system review of systems was performed and is negative for pertinent findings except as documented above in the HPI. Review of systems: Review of systems from her recent [facility] admission were reviewed and revised as below. Gen.: Her weight has increased from 101.151 kg on 04/18/2017 to 107.104 kg at present Cardiovascular: Cardiovascular history is significant for essential hypertension. She has chronic atrial fibrillation. She had an echocardiogram 04/28/2018 which showed LVEF of 50-55%. There was indeterminate diastolic function assessment due to underlying atrial fibrillation. There was mild mitral regurgitation, moderate tricuspid regurgitation, and mild pulmonic regurgitation. Estimated RVSP was elevated at 65 mmHg. The interventricular septum and posterior wall thickness measurements were 0.81 and 0.92 cm respectively. She had non-STEMI on admission to [facility] 04/28/2018. She underwent LHC which showed LMCA, circumflex, first marginal, and left PDA free of disease. The RCA showed 50% stenosis in midportion and 60% stenosis in the right PDA. The LAD showed 20 mm long 80% stenosis in the proximal portion which was stented. (A previous stent had been placed 2013.) She was placed on aspirin and Plavix DAPT for the new stent. Xarelto which had been used for atrial fibrillation and history of left leg DVT (1984) was discontinued for one month because of GI bleed. She had a small pulmonary embolus in the left upper lobe documented April 2018 and was started on Eliquis. She states she has not been taking Plavix or Eliquis recently because of GI bleed history with anemia. She reports having a pacemaker placed 07/06/2018 in [place] but does not know the indication for this. Respiratory: She smoked from age [age] up to 2-1/2 packs per day. She has a diagnosis of COPD with PFTs 08/30/2015 showing FEV1/FVC of 66%. There was no improvement in FEV1 postbronchodilator. FVC was 67% predicted. MVV was 42% predicted. DLCO was 56% predicted. She wears oxygen 24/7. Chest CTA April 2018 showed tiny left upper lobe pulmonary embolus. There were bilateral small effusions with mild bibasal atelectasis and emphysema changes. GI: She had EGD for GI bleed April 2018 which showed grade A reflux esophagitis. Colonoscopy showed single bleeding colonic angiodysplasia. She has had cholecystectomy. There is no known disorders of liver or exocrine pancreas. : She has chronic kidney disease stage III and follows with a [place] supervisor electronic testing. She denies other kidney or bladder disorders Neurologic: She has Parkinson's disease. She denies large distribution strokes or seizures. Endocrine: She was diagnosed with DM 2 in 1998. Hemoglobin A1c was 7.1% on 07/09/2018. She has hypothyroidism and hyperlipidemia. Hematology/oncology: She has had anemia with recent GI bleed April 2018. She denies internal malignancies or other known blood disorders. Psychiatric: She has anxiety and depression. Muscle skeletal: She has gout, psoriatic arthritis, and DJD. Dermatologic: She has psoriasis. - Constitutional Vitals: Temp Pulse Resp BP Pulse Ox 98.1 F 63 17 115/54 100 09/23/18 19:22 09/23/18 19:22 09/23/18 19:22 09/23/18 19:22 09/23/18 19:22 Exam: Gen.: She is a well-developed overweight female lying in bed who appears in no acute distress HEENT: Head is atraumatic and normocephalic. Eyes: EOMI. There is no scleral icterus. Mouth: Mucosa is moist. Neck: Supple and nontender. There is no thyromegaly or adenopathy noted. Heart: Regular (pacer). She has a 2 to 3/6 systolic murmur heard at the left sternal border. No ectopics are heard. Lungs: No wheezes or crackles are heard. Abdomen: Soft and nontender. No masses or guarding are noted. Extremities: There is a shallow ulcer measuring approximately 5 cm maximum diameter in the right lower anterior morocho. There is minimal exudate in the wound. There are several other shallows ulcerative areas that have now formed eschar formation. There is chronic venous stasis pigmentation changes. There is 1+ edema bilateral of the dorsum of feet and lower legs. Neurologic: Mental status: She is talkative and a good historian. Cranial nerves: Smile is symmetric. Forehead wrinkles bilaterally. Tongue protrudes midline. EOMI. Motor: There is no pronator drift. Cerebellar: Finger to nose is intact bilaterally. Skin: Warm and dry
[2018-09-23] MEDS: Metoclopramide 10 MG/10 ML UD.LIQ PO SCH (20:14)
[2018-09-23] MEDS: Carbidopa/Levodopa 25/100 TABLET PO SCH (20:15)
[2018-09-23] MEDS: MOM Conc 10 ML UD.LIQ PO SCH (20:15)
[2018-09-23] MEDS: *HR* Amiodarone 200 MG TABLET PO SCH (20:15)
[2018-09-23] MEDS: tiZANidine 4 MG TABLET PO SCH (20:15)
[2018-09-23] MEDS: *HR* HYDROcodone/Acet 5/325 mg TABLET PO PRN (20:15)
[2018-09-23] MEDS: ALPRAZolam 0.25 MG TABLET PO PRN (20:15)
[2018-09-23] MEDS: Budesonide/Formoterol 80/4.5 1 PUFF INH IH SCH (21:56)
[2018-09-24] MEDS: Ascorbic Acid 500 MG TABLET PO SCH (05:56)
[2018-09-24 06:07] LABS: Hematocrit 27.7 % (35.3-44.9); Hemoglobin 8.7 g/dL (11.5-15.4); Mean Corpuscular HGB Conc 31.4 g/dL (31.6-35.5); Mean Corpuscular Hemoglobin 34.3 pg (28.0-33.3); Mean Corpuscular Volume 109.1 fL (83.0-100.0); Mean Platelet Volume 12.7 fL (9.4-12.4); Platelet Count 202 K/mcL (140-400); Red Blood Count 2.54 M/mcL (3.82-4.97); Red Cell Distribution Width 19.5 % (11.5-14.5); White Blood Count 6.5 K/mcL (4.3-11.1)
[2018-09-24] MEDS: *HR* HYDROcodone/Acet 5/325 mg TABLET PO PRN ×3 (06:12→22:18)
[2018-09-24 06:34] LABS: Digoxin 2.3 ng/mL (0.8-2.0); Magnesium 1.9 mg/dL (1.6-2.6); Potassium 4.7 mEq/L (3.5-5.1)
[2018-09-24] MEDS: Budesonide/Formoterol 80/4.5 1 PUFF INH IH SCH ×2 (09:14→21:49)
--- NOTE | 2018-09-24 09:21 | Internal Med Progress Note ---
Date of Encounter: 09/24/18 Time of Encounter: 09:12 - Assessment and plan (1) Cellulitis Current Visit: No Status: Acute Assessment and plan: September 24. Continue Santyl and gentamicin topical treatment. Qualifiers: Site of cellulitis: extremity Site of cellulitis of extremity: lower extremity Laterality: unspecified laterality Qualified Code(s): L03.119 - Cellulitis of unspecified part of limb (2) Weakness Current Visit: No Status: Chronic Assessment and plan: September 24. Continue PT/OT (3) Pulmonary embolism Current Visit: No Status: Acute Assessment and plan: September 24. Continue to withhold OAC because of anemia with heme positive stools. Qualifiers: Pulmonary embolism type: other Chronicity: unspecified Acute cor pulmonale presence: without acute cor pulmonale Qualified Code(s): I26.99 - Other pulmonary embolism without acute cor pulmonale (4) Anemia Current Visit: No Status: Chronic Assessment and plan: September 24. Anemia testing 09/12/2018 showed iron 21, transferrin saturation 9%, transferrin 165, ferritin 532, B12 625, and folate 20.8. Continue ferrous sulfate with ascorbic acid. Qualifiers: Anemia type: unspecified type Qualified Code(s): D64.9 - Anemia, unspecified (5) Atrial fibrillation Current Visit: No Status: Chronic Assessment and plan: September 24. She declines OAC and antiplatelet agents. Stool was guaiac positive during her recent [facility] stay. Qualifiers: Atrial fibrillation type: paroxysmal Qualified Code(s): I48.0 - Paroxysmal atrial fibrillation (6) CHF (congestive heart failure) Current Visit: No Status: Chronic Assessment and plan: September 24. Continue Bumex, Imdur, and Lopressor. Hold Lanoxin since serum level elevated. She refuses ARB. Qualifiers: Heart failure type: diastolic Heart failure chronicity: acute on chronic Qualified Code(s): I50.33 - Acute on chronic diastolic (congestive) heart failure (7) Diabetes Current Visit: No Status: Chronic Assessment and plan: September 24. Hemoglobin A1c was 7.1% on 07/09/2018. Continue Accu-Cheks with SSI. Qualifiers: Diabetes mellitus type: type 2 Diabetes mellitus intermediate project manager insulin use: with intermediate project manager use Diabetes mellitus complication status: with kidney complications Diabetes mellitus complication detail: with chronic kidney disease Chronic kidney disease stage: stage 4 (severe) Qualified Code(s): E11.22 - Type 2 diabetes mellitus with diabetic chronic kidney disease; N18.4 - Chronic kidney disease, stage 4 (severe); Z79.4 - assisted (current) use of insulin (8) Hypothyroidism Current Visit: No Status: Chronic Assessment and plan: September 24. TSH was normal at 5.514 on 07/09/2018 Continue present dose Synthroid. Qualifiers: Hypothyroidism type: unspecified Qualified Code(s): E03.9 - Hypothyroidism, unspecified (9) MEHRAN on CPAP Current Visit: No Status: Chronic Assessment and plan: September 24. Continue CPAP at bedtime. - Subjective Interval history: . She has no new complaints. - Constitutional Vitals: Temp Pulse Resp BP Pulse Ox 98.4 F 62 16 114/51 99 09/24/18 06:59 09/24/18 06:59 09/24/18 09:15 09/24/18 06:59 09/24/18 09:15 Exam: She is resting comfortably in a recliner chair at bedside. Her lower leg edema is unchanged. There is still serous drainage from the large shallow ulcer on her right leg and 2-3 smaller ulcers on the left leg. I reviewed her medications and lab results. Internal Medicine: Result - Labs CBC & Chem 7: 09/24/18 05:30 09/24/18 05:30 Labs: Short CBC 09/24/18 Range/Units 05:30 WBC 6.5 (4.3-11.1) K/mcL Hgb 8.7 L (11.5-15.4) g/dL Hct 27.7 L (35.3-44.9) % Plt Count 202 (140-400) K/mcL BMP 09/24/18 05:30 Sodium 137 Potassium 4.7 Chloride 98 Carbon Dioxide 33 H BUN 61 H Creatinine 1.52 H Glucose 155 H Calcium 9.0 Consult Discharge Plan - Plan Referrals: Otf Rivera MD [Primary Care Provider] - 1 week
[2018-09-24] MEDS ORDERED: *HR* Dextrose 50 % in Water (Syg) 50 ML SYRINGE IVP PRN (09:43)
[2018-09-24] MEDS ORDERED: D5% in Water 1,000 ML IVC PRN (09:43)
[2018-09-24] MEDS ORDERED: Dextrose Gel 15 GM/37.5 ML TUBE PO PRN ×2 (09:43)
[2018-09-24] MEDS: Gentamicin Oint 15 GM TUBE TP SCH (10:09)
[2018-09-24] MEDS: *HR* Amiodarone 200 MG TABLET PO SCH ×2 (10:10→21:44)
[2018-09-24] MEDS: Magnesium Oxide 400 MG TABLET PO SCH (10:10)
[2018-09-24] MEDS: Cholecalciferol (D-3) 1,000 UNIT (25MCG) TABLET PO SCH (10:10)
[2018-09-24] MEDS: Carbidopa/Levodopa 25/100 TABLET PO SCH ×2 (10:10→21:44)
[2018-09-24] MEDS: FLUoxetine 20 MG CAPSULE PO SCH (10:10)
[2018-09-24] MEDS: Metoclopramide 10 MG/10 ML UD.LIQ PO SCH ×2 (10:10→21:44)
[2018-09-24] MEDS: Isosorbide MONOnitrate (24 HR) 60 MG TAB.ER.24H PO SCH (10:10)
[2018-09-24] MEDS: Bumetanide 1 MG TABLET PO SCH ×2 (10:11→16:30)
[2018-09-24] MEDS: Insulin LISPRO 300 UNITS/3 ML VIAL SQ SCH ×3 (12:02→21:45)
[2018-09-24] MEDS: tiZANidine 4 MG TABLET PO SCH (21:44)
[2018-09-24] MEDS: ALPRAZolam 0.25 MG TABLET PO PRN (22:18)
[2018-09-25] MEDS: Ascorbic Acid 500 MG TABLET PO SCH (06:12)
[2018-09-25] MEDS: Ondansetron ODT 4 MG TAB.RAPDIS SL PRN (06:14)
[2018-09-25] MEDS: *HR* HYDROcodone/Acet 5/325 mg TABLET PO PRN ×2 (06:18→14:41)
[2018-09-25] MEDS: Insulin LISPRO 300 UNITS/3 ML VIAL SQ SCH ×4 (09:36→20:58)
[2018-09-25] MEDS: Carbidopa/Levodopa 25/100 TABLET PO SCH ×2 (09:37→20:58)
[2018-09-25] MEDS: *HR* Amiodarone 200 MG TABLET PO SCH ×2 (09:37→20:57)
[2018-09-25] MEDS: FLUoxetine 20 MG CAPSULE PO SCH (09:37)
[2018-09-25] MEDS: Isosorbide MONOnitrate (24 HR) 60 MG TAB.ER.24H PO SCH (09:37)
[2018-09-25] MEDS: Cholecalciferol (D-3) 1,000 UNIT (25MCG) TABLET PO SCH (09:37)
[2018-09-25] MEDS: ALPRAZolam 0.25 MG TABLET PO PRN (09:37)
[2018-09-25] MEDS: Magnesium Oxide 400 MG TABLET PO SCH (09:37)
[2018-09-25] MEDS: Metoclopramide 10 MG/10 ML UD.LIQ PO SCH ×2 (09:37→20:58)
[2018-09-25] MEDS: Bumetanide 1 MG TABLET PO SCH ×2 (09:38→16:46)
[2018-09-25] MEDS: Acetaminophen 325 MG TABLET PO PRN (09:42)
[2018-09-25] MEDS: Budesonide/Formoterol 80/4.5 1 PUFF INH IH SCH ×2 (12:05→22:00)
[2018-09-25] MEDS: Gentamicin Oint 15 GM TUBE TP SCH (14:42)
[2018-09-25 15:03] LABS: Bilirubin,Urine Negative (Negative); Blood,Urine Negative (Negative); Clarity,Urine Clear (Clear); Color,Urine Yellow (Yellow); Glucose,Urine (UA) Normal (Normal); Ketones,Urine Negative (Negative); Leukocyte Esterase,Urine Small (Negative); Nitrite,Urine Negative (Negative); Protein,Urine Trace mg/dL (Neg-Trace); Urobilinogen,Urine Normal (Normal)
[2018-09-25 15:33] LABS: Bacteria,Urine Moderate per hpf (None-Few); Granular Casts,Urine Few per lpf (None Seen); Hyaline Casts,Urine Few per lpf (None-Few); Mucus,Urine Few (Few); RBC,Urine 0-3 per hpf (0-3); Squamous Epithelial Cell,Urine Moderate per lpf (None-Few); WBC,Urine 15-30 per hpf (0-3)
[2018-09-25] MEDS: tiZANidine 4 MG TABLET PO SCH (20:57)
[2018-09-25] MEDS: MOM Conc 10 ML UD.LIQ PO SCH (20:57)
[2018-09-26] MEDS: ALPRAZolam 0.25 MG TABLET PO PRN ×3 (02:44→18:45)
[2018-09-26] MEDS: *HR* HYDROcodone/Acet 5/325 mg TABLET PO PRN ×3 (02:44→18:45)
[2018-09-26] MEDS: Acetaminophen 325 MG TABLET PO PRN ×2 (06:19→22:28)
[2018-09-26] MEDS: Ascorbic Acid 500 MG TABLET PO SCH (06:19)
[2018-09-26] MEDS: Ondansetron ODT 4 MG TAB.RAPDIS SL PRN ×2 (06:21→18:09)
[2018-09-26] MEDS: Bumetanide 1 MG TABLET PO SCH ×2 (08:19→17:41)
[2018-09-26] MEDS: Isosorbide MONOnitrate (24 HR) 60 MG TAB.ER.24H PO SCH (08:20)
[2018-09-26] MEDS: FLUoxetine 20 MG CAPSULE PO SCH (08:20)
[2018-09-26] MEDS: *HR* Amiodarone 200 MG TABLET PO SCH ×2 (08:21→22:08)
[2018-09-26] MEDS: Cholecalciferol (D-3) 1,000 UNIT (25MCG) TABLET PO SCH (08:21)
[2018-09-26] MEDS: Metoclopramide 10 MG/10 ML UD.LIQ PO SCH ×2 (08:21→22:09)
[2018-09-26] MEDS: Carbidopa/Levodopa 25/100 TABLET PO SCH ×2 (08:21→22:08)
[2018-09-26] MEDS: Magnesium Oxide 400 MG TABLET PO SCH (08:21)
[2018-09-26] MEDS: Insulin LISPRO 300 UNITS/3 ML VIAL SQ SCH ×4 (08:28→22:09)
[2018-09-26] MEDS: Budesonide/Formoterol 80/4.5 1 PUFF INH IH SCH ×2 (10:21→21:54)
--- NOTE | 2018-09-26 13:11 | Internal Med Progress Note ---
Date of Encounter: 09/26/18 Time of Encounter: 13:05 - Assessment and plan (1) Dysuria Current Visit: Yes Status: Acute Assessment and plan: Follow-up the culture and sensitivity symptoms improved (2) Poor appetite Current Visit: Yes Status: Acute Assessment and plan: We will add Remeron monitor for serotonin syndrome since also on fluoxetine (3) Bilateral lower leg cellulitis Current Visit: No Status: Acute Assessment and plan: Continue Santyl and gentamicin topical treatment (4) Anemia Current Visit: No Status: Chronic Assessment and plan: Follow-up with CBC continue ferrous sulfate with ascorbic acid Qualifiers: Anemia type: unspecified type Qualified Code(s): D64.9 - Anemia, unspecified (5) Atrial fibrillation Current Visit: No Status: Chronic Assessment and plan: Paroxysmal she declines OAC a platelet and agents Qualifiers: Atrial fibrillation type: paroxysmal Qualified Code(s): I48.0 - Paroxysmal atrial fibrillation (6) MEHRAN on CPAP Current Visit: No Status: Chronic Assessment and plan: Continue CPAP at night (7) Pulmonary embolism Current Visit: No Status: Acute Assessment and plan: Continue to hold OAC because of anemia and heme positive stool Qualifiers: Pulmonary embolism type: other Chronicity: unspecified Acute cor pulmonale presence: without acute cor pulmonale Qualified Code(s): I26.99 - Other pulmonary embolism without acute cor pulmonale (8) CHF (congestive heart failure) Current Visit: No Status: Chronic Assessment and plan: Stable continue Bumex and her Lopressor good digoxin level and BNP and a BMP tomorrow morning Qualifiers: Heart failure type: diastolic Heart failure chronicity: acute on chronic Qualified Code(s): I50.33 - Acute on chronic diastolic (congestive) heart failure - Time Spent With Patient Greater than 35 minutes - Subjective Interval history: 78-year-old female was admitted here for rehabilitation to Dr. Blake service covering the weekend. She has right leg ulcer with cellulitis or weakness congestive heart failure and other diagnoses. She reports today that she was having dysuria at that time I ordered a urinalysis showed moderate squamous cell moderate bacteria and small leukocyte with C&S, the culture is pending those indicated by the UA. Reports feeling better today no pain with urination, no chest pain or shortness of breath. He is feeling little better thinking clear feeling stronger but she has little appetite she would like to something for appetite. She said [facility] mentioned she was on to her medicines that might interact with each other. Dr. Feldman can look into that more tomorrow. He stopped the digoxin because digoxin level was high at 2.3. Socially she reports her is a shelter now. He tried did not [facility] but apparently was an insurance issue now he is at [facility] at [place]. She feels like she has to to go to a long-term facility also for continued rehabilitation. She reports being in and out of the hospital since April. Pacemaker has been in rehabilitation units. Questions answered concerns addressed - Constitutional Vitals: Temp Pulse Resp BP Pulse Ox 98.3 F 63 17 121/56 98 09/26/18 06:50 09/26/18 06:50 09/25/18 19:00 09/26/18 06:50 09/26/18 06:50 Exam: General: Alert and oriented, no acute distress Lungs: Clear to auscultation bilaterally without wheezing or crackles Heart: Regular rate and rythms without murmer or rubs Abdomen: Soft, nontender, Extremities: Slight edema and redness with a bandage over the right lower morocho area Internal Medicine: Result - Labs CBC & Chem 7: 09/24/18 05:30 09/24/18 05:30 Labs: Urine 09/25/18 Range/Units 14:50 Urine Color Yellow (Yellow) Urine Clarity Clear (Clear) Urine pH 6.0 (5.0-8.0) pH Units Ur Specific [place] 1.010 (1.010-1.025) Urine Protein Trace (Neg-Trace) mg/dL Urine Glucose (UA) Normal (Normal) mg/dL Consult Discharge Plan - Plan Referrals: Otf Rivera MD [Primary Care Provider] - 1 week
[2018-09-26] MEDS: Gentamicin Oint 15 GM TUBE TP SCH (17:41)
[2018-09-26] MEDS: tiZANidine 4 MG TABLET PO SCH (22:08)
[2018-09-26] MEDS: Mirtazapine 15 MG TABLET PO SCH (22:08)
[2018-09-27 04:17] LABS: Basophils # 0.1 K/mcL (0.0-0.2); Basophils % 1.4 %; Eosinophils # 0.3 K/mcL (0.0-0.6); Eosinophils % 4.6 %; Hematocrit 24.3 % (35.3-44.9); Hemoglobin 7.7 g/dL (11.5-15.4); Immature Granulocytes % 1.1 % (0-4); Lymphocytes % 18.4 %; Mean Corpuscular HGB Conc 31.7 g/dL (31.6-35.5); Mean Corpuscular Hemoglobin 34.4 pg (28.0-33.3); Mean Corpuscular Volume 108.5 fL (83.0-100.0); Mean Platelet Volume 11.7 fL (9.4-12.4); Monocytes # 0.6 K/mcL (0.0-1.3); Monocytes % 11.2 %; Neutrophils # 3.6 K/mcL (1.6-8.9); Platelet Count 178 K/mcL (140-400); Red Blood Count 2.24 M/mcL (3.82-4.97); Red Cell Distribution Width 18.9 % (11.5-14.5); Segmented Neutrophils % 63.3 %; White Blood Count 5.6 K/mcL (4.3-11.1)
[2018-09-27 05:32] LABS: Calcium 8.7 mg/dL (8.6-10.3); Digoxin 1.6 ng/mL (0.8-2.0); Potassium 4.3 mEq/L (3.5-5.1)
[2018-09-27] MEDS: *HR* HYDROcodone/Acet 5/325 mg TABLET PO PRN ×3 (06:13→21:59)
[2018-09-27] MEDS: Ascorbic Acid 500 MG TABLET PO SCH (06:13)
[2018-09-27] MEDS: ALPRAZolam 0.25 MG TABLET PO PRN ×2 (06:13→22:24)
[2018-09-27] MEDS: Cholecalciferol (D-3) 1,000 UNIT (25MCG) TABLET PO SCH (08:40)
[2018-09-27] MEDS: Isosorbide MONOnitrate (24 HR) 60 MG TAB.ER.24H PO SCH (08:40)
[2018-09-27] MEDS: Bumetanide 1 MG TABLET PO SCH ×2 (08:40→16:29)
[2018-09-27] MEDS: *HR* Amiodarone 200 MG TABLET PO SCH ×2 (08:41→21:47)
[2018-09-27] MEDS: FLUoxetine 20 MG CAPSULE PO SCH (08:41)
[2018-09-27] MEDS: Carbidopa/Levodopa 25/100 TABLET PO SCH ×2 (08:41→21:47)
[2018-09-27] MEDS: Insulin LISPRO 300 UNITS/3 ML VIAL SQ SCH ×4 (08:41→21:55)
[2018-09-27] MEDS: Magnesium Oxide 400 MG TABLET PO SCH (08:41)
[2018-09-27] MEDS: Metoclopramide 10 MG/10 ML UD.LIQ PO SCH ×2 (08:41→21:49)
[2018-09-27] MEDS: Budesonide/Formoterol 80/4.5 1 PUFF INH IH SCH ×2 (09:17→21:18)
[2018-09-27 09:34] LABS: Estimated Average Glucose 171 mg/dl
[2018-09-27] MEDS: Gentamicin Oint 15 GM TUBE TP SCH (16:35)
--- NOTE | 2018-09-27 18:02 | Internal Med Progress Note ---
Date of Encounter: 09/27/18 Time of Encounter: 17:55 - Assessment and plan (1) Cellulitis Current Visit: No Status: Acute Assessment and plan: September 24. Continue Santyl and gentamicin topical treatment. Qualifiers: Site of cellulitis: extremity Site of cellulitis of extremity: lower extremity Laterality: unspecified laterality Qualified Code(s): L03.119 - Cellulitis of unspecified part of limb (2) Weakness Current Visit: No Status: Chronic Assessment and plan: September 24. Continue PT/OT (3) Pulmonary embolism Current Visit: No Status: Acute Assessment and plan: September 24. Continue to withhold OAC because of anemia with heme positive stools. Qualifiers: Pulmonary embolism type: other Chronicity: unspecified Acute cor pulmonale presence: without acute cor pulmonale Qualified Code(s): I26.99 - Other pulmonary embolism without acute cor pulmonale (4) Anemia Current Visit: No Status: Chronic Assessment and plan: September 24. Anemia testing 09/12/2018 showed iron 21, transferrin saturation 9%, transferrin 165, ferritin 532, B12 625, and folate 20.8. Continue ferrous sulfate with ascorbic acid. September 27. Hemoglobin has decreased to 7.7. Continue to monitor labs. Qualifiers: Anemia type: unspecified type Qualified Code(s): D64.9 - Anemia, unspecified (5) Atrial fibrillation Current Visit: No Status: Chronic Assessment and plan: September 24. She declines OAC and antiplatelet agents. Stool was guaiac positive during her recent [facility] stay. Qualifiers: Atrial fibrillation type: paroxysmal Qualified Code(s): I48.0 - Paroxysmal atrial fibrillation (6) CHF (congestive heart failure) Current Visit: No Status: Chronic Assessment and plan: September 24. Continue Bumex, Imdur, and Lopressor. Hold Lanoxin since serum level elevated. She refuses ARB. September 27. BN peptide has improved further to 687. Continue present Rx. Qualifiers: Heart failure type: diastolic Heart failure chronicity: acute on chronic Qualified Code(s): I50.33 - Acute on chronic diastolic (congestive) heart failure (7) Diabetes Current Visit: No Status: Chronic Assessment and plan: September 24. Hemoglobin A1c was 7.1% on 07/09/2018. Continue Accu-Cheks with SSI. 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 TSH was normal at 5.514 on 07/09/2018 Continue present dose Synthroid. Qualifiers: Hypothyroidism type: unspecified Qualified Code(s): E03.9 - Hypothyroidism, unspecified (9) MEHRAN on CPAP Current Visit: No Status: Chronic Assessment and plan: September 24. Continue CPAP at bedtime. (10) Psoriasis Current Visit: Yes Status: Acute Assessment and plan: September 27. She has a area approximately 1 cm diameter at the inferior/posterior l eft ear lobe. Will Rx topical steroids. - Subjective Interval history: September 24. She has no new complaints. September 27. She has no new complaints except a small psoriasis patch behind her left ear is pruritic. She feels her edema has lessened. He is having less gas after using simethicone. - Constitutional Vitals: Temp Pulse Resp BP Pulse Ox 97.8 F 61 16 135/59 100 09/27/18 07:01 09/27/18 07:01 09/27/18 07:01 09/27/18 07:01 09/27/18 07:01 Exam: She is sitting in a chair at bedside resting comfortably. She has 2+ edema of the lower legs bilaterally. I did not unwrap the gauze dressing in place. I reviewed her medications and lab results. Internal Medicine: Result - Labs CBC & Chem 7: 09/27/18 04:00 09/27/18 04:00 Labs: Short CBC 09/27/18 Range/Units 04:00 WBC 5.6 (4.3-11.1) K/mcL Hgb 7.7 L (11.5-15.4) g/dL Hct 24.3 L (35.3-44.9) % Plt Count 178 (140-400) K/mcL Neutrophils # 3.6 (1.6-8.9) K/mcL BMP 09/27/18 04:00 Sodium 138 Potassium 4.3 Chloride 98 Carbon Dioxide 36 H BUN 62 H Creatinine 1.55 H Glucose 135 H Calcium 8.7 Consult Discharge Plan - Plan Referrals: Otf Rivera MD [Primary Care Provider] - 1 week
[2018-09-27] MEDS: MOM Conc 10 ML UD.LIQ PO SCH (21:46)
[2018-09-27] MEDS: tiZANidine 4 MG TABLET PO SCH (21:48)
[2018-09-27] MEDS: Triamcinolone Acet 0.1% CRM 15 GM TUBE TP SCH (21:48)
[2018-09-27] MEDS: Mirtazapine 15 MG TABLET PO SCH (21:48)
[2018-09-28] MEDS: Ascorbic Acid 500 MG TABLET PO SCH (05:57)
[2018-09-28] MEDS: Insulin LISPRO 300 UNITS/3 ML VIAL SQ SCH ×4 (07:27→21:34)
[2018-09-28] MEDS: Metoclopramide 10 MG/10 ML UD.LIQ PO SCH ×2 (08:39→21:33)
[2018-09-28] MEDS: Magnesium Oxide 400 MG TABLET PO SCH (08:39)
[2018-09-28] MEDS: Bumetanide 1 MG TABLET PO SCH ×2 (08:40→17:34)
[2018-09-28] MEDS: ALPRAZolam 0.25 MG TABLET PO PRN ×2 (08:40→21:31)
[2018-09-28] MEDS: Carbidopa/Levodopa 25/100 TABLET PO SCH ×2 (08:40→21:33)
[2018-09-28] MEDS: Isosorbide MONOnitrate (24 HR) 60 MG TAB.ER.24H PO SCH (08:41)
[2018-09-28] MEDS: *HR* Amiodarone 200 MG TABLET PO SCH ×2 (08:41→21:33)
[2018-09-28] MEDS: *HR* HYDROcodone/Acet 5/325 mg TABLET PO PRN ×2 (08:41→21:32)
[2018-09-28] MEDS: FLUoxetine 20 MG CAPSULE PO SCH (08:41)
[2018-09-28] MEDS: Triamcinolone Acet 0.1% CRM 15 GM TUBE TP SCH ×2 (08:42→21:36)
[2018-09-28] MEDS: Cholecalciferol (D-3) 1,000 UNIT (25MCG) TABLET PO SCH (08:42)
[2018-09-28] MEDS: Budesonide/Formoterol 80/4.5 1 PUFF INH IH SCH ×2 (10:18→22:20)
[2018-09-28] MEDS: Gentamicin Oint 15 GM TUBE TP SCH (10:54)
[2018-09-28] MEDS: Mirtazapine 15 MG TABLET PO SCH (21:32)
[2018-09-28] MEDS: tiZANidine 4 MG TABLET PO SCH (21:32)
[2018-09-29] MEDS: Ascorbic Acid 500 MG TABLET PO SCH (06:37)
[2018-09-29] MEDS: Isosorbide MONOnitrate (24 HR) 60 MG TAB.ER.24H PO SCH (09:28)
[2018-09-29] MEDS: Bumetanide 1 MG TABLET PO SCH ×2 (09:28→17:05)
[2018-09-29] MEDS: *HR* Amiodarone 200 MG TABLET PO SCH ×2 (09:28→20:16)
[2018-09-29] MEDS: Magnesium Oxide 400 MG TABLET PO SCH (09:29)
[2018-09-29] MEDS: FLUoxetine 20 MG CAPSULE PO SCH (09:29)
[2018-09-29] MEDS: *HR* HYDROcodone/Acet 5/325 mg TABLET PO PRN ×2 (09:29→20:18)
[2018-09-29] MEDS: Triamcinolone Acet 0.1% CRM 15 GM TUBE TP SCH ×2 (09:30→20:40)
[2018-09-29] MEDS: Cholecalciferol (D-3) 1,000 UNIT (25MCG) TABLET PO SCH (09:30)
[2018-09-29] MEDS: ALPRAZolam 0.25 MG TABLET PO PRN ×2 (09:30→20:17)
[2018-09-29] MEDS: Carbidopa/Levodopa 25/100 TABLET PO SCH ×2 (09:30→20:18)
[2018-09-29] MEDS: Metoclopramide 10 MG/10 ML UD.LIQ PO SCH ×2 (09:30→20:15)
[2018-09-29] MEDS: Insulin LISPRO 300 UNITS/3 ML VIAL SQ SCH ×4 (09:30→20:40)
[2018-09-29] MEDS: Gentamicin Oint 15 GM TUBE TP SCH (09:31)
[2018-09-29] MEDS: Budesonide/Formoterol 80/4.5 1 PUFF INH IH SCH ×2 (10:36→21:59)
[2018-09-29] MEDS: MOM Conc 10 ML UD.LIQ PO SCH (17:05)
[2018-09-29] MEDS: tiZANidine 4 MG TABLET PO SCH (20:16)
[2018-09-29] MEDS: Mirtazapine 15 MG TABLET PO SCH (20:17)
[2018-09-30] MEDS: Ascorbic Acid 500 MG TABLET PO SCH (06:48)
[2018-09-30 06:49] LABS: Basophils # 0.1 K/mcL (0.0-0.2); Basophils % 1.8 %; Eosinophils # 0.4 K/mcL (0.0-0.6); Eosinophils % 5.6 %; Hematocrit 26.8 % (35.3-44.9); Hemoglobin 8.7 g/dL (11.5-15.4); Immature Granulocytes % 1.3 % (0-4); Lymphocytes % 16.8 %; Mean Corpuscular HGB Conc 32.5 g/dL (31.6-35.5); Mean Corpuscular Hemoglobin 34.8 pg (28.0-33.3); Mean Corpuscular Volume 107.2 fL (83.0-100.0); Mean Platelet Volume 12.3 fL (9.4-12.4); Monocytes # 0.6 K/mcL (0.0-1.3); Monocytes % 9.4 %; Platelet Count 210 K/mcL (140-400); Red Cell Distribution Width 18.9 % (11.5-14.5); Segmented Neutrophils % 65.1 %; White Blood Count 6.2 K/mcL (4.3-11.1)
[2018-09-30] MEDS: Acetaminophen 325 MG TABLET PO PRN (06:54)
[2018-09-30 07:44] LABS: Magnesium 1.9 mg/dL (1.6-2.6); Potassium 4.1 mEq/L (3.5-5.1)
[2018-09-30] MEDS: Isosorbide MONOnitrate (24 HR) 60 MG TAB.ER.24H PO SCH (09:06)
[2018-09-30] MEDS: Carbidopa/Levodopa 25/100 TABLET PO SCH ×2 (09:06→20:49)
[2018-09-30] MEDS: *HR* HYDROcodone/Acet 5/325 mg TABLET PO PRN ×3 (09:06→20:56)
[2018-09-30] MEDS: Cholecalciferol (D-3) 1,000 UNIT (25MCG) TABLET PO SCH (09:06)
[2018-09-30] MEDS: Bumetanide 1 MG TABLET PO SCH ×2 (09:06→17:14)
[2018-09-30] MEDS: FLUoxetine 20 MG CAPSULE PO SCH (09:07)
[2018-09-30] MEDS: Metoclopramide 10 MG/10 ML UD.LIQ PO SCH ×2 (09:07→20:46)
[2018-09-30] MEDS: Magnesium Oxide 400 MG TABLET PO SCH (09:07)
[2018-09-30] MEDS: *HR* Digoxin 0.125 MG TABLET PO SCH (09:07)
[2018-09-30] MEDS: *HR* Amiodarone 200 MG TABLET PO SCH ×2 (09:07→20:49)
[2018-09-30] MEDS: Insulin LISPRO 300 UNITS/3 ML VIAL SQ SCH ×4 (09:08→20:45)
[2018-09-30] MEDS: Triamcinolone Acet 0.1% CRM 15 GM TUBE TP SCH ×2 (09:09→20:51)
[2018-09-30] MEDS: Gentamicin Oint 15 GM TUBE TP SCH (09:09)
[2018-09-30] MEDS: Budesonide/Formoterol 80/4.5 1 PUFF INH IH SCH ×2 (10:37→21:53)
--- NOTE | 2018-09-30 15:37 | Internal Med Progress Note ---
Date of Encounter: 09/30/18 Time of Encounter: 15:30 - Assessment and plan (1) Cellulitis Current Visit: No Status: Acute Assessment and plan: September 24. Continue Santyl and gentamicin topical treatment. Qualifiers: Site of cellulitis: extremity Site of cellulitis of extremity: lower extremity Laterality: unspecified laterality Qualified Code(s): L03.119 - Cellulitis of unspecified part of limb (2) Weakness Current Visit: No Status: Chronic Assessment and plan: September 24. Continue PT/OT (3) Pulmonary embolism Current Visit: No Status: Acute Assessment and plan: September 24. Continue to withhold OAC because of anemia with heme positive stools. Qualifiers: Pulmonary embolism type: other Chronicity: unspecified Acute cor pulmonale presence: without acute cor pulmonale Qualified Code(s): I26.99 - Other pulmonary embolism without acute cor pulmonale (4) Anemia Current Visit: No Status: Chronic Assessment and plan: September 24. Anemia testing 09/12/2018 showed iron 21, transferrin saturation 9%, transferrin 165, ferritin 532, B12 625, and folate 20.8. Continue ferrous sulfate with ascorbic acid. September 27. Hemoglobin has decreased to 7.7. Continue to monitor labs. September 30. Hemoglobin has risen to 8.7. Continue to monitor periodically. Qualifiers: Anemia type: unspecified type Qualified Code(s): D64.9 - Anemia, unspecified (5) Atrial fibrillation Current Visit: No Status: Chronic Assessment and plan: September 24. She declines OAC and antiplatelet agents. Stool was guaiac positive during her recent [facility] stay. Qualifiers: Atrial fibrillation type: paroxysmal Qualified Code(s): I48.0 - Paroxysmal atrial fibrillation (6) CHF (congestive heart failure) Current Visit: No Status: Chronic Assessment and plan: September 24. Continue Bumex, Imdur, and Lopressor. Hold Lanoxin since serum level elevated. She refuses ARB. September 27. BN peptide has improved further to 687. Continue present Rx. September 30. BN peptide has further improved to 601. Continue present Rx. Qualifiers: Heart failure type: diastolic Heart failure chronicity: acute on chronic Qualified Code(s): I50.33 - Acute on chronic diastolic (congestive) heart failure (7) Diabetes Current Visit: No Status: Chronic Assessment and plan: September 24. Hemoglobin A1c was 7.1% on 07/09/2018. Continue Accu-Cheks with SSI. 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 TSH was normal at 5.514 on 07/09/2018 Continue present dose Synthroid. Qualifiers: Hypothyroidism type: unspecified Qualified Code(s): E03.9 - Hypothyroidism, unspecified (9) MEHRAN on CPAP Current Visit: No Status: Chronic Assessment and plan: September 24. Continue CPAP at bedtime. (10) Psoriasis Current Visit: Yes Status: Acute Assessment and plan: September 27. She has a area approximately 1 cm diameter at the inferior/posterior left ear lobe. Will Rx topical steroids. - Subjective Interval history: September 24. She has no new complaints. September 27. She has no new complaints except a small psoriasis patch behind her left ear is pruritic. She feels her edema has lessened. He is having less gas after using simethicone. September 30. She has no new complaints. She has decided she wishes to return home rather than going to SNF when discharged from swing bed. - Constitutional Vitals: Temp Pulse Resp BP Pulse Ox 98 F 63 16 122/56 99 09/30/18 07:56 09/30/18 07:56 09/30/18 10:31 09/30/18 07:56 09/30/18 10:31 Exam: She is resting comfortably in a recliner with her feet elevated and appears in no acute distress. Extremities show 1-2+ edema bilaterally of the dorsum the feet and lower legs. There is gauze wrap on her lower legs bilaterally which I did not remove. I reviewed her medications and lab results. Internal Medicine: Result - Labs CBC & Chem 7: 09/30/18 06:26 09/30/18 06:26 Labs: Short CBC 09/30/18 Range/Units 06:26 WBC 6.2 (4.3-11.1) K/mcL Hgb 8.7 L (11.5-15.4) g/dL Hct 26.8 L (35.3-44.9) % Plt Count 210 (140-400) K/mcL Neutrophils # 4.0 (1.6-8.9) K/mcL [facility] 09/30/18 06:26 Sodium 140 Potassium 4.1 Chloride 98 Carbon Dioxide 34 H BUN 60 H Creatinine 1.43 H Glucose 154 H Calcium 9.0 Consult Discharge Plan - Plan Referrals: Otf Rivera MD [Primary Care Provider] - 1 week
[2018-09-30] MEDS: Mirtazapine 15 MG TABLET PO SCH (20:47)
[2018-09-30] MEDS: tiZANidine 4 MG TABLET PO SCH (20:48)
[2018-09-30] MEDS: ALPRAZolam 0.25 MG TABLET PO PRN (20:56)
[2018-10-01] MEDS: Ascorbic Acid 500 MG TABLET PO SCH (05:01)
[2018-10-01] MEDS: Acetaminophen 325 MG TABLET PO PRN ×2 (05:01→13:06)
[2018-10-01] MEDS: *HR* Amiodarone 200 MG TABLET PO SCH ×2 (09:06→21:28)
[2018-10-01] MEDS: Insulin LISPRO 300 UNITS/3 ML VIAL SQ SCH ×4 (09:06→21:26)
[2018-10-01] MEDS: Metoclopramide 10 MG/10 ML UD.LIQ PO SCH ×2 (09:07→21:25)
[2018-10-01] MEDS: Carbidopa/Levodopa 25/100 TABLET PO SCH ×2 (09:07→21:25)
[2018-10-01] MEDS: Isosorbide MONOnitrate (24 HR) 60 MG TAB.ER.24H PO SCH (09:07)
[2018-10-01] MEDS: Magnesium Oxide 400 MG TABLET PO SCH (09:07)
[2018-10-01] MEDS: Cholecalciferol (D-3) 1,000 UNIT (25MCG) TABLET PO SCH (09:07)
[2018-10-01] MEDS: FLUoxetine 20 MG CAPSULE PO SCH (09:07)
[2018-10-01] MEDS: *HR* HYDROcodone/Acet 5/325 mg TABLET PO PRN ×2 (09:08→18:28)
[2018-10-01] MEDS: Bumetanide 1 MG TABLET PO SCH ×2 (09:08→18:15)
[2018-10-01] MEDS: Triamcinolone Acet 0.1% CRM 15 GM TUBE TP SCH ×2 (09:09→21:30)
[2018-10-01] MEDS: Budesonide/Formoterol 80/4.5 1 PUFF INH IH SCH ×2 (12:12→22:00)
[2018-10-01] MEDS: Ondansetron ODT 4 MG TAB.RAPDIS SL PRN (13:06)
[2018-10-01] MEDS: Gentamicin Oint 15 GM TUBE TP SCH (15:10)
[2018-10-01] MEDS: MOM Conc 10 ML UD.LIQ PO SCH (18:31)
[2018-10-01] MEDS: tiZANidine 4 MG TABLET PO SCH (21:25)
[2018-10-01] MEDS: Mirtazapine 15 MG TABLET PO SCH (21:26)
[2018-10-02] MEDS: *HR* HYDROcodone/Acet 5/325 mg TABLET PO PRN ×3 (03:37→20:16)
[2018-10-02] MEDS: Ascorbic Acid 500 MG TABLET PO SCH (06:07)
[2018-10-02] MEDS: Cholecalciferol (D-3) 1,000 UNIT (25MCG) TABLET PO SCH (08:07)
[2018-10-02] MEDS: Bumetanide 1 MG TABLET PO SCH ×2 (08:07→18:00)
[2018-10-02] MEDS: Metoclopramide 10 MG/10 ML UD.LIQ PO SCH ×2 (08:07→20:05)
[2018-10-02] MEDS: FLUoxetine 20 MG CAPSULE PO SCH (08:07)
[2018-10-02] MEDS: Carbidopa/Levodopa 25/100 TABLET PO SCH ×2 (08:08→20:05)
[2018-10-02] MEDS: Isosorbide MONOnitrate (24 HR) 60 MG TAB.ER.24H PO SCH (08:08)
[2018-10-02] MEDS: *HR* Amiodarone 200 MG TABLET PO SCH ×2 (08:08→20:04)
[2018-10-02] MEDS: Insulin LISPRO 300 UNITS/3 ML VIAL SQ SCH ×4 (08:09→20:05)
[2018-10-02] MEDS: *HR* Digoxin 0.125 MG TABLET PO SCH (08:09)
[2018-10-02] MEDS: Magnesium Oxide 400 MG TABLET PO SCH (08:09)
[2018-10-02] MEDS: Triamcinolone Acet 0.1% CRM 15 GM TUBE TP SCH ×2 (10:12→20:06)
[2018-10-02] MEDS: Gentamicin Oint 15 GM TUBE TP SCH (10:12)
[2018-10-02] MEDS: Fluticasone Propionate Nasal 50 MCG/SPRAY BOTTLE NS SCH (10:59)
[2018-10-02] MEDS: Budesonide/Formoterol 80/4.5 1 PUFF INH IH SCH ×2 (11:36→22:43)
[2018-10-02] MEDS: Mirtazapine 15 MG TABLET PO SCH (20:04)
[2018-10-02] MEDS: tiZANidine 4 MG TABLET PO SCH (20:05)
[2018-10-02] MEDS: ALPRAZolam 0.25 MG TABLET PO PRN (20:16)
[2018-10-03] MEDS: Ascorbic Acid 500 MG TABLET PO SCH (05:30)
[2018-10-03] MEDS: *HR* HYDROcodone/Acet 5/325 mg TABLET PO PRN ×3 (05:30→20:37)
[2018-10-03] MEDS: Bumetanide 1 MG TABLET PO SCH ×2 (08:39→18:40)
[2018-10-03] MEDS: Metoclopramide 10 MG/10 ML UD.LIQ PO SCH ×2 (08:39→20:33)
[2018-10-03] MEDS: FLUoxetine 20 MG CAPSULE PO SCH (08:40)
[2018-10-03] MEDS: Cholecalciferol (D-3) 1,000 UNIT (25MCG) TABLET PO SCH (08:40)
[2018-10-03] MEDS: Magnesium Oxide 400 MG TABLET PO SCH (08:40)
[2018-10-03] MEDS: Carbidopa/Levodopa 25/100 TABLET PO SCH ×2 (08:40→20:38)
[2018-10-03] MEDS: *HR* Amiodarone 200 MG TABLET PO SCH ×2 (08:40→20:37)
[2018-10-03] MEDS: Isosorbide MONOnitrate (24 HR) 60 MG TAB.ER.24H PO SCH (08:40)
[2018-10-03] MEDS: Fluticasone Propionate Nasal 50 MCG/SPRAY BOTTLE NS SCH (08:41)
[2018-10-03] MEDS: Insulin LISPRO 300 UNITS/3 ML VIAL SQ SCH ×4 (08:41→20:35)
[2018-10-03] MEDS: Triamcinolone Acet 0.1% CRM 15 GM TUBE TP SCH ×2 (08:41→20:35)
[2018-10-03] MEDS: Gentamicin Oint 15 GM TUBE TP SCH (09:22)
[2018-10-03] MEDS: Budesonide/Formoterol 80/4.5 1 PUFF INH IH SCH ×2 (10:32→23:08)
[2018-10-03] MEDS: Ondansetron ODT 4 MG TAB.RAPDIS SL PRN ×2 (13:19→18:44)
--- NOTE | 2018-10-03 15:05 | Internal Med Progress Note ---
Date of Encounter: 10/03/18 Time of Encounter: 14:55 - Assessment and plan (1) Cellulitis Current Visit: No Status: Inactive Assessment and plan: September 24. Continue Santyl and gentamicin topical treatment. Qualifiers: Site of cellulitis: extremity Site of cellulitis of extremity: lower extremity Laterality: unspecified laterality Qualified Code(s): L03.119 - Cellulitis of unspecified part of limb (2) Weakness Current Visit: No Status: Chronic Assessment and plan: September 24. Continue PT/OT (3) Pulmonary embolism Current Visit: No Status: Acute Assessment and plan: September 24. Continue to withhold OAC because of anemia with heme positive stools. Qualifiers: Pulmonary embolism type: other Chronicity: unspecified Acute cor pulmonale presence: without acute cor pulmonale Qualified Code(s): I26.99 - Other pulmonary embolism without acute cor pulmonale (4) Anemia Current Visit: No Status: Chronic Assessment and plan: September 24. Anemia testing 09/12/2018 showed iron 21, transferrin saturation 9%, transferrin 165, ferritin 532, B12 625, and folate 20.8. Continue ferrous sulfate with ascorbic acid. September 27. Hemoglobin has decreased to 7.7. Continue to monitor labs. September 30. Hemoglobin has risen to 8.7. Continue to monitor periodically. Qualifiers: Anemia type: unspecified type Qualified Code(s): D64.9 - Anemia, unspecified (5) Atrial fibrillation Current Visit: No Status: Chronic Assessment and plan: September 24. She declines OAC and antiplatelet agents. Stool was guaiac positive during her recent [facility] stay. Qualifiers: Atrial fibrillation type: paroxysmal Qualified Code(s): I48.0 - Paroxysmal atrial fibrillation (6) CHF (congestive heart failure) Current Visit: No Status: Chronic Assessment and plan: September 24. Continue Bumex, Imdur, and Lopressor. Hold Lanoxin since serum level elevated. She refuses ARB. September 27. BN peptide has improved further to 687. Continue present Rx. September 30. BN peptide has further improved to 601. Continue present Rx. Qualifiers: Heart failure type: diastolic Heart failure chronicity: acute on chronic Qualified Code(s): I50.33 - Acute on chronic diastolic (congestive) heart failure (7) Diabetes Current Visit: No Status: Chronic Assessment and plan: September 24. Hemoglobin A1c was 7.1% on 07/09/2018. Continue Accu-Cheks with SSI. 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 TSH was normal at 5.514 on 07/09/2018 Continue present dose Synthroid. Qualifiers: Hypothyroidism type: unspecified Qualified Code(s): E03.9 - Hypothyroidism, unspecified (9) MEHRAN on CPAP Current Visit: No Status: Chronic Assessment and plan: September 24. Continue CPAP at bedtime. (10) Psoriasis Current Visit: Yes Status: Acute Assessment and plan: September 27. She has a area approximately 1 cm diameter at the inferior/posterior left ear lobe. Will Rx topical steroids. - Subjective Interval history: September 24. She has no new complaints. September 27. She has no new complaints except a small psoriasis patch behind her left ear is pruritic. She feels her edema has lessened. He is having less gas after using simethicone. September 30. She has no new complaints. She has decided she wishes to return home rather than going to SNF when discharged from swing bed. October 03. She has no new complaints and feels better. She has learned she cannot get anticipated additional help at home so has chosen to go to SNF when a bed becomes available. - Constitutional Vitals: Temp Pulse Resp BP Pulse Ox 98.3 F 62 18 150/75 98 10/03/18 08:17 10/03/18 08:17 10/03/18 08:17 10/03/18 08:17 10/03/18 08:17 Exam: She is resting comfortably in a chair at bedside with her feet elevated. He denies dyspnea. She has 1+ edema of the dorsal feet and lower legs bilaterally. She has gauze on her lower legs which I did not unwrap. I reviewed her medications and lab results. Internal Medicine: Result - Labs CBC & Chem 7: 09/30/18 06:26 09/30/18 06:26 Consult Discharge Plan - Plan Referrals: Otf Rivera MD [Primary Care Provider] - 1 week
[2018-10-03] MEDS: MOM Conc 10 ML UD.LIQ PO SCH (18:59)
[2018-10-03] MEDS: Mirtazapine 15 MG TABLET PO SCH (20:37)
[2018-10-03] MEDS: ALPRAZolam 0.25 MG TABLET PO PRN (20:37)
[2018-10-03] MEDS: tiZANidine 4 MG TABLET PO SCH (20:37)
[2018-10-04] MEDS: Ascorbic Acid 500 MG TABLET PO SCH (06:28)
[2018-10-04] MEDS: Cholecalciferol (D-3) 1,000 UNIT (25MCG) TABLET PO SCH (09:14)
[2018-10-04] MEDS: *HR* HYDROcodone/Acet 5/325 mg TABLET PO PRN ×2 (09:14→22:38)
[2018-10-04] MEDS: Magnesium Oxide 400 MG TABLET PO SCH (09:15)
[2018-10-04] MEDS: ALPRAZolam 0.25 MG TABLET PO PRN ×2 (09:17→22:38)
[2018-10-04] MEDS: Bumetanide 1 MG TABLET PO SCH ×2 (09:17→16:25)
[2018-10-04] MEDS: *HR* Amiodarone 200 MG TABLET PO SCH ×2 (09:17→22:25)
[2018-10-04] MEDS: Carbidopa/Levodopa 25/100 TABLET PO SCH ×2 (09:17→22:25)
[2018-10-04] MEDS: Isosorbide MONOnitrate (24 HR) 60 MG TAB.ER.24H PO SCH (09:17)
[2018-10-04] MEDS: *HR* Digoxin 0.125 MG TABLET PO SCH (09:18)
[2018-10-04] MEDS: FLUoxetine 20 MG CAPSULE PO SCH (09:18)
[2018-10-04] MEDS: Metoclopramide 10 MG/10 ML UD.LIQ PO SCH ×2 (09:18→22:25)
[2018-10-04] MEDS: Insulin LISPRO 300 UNITS/3 ML VIAL SQ SCH ×4 (09:22→22:26)
[2018-10-04] MEDS: Fluticasone Propionate Nasal 50 MCG/SPRAY BOTTLE NS SCH (09:23)
[2018-10-04] MEDS: Triamcinolone Acet 0.1% CRM 15 GM TUBE TP SCH ×2 (09:23→22:27)
[2018-10-04] MEDS: Budesonide/Formoterol 80/4.5 1 PUFF INH IH SCH ×2 (10:22→22:08)
[2018-10-04] MEDS: Gentamicin Oint 15 GM TUBE TP SCH (12:10)
[2018-10-04] MEDS: Acetaminophen 325 MG TABLET PO PRN (12:23)
[2018-10-04] MEDS: tiZANidine 4 MG TABLET PO SCH (22:24)
[2018-10-04] MEDS: Mirtazapine 15 MG TABLET PO SCH (22:25)
[2018-10-05] MEDS: Ascorbic Acid 500 MG TABLET PO SCH (06:17)
[2018-10-05] MEDS: Fluticasone Propionate Nasal 50 MCG/SPRAY BOTTLE NS SCH (08:33)
[2018-10-05] MEDS: Insulin LISPRO 300 UNITS/3 ML VIAL SQ SCH ×4 (08:33→20:16)
[2018-10-05] MEDS: Metoclopramide 10 MG/10 ML UD.LIQ PO SCH ×2 (08:36→20:15)
[2018-10-05] MEDS: Magnesium Oxide 400 MG TABLET PO SCH (08:36)
[2018-10-05] MEDS: ALPRAZolam 0.25 MG TABLET PO PRN (08:36)
[2018-10-05] MEDS: Carbidopa/Levodopa 25/100 TABLET PO SCH ×2 (08:36→20:14)
[2018-10-05] MEDS: Cholecalciferol (D-3) 1,000 UNIT (25MCG) TABLET PO SCH (08:36)
[2018-10-05] MEDS: FLUoxetine 20 MG CAPSULE PO SCH (08:36)
[2018-10-05] MEDS: Bumetanide 1 MG TABLET PO SCH ×2 (08:36→16:53)
[2018-10-05] MEDS: *HR* Amiodarone 200 MG TABLET PO SCH ×2 (08:37→20:14)
[2018-10-05] MEDS: *HR* HYDROcodone/Acet 5/325 mg TABLET PO PRN (08:37)
[2018-10-05] MEDS: Triamcinolone Acet 0.1% CRM 15 GM TUBE TP SCH ×2 (08:37→20:15)
[2018-10-05] MEDS: Isosorbide MONOnitrate (24 HR) 60 MG TAB.ER.24H PO SCH (08:37)
[2018-10-05] MEDS: Gentamicin Oint 15 GM TUBE TP SCH (08:38)
[2018-10-05] MEDS: Budesonide/Formoterol 80/4.5 1 PUFF INH IH SCH ×2 (14:21→20:44)
[2018-10-05] MEDS: MOM Conc 10 ML UD.LIQ PO SCH (16:54)
[2018-10-05] MEDS: Mirtazapine 15 MG TABLET PO SCH (20:14)
[2018-10-05] MEDS: tiZANidine 4 MG TABLET PO SCH (20:14)
[2018-10-05] MEDS: Acetaminophen 325 MG TABLET PO PRN (20:44)
[2018-10-06] MEDS: ALPRAZolam 0.25 MG TABLET PO PRN ×2 (00:30→21:58)
[2018-10-06] MEDS: *HR* HYDROcodone/Acet 5/325 mg TABLET PO PRN ×2 (00:30→22:00)
[2018-10-06] MEDS: Ascorbic Acid 500 MG TABLET PO SCH (05:45)
[2018-10-06 06:03] LABS: Basophils # 0.1 K/mcL (0.0-0.2); Basophils % 1.2 %; Eosinophils # 0.3 K/mcL (0.0-0.6); Eosinophils % 5.7 %; Hematocrit 25.3 % (35.3-44.9); Immature Granulocytes % 1.6 % (0-4); Lymphocytes # 1.2 K/mcL (0.6-4.6); Lymphocytes % 23.6 %; Mean Corpuscular HGB Conc 31.6 g/dL (31.6-35.5); Mean Corpuscular Hemoglobin 34.8 pg (28.0-33.3); Mean Platelet Volume 11.8 fL (9.4-12.4); Monocytes # 0.5 K/mcL (0.0-1.3); Platelet Count 188 K/mcL (140-400); Red Cell Distribution Width 19.3 % (11.5-14.5); Segmented Neutrophils % 57.9 %; White Blood Count 5.1 K/mcL (4.3-11.1)
[2018-10-06 06:25] LABS: Calcium 8.7 mg/dL (8.6-10.3); Digoxin 1.4 ng/mL (0.8-2.0)
[2018-10-06] MEDS: Insulin LISPRO 300 UNITS/3 ML VIAL SQ SCH ×4 (07:39→21:59)
[2018-10-06] MEDS: Bumetanide 1 MG TABLET PO SCH ×2 (07:39→16:49)
[2018-10-06] MEDS: Isosorbide MONOnitrate (24 HR) 60 MG TAB.ER.24H PO SCH (08:55)
[2018-10-06] MEDS: FLUoxetine 20 MG CAPSULE PO SCH (08:55)
[2018-10-06] MEDS: Cholecalciferol (D-3) 1,000 UNIT (25MCG) TABLET PO SCH (08:56)
[2018-10-06] MEDS: *HR* Digoxin 0.125 MG TABLET PO SCH (08:56)
[2018-10-06] MEDS: Magnesium Oxide 400 MG TABLET PO SCH (08:56)
[2018-10-06] MEDS: *HR* Amiodarone 200 MG TABLET PO SCH ×2 (08:56→21:58)
[2018-10-06] MEDS: Carbidopa/Levodopa 25/100 TABLET PO SCH ×2 (08:56→21:58)
[2018-10-06] MEDS: Metoclopramide 10 MG/10 ML UD.LIQ PO SCH ×2 (08:57→21:57)
[2018-10-06] MEDS: Fluticasone Propionate Nasal 50 MCG/SPRAY BOTTLE NS SCH (08:57)
[2018-10-06] MEDS: Gentamicin Oint 15 GM TUBE TP SCH (09:00)
[2018-10-06] MEDS: Triamcinolone Acet 0.1% CRM 15 GM TUBE TP SCH ×2 (09:00→21:59)
[2018-10-06] MEDS: Acetaminophen 325 MG TABLET PO PRN (10:01)
[2018-10-06] MEDS: Budesonide/Formoterol 80/4.5 1 PUFF INH IH SCH ×2 (11:00→22:08)
--- NOTE | 2018-10-06 17:34 | Internal Med Progress Note ---
Date of Encounter: 10/06/18 Time of Encounter: 17:25 - Assessment and plan (1) Cellulitis Current Visit: No Status: Acute Assessment and plan: September 24. Continue Santyl and gentamicin topical treatment. Qualifiers: Site of cellulitis: extremity Site of cellulitis of extremity: lower extremity Laterality: unspecified laterality Qualified Code(s): L03.119 - Cellulitis of unspecified part of limb (2) Weakness Current Visit: No Status: Chronic Assessment and plan: September 24. Continue PT/OT October 06. Continued therapy. She has agreed to transition to SNF when a bed becomes available. (3) Pulmonary embolism Current Visit: No Status: Acute Assessment and plan: September 24. Continue to withhold OAC because of anemia with heme positive stools. Qualifiers: Pulmonary embolism type: other Chronicity: unspecified Acute cor pulmonale presence: without acute cor pulmonale Qualified Code(s): I26.99 - Other pulmonary embolism without acute cor pulmonale (4) Anemia Current Visit: No Status: Chronic Assessment and plan: September 24. Anemia testing 09/12/2018 showed iron 21, transferrin saturation 9%, transferrin 165, ferritin 532, B12 625, and folate 20.8. Continue ferrous sulfate with ascorbic acid. September 27. Hemoglobin has decreased to 7.7. Continue to monitor labs. September 30. Hemoglobin has risen to 8.7. Continue to monitor periodically. October 06. Hemoglobin 8.0 today. Continue to monitor periodically. Qualifiers: Anemia type: unspecified type Qualified Code(s): D64.9 - Anemia, unspecified (5) Atrial fibrillation Current Visit: No Status: Chronic Assessment and plan: September 24. She declines OAC and antiplatelet agents. Stool was guaiac positive during her recent [facility] stay. Qualifiers: Atrial fibrillation type: paroxysmal Qualified Code(s): I48.0 - Paroxysmal atrial fibrillation (6) CHF (congestive heart failure) Current Visit: No Status: Chronic Assessment and plan: September 24. Continue Bumex, Imdur, and Lopressor. Hold Lanoxin since serum level elevated. She refuses ARB. September 27. BN peptide has improved further to 687. Continue present Rx. September 30. BN peptide has further improved to 601. Continue present Rx. October 06. BN peptide was 639 today. Continue Lopressor and Lanoxin. Qualifiers: Heart failure type: diastolic Heart failure chronicity: acute on chronic Qualified Code(s): I50.33 - Acute on chronic diastolic (congestive) heart failure (7) Diabetes Current Visit: No Status: Chronic Assessment and plan: September 24. Hemoglobin A1c was 7.1% on 07/09/2018. Continue Accu-Cheks with SSI. 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 TSH was normal at 5.514 on 07/09/2018 Continue present dose Synthroid. Qualifiers: Hypothyroidism type: unspecified Qualified Code(s): E03.9 - Hypothyroidism, unspecified (9) MEHRAN on CPAP Current Visit: No Status: Chronic Assessment and plan: September 24. Continue CPAP at bedtime. (10) Psoriasis Current Visit: Yes Status: Acute Assessment and plan: September 27. She has a area approximately 1 cm diameter at the inferior/posterior left ear lobe. Will Rx topical steroids. October 06. Improving. Continue Kenalog. - Subjective Interval history: September 24. She has no new complaints. September 27. She has no new complaints except a small psoriasis patch behind her left ear is pruritic. She feels her edema has lessened. He is having less gas after using simethicone. September 30. She has no new complaints. She has decided she wishes to return home rather than going to SNF when discharged from swing bed. October 03. She has no new complaints and feels better. She has learned she cannot get anticipated additional help at home so has chosen to go to SNF when a bed becomes available. October 06. She has no new complaints. - Constitutional Vitals: Temp Pulse Resp BP Pulse Ox 97.9 F 71 16 145/80 99 10/06/18 07:09 10/06/18 08:54 10/06/18 07:09 10/06/18 08:54 10/06/18 07:09 Exam: She is resting comfortably in a chair at bedside. Her lower legs show trace to 1+ edema of the dorsum of the feet. She is wearing gauze wraps bilaterally on her lower legs which I did not remove. The area of psoriasis below her left earlobe appears stable. I reviewed her medications and lab results. Internal Medicine: Result - Labs CBC & Chem 7: 10/06/18 05:34 10/06/18 05:34 Labs: Short CBC 10/06/18 Range/Units 05:34 WBC 5.1 (4.3-11.1) K/mcL Hgb 8.0 L (11.5-15.4) g/dL Hct 25.3 L (35.3-44.9) % Plt Count 188 (140-400) K/mcL Neutrophils # 3.0 (1.6-8.9) K/mcL BMP 10/06/18 05:34 Sodium 142 Potassium 4.0 Chloride 101 Carbon Dioxide 34 H BUN 61 H Creatinine 1.37 H Glucose 138 H Calcium 8.7 Consult Discharge Plan - Plan Referrals: Otf Rivera MD [Primary Care Provider] - 1 week
[2018-10-06] MEDS: Mirtazapine 15 MG TABLET PO SCH (21:58)
[2018-10-06] MEDS: tiZANidine 4 MG TABLET PO SCH (21:59)
[2018-10-07] MEDS: Ascorbic Acid 500 MG TABLET PO SCH (06:28)
[2018-10-07] MEDS: Cholecalciferol (D-3) 1,000 UNIT (25MCG) TABLET PO SCH (08:23)
[2018-10-07] MEDS: FLUoxetine 20 MG CAPSULE PO SCH (08:23)
[2018-10-07] MEDS: Isosorbide MONOnitrate (24 HR) 60 MG TAB.ER.24H PO SCH (08:23)
[2018-10-07] MEDS: Bumetanide 1 MG TABLET PO SCH ×2 (08:24→18:29)
[2018-10-07] MEDS: Magnesium Oxide 400 MG TABLET PO SCH (08:24)
[2018-10-07] MEDS: *HR* Amiodarone 200 MG TABLET PO SCH ×2 (08:24→21:53)
[2018-10-07] MEDS: Carbidopa/Levodopa 25/100 TABLET PO SCH ×2 (08:24→21:52)
[2018-10-07] MEDS: Triamcinolone Acet 0.1% CRM 15 GM TUBE TP SCH (08:25)
[2018-10-07] MEDS: Fluticasone Propionate Nasal 50 MCG/SPRAY BOTTLE NS SCH (08:25)
[2018-10-07] MEDS: Insulin LISPRO 300 UNITS/3 ML VIAL SQ SCH ×4 (08:26→22:35)
[2018-10-07] MEDS: Metoclopramide 10 MG/10 ML UD.LIQ PO SCH ×2 (08:41→21:53)
[2018-10-07] MEDS: Acetaminophen 325 MG TABLET PO PRN ×2 (08:41→14:53)
[2018-10-07] MEDS: Budesonide/Formoterol 80/4.5 1 PUFF INH IH SCH ×2 (09:45→22:18)
[2018-10-07] MEDS: MOM Conc 10 ML UD.LIQ PO SCH (18:30)
[2018-10-07] MEDS: tiZANidine 4 MG TABLET PO SCH (21:52)
[2018-10-07] MEDS: Mirtazapine 15 MG TABLET PO SCH (21:52)
[2018-10-07] MEDS: *HR* HYDROcodone/Acet 5/325 mg TABLET PO PRN (21:52)
[2018-10-07] MEDS: ALPRAZolam 0.25 MG TABLET PO PRN (21:52)
[2018-10-07] MEDS: Gentamicin Oint 15 GM TUBE TP SCH (22:20)
[2018-10-08] MEDS: Triamcinolone Acet 0.1% CRM 15 GM TUBE TP SCH ×3 (00:11→20:19)
[2018-10-08] MEDS: Ascorbic Acid 500 MG TABLET PO SCH (05:33)
[2018-10-08] MEDS: Acetaminophen 325 MG TABLET PO PRN ×2 (05:39→16:49)
[2018-10-08] MEDS: Gentamicin Oint 15 GM TUBE TP SCH ×2 (07:42→22:28)
[2018-10-08] MEDS: Insulin LISPRO 300 UNITS/3 ML VIAL SQ SCH ×5 (08:10→20:16)
[2018-10-08] MEDS: FLUoxetine 20 MG CAPSULE PO SCH (08:15)
[2018-10-08] MEDS: Carbidopa/Levodopa 25/100 TABLET PO SCH ×2 (08:15→20:07)
[2018-10-08] MEDS: Magnesium Oxide 400 MG TABLET PO SCH (08:15)
[2018-10-08] MEDS: ALPRAZolam 0.25 MG TABLET PO PRN ×2 (08:16→22:28)
[2018-10-08] MEDS: *HR* Digoxin 0.125 MG TABLET PO SCH (08:16)
[2018-10-08] MEDS: Bumetanide 1 MG TABLET PO SCH ×2 (08:16→16:48)
[2018-10-08] MEDS: Cholecalciferol (D-3) 1,000 UNIT (25MCG) TABLET PO SCH (08:16)
[2018-10-08] MEDS: *HR* HYDROcodone/Acet 5/325 mg TABLET PO PRN ×2 (08:17→20:06)
[2018-10-08] MEDS: *HR* Amiodarone 200 MG TABLET PO SCH ×2 (08:17→20:07)
[2018-10-08] MEDS: Isosorbide MONOnitrate (24 HR) 60 MG TAB.ER.24H PO SCH (08:17)
[2018-10-08] MEDS: Metoclopramide 10 MG/10 ML UD.LIQ PO SCH ×2 (08:18→20:06)
[2018-10-08] MEDS: Fluticasone Propionate Nasal 50 MCG/SPRAY BOTTLE NS SCH (08:18)
[2018-10-08] MEDS: Budesonide/Formoterol 80/4.5 1 PUFF INH IH SCH ×2 (09:16→22:41)
--- NOTE | 2018-10-08 16:19 | Internal Med Progress Note ---
Date of Encounter: 10/08/18 Time of Encounter: 16:05 - Assessment and plan (1) Cellulitis Current Visit: No Status: Acute Assessment and plan: September 24. Continue Santyl and gentamicin topical treatment. Qualifiers: Site of cellulitis: extremity Site of cellulitis of extremity: lower extremity Laterality: unspecified laterality Qualified Code(s): L03.119 - Cellulitis of unspecified part of limb (2) Weakness Current Visit: No Status: Chronic Assessment and plan: September 24. Continue PT/OT October 06. Continued therapy. She has agreed to transition to SNF when a bed becomes available. (3) Pulmonary embolism Current Visit: No Status: Acute Assessment and plan: September 24. Continue to withhold OAC because of anemia with heme positive stools. Qualifiers: Pulmonary embolism type: other Chronicity: unspecified Acute cor pulmonale presence: without acute cor pulmonale Qualified Code(s): I26.99 - Other pulmonary embolism without acute cor pulmonale (4) Anemia Current Visit: No Status: Chronic Assessment and plan: September 24. Anemia testing 09/12/2018 showed iron 21, transferrin saturation 9%, transferrin 165, ferritin 532, B12 625, and folate 20.8. Continue ferrous sulfate with ascorbic acid. September 27. Hemoglobin has decreased to 7.7. Continue to monitor labs. September 30. Hemoglobin has risen to 8.7. Continue to monitor periodically. October 06. Hemoglobin 8.0 today. Continue to monitor periodically. Qualifiers: Anemia type: unspecified type Qualified Code(s): D64.9 - Anemia, unspecified (5) Atrial fibrillation Current Visit: No Status: Chronic Assessment and plan: September 24. She declines OAC and antiplatelet agents. Stool was guaiac positive during her recent [facility] stay. Qualifiers: Atrial fibrillation type: paroxysmal Qualified Code(s): I48.0 - Paroxysmal atrial fibrillation (6) CHF (congestive heart failure) Current Visit: No Status: Chronic Assessment and plan: September 24. Continue Bumex, Imdur, and Lopressor. Hold Lanoxin since serum level elevated. She refuses ARB. September 27. BN peptide has improved further to 687. Continue present Rx. September 30. BN peptide has further improved to 601. Continue present Rx. October 06. BN peptide was 639 today. Continue Lopressor and Lanoxin. Qualifiers: Heart failure type: diastolic Heart failure chronicity: acute on chronic Qualified Code(s): I50.33 - Acute on chronic diastolic (congestive) heart failure (7) Diabetes Current Visit: No Status: Chronic Assessment and plan: September 24. Hemoglobin A1c was 7.1% on 07/09/2018. Continue Accu-Cheks with SSI. Qualifiers: Diabetes mellitus type: type 2 Diabetes mellitus termite helper insulin use: with care home use Diabetes mellitus complication status: with kidney complications Diabetes mellitus complication detail: with chronic kidney disease Chronic kidney disease stage: stage 4 (severe) Qualified Code(s): E11.22 - Type 2 diabetes mellitus with diabetic chronic kidney disease; N18.4 - Chronic kidney disease, stage 4 (severe); Z79.4 - [facility] (current) use of insulin (8) Hypothyroidism Current Visit: No Status: Chronic Assessment and plan: September 24. TSH was normal at 5.514 on 07/09/2018 Continue present dose Synthroid. Qualifiers: Hypothyroidism type: unspecified Qualified Code(s): E03.9 - Hypothyroidism, unspecified (9) MEHRAN on CPAP Current Visit: No Status: Chronic Assessment and plan: September 24. Continue CPAP at bedtime. (10) Psoriasis Current Visit: Yes Status: Acute Assessment and plan: September 27. She has a area approximately 1 cm diameter at the inferior/posterior left ear lobe. Will Rx topical steroids. October 06. Improving. Continue Kenalog. (11) Headache Current Visit: Yes Status: Acute Assessment and plan: October 08. Continue oral analgesics as ordered. Flonase will be discontinued and she will be given Oxymetazoline nose spray. She will also be given meclizine for complaints of dizziness. Qualifiers: Headache type: unspecified Headache chronicity pattern: episodic headache Intractability: not intractable Qualified Code(s): R51 - Headache - Subjective Interval history: September 24. She has no new complaints. September 27. She has no new complaints except a small psoriasis patch behind her left ear is pruritic. She feels her edema has lessened. He is having less gas after using simethicone. September 30. She has no new complaints. She has decided she wishes to return home rather than going to SNF when discharged from swing bed. October 03. She has no new complaints and feels better. She has learned she ca nnot get anticipated additional help at home so has chosen to go to SNF when a bed becomes available. October 06. She has no new complaints. October 08. She complains of "sinus headache" and sensation of dizziness/vertigo when she bends her head down and raises up again. - Constitutional Vitals: Temp Pulse Resp BP Pulse Ox 97.4 F L 60 16 144/66 100 10/08/18 07:29 10/08/18 07:29 10/08/18 07:29 10/08/18 07:29 10/08/18 07:29 Exam: She is sitting in a chair at bedside and appears in no acute distress. She has trace pitting edema of the dorsum of feet and lower legs bilaterally. The shallow ulcerative area on her right lower leg is significantly smaller than previous examination. I reviewed her medications and lab results. Internal Medicine: Result - Labs CBC & Chem 7: 10/06/18 05:34 10/06/18 05:34 Consult Discharge Plan - Plan Referrals: Otf Rivera MD [Primary Care Provider] - 1 week
[2018-10-08] MEDS: Oxymetazoline Nasal SPRAY BOTTLE NS SCH (16:48)
[2018-10-08] MEDS: tiZANidine 4 MG TABLET PO SCH (20:06)
[2018-10-08] MEDS: Mirtazapine 15 MG TABLET PO SCH (20:07)
[2018-10-09] MEDS: Ascorbic Acid 500 MG TABLET PO SCH (06:08)
[2018-10-09] MEDS: Oxymetazoline Nasal SPRAY BOTTLE NS SCH ×2 (06:09→16:53)
[2018-10-09 06:16] LABS: Basophils # 0.1 K/mcL (0.0-0.2); Basophils % 1.6 %; Eosinophils # 0.4 K/mcL (0.0-0.6); Eosinophils % 6.7 %; Hematocrit 28.8 % (35.3-44.9); Immature Granulocytes % 1.9 % (0-4); Lymphocytes % 16.6 %; Mean Corpuscular HGB Conc 31.3 g/dL (31.6-35.5); Mean Corpuscular Volume 112.1 fL (83.0-100.0); Mean Platelet Volume 12.2 fL (9.4-12.4); Monocytes # 0.7 K/mcL (0.0-1.3); Monocytes % 10.7 %; Neutrophils # 3.9 K/mcL (1.6-8.9); Platelet Count 220 K/mcL (140-400); Red Blood Count 2.57 M/mcL (3.82-4.97); Red Cell Distribution Width 19.5 % (11.5-14.5); Segmented Neutrophils % 62.5 %; White Blood Count 6.3 K/mcL (4.3-11.1)
[2018-10-09 06:32] LABS: Calcium 8.9 mg/dL (8.6-10.3); Digoxin 1.9 ng/mL (0.8-2.0); Magnesium 1.9 mg/dL (1.6-2.6); Potassium 4.1 mEq/L (3.5-5.1)
[2018-10-09 07:28] LABS: Macrocytosis Present (Not Present); Platelet Estimate Normal (Normal); Polychromasia 1+ (Not Present)
[2018-10-09] MEDS: Carbidopa/Levodopa 25/100 TABLET PO SCH ×2 (09:31→20:26)
[2018-10-09] MEDS: Isosorbide MONOnitrate (24 HR) 60 MG TAB.ER.24H PO SCH (09:31)
[2018-10-09] MEDS: *HR* Amiodarone 200 MG TABLET PO SCH ×2 (09:31→20:26)
[2018-10-09] MEDS: Magnesium Oxide 400 MG TABLET PO SCH (09:31)
[2018-10-09] MEDS: FLUoxetine 20 MG CAPSULE PO SCH (09:32)
[2018-10-09] MEDS: Bumetanide 1 MG TABLET PO SCH ×2 (09:32→16:53)
[2018-10-09] MEDS: Cholecalciferol (D-3) 1,000 UNIT (25MCG) TABLET PO SCH (09:32)
[2018-10-09] MEDS: Metoclopramide 10 MG/10 ML UD.LIQ PO SCH ×2 (09:34→20:22)
[2018-10-09] MEDS: Triamcinolone Acet 0.1% CRM 15 GM TUBE TP SCH ×2 (09:34→20:31)
[2018-10-09] MEDS: Insulin LISPRO 300 UNITS/3 ML VIAL SQ SCH ×4 (09:36→20:31)
[2018-10-09] MEDS: *HR* HYDROcodone/Acet 5/325 mg TABLET PO PRN ×2 (09:52→20:26)
[2018-10-09] MEDS: Budesonide/Formoterol 80/4.5 1 PUFF INH IH SCH ×2 (11:46→21:34)
[2018-10-09] MEDS: MOM Conc 10 ML UD.LIQ PO SCH (20:21)
[2018-10-09] MEDS: Ondansetron ODT 4 MG TAB.RAPDIS SL PRN (20:24)
[2018-10-09] MEDS: Mirtazapine 15 MG TABLET PO SCH (20:24)
[2018-10-09] MEDS: ALPRAZolam 0.25 MG TABLET PO PRN (20:25)
[2018-10-09] MEDS: tiZANidine 4 MG TABLET PO SCH (20:25)
[2018-10-09] MEDS: Gentamicin Oint 15 GM TUBE TP SCH (20:27)
[2018-10-10] MEDS: Ascorbic Acid 500 MG TABLET PO SCH (06:36)
[2018-10-10] MEDS: Oxymetazoline Nasal SPRAY BOTTLE NS SCH ×2 (06:36→17:20)
[2018-10-10] MEDS: Bumetanide 1 MG TABLET PO SCH ×2 (07:57→17:19)
[2018-10-10] MEDS: Isosorbide MONOnitrate (24 HR) 60 MG TAB.ER.24H PO SCH (07:58)
[2018-10-10] MEDS: Magnesium Oxide 400 MG TABLET PO SCH (07:58)
[2018-10-10] MEDS: FLUoxetine 20 MG CAPSULE PO SCH (07:58)
[2018-10-10] MEDS: *HR* Amiodarone 200 MG TABLET PO SCH ×2 (07:58→20:08)
[2018-10-10] MEDS: Carbidopa/Levodopa 25/100 TABLET PO SCH ×2 (07:58→20:09)
[2018-10-10] MEDS: *HR* Digoxin 0.125 MG TABLET PO SCH (07:58)
[2018-10-10] MEDS: Cholecalciferol (D-3) 1,000 UNIT (25MCG) TABLET PO SCH (07:58)
[2018-10-10] MEDS: Metoclopramide 10 MG/10 ML UD.LIQ PO SCH ×2 (07:58→20:09)
[2018-10-10] MEDS: Triamcinolone Acet 0.1% CRM 15 GM TUBE TP SCH ×2 (08:00→20:11)
[2018-10-10] MEDS: Insulin LISPRO 300 UNITS/3 ML VIAL SQ SCH ×4 (08:00→20:10)
[2018-10-10] MEDS: *HR* HYDROcodone/Acet 5/325 mg TABLET PO PRN ×3 (09:30→20:09)
--- NOTE | 2018-10-10 11:27 | Internal Med Progress Note ---
Date of Encounter: 10/10/18 Time of Encounter: 11:17 - Assessment and plan (1) Cellulitis Current Visit: No Status: Acute Assessment and plan: September 24. Continue Santyl and gentamicin topical treatment. Qualifiers: Site of cellulitis: extremity Site of cellulitis of extremity: lower extremity Laterality: unspecified laterality Qualified Code(s): L03.119 - Cellulitis of unspecified part of limb (2) Weakness Current Visit: No Status: Chronic Assessment and plan: September 24. Continue PT/OT October 06. Continued therapy. She has agreed to transition to SNF when a bed becomes available. (3) Pulmonary embolism Current Visit: No Status: Acute Assessment and plan: September 24. Continue to withhold OAC because of anemia with heme positive stools. Qualifiers: Pulmonary embolism type: other Chronicity: unspecified Acute cor pulmonale presence: without acute cor pulmonale Qualified Code(s): I26.99 - Other pulmonary embolism without acute cor pulmonale (4) Anemia Current Visit: No Status: Chronic Assessment and plan: September 24. Anemia testing 09/12/2018 showed iron 21, transferrin saturation 9%, transferrin 165, ferritin 532, B12 625, and folate 20.8. Continue ferrous sulfate with ascorbic acid. September 27. Hemoglobin has decreased to 7.7. Continue to monitor labs. September 30. Hemoglobin has risen to 8.7. Continue to monitor periodically. October 06. Hemoglobin 8.0 today. Continue to monitor periodically. October 10. Hemoglobin 9.0 yesterday. Continue to monitor. Qualifiers: Anemia type: unspecified type Qualified Code(s): D64.9 - Anemia, unspecifie d (5) Atrial fibrillation Current Visit: No Status: Chronic Assessment and plan: September 24. She declines OAC and antiplatelet agents. Stool was guaiac positive during her recent [facility] stay. Qualifiers: Atrial fibrillation type: paroxysmal Qualified Code(s): I48.0 - Paroxysmal atrial fibrillation (6) CHF (congestive heart failure) Current Visit: No Status: Chronic Assessment and plan: September 24. Continue Bumex, Imdur, and Lopressor. Hold Lanoxin since serum level elevated. She refuses ARB. September 27. BN peptide has improved further to 687. Continue present Rx. September 30. BN peptide has further improved to 601. Continue present Rx. October 06. BN peptide was 639 today. Continue Lopressor and Lanoxin. October 10. BN peptide 659 yesterday. Continue to monitor periodically. Qualifiers: Heart failure type: diastolic Heart failure chronicity: acute on chronic Qualified Code(s): I50.33 - Acute on chronic diastolic (congestive) heart failure (7) Diabetes Current Visit: No Status: Chronic Assessment and plan: September 24. Hemoglobin A1c was 7.1% on 07/09/2018. Continue Accu-Cheks with SSI. Qualifiers: Diabetes mellitus type: type 2 Diabetes mellitus residential insulin use: with residential use Diabetes mellitus complication status: with kidney complications Diabetes mellitus complication detail: with chronic kidney disease Chronic kidney disease stage: stage 4 (severe) Qualified Code(s): E1 1.22 - Type 2 diabetes mellitus with diabetic chronic kidney disease; N18.4 - Chronic kidney disease, stage 4 (severe); Z79.4 - [facility] (current) use of insulin (8) Hypothyroidism Current Visit: No Status: Chronic Assessment and plan: September 24. TSH was normal at 5.514 on 07/09/2018 Continue present dose Synthroid. Qualifiers: Hypothyroidism type: unspecified Qualified Code(s): E03.9 - Hypothyroidism, unspecified (9) MEHRAN on CPAP Current Visit: No Status: Chronic Assessment and plan: September 24. Continue CPAP at bedtime. (10) Psoriasis Current Visit: Yes Status: Acute Assessment and plan: September 27. She has a area approximately 1 cm diameter at the inferior/posterior left ear lobe. Will Rx topical steroids. October 06. Improving. Continue Kenalog. (11) Headache Current Visit: Yes Status: Acute Assessment and plan: October 08. Continue oral analgesics as ordered. Flonase will be discontinued and she will be given Oxymetazoline nose spray. She will also be given meclizine for complaints of dizziness. Qualifiers: Headache type: unspecified Headache chronicity pattern: episodic headache Intractability: not intractable Qualified Code(s): R51 - Headache - Subjective Interval history: September 24. She has no new complaints. September 27. She has no new complaints except a small psoriasis patch behind her left ear is pruritic. She feels her edema has lessened. He is having less gas after using simethicone. September 30. She has no new complaints. She has decided she wishes to return home rather than going to SNF when discharged from swing bed. October 03. She has no new complaints and feels better. She has learned she cannot get anticipated additional help at home so has chosen to go to SNF when a bed becomes available. October 06. She has no new complaints. October 08. She complains of "sinus headache" and sensation of dizziness/vertigo when she bends her head down and raises up again. October 10. She states she is blowing yellow/green mucus from her nose. She thinks her headache has slightly lessened. She has no new complaints. - Constitutional Vitals: Temp Pulse Resp BP Pulse Ox 98.0 F 62 18 155/63 99 10/10/18 07:51 10/10/18 07:51 10/10/18 07:51 10/10/18 07:51 10/10/18 07:51 Exam: She is resting comfortably in chair at bedside with her legs elevated on the recliner leg support. Her affect is overall cheerful. Extremities show trace to 1+ pitting edema bilaterally. Shallow ulcer showed continued healing. I reviewed her medications and lab results. Internal Medicine: Result - Labs CBC & Chem 7: 10/09/18 05:52 10/09/18 05:52 Consult Discharge Plan - Plan Referrals: Otf Rivera MD [Primary Care Provider] - 1 week
[2018-10-10] MEDS: Budesonide/Formoterol 80/4.5 1 PUFF INH IH SCH ×2 (16:02→22:20)
[2018-10-10] MEDS: tiZANidine 4 MG TABLET PO SCH (20:08)
[2018-10-10] MEDS: ALPRAZolam 0.25 MG TABLET PO PRN (20:09)
[2018-10-10] MEDS: Mirtazapine 15 MG TABLET PO SCH (20:09)
[2018-10-10] MEDS: Gentamicin Oint 15 GM TUBE TP SCH (20:11)
[2018-10-11] MEDS: Oxymetazoline Nasal SPRAY BOTTLE NS SCH (06:32)
[2018-10-11] MEDS: Ascorbic Acid 500 MG TABLET PO SCH (06:32)
[2018-10-11] MEDS: Bumetanide 1 MG TABLET PO SCH ×2 (09:15→16:41)
[2018-10-11] MEDS: Metoclopramide 10 MG/10 ML UD.LIQ PO SCH ×2 (09:15→20:20)
[2018-10-11] MEDS: Isosorbide MONOnitrate (24 HR) 60 MG TAB.ER.24H PO SCH (09:15)
[2018-10-11] MEDS: Cholecalciferol (D-3) 1,000 UNIT (25MCG) TABLET PO SCH (09:15)
[2018-10-11] MEDS: FLUoxetine 20 MG CAPSULE PO SCH (09:15)
[2018-10-11] MEDS: Carbidopa/Levodopa 25/100 TABLET PO SCH ×2 (09:16→20:18)
[2018-10-11] MEDS: Triamcinolone Acet 0.1% CRM 15 GM TUBE TP SCH ×2 (09:16→20:20)
[2018-10-11] MEDS: *HR* Amiodarone 200 MG TABLET PO SCH ×2 (09:16→20:18)
[2018-10-11] MEDS: *HR* Digoxin 0.125 MG TABLET PO SCH (09:16)
[2018-10-11] MEDS: Magnesium Oxide 400 MG TABLET PO SCH (09:16)
[2018-10-11] MEDS: Insulin LISPRO 300 UNITS/3 ML VIAL SQ SCH ×4 (09:19→20:21)
[2018-10-11] MEDS: *HR* HYDROcodone/Acet 5/325 mg TABLET PO PRN ×2 (09:33→20:19)
[2018-10-11] MEDS: Budesonide/Formoterol 80/4.5 1 PUFF INH IH SCH ×2 (10:33→22:53)
[2018-10-11] MEDS: Acetaminophen 325 MG TABLET PO PRN ×2 (12:08→16:41)
[2018-10-11] MEDS: ALPRAZolam 0.25 MG TABLET PO PRN (20:18)
[2018-10-11] MEDS: tiZANidine 4 MG TABLET PO SCH (20:18)
[2018-10-11] MEDS: Mirtazapine 15 MG TABLET PO SCH (20:19)
[2018-10-11] MEDS: Gentamicin Oint 15 GM TUBE TP SCH (20:20)
[2018-10-11] MEDS: MOM Conc 10 ML UD.LIQ PO SCH (20:23)
[2018-10-12] MEDS: Ascorbic Acid 500 MG TABLET PO SCH (06:27)
[2018-10-12] MEDS: Acetaminophen 325 MG TABLET PO PRN (06:29)
[2018-10-12] MEDS: Isosorbide MONOnitrate (24 HR) 60 MG TAB.ER.24H PO SCH (08:18)
[2018-10-12] MEDS: Carbidopa/Levodopa 25/100 TABLET PO SCH ×2 (08:18→20:17)
[2018-10-12] MEDS: Metoclopramide 10 MG/10 ML UD.LIQ PO SCH ×2 (08:18→20:15)
[2018-10-12] MEDS: FLUoxetine 20 MG CAPSULE PO SCH (08:18)
[2018-10-12] MEDS: *HR* Amiodarone 200 MG TABLET PO SCH ×2 (08:18→20:16)
[2018-10-12] MEDS: Magnesium Oxide 400 MG TABLET PO SCH (08:18)
[2018-10-12] MEDS: Cholecalciferol (D-3) 1,000 UNIT (25MCG) TABLET PO SCH (08:18)
[2018-10-12] MEDS: Bumetanide 1 MG TABLET PO SCH ×2 (08:18→16:55)
[2018-10-12] MEDS: Triamcinolone Acet 0.1% CRM 15 GM TUBE TP SCH ×2 (08:20→20:18)
[2018-10-12] MEDS: Insulin LISPRO 300 UNITS/3 ML VIAL SQ SCH ×4 (08:22→22:12)
[2018-10-12] MEDS: Budesonide/Formoterol 80/4.5 1 PUFF INH IH SCH ×2 (09:14→21:28)
[2018-10-12] MEDS: Ondansetron ODT 4 MG TAB.RAPDIS SL PRN (12:21)
[2018-10-12] MEDS: tiZANidine 4 MG TABLET PO SCH (20:16)
[2018-10-12] MEDS: Mirtazapine 15 MG TABLET PO SCH (20:16)
[2018-10-12] MEDS: ALPRAZolam 0.25 MG TABLET PO PRN (20:22)
[2018-10-12] MEDS: *HR* HYDROcodone/Acet 5/325 mg TABLET PO PRN (20:22)
[2018-10-12] MEDS: Gentamicin Oint 15 GM TUBE TP SCH (20:29)
[2018-10-13] MEDS: Ascorbic Acid 500 MG TABLET PO SCH (06:42)
[2018-10-13] MEDS: Insulin LISPRO 300 UNITS/3 ML VIAL SQ SCH ×4 (07:19→20:20)
[2018-10-13] MEDS: Metoclopramide 10 MG/10 ML UD.LIQ PO SCH ×2 (08:37→20:19)
[2018-10-13] MEDS: FLUoxetine 20 MG CAPSULE PO SCH (08:38)
[2018-10-13] MEDS: *HR* Digoxin 0.125 MG TABLET PO SCH (08:38)
[2018-10-13] MEDS: Bumetanide 1 MG TABLET PO SCH ×2 (08:38→15:54)
[2018-10-13] MEDS: Cholecalciferol (D-3) 1,000 UNIT (25MCG) TABLET PO SCH (08:39)
[2018-10-13] MEDS: *HR* Amiodarone 200 MG TABLET PO SCH ×2 (08:39→20:18)
[2018-10-13] MEDS: Magnesium Oxide 400 MG TABLET PO SCH (08:39)
[2018-10-13] MEDS: Isosorbide MONOnitrate (24 HR) 60 MG TAB.ER.24H PO SCH (08:39)
[2018-10-13] MEDS: Carbidopa/Levodopa 25/100 TABLET PO SCH ×2 (08:39→20:19)
[2018-10-13] MEDS: Triamcinolone Acet 0.1% CRM 15 GM TUBE TP SCH ×2 (08:40→21:01)
[2018-10-13] MEDS: *HR* HYDROcodone/Acet 5/325 mg TABLET PO PRN ×2 (08:45→21:00)
[2018-10-13] MEDS: Budesonide/Formoterol 80/4.5 1 PUFF INH IH SCH ×2 (10:00→21:59)
[2018-10-13] MEDS: MOM Conc 10 ML UD.LIQ PO SCH (15:56)
[2018-10-13] MEDS: Acetaminophen 325 MG TABLET PO PRN (15:57)
--- NOTE | 2018-10-13 18:38 | Internal Med Progress Note ---
Date of Encounter: 10/13/18 Time of Encounter: 18:32 - Assessment and plan (1) Cellulitis Current Visit: No Status: Acute Assessment and plan: September 24. Continue Santyl and gentamicin topical treatment. Qualifiers: Site of cellulitis: extremity Site of cellulitis of extremity: lower extremity Laterality: unspecified laterality Qualified Code(s): L03.119 - Cellulitis of unspecified part of limb (2) Weakness Current Visit: No Status: Chronic Assessment and plan: September 24. Continue PT/OT October 06. Continued therapy. She has agreed to transition to SNF when a bed becomes available. October 13. Anticipate discharge to SNF October 15. (3) Pulmonary embolism Current Visit: No Status: Acute Assessment and plan: September 24. Continue to withhold OAC because of anemia with heme positive stools. Qualifiers: Pulmonary embolism type: other Chronicity: unspecified Acute cor pulmonale presence: without acute cor pulmonale Qualified Code(s): I26.99 - Other pulmonary embolism without acute cor pulmonale (4) Anemia Current Visit: No Status: Chronic Assessment and plan: September 24. Anemia testing 09/12/2018 showed iron 21, transferrin saturation 9%, transferrin 165, ferritin 532, B12 625, and folate 20.8. Continue ferrous sulfate with ascorbic acid. September 27. Hemoglobin has decreased to 7.7. Continue to monitor labs. September 30. Hemoglobin has risen to 8.7. Continue to monitor periodically. October 06. Hemoglobin 8.0 today. Continue to monitor periodically. October 10. Hemoglobin 9.0 yesterday. Continue to monitor. Qualifiers: Anemia type: unspecified type Qualified Code(s): D64.9 - Anemia, unspecified (5) Atrial fibrillation Current Visit: No Status: Chronic Assessment and plan: September 24. She declines OAC and antiplatelet agents. Stool was guaiac positive during her recent [facility] stay. Qualifiers: Atrial fibrillation type: paroxysmal Qualified Code(s): I48.0 - Paroxysmal atrial fibrillation (6) CHF (congestive heart failure) Current Visit: No Status: Chronic Assessment and plan: September 24. Continue Bumex, Imdur, and Lopressor. Hold Lanoxin since serum level elevated. She refuses ARB. September 27. BN peptide has improved further to 687. Continue present Rx. September 30. BN peptide has further improved to 601. Continue present Rx. October 06. BN peptide was 639 today. Continue Lopressor and Lanoxin. October 10. BN peptide 659 yesterday. Continue to monitor periodically. Qualifiers: Heart failure type: diastolic Heart failure chronicity: acute on chronic Qualified Code(s): I50.33 - Acute on chronic diastolic (congestive) heart failure (7) Diabetes Current Visit: No Status: Chronic Assessment and plan: September 24. Hemoglobin A1c was 7.1% on 07/09/2018. Continue Accu-Cheks with SSI. Qualifiers: Diabetes mellitus type: type 2 Diabetes mellitus [facility]cc insulin use: with [facility]cc use Diabetes mellitus complication status: with kidney complications Diabetes mellitus complication detail: with chronic kidney disease Chronic kidney disease stage: stage 4 (severe) Qualified Code(s): E11.22 - Type 2 diabetes mellitus with diabetic chronic kidney disease; N18.4 - Chronic kidney disease, stage 4 (severe); Z79.4 - terminal worker (current) use of insulin (8) Hypothyroidism Current Visit: No Status: Chronic Assessment and plan: September 24. TSH was normal at 5.514 on 07/09/2018 Continue present dose Synthroid. Qualifiers: Hypothyroidism type: unspecified Qualified Code(s): E03.9 - Hypothyroidism, unspecified (9) MEHRAN on CPAP Current Visit: No Status: Chronic Assessment and plan: September 24. Continue CPAP at bedtime. (10) Psoriasis Current Visit: Yes Status: Acute Assessment and plan: September 27. She has a area approximately 1 cm diameter at the inferior/posterior left ear lobe. Will Rx topical steroids. October 06. Improving. Continue Kenalog. October 13. She will see dermatology tomorrow. (11) Headache Current Visit: Yes Status: Acute Assessment and plan: October 08. Continue oral analgesics as ordered. Flonase will be discontinued and she will be given Oxymetazoline nose spray. She will also be given meclizine for complaints of dizziness. Qualifiers: Headache type: unspecified Headache chronicity pattern: episodic headache Intractability: not intractable Qualified Code(s): R51 - Headache - Subjective Interval history: September 24. She has no new complaints. September 27. She has no new complaints except a small psoriasis patch behind her left ear is pruritic. She feels her edema has lessened. He is having less gas after using simethicone. September 30. She has no new complaints. She has decided she wishes to return home rather than going to SNF when discharged from swing bed. October 03. She has no new complaints and feels better. She has learned she cannot get anticipated additional help at home so has chosen to go to SNF when a bed becomes available. October 06. She has no new complaints. October 08. She complains of "sinus headache" and sensation of dizziness/vertigo when she bends her head down and raises up again. October 10. She states she is blowing yellow/green mucus from her nose. She thinks her headache has slightly lessened. She has no new complaints. October 13. She has no new complaints. - Constitutional Vitals: Temp Pulse Resp BP Pulse Ox 97.8 F 73 17 150/73 98 10/13/18 07:14 10/13/18 07:14 10/13/18 07:14 10/13/18 07:14 10/13/18 07:14 Exam: She is sitting up in chair at bedside resting comfortably. Extremities show unchanged edema. Her affect is bright and cheerful. I reviewed her medications and lab results. Internal Medicine: Result - Labs CBC & Chem 7: 10/09/18 05:52 10/09/18 05:52 Consult Discharge Plan - Plan Referrals: Otf Rivera MD [Primary Care Provider] - 1 week
[2018-10-13] MEDS: Mirtazapine 15 MG TABLET PO SCH (20:19)
[2018-10-13] MEDS: tiZANidine 4 MG TABLET PO SCH (20:19)
[2018-10-13] MEDS: ALPRAZolam 0.25 MG TABLET PO PRN (21:00)
[2018-10-13] MEDS: Gentamicin Oint 15 GM TUBE TP SCH (23:16)
[2018-10-14] MEDS: Ascorbic Acid 500 MG TABLET PO SCH (06:17)
[2018-10-14] MEDS: ALPRAZolam 0.25 MG TABLET PO PRN ×2 (08:07→22:14)
[2018-10-14] MEDS: *HR* HYDROcodone/Acet 5/325 mg TABLET PO PRN ×2 (08:07→22:15)
[2018-10-14] MEDS: Carbidopa/Levodopa 25/100 TABLET PO SCH ×2 (08:07→21:59)
[2018-10-14] MEDS: Magnesium Oxide 400 MG TABLET PO SCH (08:07)
[2018-10-14] MEDS: Cholecalciferol (D-3) 1,000 UNIT (25MCG) TABLET PO SCH (08:07)
[2018-10-14] MEDS: *HR* Amiodarone 200 MG TABLET PO SCH ×2 (08:07→22:00)
[2018-10-14] MEDS: Metoclopramide 10 MG/10 ML UD.LIQ PO SCH ×2 (08:08→22:00)
[2018-10-14] MEDS: Insulin LISPRO 300 UNITS/3 ML VIAL SQ SCH ×4 (08:08→22:01)
[2018-10-14] MEDS: Isosorbide MONOnitrate (24 HR) 60 MG TAB.ER.24H PO SCH (08:08)
[2018-10-14] MEDS: Bumetanide 1 MG TABLET PO SCH ×2 (08:11→17:16)
[2018-10-14] MEDS: Triamcinolone Acet 0.1% CRM 15 GM TUBE TP SCH ×2 (08:11→22:15)
[2018-10-14] MEDS: FLUoxetine 20 MG CAPSULE PO SCH (08:11)
[2018-10-14] MEDS: Budesonide/Formoterol 80/4.5 1 PUFF INH IH SCH ×2 (11:41→22:02)
[2018-10-14] MEDS: tiZANidine 4 MG TABLET PO SCH (22:00)
[2018-10-14] MEDS: Mirtazapine 15 MG TABLET PO SCH (22:00)
[2018-10-14] MEDS: Gentamicin Oint 15 GM TUBE TP SCH (22:15)
[2018-10-15] MEDS: Ascorbic Acid 500 MG TABLET PO SCH (06:10)
[2018-10-15 07:39] VITALS: BP 140/66
[2018-10-15] MEDS: Insulin LISPRO 300 UNITS/3 ML VIAL SQ SCH ×2 (08:44→12:09)
[2018-10-15] MEDS: Bumetanide 1 MG TABLET PO SCH (08:54)
[2018-10-15] MEDS: Metoclopramide 10 MG/10 ML UD.LIQ PO SCH (08:54)
[2018-10-15] MEDS: FLUoxetine 20 MG CAPSULE PO SCH (08:54)
[2018-10-15] MEDS: Isosorbide MONOnitrate (24 HR) 60 MG TAB.ER.24H PO SCH (08:55)
[2018-10-15] MEDS: Magnesium Oxide 400 MG TABLET PO SCH (08:55)
[2018-10-15] MEDS: *HR* Digoxin 0.125 MG TABLET PO SCH (08:55)
[2018-10-15] MEDS: Carbidopa/Levodopa 25/100 TABLET PO SCH (08:55)
[2018-10-15] MEDS: *HR* Amiodarone 200 MG TABLET PO SCH (08:55)
[2018-10-15] MEDS: Triamcinolone Acet 0.1% CRM 15 GM TUBE TP SCH (08:55)
[2018-10-15] MEDS: Cholecalciferol (D-3) 1,000 UNIT (25MCG) TABLET PO SCH (08:55)
[2018-10-15] MEDS: ALPRAZolam 0.25 MG TABLET PO PRN (09:05)
[2018-10-15] MEDS: *HR* HYDROcodone/Acet 5/325 mg TABLET PO PRN (09:05)
--- NOTE | 2018-10-15 11:12 | Discharge Summary ---
Date of Encounter: 10/15/18 Time of Encounter: 11:03 - Discharge Diagnosis (1) Cellulitis Priority: Primary Status: Resolved Qualifiers: Site of cellulitis: extremity Site of cellulitis of extremity: lower extremity Laterality: unspecified laterality Qualified Code(s): L03.119 - Cellulitis of unspecified part of limb (2) Weakness Priority: Secondary Status: Chronic (3) Pulmonary embolism Priority: Secondary Status: Acute Qualifiers: Pulmonary embolism type: other Chronicity: unspecified Acute cor pulmonale presence: without acute cor pulmonale Qualified Code(s): I26.99 - Other pulmonary embolism without acute cor pulmonale (4) Anemia Priority: Secondary Status: Chronic Qualifiers: Anemia type: unspecified type Qualified Code(s): D64.9 - Anemia, unspeci fied (5) Atrial fibrillation Priority: Secondary Status: Chronic Qualifiers: Atrial fibrillation type: paroxysmal Qualified Code(s): I48.0 - Paroxysmal atrial fibrillation (6) CHF (congestive heart failure) Priority: Secondary Status: Chronic Qualifiers: Heart failure type: diastolic Heart failure chronicity: acute on chronic Qualified Code(s): I50.33 - Acute on chronic diastolic (congestive) heart failure (7) Diabetes Priority: Secondary Status: Chronic Qualifiers: Diabetes mellitus type: type 2 Diabetes mellitus 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 control 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 insulin use: with termite control servicer use Diabetes mellitus complication status: with kidney complications Diabetes mellitus complication detail: with chronic kidney disease Chronic kidney disease stage: stage 4 (severe) Qualified Code(s): E11.22 - Type 2 diabetes mellitus with diabetic chronic kidney disease; N18.4 - Chronic kidney disease, stage 4 (severe); Z79.4 - terminal manager (current) use of insulin (8) Hypothyroidism Priority: Secondary Status: Chronic Qualifiers: Hypothyroidism type: unspecified Qualified Code(s): E03.9 - Hypothyroidism, unspecified (9) MEHRAN on CPAP Priority: Secondary Status: Chronic (10) Psoriasis Priority: Secondary Status: Chronic Hospital course: Ms. Whitmore is a 78 year old female who came to emergency room following discharge from [facility] swing bed the previous day stating she was unable to care for herself at home. She had been hospitalized in acute-care followed by swing bed stay and had requested to leave on September 22. Home health services were arranged. She reports her home health nurse saw her today and told her her legs were infected and she should return to the hospital. She was evaluated in ER and stated she wished to be readmitted to swing bed for ongoing care needs. I saw her September 23 and performed a swing bed history and physical. She was given topical Santyl and gentamicin to the shallow ulcer on her right lower leg. The ulcer had healed by day of discharge to SNF. She had ongoing PT and OT intervention. She agreed to transition to SNF when a bed became available since she felt unable to care for self at home. OAC was declined because of anemia with heme positive stools during her previous [facility] hospitalization. She also declined subcutaneous Lovenox and antiplatelet agents. Anemia testing 09/12/2018 showed iron 21, transferrin saturation 9%, transferrin 165, ferritin 532, B12 625, and folate 20.8. Ferrous sulfate with ascorbic acid were given. Heart failure remained satisfactorily controlled on Bumex, Imdur, Lopressor, and Lanoxin. She refused ARB/ACEI. She was seen by dermatology on October 14 and received Otezla injection. She will follow with dermatology as directed. On October 15 arrangements were complete for her to be discharged to [facility] for ongoing care needs. - Time Spent with Patient Total time spent providing and/or coordinating discharge services: - Discharge Medications Prescriptions: New Metoprolol [Lopressor] 25 mg PO BID tablet Digoxin [Lanoxin] 0.125 mg PO QMWF tablet Continued Ustekinumab [Stelara (For Outpatient Infusion)] 90 mg SQ [id number] Vitamin B Complex [B Complex] 1 tab PO QPM Fluticasone Propionate Nasal [Flonase] 2 spray NS BID PRN PRN Reason: Allergy Symptoms Carbidopa/Levodopa 25/100 [Sinemet 25/100] 1 tab PO BID Tizanidine HCl 2 mg PO HS Atorvastatin [Lipitor] 40 mg PO HS Umeclidinium [place] [Incruse Ellipta] 1 puff IH DAILY Loperamide [Imodium] 2 mg PO QID PRN PRN Reason: Diarrhea Hydrocodone/Acetaminophen [Hydrocodon-Acetaminophen 5-325] 0.5 tab PO 1300,1700 Acetaminophen [Tylenol] 325 mg PO Q6H PRN PRN Reason: Pain Albuterol Sulfate [Proair Hfa] 2 puff IH Q4H PRN PRN Reason: Shortness Of Breath Cholecalciferol (D-3) [Vitamin D] 1,000 unit PO DAILY tablet Allopurinol [Zyloprim 300 MG] 300 mg PO BID #60 tablet Budesonide/Formoterol 80/4.5 [Symbicort 80/4.5] 2 puff IH BIDRESP #1 inhaler Isosorbide MONOnitrate (24 HR) [Imdur] 120 mg PO DAILY #60 tab.er.24h Levothyroxine [Synthroid] 100 mcg PO 0630 #30 tablet FLUoxetine HCl [Fluoxetine HCl] 40 mg PO DAILY Calcitriol [Rocaltrol] 0.25 mcg PO QMWF Amiodarone [Cordarone] 200 mg PO BID Ascorbic Acid [Vitamin C] 500 mg PO 0630 tablet Docusate [Colace] 100 mg PO BID capsule Ferrous Sulfate 325 mg PO 0630 tablet Ondansetron ODT [Zofran ODT] 4 mg SL Q4HR PRN tab.rapdis PRN Reason: Nausea And Vomiting Bumetanide [Bumex] 1.5 mg PO BIDDIURETIC tablet Metoclopramide [Reglan] 5 mg PO BIDAC #14 ud.liq Magnesium Oxide [Mag-Ox] 400 mg PO DAILY #7 tablet HYDROcodone/Acet 5/325 mg [[place] 5-325 mg] 1 tab PO QAM AND QHS 60 Days #120 tablet Discontinued Apremilast [Otezla] 30 mg PO BID Metoprolol [Lopressor] 50 mg PO DAILY Pantoprazole Sodium [Protonix] 40 mg PO DAILY Sucralfate [Carafate] 1 gm PO 0730,1630 #60 tablet MOM Conc [MILK OF MAGNESIA conc] 10 ml PO Q48H ud.liq Gentamicin Oint [Garamycin] 1 appl TP DAILY #1 tube Collagenase Oint [Santyl] 1 appl TP DAILY #1 tube ALPRAZolam [Xanax 0.25 MG Tablet] 0.25 mg PO Q6H PRN 3 Days #12 tablet PRN Reason: Anxiety Digoxin [Lanoxin] 0.125 mg PO Q48H #15 tablet Home Medications: Carbidopa/Levodopa 25/100 [Sinemet 25/100] 1 tab PO BID 06/24/15 [History] Fluticasone Propionate Nasal [Flonase] 2 spray NS BID PRN 06/24/15 [History] Ustekinumab [Stelara (For Outpatient Infusion)] 90 mg SQ [id number] 06/24/15 [History] Vitamin B Complex [B Complex] 1 tab PO QPM 06/24/15 [History] Atorvastatin [Lipitor] 40 mg PO HS 09/03/16 [History] Tizanidine HCl 2 mg PO HS 09/03/16 [History] Albuterol Sulfate [Proair Hfa] 2 puff IH Q4H PRN 06/18/17 [History] Cholecalciferol (D-3) [Vitamin D] 1,000 unit PO DAILY tablet 03/06/18 [Rx] Acetaminophen [Tylenol] 325 mg PO Q6H PRN 04/28/18 [History] Hydrocodone/Acetaminophen [Hydrocodon-Acetaminophen 5-325] 0.5 tab PO 1300,1700 04/28/18 [History] Loperamide [Imodium] 2 mg PO QID PRN 04/28/18 [History] Umeclidinium [place] [Incruse Ellipta] 1 puff IH DAILY 04/28/18 [History] Allopurinol [Zyloprim 300 MG] 300 mg PO BID #60 tablet 06/09/18 [Rx] Budesonide/Formoterol 80/4.5 [Symbicort 80/4.5] 2 puff IH BIDRESP #1 inhaler 06/09/18 [Rx] Isosorbide MONOnitrate (24 HR) [Imdur] 120 mg PO DAILY #60 tab.er.24h 06/09/18 [Rx] Levothyroxine [Synthroid] 100 mcg PO 0630 #30 tablet 06/09/18 [Rx] Amiodarone [Cordarone] 200 mg PO BID 09/11/18 [History] Calcitriol [Rocaltrol] 0.25 mcg PO QMWF 09/11/18 [History] FLUoxetine HCl [Fluoxetine HCl] 40 mg PO DAILY 09/11/18 [History] Ascorbic Acid [Vitamin C] 500 mg PO 0630 tablet 09/15/18 [Rx] Docusate [Colace] 100 mg PO BID capsule 09/15/18 [Rx] Ferrous Sulfate 325 mg PO 0630 tablet 09/15/18 [Rx] Ondansetron ODT [Zofran ODT] 4 mg SL Q4HR PRN tab.rapdis 09/15/18 [Rx] Bumetanide [Bumex] 1.5 mg PO BIDDIURETIC tablet 09/22/18 [Rx] Magnesium Oxide [Mag-Ox] 400 mg PO DAILY #7 tablet 09/22/18 [Rx] Metoclopramide [Reglan] 5 mg PO BIDAC #14 ud.liq 09/22/18 [Rx] Digoxin [Lanoxin] 0.125 mg PO QMWF tablet 10/15/18 [Rx] HYDROcodone/Acet 5/325 mg [[place] 5-325 mg] 1 tab PO QAM AND QHS 60 Days #120 tablet 10/15/18 [Rx] Metoprolol [Lopressor] 25 mg PO BID tablet 10/15/18 [Rx] Allergies/Adverse Reactions: Allergy/AdvReac Type Severity Reaction Status Date / Time amlodipine [From Norvasc] Allergy Severe Swelling Verified 09/23/18 15:42 of Lip/Tongue/Throat carbamazepine [From Tegretol] Allergy Mild rash/bliste Verified 09/23/18 15:42 rs ciprofloxacin [From Cipro] Allergy Mild Rash Verified 09/23/18 15:42 nitrofurantoin Allergy Mild Rash Verified 09/23/18 15:42 [From Macrobid] Sulfa (Sulfonamide Allergy Mild Rash Verified 09/23/18 15:42 Antibiotics) sulfamethoxazole Allergy Mild Rash Verified 09/23/18 15:42 [From Bactrim] trimethoprim [From Bactrim] Allergy Mild Rash Verified 09/23/18 15:42 Iodinated Contrast- Oral and Allergy See Verified 09/23/18 15:42 IV Dye Comments acetaminophen [From Percocet] AdvReac Mild Confusion Verified 09/23/18 15:42 meperidine [From Demerol] AdvReac Mild Vomiting Verified 09/23/18 15:42 oxycodone [From Percocet] AdvReac Mild Confusion Verified 09/23/18 15:42 promethazine [From Phenergan] AdvReac Mild Vomiting Verified 09/23/18 15:42 NSAIDS (Non-Steroidal AdvReac Unknown D/T KIDNEY Verified 09/23/18 15:42 Anti-Inflamma DYSFUNCTION Date of admission: 09/23/18 17:21 Primary care physician: Otf Rivera MD Consults: 09/23/18 19:47 Consult to Occupational Therapy [CONS] Routine Comment: Evaluate, develop and implement POC Reason for Consult: Weakness Does patient have active BEDREST order?: No Is patient medically & hemodynamically stable?: Yes Patient assessed for mobility or mobilized this visit?: Yes Consult to Physical Therapy [CONS] Routine Comment: Evaluate, develop and implement POC Reason for Consult: Weakness Does patient have active BEDREST order?: No Is patient medically & hemodynamically stable?: Yes Patient assessed for mobility or mobilized this visit?: Yes - Constitutional Vitals: Temp Pulse Resp BP Pulse Ox 98.1 F 61 16 140/66 100 10/15/18 07:38 10/15/18 07:38 10/15/18 07:38 10/15/18 07:38 10/15/18 07:38 - Patient Status Disposition: Transfer SNF - Discharge Instructions - Diet and Activity Activity: as per physical therapy Diet: diabetic diet
[2018-10-15] MEDS: Budesonide/Formoterol 80/4.5 1 PUFF INH IH SCH (11:25)
--- NOTE | 2018-10-15 11:34 | Physician Discharge Referral ---
ExtendedCare Referral Info Transfer To: [facility] Provider in Charge: Gaston - Diagnosis (1) Cellulitis Priority: Primary Status: Resolved (2) Weakness Priority: Secondary Status: Chronic (3) Pulmonary embolism Priority: Secondary Status: Acute (4) Anemia Priority: Secondary Status: Chronic (5) Atrial fibrillation Priority: Secondary Status: Chronic (6) CHF (congestive heart failure) Priority: Secondary Status: Chronic (7) Diabetes Priority: Secondary Status: Chronic (8) Hypothyroidism Priority: Secondary Status: Chronic (9) MEHRAN on CPAP Priority: Secondary Status: Chronic (10) Psoriasis Priority: Secondary Status: Chronic Prognosis: Fair Aware of Diagnosis: Patient, Family Aware of Prognosis: Patient, Family - Transfer Medications Prescriptions: HYDROcodone/Acet 5/325 mg [[place] 5-325 mg] 1 tab PO QAM AND QHS 60 Days #120 tablet Home Medications: Carbidopa/Levodopa 25/100 [Sinemet 25/100] 1 tab PO BID 06/24/15 [History] Fluticasone Propionate Nasal [Flonase] 2 spray NS BID PRN 06/24/15 [History] Ustekinumab [Stelara (For Outpatient Infusion)] 90 mg SQ [id number] 06/24/15 [History] Vitamin B Complex [B Complex] 1 tab PO QPM 06/24/15 [History] Atorvastatin [Lipitor] 40 mg PO HS 09/03/16 [History] Tizanidine HCl 2 mg PO HS 09/03/16 [History] Albuterol Sulfate [Proair Hfa] 2 puff IH Q4H PRN 06/18/17 [History] Cholecalciferol (D-3) [Vitamin D] 1,000 unit PO DAILY tablet 03/06/18 [Rx] Acetaminophen [Tylenol] 325 mg PO Q6H PRN 04/28/18 [History] Hydrocodone/Acetaminophen [Hydrocodon-Acetaminophen 5-325] 0.5 tab PO 1300,1700 04/28/18 [History] Loperamide [Imodium] 2 mg PO QID PRN 04/28/18 [History] Umeclidinium [place] [Incruse Ellipta] 1 puff IH DAILY 04/28/18 [History] Allopurinol [Zyloprim 300 MG] 300 mg PO BID #60 tablet 06/09/18 [Rx] Budesonide/Formoterol 80/4.5 [Symbicort 80/4.5] 2 puff IH BIDRESP #1 inhaler 06/09/18 [Rx] Isosorbide MONOnitrate (24 HR) [Imdur] 120 mg PO DAILY #60 tab.er.24h 06/09/18 [Rx] Levothyroxine [Synthroid] 100 mcg PO 0630 #30 tablet 06/09/18 [Rx] Amiodarone [Cordarone] 200 mg PO BID 09/11/18 [History] Calcitriol [Rocaltrol] 0.25 mcg PO QMWF 09/11/18 [History] FLUoxetine HCl [Fluoxetine HCl] 40 mg PO DAILY 09/11/18 [History] Ascorbic Acid [Vitamin C] 500 mg PO 0630 tablet 09/15/18 [Rx] Docusate [Colace] 100 mg PO BID capsule 09/15/18 [Rx] Ferrous Sulfate 325 mg PO 0630 tablet 09/15/18 [Rx] Ondansetron ODT [Zofran ODT] 4 mg SL Q4HR PRN tab.rapdis 09/15/18 [Rx] Bumetanide [Bumex] 1.5 mg PO BIDDIURETIC tablet 09/22/18 [Rx] Magnesium Oxide [Mag-Ox] 400 mg PO DAILY #7 tablet 09/22/18 [Rx] Metoclopramide [Reglan] 5 mg PO BIDAC #14 ud.liq 09/22/18 [Rx] Digoxin [Lanoxin] 0.125 mg PO QMWF tablet 10/15/18 [Rx] HYDROcodone/Acet 5/325 mg [[place] 5-325 mg] 1 tab PO QAM AND QHS 60 Days #120 tablet 10/15/18 [Rx] Metoprolol [Lopressor] 25 mg PO BID tablet 10/15/18 [Rx] Allergies/Adverse Reactions: Allergy/AdvReac Type Severity Reaction Status Date / Time amlodipine [From Norvasc] Allergy Severe Swelling Verified 09/23/18 15:42 of Lip/Tongue/Throat carbamazepine [From Tegretol] Allergy Mild rash/bliste Verified 09/23/18 15:42 rs ciprofloxacin [From Cipro] Allergy Mild Rash Verified 09/23/18 15:42 nitrofurantoin Allergy Mild Rash Verified 09/23/18 15:42 [From Macrobid] Sulfa (Sulfonamide Allergy Mild Rash Verified 09/23/18 15:42 Antibiotics) sulfamethoxazole Allergy Mild Rash Verified 09/23/18 15:42 [From Bactrim] trimethoprim [From Bactrim] Allergy Mild Rash Verified 09/23/18 15:42 Iodinated Contrast- Oral and Allergy See Verified 09/23/18 15:42 IV Dye Comments acetaminophen [From Percocet] AdvReac Mild Confusion Verified 09/23/18 15:42 meperidine [From Demerol] AdvReac Mild Vomiting Verified 09/23/18 15:42 oxycodone [From Percocet] AdvReac Mild Confusion Verified 09/23/18 15:42 promethazine [From Phenergan] AdvReac Mild Vomiting Verified 09/23/18 15:42 NSAIDS (Non-Steroidal AdvReac Unknown D/T KIDNEY Verified 09/23/18 15:42 Anti-Inflamma DYSFUNCTION - Respiratory Orders Smoking Cessation: Smoking cessation has been advised. For more information, call the [place] Tobacco Quit Line at 2-409-JMKS-NOW. - Lab Orders Lab Orders: Other (include drug levels w/frequency) (CBC with differential, CMP, BNP peptide, magnesium, digoxin level, zinc level in 1 week.) - Advance Directives Code Status: Full Code - Mobility Orders Ambulate - Rehabiliation Orders Rehab Potential: Fair Rehab Orders: Evaluation for Physical Therapy, Evaluation for Occupational Therapy - Diet Orders No Added Salt (ADRIANA), No Concentrated Sweets CERTIFICATION: I certify that the transfer of the above named patient to an Extended Care Facility is necessary for the continuing treatment of the diagnosis listed. The above information is true and accurate reflection of patient's current condition. Confidential - Redisclosure prohibited without a patient's written consent.
== END 2018-10-15 12:52 | DRG 602 ==
LOC: INPPIK 17:21
PROVIDERS: ADMIT Internal Medicine; ATTEND Internal Medicine

== ENCOUNTER 2018-11-01 20:04 | Inpatient (IN) ==
--- NOTE | 2018-11-01 20:11 | Emergency Department Note ---
Disposition Clinical Impression: Left leg cellulitis, Weakness generalized Acute renal failure (ARF) Qualifiers: Acute renal failure type: unspecified Qualified Code(s): N17.9 - Acute kidney failure, unspecified Disposition: Admitted As Inpatient Condition: Fair Time of Disposition: 21:04 Weakness HPI - General Chief complaint: ED Shortness of Breath/Dyspnea Stated complaint: Dyspnea, decreased urinary output Time Seen by Provider: 11/01/18 20:11 Source: patient, EMS, other (snf report) Mode of arrival: EMS Limitations: no limitations Nursing Notes Reviewed: Yes Vital Signs Reviewed: Yes - History of Present Illness HPI Narrative: Patient reports she thinks she has no shortness of breath, generalized weakness and "left leg cellulitis". She is noted at the senior living to have decreased urine output such that she has only had 200 mL out in 24 hours. She has have an indwelling Méndez catheter. She had lab work drawn today showing that she had a leukocytosis with a white count of 16, hemoglobin of 9.6 with reticulocytes present, potassium of 5.2 creatinine now significant only elevated for her at 3.54, glucose of 181 and BNP of 746. Liver functions were largely unremarkable. A TSH was 16.472. With these issues she was sent in for evaluation. On arrival here she does not have any localizing complaints except for the left leg being painful and red. She has generalized malaise and weakness. She has had a chest pain or shortness of breath. Denies nausea or vomiting. She denies any abdominal pain other than an area of intertrigo under her pannus. She has not recognized any urinary issues with the Méndez catheter. She is not sure of any ill exposures. Pt Subjective Complaint: generalized weakness/fatigue, other (Left leg pain and swelling) - Related Data Home Medications Medication Instructions Recorded Confirmed Carbidopa/Levodopa 25/100 [Sinemet 1 tab PO BID 06/24/15 11/01/18 25/100] Fluticasone Propionate Nasal 2 spray NS BID PRN 06/24/15 11/01/18 [Flonase] Ustekinumab [Stelara (For 90 mg SQ [id number] 06/24/15 11/01/18 Outpatient Infusion)] Vitamin B Complex [B Complex] 1 tab PO QPM 06/24/15 11/01/18 Atorvastatin [Lipitor] 40 mg PO HS 09/03/16 11/01/18 Albuterol Sulfate [Proair Hfa] 2 puff IH Q4H PRN 06/18/17 11/01/18 Loperamide [Imodium] 2 mg PO QID PRN 04/28/18 11/01/18 Umeclidinium [place] [Incruse 1 puff IH DAILY 04/28/18 11/01/18 Ellipta] Amiodarone [Cordarone] 200 mg PO BID 09/11/18 11/01/18 Calcitriol [Rocaltrol] 0.25 mcg PO QMWF 09/11/18 11/01/18 FLUoxetine HCl [Fluoxetine HCl] 40 mg PO DAILY 09/11/18 11/01/18 ALPRAZolam [Xanax 0.25 MG Tablet] 0.25 mg PO Q6HR PRN 10/27/18 11/01/18 Baclofen 5 mg PO HS 10/27/18 11/01/18 Bumetanide [Bumex] 1.5 mg PO BID 10/27/18 11/01/18 Bumetanide [Bumex] 1.5 mg PO DAILY 10/27/18 11/01/18 Lisinopril [Zestril] 5 mg PO DAILY 10/27/18 11/01/18 Nystatin POWDER [Nystop] 1 appl TP BID 10/27/18 11/01/18 Digoxin [Lanoxin] 0.125 mg PO 2XW 11/01/18 11/01/18 Levothyroxine [Synthroid] 125 mcg PO 0630 11/01/18 11/01/18 Previous Rx's Medication Instructions Recorded Cholecalciferol (D-3) [Vitamin D] 1,000 unit PO DAILY tablet 03/06/18 Budesonide/Formoterol 80/4.5 2 puff IH BIDRESP #1 inhaler 06/09/18 [Symbicort 80/4.5] Isosorbide MONOnitrate (24 HR) 120 mg PO DAILY #60 tab.er.24h 06/09/18 [Imdur] Ascorbic Acid [Vitamin C] 500 mg PO 0630 tablet 09/15/18 Docusate [Colace] 100 mg PO BID capsule 09/15/18 Ondansetron ODT [Zofran ODT] 4 mg SL Q4HR PRN tab.rapdis 09/15/18 Magnesium Oxide [Mag-Ox] 400 mg PO DAILY #7 tablet 09/22/18 HYDROcodone/Acet 5/325 mg [[place] 1 tab PO QAM AND QHS 60 Days #120 10/15/18 5-325 mg] tablet Metoprolol [Lopressor] 25 mg PO BID tablet 10/15/18 Allergies Allergy/AdvReac Type Severity Reaction Status Date / Time amlodipine [From Norvasc] Allergy Severe Swelling Verified 11/01/18 21:05 of Lip/Tongue/Throat carbamazepine [From Tegretol] Allergy Mild rash/bliste Verified 11/01/18 21:05 rs ciprofloxacin [From Cipro] Allergy Mild Rash Verified 11/01/18 21:05 nitrofurantoin Allergy Mild Rash Verified 11/01/18 21:05 [From Macrobid] Sulfa (Sulfonamide Allergy Mild Rash Verified 11/01/18 21:05 Antibiotics) sulfamethoxazole Allergy Mild Rash Verified 11/01/18 21:05 [From Bactrim] trimethoprim [From Bactrim] Allergy Mild Rash Verified 11/01/18 21:05 Iodinated Contrast Media Allergy See Verified 11/01/18 21:05 [Iodinated Contrast- Oral Comments and IV Dye] acetaminophen [From Percocet] AdvReac Mild Confusion Verified 11/01/18 21:05 meperidine [From Demerol] AdvReac Mild Vomiting Verified 11/01/18 21:05 oxycodone [From Percocet] AdvReac Mild Confusion Verified 11/01/18 21:05 promethazine [From Phenergan] AdvReac Mild Vomiting Verified 11/01/18 21:05 NSAIDS (Non-Steroidal AdvReac Unknown D/T KIDNEY Verified 11/01/18 21:05 Anti-Inflamma DYSFUNCTION All systems ED: reviewed and negative except as stated. Past Medical History - Past Medical History Attestation: Yes The following information was validated with the patient. Source: patient, old records reviewed, obtained from family, nursing notes reviewed Medical history: Reports: arthritis, asthma, atrial fibrillation, cancer, CHF, COPD, coronary artery disease, DVT, diabetes, fibromyalgia, hyperlipidemia, hypertension, renal disease, thyroid disease, other Surgical history: Reports: pacemaker Psychiatric history: Reports: depression - Social History Smoking Status: Former smoker Smokeless Tobacco Status: No Alcohol use: Reports: none Drug use: Reports: none Physical Exam - General Limitations: no limitations General appearance: alert, in no apparent distress - Head Head exam: atraumatic, normocephalic, normal inspection - Eye Eye exam: Present: normal appearance, PERRL, EOMI. Absent: scleral icterus, conjunctival injection - ENT ENT exam: normal exam, normal oropharynx, mucous membranes moist - Neck Neck exam: Present: normal inspection, full ROM, trachea midline. Absent: tenderness, meningismus, lymphadenopathy - Chest Chest inspection: Present: normal inspection, symmetric chest wall rise - Respiratory Respiratory exam: Present: normal lung sounds bilaterally. Absent: respiratory distress, wheezes, prolonged expiratory phase - Cardiovascular Cardiovascular exam: Present: regular rate, normal rhythm, normal heart sounds. Absent: tachycardia - Abdominal Exam Abdominal exam: Present: soft, Non-Tender, normal bowel sounds, other (Patient does have some inflammation under her pannus. She has no other localizing abdominal tenderness, induration, fluctuance or crepitance.). Absent: tenderness, distention, guarding, rebound, rigidity - Extremities Exam Extremities exam: Present: tenderness (Patient has bandages with weeping on the left lower extremity. She has erythema up to the medial thigh. There is no crepitance. The leg is diffusely tender. The leg does feel warm.), normal capillary refill. Absent: pedal edema - Expanded Lower Extremity Exam Neurovascular/Tendon exam: Present: normal capillary refill Gait: not tested/not observed - Neurological Exam Neurological exam: Present: alert. Absent: motor sensory deficit - Psychiatric Psychiatric exam: Present: normal affect, normal mood - Skin Skin exam: Present: warm, dry, intact, normal color. Absent: cyanosis, diaphoresis, pallor Course Course Narrative: Patient's recent medical record and senior living records are reviewed. She is started on IV fluids given her acute renal insufficiency and left leg infection. She will be watched carefully given the elevation of her BNP and chest x-ray showing some interstitial edema. A basic chemistry is repeated to check the status of her renal function and her potassium. Lactic accident blood cultures been ordered. Given she had some dyspnea and chest x-ray will be reviewed. She has been started on Zosyn for the cellulitis. Anticipate contacting Dr. Feldman to discuss inpatient care upon return of testing. 2100: Care has been discussed with Dr. Feldman. He applied to continue the Zosyn on his twice a day dosing. He would like one dose of doxycycline given IV and he will coordinate further treatment in the morning with the pharmacist. Verbal orders have been obtained for the patient's observation. Vital Signs Temperature 98.1 F 11/01/18 20:05 Pulse Rate 89 11/01/18 20:05 Respiratory Rate 18 11/01/18 20:05 Blood Pressure 128/82 11/01/18 20:05 O2 Sat by Pulse Oximetry 99 11/01/18 20:05 Temperature 97.8 F 11/01/18 21:52 Pulse Rate 75 11/01/18 21:52 Respiratory Rate 18 11/01/18 21:52 Blood Pressure 122/59 11/01/18 21:52 O2 Sat by Pulse Oximetry 99 11/01/18 21:52 Oxygen Delivery Oxygen Delivery Nasal Cannula Weakness - Differential Diagnosis Differential Diagnosis: Likely: anemia, sepsis/infection, dehydration, medication effect, metabolic, thyroid/endocrine disorder - Medical Records Medical records reviewed: Yes I reviewed the patient's medical records. - Lab Data Lab results reviewed: Yes I reviewed the patient's lab results. Result diagrams: 11/01/18 20:26 Lab Results 11/01/18 11/01/18 11/01/18 Range/Units 20:26 20:26 20:32 Sodium 129 L (136-145) mEq/L Potassium 5.1 (3.5-5.1) mEq/L Chloride 92 L (98-107) mEq/L Carbon Dioxide 29 (23-29) mEq/L BUN 97 H (8-23) mg/dL Creatinine 3.79 H (0.60-1.20) mg/dL Est GFR ( Amer) 14 L (> 60) Est GFR (Non-Af Amer) 12 L (> 60) BUN/Creatinine Ratio 26 (6-26) Glucose 195 H (70-105) mg/dL Calculated Osmolality 303 H (280-300) Lactic Acid 1.4 (0.5-2.2) mmol/L Calcium 8.5 L (8.6-10.3) mg/dL Urine Color Yellow (Yellow) Urine Clarity Clear (Clear) Urine pH 5.0 (5.0-8.0) pH Units Ur Specific [place] 1.025 (1.010-1.025) Urine Protein 100 H (Neg-Trace) mg/dL Urine Glucose (UA) Normal (Normal) mg/dL Urine Ketones Trace H (Negative) mg/dL Urine Blood Moderate H (Negative) Urine Nitrite Negative (Negative) Urine Bilirubin Small H (Negative) Urine Urobilinogen Normal (Normal) mg/dL Ur Leukocyte Esterase Small H (Negative) Urine Microscopic RBC 15-30 H (0-3) per hpf Urine Microscopic WBC 30-50 H (0-3) per hpf Ur Squamous Epith Cells Few (None-Few) per lpf Ur Renal Epithelial Cell Few (None-Few) per hpf Urine Bacteria Many H (None-Few) per hpf Hyaline Casts Few (None-Few) per lpf Urine Mucus Few (Few) Urine Yeast Few H (None Seen) per hpf Ur Culture Indicated? YES A (NO) - Radiology Data Radiology results reviewed: Yes I reviewed the patient's radiology results. Single view chest x-rays performed. This demonstrates a mild increase interstitial markings consistent with some possible fluid overload. She has had baseline cardiomegaly. She has a pacemaker with intact wires. I do not see focal infiltrates, effusion or mass. Imaging is minimally changed from October 27. Impressions Chest X-Ray 11/01/18 20:13 IMPRESSION: Cardiomegaly with mild pulmonary edema. D/ / Landon Taylor MD / Landon Taylor MD Interpreting Provider: Landon Taylor MD - EKG Data EKG attestation: Yes I reviewed and interpreted this EKG.
[2018-11-01] MEDS ORDERED: Piperacillin/Tazobactam 3.375 GM in 0.9 % Sodium Chloride Mini Bag 100 ML IVPB ONE (20:13)
[2018-11-01] MEDS ORDERED: 0.9 % Sodium Chloride 1,000 ML IVC ONE (20:13)
[2018-11-01] MEDS ORDERED: 0.9 % Sodium Chloride 1,000 ML IVC SCH (20:15)
[2018-11-01 20:39] LABS: Bilirubin,Urine Small (Negative); Blood,Urine Moderate (Negative); Clarity,Urine Clear (Clear); Color,Urine Yellow (Yellow); Glucose,Urine (UA) Normal (Normal); Ketones,Urine Trace mg/dL (Negative); Leukocyte Esterase,Urine Small (Negative); Nitrite,Urine Negative (Negative); Protein,Urine 100 mg/dL (Neg-Trace); Specific Gravity,Urine 1.025 (1.010-1.025); Urobilinogen,Urine Normal (Normal)
[2018-11-01 20:47] LABS: Calcium 8.5 mg/dL (8.6-10.3); Potassium 5.1 mEq/L (3.5-5.1)
[2018-11-01 20:53] LABS: Bacteria,Urine Many per hpf (None-Few); Hyaline Casts,Urine Few per lpf (None-Few); Squamous Epithelial Cell,Urine Few per lpf (None-Few)
[2018-11-01 20:54] LABS: RBC,Urine 15-30 per hpf (0-3); Yeast,Urine Few per hpf (None Seen)
[2018-11-01 20:55] LABS: WBC,Urine 30-50 per hpf (0-3)
[2018-11-01 20:56] LABS: Mucus,Urine Few (Few); Renal Epithelial Cells,Urine Few per hpf (None-Few)
[2018-11-01] MEDS ORDERED: Naloxone 0.4 MG/ML INJ IVP PRN (21:53)
[2018-11-01] MEDS ORDERED: *HR* Dextrose 50 % in Water (Syg) 50 ML SYRINGE IVP PRN (21:53)
[2018-11-01] MEDS ORDERED: Acetaminophen 325 MG TABLET PO PRN (21:53)
[2018-11-01] MEDS ORDERED: Mag Hydrox/Al Hydrox/Simeth 30 ML UDC PO PRN (21:53)
[2018-11-01] MEDS ORDERED: Ondansetron ODT 4 MG TAB.RAPDIS SL PRN (21:53)
[2018-11-01] MEDS ORDERED: Dextrose Gel 15 GM/37.5 ML TUBE PO PRN ×2 (21:53)
[2018-11-01] MEDS ORDERED: D5% in Water 1,000 ML IVC PRN (21:53)
[2018-11-01] MEDS ORDERED: MOM Conc 10 ML UD.LIQ PO PRN (21:53)
[2018-11-01] MEDS ORDERED: Albuterol 2.5 MG/3 ML NEBULIZER IH PRN (21:53)
[2018-11-01] MEDS ORDERED: Doxycycline 100 MG in 0.9 % Sodium Chloride Mini Bag 100 ML IVPB ONE (22:00)
[2018-11-01] MEDS: 0.9 % Sodium Chloride 1,000 ML IVC SCH (22:29)
[2018-11-01] MEDS: Ipratropium/Albuterol Neb 3 ML IH SCH (23:15)
[2018-11-02] MEDS: *HR* HYDROcodone/Acet 5/325 mg TABLET PO PRN ×3 (03:33→17:18)
[2018-11-02] MEDS: ALPRAZolam 0.25 MG TABLET PO PRN ×3 (03:33→17:18)
[2018-11-02] MEDS: 0.9 % Sodium Chloride 1,000 ML IVC SCH (04:18)
[2018-11-02] MEDS: Ipratropium/Albuterol Neb 3 ML IH SCH ×5 (05:15→21:33)
[2018-11-02] MEDS: Piperacillin/Tazobactam 3.375 GM in 0.9 % Sodium Chloride Mini Bag 100 ML IVPB SCH ×2 (06:07→17:16)
[2018-11-02] MEDS: Insulin LISPRO 300 UNITS/3 ML VIAL SQ SCH ×3 (09:19→17:09)
--- NOTE | 2018-11-02 11:02 | Internal Med History&Physical ---
Date of Encounter: 11/02/18 Time of Encounter: 10:40 Assessment and Plan (1) RIKA (acute kidney injury) Current visit: No Status: Acute Creatinine has increased to 3.79 on admission from 1.82 on 10/27/2018. IV fluids and IV diuretics were ordered in emergency room. (2) CKD (chronic kidney disease) stage 3, GFR 30-59 ml/min Current visit: No Status: Chronic Acute on chronic renal failure. Continue to monitor renal indices. (3) Parkinson disease Current visit: No Status: Chronic Sinemet will be restarted. (4) Gout Current visit: No Status: Acute Uric acid level was 3.7 in emergency room. Qualifiers: Gout site: hand Gout etiology: idiopathic Chronicity: acute Laterality: right Qualified Code(s): M10.041 - Idiopathic gout, right hand (5) Anemia Current visit: No Status: Chronic Anemia testing yesterday showed iron 35, transferrin saturation 14%, transferrin 176, ferritin 319, B12 887, and folate 9.4. Anemia likely due to chronic kidney disease. Qualifiers: Anemia type: unspecified type Qualified Code(s): D64.9 - Anemia, unspecified (6) Atrial fibrillation Current visit: No Status: Chronic She has declined OAC due to GI bleed earlier this year. Stool guaiacs will be done and possibly restart OAC if negative. Qualifiers: Atrial fibrillation type: paroxysmal Qualified Code(s): I48.0 - Paroxysmal atrial fibrillation (7) Hypertension Current visit: No Status: Chronic Blood pressure low. Hold metoprolol and lisinopril. Qualifiers: Hypertension type: essential hypertension Qualified Code(s): I10 - Essen tial (primary) hypertension (8) Pulmonary embolism Current visit: No Status: Acute She refused OAC earlier due to GI bleed few months ago. Stool guaiac will be done as per above. Qualifiers: Pulmonary embolism type: other Chronicity: unspecified Acute cor pulmonale presence: without acute cor pulmonale Qualified Code(s): I26.99 - Other pulmonary embolism without acute cor pulmonale (9) CHF (congestive heart failure) Current visit: No Status: Chronic BN peptide minimally changed. Continue Lanoxin. IV diuretics will be given. Qualifiers: Heart failure type: diastolic Heart failure chronicity: acute on chronic Qualified Code(s): I50.33 - Acute on chronic diastolic (congestive) heart failure (10) Weakness Current visit: Yes Status: Chronic Consider PT and OT evaluation when medically improved. Internal Medicine - H&P: HPI Chief complaint: Edema, weakness, dyspnea Admitted From: Emergency Dept Plans for Post Hospital Care: Transfer Assisted Facility History of present illness: Ms. Whitmore is a 78 year old female who requested to come to emergency room from a local SNF after she had worsening dyspnea and edema. She was evaluated in emergency room and was found to have acute on chronic renal failure with severe edema. Chest x-ray showed cardiomegaly with mild pulmonary edema. She was admitted to [facility] floor for ongoing care needs. She had been discharged from [facility] swing bed 10/15/2018 after 3-4 weeks stay with edema/CHF, cellulitis, and overall weakness. Cardiovascular history is significant for essential hypertension. She has chronic atrial fibrillation. She had an echocardiogram 04/28/2018 which showed LVEF of 50-55%. There was indeterminate diastolic function assessment due to underlying atrial fibrillation. There was mild mitral regurgitation, moderate tricuspid regurgitation, and mild pulmonic regurgitation. Estimated RVSP was elevated at 65 mmHg. The interventricular septum and posterior wall thickness measurements were 0.81 and 0.92 cm respectively. She had non-STEMI on admission to [facility] 04/28/2018. She underwent LHC which showed LMCA, circumflex, first marginal, and left PDA free of disease. The RCA showed 50% stenosis in midportion and 60% stenosis in the right PDA. The LAD showed 20 mm long 80% stenosis in the proximal portion which was stented. (A previous stent had been placed 2013.) She was placed on aspirin and Plavix DAPT for the new stent. Xarelto which had been used for atrial fibrillation and history of left leg DVT (1984) was discontinued for one month because of GI bleed. She had a small pulmonary embolus in the left upper lobe documented April 2018 and was started on Eliquis. She states she has not been taking Plavix or Eliquis recently because of GI bleed history with anemia. She reports having a pacemaker placed 07/06/2018 in [place] but does not know the indication for this. Past Med Surg Social Fam HX - Past Medical History Medical history: arthritis, asthma, atrial fibrillation, cancer, CHF, COPD, coronary artery disease, DVT, diabetes, fibromyalgia, hyperlipidemia, hypertension, renal disease, thyroid disease, other Additional medical history: skin cancer Psychiatric history: depression - Past Surgical History Surgical History: pacemaker Additional surgical history: parathyroidectomy,. Right knee - Social History Smoking Status: Former smoker Smokeless Tobacco Status: No Alcohol use: none Drug use: none - Family History Mother Adopted: No Living Status: Hx Family Cardiac Disorders: Yes Hx Family Respiratory Disorders: Yes (COPD) Hx Family Cancer: Yes (lung, breast) Hx Family GI Disorders: No Hx Family Endocrine Disorder: No Hx Family Neuromuscular Disorders: No Hx Family Neurologic Disorders: Yes Hx Family HEENT Disorders: No Hx Family Autoimmune Disorders: Yes (non hygkins lymphoma) Internal Medicine - H&P: Meds Carbidopa/Levodopa 25/100 [Sinemet 25/100] 1 tab PO BID 06/24/15 [History] Fluticasone Propionate Nasal [Flonase] 2 spray NS BID PRN 06/24/15 [History] Ustekinumab [Stelara (For Outpatient Infusion)] 90 mg SQ [id number] 06/24/15 [History] Vitamin B Complex [B Complex] 1 tab PO QPM 06/24/15 [History] Atorvastatin [Lipitor] 40 mg PO HS 09/03/16 [History] Albuterol Sulfate [Proair Hfa] 2 puff IH Q4H PRN 06/18/17 [History] Cholecalciferol (D-3) [Vitamin D] 1,000 unit PO DAILY tablet 03/06/18 [Rx] Loperamide [Imodium] 2 mg PO QID PRN 04/28/18 [History] Umeclidinium [place] [Incruse Ellipta] 1 puff IH DAILY 04/28/18 [History] Budesonide/Formoterol 80/4.5 [Symbicort 80/4.5] 2 puff IH BIDRESP #1 inhaler 06/09/18 [Rx] Isosorbide MONOnitrate (24 HR) [Imdur] 120 mg PO DAILY #60 tab.er.24h 06/09/18 [Rx] Amiodarone [Cordarone] 200 mg PO BID 09/11/18 [History] Calcitriol [Rocaltrol] 0.25 mcg PO QMWF 09/11/18 [History] FLUoxetine HCl [Fluoxetine HCl] 40 mg PO DAILY 09/11/18 [History] Ascorbic Acid [Vitamin C] 500 mg PO 0630 tablet 09/15/18 [Rx] Docusate [Colace] 100 mg PO BID capsule 09/15/18 [Rx] Ondansetron ODT [Zofran ODT] 4 mg SL Q4HR PRN tab.rapdis 09/15/18 [Rx] Magnesium Oxide [Mag-Ox] 400 mg PO DAILY #7 tablet 09/22/18 [Rx] HYDROcodone/Acet 5/325 mg [[place] 5-325 mg] 1 tab PO QAM AND QHS 60 Days #120 tablet 10/15/18 [Rx] Metoprolol [Lopressor] 25 mg PO BID tablet 10/15/18 [Rx] ALPRAZolam [Xanax 0.25 MG Tablet] 0.25 mg PO Q6HR PRN 10/27/18 [History] Baclofen 5 mg PO HS 10/27/18 [History] Bumetanide [Bumex] 1.5 mg PO BID 10/27/18 [History] Bumetanide [Bumex] 1.5 mg PO DAILY 10/27/18 [History] Lisinopril [Zestril] 5 mg PO DAILY 10/27/18 [History] Nystatin POWDER [Nystop] 1 appl TP BID 10/27/18 [History] Digoxin [Lanoxin] 0.125 mg PO 2XW 11/01/18 [History] Levothyroxine [Synthroid] 125 mcg PO 0630 11/01/18 [History] Allergy/AdvReac Type Severity Reaction Status Date / Time amlodipine [From Norvasc] Allergy Severe Swelling Verified 11/01/18 21:05 of Lip/Tongue/Throat carbamazepine [From Tegretol] Allergy Mild rash/bliste Verified 11/01/18 21:05 rs ciprofloxacin [From Cipro] Allergy Mild Rash Verified 11/01/18 21:05 nitrofurantoin Allergy Mild Rash Verified 11/01/18 21:05 [From Macrobid] Sulfa (Sulfonamide Allergy Mild Rash Verified 11/01/18 21:05 Antibiotics) sulfamethoxazole Allergy Mild Rash Verified 11/01/18 21:05 [From Bactrim] trimethoprim [From Bactrim] Allergy Mild Rash Verified 11/01/18 21:05 Iodinated Contrast Media Allergy See Verified 11/01/18 21:05 [Iodinated Contrast- Oral Comments and IV Dye] acetaminophen [From Percocet] AdvReac Mild Confusion Verified 11/01/18 21:05 meperidine [From Demerol] AdvReac Mild Vomiting Verified 11/01/18 21:05 oxycodone [From Percocet] AdvReac Mild Confusion Verified 11/01/18 21:05 promethazine [From Phenergan] AdvReac Mild Vomiting Verified 11/01/18 21:05 NSAIDS (Non-Steroidal AdvReac Unknown D/T KIDNEY Verified 11/01/18 21:05 Anti-Inflamma DYSFUNCTION All Systems PM: A 10-system review of systems was performed and is negative for pertinent findings except as documented above in the HPI. Review of systems: Review of systems from her August 2018 [facility] admission were reviewed and revised as below. Gen.: Her weight has increased from 101.151 kg on 04/18/2017 to 121.291 kg at present Cardiovascular: As per history of present illness Respiratory: She smoked from age [age] up to 2-1/2 packs per day. She has a diagnosis of COPD with PFTs 08/30/2015 showing FEV1/FVC of 66%. There was no improvement in FEV1 postbronchodilator. FVC was 67% predicted. MVV was 42% predicted. DLCO was 56% predicted. She wears oxygen /. Chest CTA April 2018 showed tiny left upper lobe pulmonary embolus. There were bilateral small effusions with mild bibasal atelectasis and emphysema changes. GI: She had EGD for GI bleed April 2018 which showed grade A reflux esophagitis. Colonoscopy showed single bleeding colonic angiodysplasia. She has had cholecystectomy. There is no known disorders of liver or exocrine pancreas. : She has chronic kidney disease stage III and follows with a [facility] hemodialysis technician. She denies other kidney or bladder disorders Neurologic: She has Parkinson's disease. She denies large distribution strokes or seizures. Endocrine: She was diagnosed with DM 2 in 1998. Hemoglobin A1c was 6.9% on 10/18/2018. She has hypothyroidism and hyperlipidemia. Hematology/oncology: She has had anemia with recent GI bleed April 2018. She denies internal malignancies or other known blood disorders. Psychiatric: She has anxiety and depression. Muscle skeletal: She has gout, psoriatic arthritis, and DJD. Dermatologic: She has psoriasis. - Constitutional Vitals: Temp Pulse Resp BP Pulse Ox 98.6 F 65 16 81/46 98 11/02/18 07:39 11/02/18 07:39 11/02/18 10:03 11/02/18 07:39 11/02/18 10:03 Exam: Gen.: She is a well-developed obese female lying in bed who appears slightly dyspneic. She complaints of back pain. HEENT: Head is atraumatic and normocephalic. Eyes: EOMI. There is no scleral icterus. Mouth: Mucosa is moist. Neck: Supple and nontender. There is no thyromegaly or adenopathy noted. Heart: Regular without murmurs gallops or ectopics Lungs: No wheezes or crackles are heard. She has diminished breath sounds diffusely. Abdomen: Soft and nontender. No masses or guarding are noted. Extremities: There is no cyanosis or clubbing noted. She has 3-4+ edema of the dorsum of the feet and lower legs bilaterally. There is slight erythema of the lower legs with several very shallow ulcerative area with serous drainage. Neurologic: Mental status: She is able to answer a few questions but is not conversational. Cranial nerves: Smile is symmetric. Forehead wrinkles bilaterally. Tongue protrudes midline. EOMI. Motor: She has significant parkinsonian tremor at rest. She cannot perform pronator drift testing well. Cerebellar: Finger to nose testing is limited because of parkinsonian tremor. Skin: She has leg erythema and ulcers as per above. Otherwise her skin is warm and dry. Internal Med - H&P Results - Labs CBC & Chem 7: 11/01/18 20:26 Labs: BMP 11/01/18 20:26 Sodium 129 L Potassium 5.1 Chloride 92 L Carbon Dioxide 29 BUN 97 H Creatinine 3.79 H Glucose 195 H Calcium 8.5 L Urine 11/01/18 Range/Units 20:32 Urine Color Yellow (Yellow) Urine Clarity Clear (Clear) Urine pH 5.0 (5.0-8.0) pH Units Ur Specific [place] 1.025 (1.010-1.025) Urine Protein 100 H (Neg-Trace) mg/dL Urine Glucose (UA) Normal (Normal) mg/dL - Impressions ITS Impressions Chest X-Ray 11/01/18 20:13 IMPRESSION: Cardiomegaly with mild pulmonary edema. D/ / 11/01/2018 20:47:01 Landon Taylor MD / becca Interpreting Provider: Landon Taylor MD
[2018-11-02] MEDS: Carbidopa/Levodopa 25/100 TABLET PO SCH ×2 (12:46→21:50)
[2018-11-02] MEDS: Bumetanide 1 MG/4 ML VIAL IVP SCH ×2 (12:46→17:16)
[2018-11-02] MEDS: Isosorbide MONOnitrate (24 HR) 60 MG TAB.ER.24H PO SCH (12:46)
[2018-11-02] MEDS: Doxycycline 100 MG in 0.9 % Sodium Chloride Mini Bag 100 ML IVPB SCH (12:47)
[2018-11-02] MEDS: Budesonide/Formoterol 80/4.5 1 PUFF INH IH SCH (21:36)
[2018-11-02] MEDS: *HR* Amiodarone 200 MG TABLET PO SCH (21:50)
[2018-11-03] MEDS: Doxycycline 100 MG in 0.9 % Sodium Chloride Mini Bag 100 ML IVPB SCH ×2 (01:37→14:16)
[2018-11-03] MEDS: Ipratropium/Albuterol Neb 3 ML IH SCH ×3 (03:41→15:14)
[2018-11-03] MEDS: Piperacillin/Tazobactam 3.375 GM in 0.9 % Sodium Chloride Mini Bag 100 ML IVPB SCH ×2 (06:57→18:23)
[2018-11-03 07:04] LABS: Basophils # 0.1 K/mcL (0.0-0.2); Basophils % 0.7 %; Eosinophils # 0.4 K/mcL (0.0-0.6); Eosinophils % 2.7 %; Hematocrit 29.3 % (35.3-44.9); Hemoglobin 9.1 g/dL (11.5-15.4); Immature Granulocytes % 2.6 % (0-4); Lymphocytes # 0.5 K/mcL (0.6-4.6); Lymphocytes % 3.1 %; Mean Corpuscular HGB Conc 31.1 g/dL (31.6-35.5); Mean Corpuscular Hemoglobin 35.5 pg (28.0-33.3); Mean Corpuscular Volume 114.5 fL (83.0-100.0); Monocytes # 0.8 K/mcL (0.0-1.3); Monocytes % 5.4 %; Neutrophils # 12.6 K/mcL (1.6-8.9); Platelet Count 226 K/mcL (140-400); Red Blood Count 2.56 M/mcL (3.82-4.97); Segmented Neutrophils % 85.5 %; White Blood Count 14.7 K/mcL (4.3-11.1)
[2018-11-03 07:44] LABS: Calcium 8.2 mg/dL (8.6-10.3)
[2018-11-03 08:08] LABS: Anisocytosis 2+ (Not Present); Macrocytosis Present (Not Present)
[2018-11-03] MEDS: Budesonide/Formoterol 80/4.5 1 PUFF INH IH SCH (09:13)
[2018-11-03] MEDS: Insulin LISPRO 300 UNITS/3 ML VIAL SQ SCH ×3 (10:58→18:23)
[2018-11-03] MEDS: Bumetanide 1 MG/4 ML VIAL IVP SCH (10:58)
[2018-11-03] MEDS: Isosorbide MONOnitrate (24 HR) 60 MG TAB.ER.24H PO SCH (10:59)
--- NOTE | 2018-11-03 11:15 | Internal Med Progress Note ---
Date of Encounter: 11/03/18 Time of Encounter: 11:05 - Assessment and plan (1) RIKA (acute kidney injury) Current Visit: No Status: Acute Assessment and plan: November 03. BUN and creatinine have risen to 99 and 4.23 respectively with estimated GFR of 10. Hold Bumex and recheck labs in a.m. (2) CKD (chronic kidney disease) stage 3, GFR 30-59 ml/min Current Visit: No Status: Chronic Assessment and plan: As above (3) Parkinson disease Current Visit: No Status: Chronic Assessment and plan: November 03. Continue Sinemet. (4) Gout Current Visit: No Status: Acute Assessment and plan: November 03. Uric acid was 3.4 in ER. Continue to monitor. Qualifiers: Gout site: hand Gout etiology: idiopathic Chronicity: acute Laterality: right Qualified Code(s): M10.041 - Idiopathic gout, right hand (5) Anemia Current Visit: No Status: Chronic Assessment and plan: November 03. Hemoglobin minimally changed at 9.1. Continue to monitor periodically. Qualifiers: Anemia type: unspecified type Qualified Code(s): D64.9 - Anemia, unspecified (6) Atrial fibrillation Current Visit: No Status: Chronic Assessment and plan: November 03. She has declined OAC due to GI bleed earlier this year. Stool guaiac will be done and possibly restart OAC if negative. Qualifiers: Atrial fibrillation type: paroxysmal Qualified Code(s): I48.0 - Paroxysmal atrial fibrillation (7) Hypertension Current Visit: No Status: Chronic Assessment and plan: November 03. Blood pressure remains borderline low. Remain off metoprolol and lisinopril. Qualifiers: Hypertension type: essential hypertension Qualified Code(s): I10 - Essential (primary) hypertension (8) Pulmonary embolism Current Visit: No Status: Acute Assessment and plan: November 03. She refused OAC earlier due to GI bleed a few months ago. Stool guaiac will be done. Qualifiers: Pulmonary embolism type: other Chronicity: unspecified Acute cor pulmonale presence: without acute cor pulmonale Qualified Code(s): I26.99 - Other pulmonary embolism without acute cor pulmonale (9) CHF (congestive heart failure) Current Visit: No Status: Chronic Assessment and plan: November 03. Hold Bumex due to worsening renal function. Recheck labs in a.m. Qualifiers: Heart failure type: diastolic Heart failure chronicity: acute on chronic Qualified Code(s): I50.33 - Acute on chronic diastolic (congestive) heart failure (10) Weakness Current Visit: Yes Status: Chronic Assessment and plan: November 03. Consider PT and OT evaluation when medically improved. - Subjective Interval history: November 03. She has no new complaints. She states her legs hurt. - Constitutional Vitals: Temp Pulse Resp BP Pulse Ox 97.6 F 80 16 89/56 98 11/03/18 07:33 11/03/18 07:33 11/03/18 09:14 11/03/18 07:11/03/18 09:14 Exam: She is lying in bed and appears in minimal distress at rest. Edema of her legs is unchanged. Heart is regular without murmurs or gallops. Lungs are clear anteriorly. I reviewed her medications and lab results. Internal Medicine: Result - Labs CBC & Chem 7: 11/03/18 06:07 11/03/18 06:07 Labs: Short CBC 11/03/18 Range/Units 06:07 WBC 14.7 H (4.3-11.1) K/mcL Hgb 9.1 L (11.5-15.4) g/dL Hct 29.3 L (35.3-44.9) % Plt Count 226 (140-400) K/mcL Neutrophils # 12.6 H (1.6-8.9) K/mcL BMP 11/03/18 06:07 Sodium 131 L Potassium 5.0 Chloride 95 L Carbon Dioxide 25 BUN 99 H Creatinine 4.23 H Glucose 109 H Calcium 8.2 L - Impressions Impressions Chest X-Ray 11/01/18 20:13 IMPRESSION: Cardiomegaly with mild pulmonary edema. D/ / 11/01/2018 20:47:01 Landon Taylor MD / [facility] Interpreting Provider: Landon Taylor MD Consult Discharge Plan - Plan Referrals: Otf Rivera MD [Primary Care Provider] - 1 week
[2018-11-03] MEDS: Carbidopa/Levodopa 25/100 TABLET PO SCH (11:37)
[2018-11-03] MEDS: *HR* Amiodarone 200 MG TABLET PO SCH (11:40)
[2018-11-03 13:00] LABS: Basophils # 0.1 K/mcL (0.0-0.2); Basophils % 0.7 %; Eosinophils # 0.4 K/mcL (0.0-0.6); Eosinophils % 2.5 %; Hemoglobin 9.6 g/dL (11.5-15.4); Immature Granulocytes % 2.5 % (0-4); Lymphocytes % 3.3 %; Mean Corpuscular Hemoglobin 35.6 pg (28.0-33.3); Mean Corpuscular Volume 111.1 fL (83.0-100.0); Mean Platelet Volume 11.4 fL (9.4-12.4); Monocytes % 5.7 %; Neutrophils # 14.2 K/mcL (1.6-8.9); Platelet Count 252 K/mcL (140-400); Red Cell Distribution Width 19.2 % (11.5-14.5); Segmented Neutrophils % 85.3 %; White Blood Count 16.6 K/mcL (4.3-11.1)
[2018-11-03 13:43] LABS: Lymphocytes # 0.6 K/mcL (0.6-4.6)
[2018-11-03 13:46] LABS: Anisocytosis 1+ (Not Present); Macrocytosis Present (Not Present); Rouleaux Present (Not Present)
[2018-11-03] MEDS: *HR* HYDROcodone/Acet 5/325 mg TABLET PO PRN (14:13)
[2018-11-03] MEDS ORDERED: SODIUM CHLORIDE IVC ONE ×3 (19:48→20:45)
[2018-11-03] MEDS ORDERED: 0.45 % Sodium Chloride 500 ML IV.SOLN IVC ONE (20:14)
--- NOTE | 2018-11-03 20:16 | Discharge Summary ---
Orders not resulted at time of discharge: Pending orders 11/01/18 20:26 Culture,Blood [BC] Stat Date of Encounter: 11/03/18 Time of Encounter: 20:00 - Discharge Diagnosis (1) RIKA (acute kidney injury) Priority: Primary Status: Acute (2) CKD (chronic kidney disease) stage 3, GFR 30-59 ml/min Priority: Secondary Status: Chronic (3) Parkinson disease Priority: Secondary Status: Chronic (4) Gout Priority: Secondary Status: Acute Qualifiers: Gout site: hand Gout etiology: idiopathic Chronicity: acute Laterality: right Qualified Code(s): M10.041 - Idiopathic gout, right hand (5) Anemia Priority: Secondary Status: Chronic Qualifiers: Anemia type: unspecified type Qualified Code(s): D64.9 - Anemia, unspecified (6) Atrial fibrillation Priority: Secondary Status: Chronic Qualifiers: Atrial fibrillation type: paroxysmal Qualified Code(s): I48.0 - Paroxysmal atrial fibrillation (7) Hypertension Priority: Secondary Status: Chronic Qualifiers: Hypertension type: essential hypertension Qualified Code(s): I10 - Essential (primary) hypertension (8) Pulmonary embolism Priority: Secondary Status: Acute Qualifiers: Pulmonary embolism type: other Chronicity: unspecified Acute cor pulmonale presence: without acute cor pulmonale Qualified Code(s): I26.99 - Other pulmonary embolism without acute cor pulmonale (9) CHF (congestive heart failure) Priority: Secondary Status: Chronic Qualifiers: Heart failure type: diastolic Heart failure chronicity: acute on chronic Qualified Code(s): I50.33 - Acute on chronic diastolic (congestive) heart failure (10) Weakness Priority: Secondary Status: Chronic Hospital course: Ms. Whitmore is a 78 year old female who requested to come to emergency room from a local [facility] after she had worsening dyspnea and edema. She was evaluated in emergency room and was found to have acute on chronic renal failure with severe edema. Chest x-ray showed cardiomegaly with mild pulmonary edema. She was admitted to [facility] floor for ongoing care needs. Initial orders were written by the emergency room physician. I saw her on November 02 and performed a history and physical. She was given gentle IV fluids as well as IV diuretics. Renal function further declined with BUN and creatinine rising to 99 at 4.23 respectively on day of transfer. She was started empirically on Zosyn and doxycycline. Urine culture showed yeast. Blood culture showed no growth at time of transfer. Chest x-ray on admission showed cardiomegaly with mild pulmonary edema but no obvious infiltrate reported. BN peptide was elevated at 0.38 on 11/03/2018. WBC kee to 16.6 with left shift on differential by day of transfer. She was noted to have a small amount of hematochezia the early afternoon of November 03. CBC showed hemoglobin stable at 9.6 from earlier same-day draw. No additional hematochezia was noted, however a few hours later her blood pressure was found to be 71/42. IV fluid boluses were ordered and pressure kee slightly to 77/37. She was alert and talking. I felt she should be transferred for further evaluation and Rx for acute on chronic renal failure and GI bleed. Contact was made with [facility] for transfer. - Time Spent with Patient Total time spent providing and/or coordinating discharge services: - Discharge Medications Prescriptions: No Action Ustekinumab [Stelara (For Outpatient Infusion)] 90 mg SQ [id number] Vitamin B Complex [B Complex] 1 tab PO QPM Fluticasone Propionate Nasal [Flonase] 2 spray NS BID PRN PRN Reason: Allergy Symptoms Carbidopa/Levodopa 25/100 [Sinemet 25/100] 1 tab PO BID Atorvastatin [Lipitor] 40 mg PO HS Umeclidinium [place] [Incruse Ellipta] 1 puff IH DAILY Loperamide [Imodium] 2 mg PO QID PRN PRN Reason: Diarrhea Albuterol Sulfate [Proair Hfa] 2 puff IH Q4H PRN PRN Reason: Shortness Of Breath Cholecalciferol (D-3) [Vitamin D] 1,000 unit PO DAILY tablet Budesonide/Formoterol 80/4.5 [Symbicort 80/4.5] 2 puff IH BIDRESP #1 inhaler Isosorbide MONOnitrate (24 HR) [Imdur] 120 mg PO DAILY #60 tab.er.24h FLUoxetine HCl [Fluoxetine HCl] 40 mg PO DAILY Calcitriol [Rocaltrol] 0.25 mcg PO QMWF Amiodarone [Cordarone] 200 mg PO BID Ascorbic Acid [Vitamin C] 500 mg PO 0630 tablet Docusate [Colace] 100 mg PO BID capsule Ondansetron ODT [Zofran ODT] 4 mg SL Q4HR PRN tab.rapdis PRN Reason: Nausea And Vomiting Magnesium Oxide [Mag-Ox] 400 mg PO DAILY #7 tablet HYDROcodone/Acet 5/325 mg [[place]enton 5-325 mg] 1 tab PO QAM AND QHS 60 Days #120 tablet Metoprolol [Lopressor] 25 mg PO BID tablet Bumetanide [Bumex] 1.5 mg PO DAILY Bumetanide [Bumex] 1.5 mg PO BID ALPRAZolam [Xanax 0.25 MG Tablet] 0.25 mg PO Q6HR PRN PRN Reason: Anxiety Lisinopril [Zestril] 5 mg PO DAILY Baclofen 5 mg PO HS Nystatin POWDER [Nystop] 1 appl TP BID Digoxin [Lanoxin] 0.125 mg PO 2XW Levothyroxine [Synthroid] 125 mcg PO 0630 Home Medications: Carbidopa/Levodopa 25/100 [Sinemet 25/100] 1 tab PO BID 06/24/15 [History] Fluticasone Propionate Nasal [Flonase] 2 spray NS BID PRN 06/24/15 [History] Ustekinumab [Stelara (For Outpatient Infusion)] 90 mg SQ [id number] 06/24/15 [History] Vitamin B Complex [B Complex] 1 tab PO QPM 06/24/15 [History] Atorvastatin [Lipitor] 40 mg PO HS 09/03/16 [History] Albuterol Sulfate [Proair Hfa] 2 puff IH Q4H PRN 06/18/17 [History] Cholecalciferol (D-3) [Vitamin D] 1,000 unit PO DAILY tablet 03/06/18 [Rx] Loperamide [Imodium] 2 mg PO QID PRN 04/28/18 [History] Umeclidinium [place] [Incruse Ellipta] 1 puff IH DAILY 04/28/18 [History] Budesonide/Formoterol 80/4.5 [Symbicort 80/4.5] 2 puff IH BIDRESP #1 inhaler 06/09/18 [Rx] Isosorbide MONOnitrate (24 HR) [Imdur] 120 mg PO DAILY #60 tab.er.24h 06/09/18 [Rx] Amiodarone [Cordarone] 200 mg PO BID 09/11/18 [History] Calcitriol [Rocaltrol] 0.25 mcg PO QMWF 09/11/18 [History] FLUoxetine HCl [Fluoxetine HCl] 40 mg PO DAILY 09/11/18 [History] Ascorbic Acid [Vitamin C] 500 mg PO 0630 tablet 09/15/18 [Rx] Docusate [Colace] 100 mg PO BID capsule 09/15/18 [Rx] Ondansetron ODT [Zofran ODT] 4 mg SL Q4HR PRN tab.rapdis 09/15/18 [Rx] Magnesium Oxide [Mag-Ox] 400 mg PO DAILY #7 tablet 09/22/18 [Rx] HYDROcodone/Acet 5/325 mg [Benton 5-325 mg] 1 tab PO QAM AND QHS 60 Days #120 tablet 10/15/18 [Rx] Metoprolol [Lopressor] 25 mg PO BID tablet 10/15/18 [Rx] ALPRAZolam [Xanax 0.25 MG Tablet] 0.25 mg PO Q6HR PRN 10/27/18 [History] Baclofen 5 mg PO HS 10/27/18 [History] Bumetanide [Bumex] 1.5 mg PO BID 10/27/18 [History] Bumetanide [Bumex] 1.5 mg PO DAILY 10/27/18 [History] Lisinopril [Zestril] 5 mg PO DAILY 10/27/18 [History] Nystatin POWDER [Nystop] 1 appl TP BID 10/27/18 [History] Digoxin [Lanoxin] 0.125 mg PO 2XW 11/01/18 [History] Levothyroxine [Synthroid] 125 mcg PO 0630 11/01/18 [History] Allergies/Adverse Reactions: Allergy/AdvReac Type Severity Reaction Status Date / Time amlodipine [From Norvasc] Allergy Severe Swelling Verified 11/01/18 21:05 of Lip/Tongue/Throat carbamazepine [From Tegretol] Allergy Mild rash/bliste Verified 11/01/18 21:05 rs ciprofloxacin [From Cipro] Allergy Mild Rash Verified 11/01/18 21:05 nitrofurantoin Allergy Mild Rash Verified 11/01/18 21:05 [From Macrobid] Sulfa (Sulfonamide Allergy Mild Rash Verified 11/01/18 21:05 Antibiotics) sulfamethoxazole Allergy Mild Rash Verified 11/01/18 21:05 [From Bactrim] trimethoprim [From Bactrim] Allergy Mild Rash Verified 11/01/18 21:05 Iodinated Contrast Media Allergy See Verified 11/01/18 21:05 [Iodinated Contrast- Oral Comments and IV Dye] acetaminophen [From Percocet] AdvReac Mild Confusion Verified 11/01/18 21:05 meperidine [From Demerol] AdvReac Mild Vomiting Verified 11/01/18 21:05 oxycodone [From Percocet] AdvReac Mild Confusion Verified 11/01/18 21:05 promethazine [From Phenergan] AdvReac Mild Vomiting Verified 11/01/18 21:05 NSAIDS (Non-Steroidal AdvReac Unknown D/T KIDNEY Verified 11/01/18 21:05 Anti-Inflamma DYSFUNCTION Date of admission: 11/02/18 11:38 Primary care physician: Otf Rivera MD Consults: 11/03/18 13:11 Consult to Speech Therapy [CONS] Routine Comment: Evaluate, develop and implement POC Reason for Consult: Pt reports difficulty swallowing Call Completed: Yes - Constitutional Vitals: Temp Pulse Resp BP Pulse Ox 99.1 F 68 12 74/44 98 11/03/18 19:01 11/03/18 19:42 11/03/18 19:01 11/03/18 19:42 11/03/18 19:42 - Patient Status Disposition: Transfer Other Condition: Fair - Discharge Instructions
[2018-11-03 20:21] VITALS: BP 77/37
== END 2018-11-03 22:22 | disposition other institution (70) | DRG 682 ==
LOC: EMEROOPIK 20:04 → INPPIK 20:04
PROVIDERS: ADMIT Internal Medicine; ATTEND Internal Medicine